=== PATIENT | female | born 1970 | race Caucasian/White ===

== ENCOUNTER 2020-12-20 19:13 | Emergency (ER) | payer OTHER, SELFPAY ==
[2020-12-20 19:25] VITALS: BP 145/78; PULSE 78; RESP 14; TEMP 36.9; O2SAT 95
--- NOTE | 2020-12-20 19:59 | ED.URI ---
HPI - URI/Sore Throat General Chief Complaint: Upper Respiratory Infection Stated Complaint: Fever, congestion, Ear pain, headache,sore throat, Time Seen by Provider: 12/20/20 19:59 Source: patient Limitations: no limitations History of Present Illness HPI Narrative: Susana Tracy is a 50 yo female with a PMH of hypertension and COPD who comes to [facility] with complaints of upper respiratory symptoms that started yesterday. States she is very fatigued for the last 3 to 4 days .she states that her 2 nieces had strep 2 weeks ago and that she has felt congested and running a fever since this afternoon. She abuses tobacco. She needed to use rescue inhaler today. No nausea vomiting or diarrhea Related Data Home Medications Medication Instructions Recorded Confirmed albuterol sulfate 12/20/20 atenolol 12/20/20 buprenorphine-naloxone film 12/20/20 buprenorphine-naloxone film 12/20/20 trazodone 12/20/20 Allergies Allergy/AdvReac Type Severity Reaction Status Date / Time diphenhydramine Allergy Unknown Hives Verified 12/20/20 19:36 prednisone Allergy Unknown Insomnia Verified 12/20/20 19:36 triprolidine Allergy Unknown Itching Verified 12/20/20 19:36 ANTIHISTAMINE Allergy Unknown Hives Uncoded 12/20/20 19:36 PSEUDOEPHEDRINE HCL Allergy Unknown Insomnia Uncoded 12/20/20 19:36 SYMPATHOMIMADR Allergy Unknown Unknown Uncoded 12/20/20 19:36 TRIPROLIDINE HCL Allergy Unknown Unknown Uncoded 12/20/20 19:36 Review of Systems Review of Systems: CONSTITUTIONAL: Has fever, chills, sweats. EYES: Denies visual changes, redness, discharge. ENT: Denies rhinorrhea, has congestion, has sore throat, otalgia. CARDIOVASCULAR: Denies chest pain, palpitations, edema. RESPIRATORY: Denies dyspnea, wheezing, cough GASTROINTESTINAL: Denies abdominal pain, nausea, vomiting, diarrhea. GENITOURINARY: Denies dysuria, hematuria, abnormal discharge SKIN: Denies rash or itching. NEUROLOGIC: Denies numbness, or focal weakness. PSYCHIATRIC: Denies anxiety or depression. [facility] Past Medical History Medical History COPD (chronic obstructive pulmonary disease) Hypertension Family History Family History Other Hypertension Social History Social History (Updated 12/20/20 @ 20:03 by Elisha Frederick CNP) Smoking packs per day: 1 Smoking cigarettes per day: 20.0 Smoking status: Current every day smoker Alcohol intake: never Exam Narrative: GENERAL: This is a well-nourished, well-developed patient, in mild distress. HEAD: normocephalic, atraumatic. EYES: . Sclera clear/white. Vision is grossly intact. EARS: External ears normal, auditory canals erythema and without drainage, TMs with fluid behind them. Hearing grossly intact. NOSE: External nose normal without nasal discharge, nares without redness, no rhinorrhea. THROAT: Mucous membranes moist, posterior pharynx erythema NECK: Neck supple, non-tender CARDIOVASCULAR: Regular rate and rhythm without murmurs, gallops, or rubs. RESPIRATORY: Clear to auscultation. Breath sounds equal bilaterally. No wheezes, rales, or rhonchi. GASTROINTESTINAL: Abdomen soft, SKIN: warm, intact with no suspicious lesions or rash, good texture and turgor. NEURO: awake, alert, and oriented to person, place and time. There were no obvious focal neurologic abnormalities. Steady gait EXTREMITIES: Normal range of motion. BACK: Nontender without deformity Course Course Emergency Course: Patient complaining of upper respiratory symptoms that started yesterday and worsened today states she started running a fever today Flu test negative, strep test negative, PCR sent for Covid Started on Zithromax and eardrops and Zyrtec, Tessalon Vital Signs Vital signs: Vital Signs Temperature 98.5 F 12/20/20 19:25 Pulse Rate 78 12/20/20 19:25 Respiratory Rate 14 12/20/20 19:25 Blood Pressure 145/78
[2020-12-22 19:29] LABS: SARS-CoV-2 RNA PCR Negative
== END 2020-12-20 20:13 | disposition home or self-care (01) ==
PROVIDERS: Emergency Provider Nurse Practitioner; PCP Family Medicine
DX: J06.9 Acute upper respiratory infection, unspecified (principal); Z20.822 Contact with and (suspected) exposure to COVID-19; F17.210 Nicotine dependence, cigarettes, uncomplicated; I10 Essential (primary) hypertension; J44.9 Chronic obstructive pulmonary disease, unspecified
CPT/HCPCS: 87081; 87804; 87880; 99213; C9803; G0463; U0003; U0005

== ENCOUNTER 2022-12-25 01:20 | Day surgery (SDC) | payer OTHER, SELFPAY ==
--- NOTE | 2022-12-19 14:59 | PM.HPGS ---
History of Present Illness History of Present Illness Consent: Risks, benefits, and alternatives have been discussed and questions answered. Patient agrees to proceed with procedure. Chief complaint: Atonic Bladder, Retention Narrative: Susana Tracy is a 52 year old female patient has a documented atonic bladder by urodynamics following a spinal surgery at [facility] August 2022. He has had trials of voiding she has failed. She is minimally ambulatory which makes voiding it difficult. Been managed with a chronic catheter and, after discussion of other options, she has elected for placement of a suprapubic catheter. He is ready risk of procedure including, but not limited to, hematuria, injury to bowel and ongoing recurrent infections. Review of Systems Review of Systems: All systems reviewed & are unremarkable except as noted in HPI and below PMFSH Past Medical History Medical History Chronic obstructive pulmonary disease Chronic pain syndrome Hypertension Obstructive sleep apnea Surgical History Surgical History History of cholecystectomy History of cornea transplant History of hysterectomy History of spinal surgery Patient reports having a total 6 spinal surgeries over the years. Family History Family History Other Hypertension Social History Social History Social History: Surrogate medical decision maker: Nabeel Tracy, spouse. Code status: Full code. Smoking packs per day: 1.5 Smoking cigarettes per day: 30.0 Years smoked: 35 Smoking pack-years: 52.50 Smoking status: Heavy tobacco smoker Tobacco type: cigarettes Second hand tobacco smoke exposure: No Smoking end date: 08/02/22 Additional smoking assessment comments: Quit in july 2022. Alcohol intake: former Substance use: never Substance use type: painkillers Lack of Transportation: No Lack of Food: Never True Current Housing: I Have Housing Concerned About Future Housing: No Difficulty Paying Gas/Electric Bills: No Difficulty Paying for Meds: No Currently Unemployed: No Education: High School Diploma/GED Difficulty w/ Childcare or Family Care: No Additional living arrangements comments: Lives with spouse in [place]. She has 3 children. Spiritual care concerns: No Meds Home Medications and Allergies Home Medications Medication Instructions Recorded Confirmed Type trazodone 150 mg tablet 150 mg PO HS 12/20/20 09/18/22 History albuterol sulfate 2.5 mg/3 mL 2.5 mg inhalation Q6H PRN Wheezing 09/16/22 09/18/22 History (0.083 %) solution for nebulization atomoxetine 40 mg capsule 25 mg PO DAILY 09/16/22 09/18/22 History buprenorphine 8 mg-naloxone 2 mg 1 film sublingual Q12H 09/16/22 09/18/22 History sublingual film diclofenac sodium 1 % topical gel 2 g topical DAILY PRN Pain 09/16/22 09/18/22 History diltiazem HCl 240 mg 240 mg PO DAILY 09/16/22 09/18/22 History capsule,extended release 24 hr, controlled esomeprazole magnesium 40 mg 40 mg PO Q12H 09/16/22 09/18/22 History capsule,delayed release multivit with minerals-iron 18 1 tablet PO DAILY 09/16/22 09/18/22 History mg-folic ac 400 mcg-vit K 25 mcg tablet (Adults Multivitamin) sertraline 100 mg tablet 100 mg PO HS 09/16/22 09/18/22 History bisacodyl 10 mg rectal suppository 10 mg RECTAL QAM PRN Constipation 09/17/22 09/18/22 Rx #12 ea docusate sodium 100 mg capsule 100 mg PO DAILY #60 caps 09/17/22 09/18/22 Rx ferrous sulfate 325 mg (65 mg 324 mg PO DAILY@0800 #30 tabs 09/17/22 09/18/22 Rx iron) tablet oxybutynin chloride 5 mg tablet 5 mg PO TID #90 tabs 09/17/22 09/18/22 Rx polyethylene glycol 3350 17 gram 17 g PO QAM #30 ea 09/17/22 09/18/22 Rx oral powder packet (Miralax)
[2022-12-22 13:06] VITALS: BMI 27.4
--- NOTE | 2022-12-22 13:18 | PC.NURSE ---
Report to the Outpatient Waiting Room, entrance under the green pavilion located off [facility], at time 11:00 on date 12/25/22. Planned Procedure Time: 1:00. Time changes happen often and if your time is changed the preop area will call you the afternoon before. - You and your visitor will be asked to self-screen and do not enter if you have any COVID symptoms. - A mask is optional within the hospital at this time. Patients may have clear liquids (water, carbonated beverages, clear teas, apple juice) until 3 hours prior to surgery with a maximum of 20 ounces. - No food from midnight until time of surgery Take the following medications with a SIP of water the morning of surgery: INHALER IF NEEDED, ATENOLOL, SUBOXONE, LYRICA DO NOT STOP ANY OF YOUR OTHER PRESCRIPTION MEDICATIONS PRIOR TO SURGERY ?EXCEPT THE FOLLOWING Medications to discontinue per physician: VITAMINS/SUPPLEMENTS Date to take last dose: NO MORE UNTIL AFTER SURGERY Please no make-up, nail mauritian, hairspray, perfume, deodorant, or body powder the day of surgery. No jewelry (including any body piercings) or valuables the day of surgery, leave them at home. Please take a shower or bath the night before, or the morning of, surgery with an antibacterial soap. Wear comfortable, loose fitting clothing. - Jewelry must be removed prior to entering the operating room. Rings and piercings that are not removed may be cut off. - The hospital will not accept responsibility for valuables. - Please leave all valuables, including medications, at home the day of surgery. If you are going home after surgery, a licensed hook up driver must drive you home. - NO public transportation without another adult if you receive anesthesia. - We recommend that an adult stay with you for 24 hours following discharge. - We also recommend that you do not drive, make important decision, drink alcoholic beverages, or take any drugs that were not prescribed by your health care provider for at least 24 hours after your discharge time. Follow any additional instructions given to you from your surgeon. If you or anyone in your household have experienced Covid symptoms in the past week, please notify your surgeon or the nurse liaison at the phone number below for possible testing. Telephone instructions given to PT - CORNELL SANDERS and asked if any additional questions and then verbalized understanding. Patient advised to call surgeon office or pre surgery nurse liaison [phone] if any additional questions.
[2022-12-25] VITALS (8 sets, daily range): BP systolic 91–123; BP diastolic 46–74; PULSE 62–78; RESP 11–18; TEMP 36.9; O2SAT 90–99; BMI 27.3
--- NOTE | 2022-12-25 06:31 | WPDHPUPDATE1 ---
History and Physical Update Update Date/Time: 12/25/22 06:31 History and Physical has been reviewed, including an updated exam of the patient. There are NO changes in the patient's condition. Risks, benefits, and alternatives have been discussed and questions answered. Patient agrees to proceed with procedure.
[2022-12-25] MEDS: LACTATED RINGERS 1,000 ML 30 ML IV CONT (11:40)
--- NOTE | 2022-12-25 11:47 | ECG_ITS ---
Measurements Intervals [place] Rate: 59 P: 70 AL: 177 QRS: 21 QRSD: 97 T: 48 QT: 427 QTc: 425 Interpretive Statements SINUS BRADYCARDIA LOW QRS VOLTAGE- DIFFUSE LEADS BASELINE ARTIFACT- V4 BORDERLINE ECG NO PREVIOUS ECG AVAILABLE FOR COMPARISON Electronically Signed On 12-25-2022 12:58:31 CDT by Ambrose Padilla D.O.
[2022-12-25 12:01] LABS: Anion Gap 4 mmol/L (8-16); Blood Urea Nitrogen 9 mg/dL (7-17); Carbon Dioxide 33 mmol/L (22-30); Chloride 103 mmol/L (98-107); Estimated CRCL calculation 108 ml/min; Estimated Glomerular Filt Rate > 60; Glucose 88 mg/dL (65-110); Potassium 4.1 mmol/L (3.4-5.0); Sodium 140 mmol/L (137-145)
--- NOTE | 2022-12-25 12:08 | WPDANESEPPF ---
Anes - Initial Pre Proc Eval Procedure: Operation Date: 12/25/22 12:30 Proposed Procedures p Cystoscopy with Insertion Suprapubic Catheter - Tru Jerez MD Date/Time: 12/25/22 12:08 Surgeon: Tru Jerez MD Pre Op Diagnosis: Atonic Bladder, Retention Patient Data Age: 52 Gender: F Height: 1.63 m Weight: 72.3 kg Last Vital Signs Temp 36.9 C 12/25/22 10:05 Pulse 72 12/25/22 10:05 Resp 18 12/25/22 10:05 BP 91/62 L 12/25/22 10:05 Pulse Ox 90 12/25/22 10:05 O2 Del Method Room Air 12/25/22 10:05 Allergies Allergy/AdvReac Type Severity Reaction Status Date / Time diphenhydramine Allergy Unknown Hives Verified 12/25/22 11:54 triprolidine Allergy Unknown Itching Verified 12/25/22 11:54 pseudoephedrine AdvReac Unknown Insomnia Verified 12/25/22 11:54 Home Medications Medication Instructions Recorded Confirmed Type trazodone 150 mg tablet 150 mg PO HS 12/20/20 12/22/22 History albuterol sulfate 2.5 mg/3 mL 2.5 mg inhalation Q6H PRN Wheezing 09/16/22 12/22/22 History (0.083 %) solution for nebulization buprenorphine 8 mg-naloxone 2 mg 1 film sublingual Q12H 09/16/22 12/22/22 History sublingual film diclofenac sodium 1 % topical gel 2 g topical DAILY PRN Pain 09/16/22 12/22/22 History diltiazem HCl 240 mg 240 mg PO HS 09/16/22 12/22/22 History capsule,extended release 24 hr, controlled esomeprazole magnesium 40 mg 40 mg PO Q12H 09/16/22 12/22/22 History capsule,delayed release bisacodyl 10 mg rectal suppository 10 mg RECTAL QAM PRN Constipation 09/17/22 12/22/22 Rx #12 ea oxybutynin chloride 5 mg tablet 5 mg PO TID #90 tabs 09/17/22 12/22/22 Rx atenolol 25 mg tablet 25 mg PO DAILY #30 tabs 09/25/22 12/22/22 Rx docusate sodium 100 mg capsule 100 mg PO Q12HR #30 caps 09/25/22 12/22/22 Rx pregabalin 75 mg capsule (Lyrica) 150 mg PO Q12HR #60 caps 09/25/22 12/22/22 Rx biotin 800 mcg tablet 800 mcg PO DAILY 12/22/22 12/22/22 History escitalopram oxalate 10 mg tablet 10 mg PO HS 12/22/22 12/22/22 History furosemide 20 mg tablet 20 mg PO BID 12/22/22 12/22/22 History ibuprofen 800 mg tablet 800 mg PO TID PRN Pain 12/22/22 12/22/22 History phenazopyridine 95 mg tablet (Azo 95 mg PO TID 12/22/22 12/22/22 History Urinary Pain Relief) potassium chloride 10 mEq 10 meq PO DAILY 12/22/22 12/22/22 History tablet,extended release Laboratory Tests 12/25/22 11:43 Sodium 140 mmol/L (137-145) Potassium 4.1 mmol/L (3.4-5.0) Chloride 103 mmol/L (98-107) Carbon Dioxide 33 H mmol/L (22-30) Anion Gap 4 L mmol/L (8-16) BUN 9 mg/dL (7-17) Creatinine 0.50 L mg/dL (0.7-1.0) Estim Creat Clear Calc 108 ml/min Estimated GFR > 60 (59 - ) Glucose 88 mg/dL (65-110) Calcium 9.0 mg/dL (8.4-10.2) Patient hx anesthesia problems: none Family hx anesthesia problems: none Results Review: All pre-operative results and documents have been reviewed as part of the pre-operative evaluation. [facility] Past Medical History Medical History Chronic obstructive pulmonary disease Chronic pain syndrome Hypertension Obstructive sleep apnea Surgical History Surgical History History of cholecystectomy History of cornea transplant History of hysterectomy History of spinal surgery Patient reports having a total 6 spinal surgeries over the years. Family History Family History Other Hypertension Social History Social History Social History: Surrogate medical decision maker: Nabeel Tracy, spouse. Code status: Full code. Smoking packs per day: 1 Smoking cigarettes per day: 20.0 Years smoked: 30 Smoking pack-years: 30.00 Smoking status: Current some day smoker Tobacco type: cigarettes Second h
[2022-12-25] MEDS: ceFAZolin 2 GM/D5W 50 ML 2 GM/50 ML BAG IVPB (13:14)
[2022-12-25] MEDS: LIDOCAINE HCL 1% LOCAL INJ 20 ML VIAL 8 ML INFILTRATE (13:53)
--- NOTE | 2022-12-25 13:55 | P.OP_ITS ---
Procedure Note - Detailed Date of Procedure 12/25/22 Pre-op Diagnosis Atonic Bladder, Urinary Retention Post-op Diagnosis Same Procedure Performed Cystoscopy, placement of a suprapubic catheter Surgeon Tru Jerez MD Anesthesia MAC Description of Procedure patient is brought the op suite where she has prepped draped in routine sterile fashion while in dorsal lithotomy position. 2% xylocaine jelly was introduced intraurethrally and systemic sedation is administered per the anesthesia department. Preoperative imaging was reviewed and patient has no apparent bowel in the pelvis anterior to the bladder. The bladder is hyper distended with saline through a 19 F rigid cystoscope. Spinal needle was placed in the dome. The suprapubic tract is dilated over a guidewire to 22 F and a 16 F [place] tip catheter is placed to straight drainage. The catheter secured with 3-0 nylon. The patient tolerated the procedure well was taken recovery room good condition. Blood loss was less than 5 cc. Packing No Pathology None sent Complications No immediate complications Condition Stable Disposition PACU
== END 2022-12-25 16:10 | disposition home or self-care (01) ==
PROVIDERS: Anesthesiology; PCP Family Medicine; Visit Provider Urology
PROC: 0T9B30Z Drainage of Bladder with Drainage Device, Percutaneous Approach (ICD-10-PCS; CPT 51102; principal; 2022-12-25 12:30)
DX: N31.2 Flaccid neuropathic bladder, not elsewhere classified (principal); R33.8 Other retention of urine; I10 Essential (primary) hypertension; J44.9 Chronic obstructive pulmonary disease, unspecified; G47.33 Obstructive sleep apnea (adult) (pediatric); G89.4 Chronic pain syndrome; Z87.891 Personal history of nicotine dependence; Z79.51 Long term (current) use of inhaled steroids; Z79.891 Long term (current) use of opiate analgesic
CPT/HCPCS: 51040; 36415; 80048; 93005; C1726; C1769; J0690; J2250; J2704; J3010; J7120

== ENCOUNTER 2023-05-31 12:56 | Outpatient (CLI) | payer OTHER, SELFPAY ==
--- NOTE | ~2023-05-31 | CT_ITS ---
EXAMINATION: CT abdomen pelvis wo con DATE: 05/31/2023 13:46 INDICATION: Flaccid, neuropathic bladder TECHNIQUE: Computed tomography (CT) of the abdomen and pelvis was performed without intravenous contr ast. The dose-length product (DLP) was 283.57 mGy-cm. Automated exposure control and iterative recons truction technique were employed. COMPARISON: 09/14/2022 FINDINGS: Minimal dependent atelectasis is present in the lung bases. The heart size is normal. Paul es of cholecystectomy are noted. The liver, spleen, pancreas, and adrenal glands are normal. The kidn eys appear unremarkable. No pathologically enlarged abdominal or pelvic lymph nodes are identified. N o free intraperitoneal gas or evidence of bowel obstruction. The bladder is decompressed by a suprapu bic catheter. A moderate volume of colonic stool is present. There are changes of anterior posterior fusion lumbar spine IMPRESSION: 1. No acute findings. Reviewed, dictated and finalized at location B. Y LEVEL RECRUITER IMPRESSION: 1. No acute findings.
== END 2023-05-31 12:57 | disposition home or self-care (01) ==
PROVIDERS: PCP Family Medicine; Visit Provider Physician Assistant
DX: N31.2 Flaccid neuropathic bladder, not elsewhere classified (principal)
CPT/HCPCS: 74176

== ENCOUNTER 2023-09-08 13:33 | Emergency (ER) | payer OTHER, SELFPAY ==
[2023-09-08 13:35] VITALS: BP 144/62; PULSE 72; RESP 20; TEMP 36.4; O2SAT 92
--- NOTE | 2023-09-08 14:24 | ED.GENADULT ---
HPI - General Adult General Chief complaint: Urogenital-Female Stated complaint: suprapubic catheter issue Time Seen by Provider: 09/08/23 13:59 History of Present Illness HPI narrative: 53-year-old female presenting emergency department for evaluation for a dislodged suprapubic Ochoa catheter. patient reports the last time her Ochoa catheter was changed she had some significant discomfort with that. Patient reports the suprapubic Ochoa came out approximately 4 hours ago. Related Data Home Medications Medication Instructions Recorded Confirmed trazodone 150 mg tablet 150 mg PO HS 12/20/20 12/22/22 albuterol sulfate 2.5 mg/3 mL 2.5 mg inhalation Q6H PRN Wheezing 09/16/22 12/22/22 (0.083 %) solution for nebulization buprenorphine 8 mg-naloxone 2 mg 1 film sublingual Q12H 09/16/22 12/25/22 sublingual film (Suboxone) diclofenac sodium 1 % topical gel 2 g topical DAILY PRN Pain 09/16/22 12/22/22 diltiazem HCl 240 mg 240 mg PO HS 09/16/22 12/22/22 capsule,extended release 24 hr, controlled esomeprazole magnesium 40 mg 40 mg PO Q12H 09/16/22 12/22/22 capsule,delayed release biotin 800 mcg tablet 800 mcg PO DAILY 12/22/22 12/25/22 escitalopram oxalate 10 mg tablet 10 mg PO HS 12/22/22 12/22/22 furosemide 20 mg tablet 20 mg PO BID 12/22/22 12/22/22 ibuprofen 800 mg tablet 800 mg PO TID PRN Pain 12/22/22 12/25/22 phenazopyridine 95 mg tablet (Azo 95 mg PO TID 12/22/22 12/22/22 Urinary Pain Relief) potassium chloride 10 mEq 10 meq PO DAILY 12/22/22 12/22/22 tablet,extended release Allergies Allergy/AdvReac Type Severity Reaction Status Date / Time diphenhydramine Allergy Unknown Hives Verified 12/25/22 11:54 triprolidine Allergy Unknown Itching Verified 12/25/22 11:54 pseudoephedrine AdvReac Unknown Insomnia Verified 12/25/22 11:54 Review of Systems Review of Systems: All systems reviewed & are unremarkable except as noted in HPI and below PMFSH Past Medical History Medical History Chronic obstructive pulmonary disease Chronic pain syndrome Hypertension Obstructive sleep apnea Surgical History Surgical History History of cholecystectomy History of cornea transplant History of hysterectomy History of spinal surgery Patient reports having a total 6 spinal surgeries over the years. Family History Family History Other Hypertension Social History Social History Social History: Surrogate medical decision maker: Nabeel Tracy, spouse. Code status: Full code. Smoking packs per day: 1 Smoking cigarettes per day: 20.0 Years smoked: 30 Smoking pack-years: 30.00 Smoking status: Current some day smoker Tobacco type: cigarettes Second hand tobacco smoke exposure: No Smoking end date: 08/02/22 Additional smoking assessment comments: Quit in july 2022. Alcohol intake: never Substance use: current Substance use type: marijuana Other substance usage details: EDIBLE NOT VERY OFTEN Lack of Transportation: No Lack of Food: Never True Current Housing: I Have Housing Concerned About Future Housing: No Difficulty Paying Gas/Electric Bills: No Difficulty Paying for Meds: No Currently Unemployed: No Education: High School Diploma/GED Difficulty w/ Childcare or Family Care: No Living arrangements: with family Additional living arrangements comments: Lives with spouse in [place]. She has 3 children. Spiritual care concerns: No Exam Narrative: APPEARANCE: Well appearing, no pain, no distress, well-nourished. HEAD: normocephalic, atraumatic. EYES: PERRLA/EOMI, conjunctivae clear. NOSE: Normal no drainage EARS:TMS clear with good light reflex. THROAT: Pharynx clear, no exudate. NECK: Supple. No adenopathy, no masses. RESPIRATORY: Airway patent,
--- NOTE | 2023-09-08 14:25 | PC.NURSE ---
Dr. Taylor attempted to insert Supra pubic cath, no urine return noted, pt c/o pain
--- NOTE | 2023-09-08 15:27 | PC.NURSE ---
Dr. Beasley at bedside, inserted supra pubic cath.Pt tolerated well
--- NOTE | 2023-09-08 15:33 | WPDURCON ---
Assessment and Plan Assessment and plan (1) Atonic bladder: Code(s): N31.2 - Flaccid neuropathic bladder, not elsewhere classified Status: Acute Assessment and Plan: Managed with SP tube. SP tube became dislodged today and had difficulty with replacement. Evaluated by Dr. Beasley and 14 [place] catheter was replaced over a wire with return of about 200 cc clear yellow urine. Currently on Levaquin which she will continue. Will keep current catheter for 3-4 weeks and then will f/u as an outpatient to attempt to upsize catheter. If unsuccessful or further SP tube issues, will schedule cystoscopy with Dr. Jerez for possible dilation of tract. Urology Consult Note HPI Date Seen: 09/08/23 Primary Care Provider: Guzman Moody, Jun. Consult Narrative Narrative: Susaan Tracy is a 53 year old female with history of atonic bladder managed with chronic SP tube. She came to the office on 09/04/23 for routine SP tube change and tolerated this well. This morning around 9 am, she states the tube simply fell out. There was no tugging or tension applied. She was instructed to promptly proceed to the ER for replacement. She presented to the ER about 4.5 hours later and staff was not able to replace SP tube due to resistance. I attempted to place a 14 Fr catheter without success. Dr. Beasley came to the bedside was able to insert a 14 Fr catheter over a wire with return of about 200 cc clear yellow urine. She will follow up in the office in 3-4 weeks for replacement and upsizing of catheter if possible. She typically uses an 18 Fr all silicone catheter due to irritation from standard catheters. She is currently taking Cipro which she started on 09/04/23 due to concerns for UTI at her outpatient appt. Her outpatient urine culture is still pending at this time. Review of Systems Review of Systems: All systems reviewed & are unremarkable except as noted in HPI and below PMFSH Past Medical History Medical History Chronic obstructive pulmonary disease Chronic pain syndrome Hypertension Obstructive sleep apnea Surgical History Surgical History History of cholecystectomy History of cornea transplant History of hysterectomy History of spinal surgery Patient reports having a total 6 spinal surgeries over the years. Family History Family History Other Hypertension Social History Social History Social History: Surrogate medical decision maker: Nabeel Tracy, spouse. Code status: Full code. Smoking packs per day: 1 Smoking cigarettes per day: 20.0 Years smoked: 30 Smoking pack-years: 30.00 Smoking status: Current some day smoker Tobacco type: cigarettes Second hand tobacco smoke exposure: No Smoking end date: 08/02/22 Additional smoking assessment comments: Quit in july 2022. Alcohol intake: never Substance use: current Substance use type: marijuana Other substance usage details: EDIBLE NOT VERY OFTEN Lack of Transportation: No Lack of Food: Never True Current Housing: I Have Housing Concerned About Future Housing: No Difficulty Paying Gas/Electric Bills: No Difficulty Paying for Meds: No Currently Unemployed: No Education: High School Diploma/GED Difficulty w/ Childcare or Family Care: No Living arrangements: with family Additional living arrangements comments: Lives with spouse in [place]. She has 3 children. Spiritual care concerns: No Meds Home Medications and Allergies Home Medications Medication Instructions Recorded Confirmed Type trazodone 150 mg tablet 150 mg PO HS 12/20/20 12/22/22 History albuterol sulfate 2.5 mg/3 mL 2.5 mg inhalation Q6H PRN Wheezing 09/16/22 12/22/22 History (0.083 %) solution for nebulization buprenorphine 8 mg
--- NOTE | 2023-09-11 08:33 | PC.NURSE ---
Late entry to amend physician orders for supra pubic catheter.
--- NOTE | 2023-11-06 10:44 | WPDURCON ---
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 Was only able to replace with 14 fr catheter. No complications Urology Consult Note HPI Date Seen: 09/08/23 Primary Care Provider: Guzman Moody, Greg Consult Narrative Reason for consult: inability to replace s/p tube Narrative: Susana Tracy is a 53 year old female with chronic s/p tube . Asked to see to replace s/p tube after multiple unsuccesful attempts Review of Systems Review of Systems: All systems reviewed & are unremarkable except as noted in HPI and below PMFSH Past Medical History Medical History Chronic obstructive pulmonary disease Chronic pain syndrome Hypertension Obstructive sleep apnea Surgical History Surgical History History of cholecystectomy History of cornea transplant History of hysterectomy History of spinal surgery Patient reports having a total 6 spinal surgeries over the years. Family History Family History Other Hypertension Social History Social History Social History: Surrogate medical decision maker: Nabeel Tracy, spouse. Code status: Full code. Smoking packs per day: 1 Smoking cigarettes per day: 20.0 Years smoked: 30 Smoking pack-years: 30.00 Smoking status: Current some day smoker Tobacco type: cigarettes Second hand tobacco smoke exposure: No Smoking end date: 08/02/22 Additional smoking assessment comments: Quit in july 2022. Alcohol intake: never Substance use: current Substance use type: marijuana Other substance usage details: EDIBLE NOT VERY OFTEN Lack of Transportation: No Lack of Food: Never True Current Housing: I Have Housing Concerned About Future Housing: No Difficulty Paying Gas/Electric Bills: No Difficulty Paying for Meds: No Currently Unemployed: No Education: High School Diploma/GED Difficulty w/ Childcare or Family Care: No Living arrangements: with family Additional living arrangements comments: Lives with spouse in [place]. She has 3 children. Spiritual care concerns: No Meds Home Medications and Allergies Home Medications Medication Instructions Recorded Confirmed Type trazodone 150 mg tablet 150 mg PO HS 12/20/20 12/22/22 History albuterol sulfate 2.5 mg/3 mL 2.5 mg inhalation Q6H PRN Wheezing 09/16/22 12/22/22 History (0.083 %) solution for nebulization buprenorphine 8 mg-naloxone 2 mg 1 film sublingual Q12H 09/16/22 12/25/22 History sublingual film (Suboxone) diclofenac sodium 1 % topical gel 2 g topical DAILY PRN Pain 09/16/22 12/22/22 History diltiazem HCl 240 mg 240 mg PO HS 09/16/22 12/22/22 History capsule,extended release 24 hr, controlled esomeprazole magnesium 40 mg 40 mg PO Q12H 09/16/22 12/22/22 History capsule,delayed release bisacodyl 10 mg rectal suppository 10 mg RECTAL QAM PRN Constipation 09/17/22 12/22/22 Rx #12 ea oxybutynin chloride 5 mg tablet 5 mg PO TID #90 tabs 09/17/22 12/22/22 Rx atenolol 25 mg tablet 25 mg PO DAILY #30 tabs 09/25/22 12/22/22 Rx docusate sodium 100 mg capsule 100 mg PO Q12HR #30 caps 09/25/22 12/22/22 Rx pregabalin 75 mg capsule (Lyrica) 150 mg PO Q12HR #60 caps 09/25/22 12/22/22 Rx biotin 800 mcg tablet 800 mcg PO DAILY 12/22/22 12/25/22 History escitalopram oxalate 10 mg tablet 10 mg PO HS 12/22/22 12/22/22 History furosemide 20 mg tablet 20 mg PO BID 12/22/22 12/22/22 History ibuprofen 800 mg tablet 800 mg PO TID PRN Pain 12/22/22 12/25/22 History phenazopyridine 95 mg tablet (Azo 95 mg PO TID 12/22/22 12/22/22 History Urinary Pain Relief) potassium ch
== END 2023-09-08 15:58 | disposition home or self-care (01) ==
PROVIDERS: Emergency Provider Emergency Medicine; PCP Family Medicine
DX: T83.020A Displacement of cystostomy catheter, initial encounter (principal); N31.2 Flaccid neuropathic bladder, not elsewhere classified; J44.9 Chronic obstructive pulmonary disease, unspecified; I10 Essential (primary) hypertension; G47.33 Obstructive sleep apnea (adult) (pediatric); G89.4 Chronic pain syndrome; Z94.7 Corneal transplant status; Z87.891 Personal history of nicotine dependence; Z90.710 Acquired absence of both cervix and uterus; Z90.49 Acquired absence of other specified parts of digestive tract; Z79.899 Other long term (current) drug therapy; Y84.6 Urinary catheterization as the cause of abnormal reaction of the patient, or of later complication, without mention of misadventure at the time of the procedure
CPT/HCPCS: 51702; 51705; 99283; J7030

== ENCOUNTER 2024-10-04 11:38 | Inpatient (IN) | payer OTHER, SELFPAY ==
[2024-10-04] VITALS (13 sets, daily range): BP systolic 142–170; BP diastolic 82–106; PULSE 95–106; RESP 14–20; TEMP 35.7–36.7; O2SAT 48–100; BMI 26.6
--- NOTE | ~2024-10-04 | US_ITS ---
US venous doppler LE RT - 10/05/2024 10:39 CDT History: 54 years old Female with right lower extremity pain and swelling. Real-time sonographic images of the right lower extremity venous system were obtained. Color Doppler sonography and spectral waveform analysis were performed. No prior studies for comparison. The right sapheno-femoral junctions are patent. The right common femoral, superficial femoral, popl iteal and posterior tibial veins are compressible and without evidence of echogenic thrombus. Impression: No evidence of deep venous thrombosis Reviewed, dictated and finalized at location A. Impression: No evidence of deep venous thrombosis
--- NOTE | ~2024-10-04 | XR_ITS ---
EXAM/PROCEDURE: XR chest 1V portable - 10/04/2024 12:20 CDT HISTORY: 54 years old Female with sob TECHNIQUE: AP view(s) of the chest. COMPARISON: None available. FINDINGS: LUNGS/ PLEURA: Mild vascular congestion, bilateral interstitial and alveolar opacities. HEART/ MEDIASTINUM: Heart appears normal in size. BONES: Degenerative changes. Partially visualized posterior spinal fusion hardware. OTHER: Visualized upper abdomen is unremarkable. IMPRESSION: Mild pulmonary edema. Reviewed, dictated and finalized at location A. IMPRESSION: Mild pulmonary edema.
--- NOTE | ~2024-10-04 | CT_ITS ---
EXAM: CTA chest PE protocol - 10/04/2024 14:10 CDT History: 54 years old Female with sob TECHNIQUE: CTA of the chest with contrast, according to pulmonary embolism protocol. Reformatted cor onal, sagittal, and 3-D MIP images were obtained. 100 cc of Optiray 350 were used for the study. Auto matic exposure control was used for this study. COMPARISON: None available. FINDINGS: EXAM QUALITY: Adequate visualization of the pulmonary arteries to the lobar level. PULMONARY ARTERIAL VASCULATURE: No evidence of pulmonary embolism in main and lobar pulmonary arterie s. Limited evaluation for segmental and peripheral pulmonary arteries due to suboptimal contrast bolu s timing. VISUALIZED LOWER NECK: Thyroid gland appears normal. No supraclavicular lymphadenopathy. AIRWAYS: Patent centrally. LUNGS and PLEURA: Scattered areas of groundglass and tree-in-bud opacities in left lung, concerning f or pneumonia. Mosaic attenuation of the lungs, likely sequela of obstructive small airway disease. MEDIASTINUM and FABIOLA: Hilar and mediastinal lymphadenopathy, likely reactive. Normal esophagus. HEART AND PERICARDIUM: Cardiac chambers are normal in size. No pericardial fluid or thickening is pre sent. VASCULATURE: Thoracic aorta and pulmonary arteries are normal in caliber. CHEST WALL: No supraclavicular or axillary lymphadenopathy. MUSCULOSKELETAL: Multilevel degenerative changes of the thoracic spine.Partially visualized spinal fu boris hardware in the lumbar spine. UPPER ABDOMEN: Unremarkable. IMPRESSION: 1. No evidence of pulmonary embolism in main and lobar pulmonary arteries. 2. Scattered areas of groundglass and tree-in-bud opacities in left lung, concerning for pneumonia. 3. Mosaic attenuation of the lungs, likely sequela of obstructive small airway disease. Reviewed, dictated and finalized at location A. IMPRESSION: 1. No evidence of pulmonary embolism in main and lobar pulmonary arteries. 2. Scattered areas of groundglass and tree-in-bud opacities in left lung, conc erning for pneumonia. 3. Mosaic attenuation of the lungs, likely sequela of obstructive small airway disease.
--- NOTE | 2024-10-04 12:22 | ECG_ITS ---
Test Date: 2024-10-04 12:25:06 Measurements Intervals [place] Rate: 96 P: 53 W[place]: 166 QRS: 36 QRSD: 99 T: 31 QT: 343 QTc: 434 Interpretive Statements SINUS RHYTHM POSSIBLE LEFT ATRIAL ENLARGEMENT PATTERN CONSISTENT WITH PULMONARY DISEASE INCOMPLETE RIGHT BUNDLE BRANCH BLOCK BASELINE ARTIFACT- I, III, AVL, V5-V6 BORDERLINE ECG No previous ECG available for comparison Electronically Signed On 10-04-2024 16:52:56 CDT by Ambrose Padilla D.O.
--- NOTE | 2024-10-04 12:30 | PC.NURSE ---
Dr. Guillory notified of pt. arrival to room 8 d/t pt. critical condition. Dr. Guillory immediately to bedside to assess pt. Pt. arrives with suprapubic in place. Pt. states that it was changed 1.[address] Guillory, ok to not change out suprapubic at this time.
[2024-10-04] MEDS: IPRATROPIUM 0.5 MG/ALBUTEROL SULFATE 2.5 MG AMPUL.NEB 3 ML INHALATION (12:38)
[2024-10-04 12:47] LABS: Basophils Absolute Auto 0.1 K/mm3 (0.0-0.1); Eosinophils Percent Auto 0.6 % (0-4.4); Hematocrit 46.2 % (37.0-47.0); Hemoglobin 12.4 g/dL (12.0-15.0); Immature Granulocyte Absolute 0.12 K/mm3 (0.00-0.031); Immature Granulocyte Percent A 1.8 % (0-0.5); Immature Platelet Fraction Pct 7.3 % (0.9-11.2); Lymphocytes Absolute Auto 0.95 K/mm3 (0.9-3.2); Lymphocytes Percent Auto 14.1 % (18.3-44.2); Mean Corpuscular HGB Conc 26.8 g/dl (32-36); Mean Corpuscular Hemoglobin 21.7 pg (26-34); Mean Corpuscular Volume 80.8 fl (80-100); Mean Platelet Volume 10.3 fl (7.4-10.4); Monocytes Absolute Auto 0.3 K/mm3 (0.1-0.6); Neutrophils Absolute Auto 5.3 K/mm3 (1.3-6.7); Neutrophils Percent Auto 78.5 % (45.5-73.1); Nucleated Red Blood Cells Perc 0.6 % (0.0-0.2); Platelet Count Result 152 k/mm3 (150-375); Red Blood Count 5.72 M/mm3 (4.2-5.4); Red Cell Distribution Width 20.3 % (11.5-14.5); White Blood Count 6.8 K/mm3 (4.5-10.0)
--- NOTE | 2024-10-04 12:51 | ED_ITS ---
HPI - SOB/Dyspnea General Chief Complaint: Shortness of Breath/Dyspnea Stated Complaint: SOB for 1 day, gave kim Time Seen by Provider: 10/04/24 12:25 History of Present Illness HPI Narrative: Pt getting progressivley more SOB over last few days. Pt denies chest pain. Pt has history of copd but not chf but has had swelling to legs for last few days and started on water pill yesterday. Pt also diagnosed with uti but has not started antibiotics yet. Pt denies fever or cough. Pt satting low but responded to nrb and now on NC at 4l and sats in mid 90's. Related Data Home Medications ?Medication ?Instructions ?Recorded ?Confirmed ?Last Taken ?Type trazodone 150 mg tablet 150 mg PO HS PRN sleep 12/20/20 10/04/24 Unknown History albuterol sulfate 2.5 mg/3 mL 2.5 mg inhalation Q6H PRN Wheezing 09/16/22 10/04/24 Unknown History (0.083 %) solution for nebulization buprenorphine 8 mg-naloxone 2 mg 1 film sublingual Q12H 09/16/22 10/04/24 12/25/22 08:00 History sublingual film (Suboxone) diclofenac sodium 1 % topical gel 2 g topical DAILY PRN Pain 09/16/22 10/04/24 Unknown History diltiazem HCl 240 mg 240 mg PO HS 09/16/22 10/04/24 Unknown History capsule,extended release 24 hr, controlled esomeprazole magnesium 40 mg 40 mg PO Q12H 09/16/22 10/04/24 Unknown History capsule,delayed release biotin 800 mcg tablet 800 mcg PO DAILY 12/22/22 10/04/24 12/22/22 History escitalopram oxalate 10 mg tablet 10 mg PO HS 12/22/22 10/04/24 Unknown History ibuprofen 800 mg tablet 800 mg PO TID PRN Pain 12/22/22 10/04/24 12/20/22 History phenazopyridine 95 mg tablet (Azo 95 mg PO TID 12/22/22 10/04/24 Unknown History Urinary Pain Relief) potassium chloride 10 mEq 10 meq PO DAILY 12/22/22 10/04/24 Unknown History tablet,extended release dextroamphetamine-amphetamine ER 20 mg PO DAILY 10/04/24 10/04/24 Unknown History 20 mg 24hr capsule,extend release furosemide 40 mg tablet 40 mg PO DAILY 10/04/24 10/04/24 Unknown History Allergies Allergy/AdvReac Type Severity Reaction Status Date / Time diphenhydramine Allergy Unknown Hives Verified 10/04/24 12:35 triprolidine Allergy Unknown Itching Verified 10/04/24 12:35 pseudoephedrine AdvReac Unknown Insomnia Verified 10/04/24 12:35 Review of Systems 2 Review of Systems: All systems reviewed & are unremarkable except as noted in HPI and below PMFSH Past Medical History Medical History Atonic bladder GERD (gastroesophageal reflux disease) Partial bowel obstruction Chronic pain syndrome Obstructive sleep apnea Chronic obstructive pulmonary disease Hypertension Surgical History Surgical History History of cholecystectomy History of hysterectomy History of spinal surgery Patient reports having a total 6 spinal surgeries over the years. History of cornea transplant Family History Family History (Updated 10/04/24 @ 20:58 by Susana Davidson RN) Father Hypertension Mother Hypertension Social History Social History Social History: Surrogate medical decision maker: Nabeel Tracy, spouse. Code status: Full code. Smoking packs per day: 1.5 Smoking cigarettes per day: 30.0 Years smoked: 30 Smoking pack-years: 45.00 Smoking status: Former smoker Tobacco type: cigarettes Second hand tobacco smoke exposure: No Smoking end date: 08/02/22 Additional smoking assessment comments: Quit in july 2022. Alcohol intake: never Substance use: former Substance use type: opiates Other substance usage details: EDIBLE NOT VERY OFTEN Do You Feel Safe in your Home?: Yes Lack of Transportation: YES Lack of Food: Never True Current Housing: I Have Housing Concerned About Future Housing: No Difficulty Paying Gas/Electric Bills: No Difficulty Paying for Meds: No Currently Unemployed: No Education: High School Diploma/GED Difficulty w/ Childcare or Family Care: No Living arrangements: with family Additional living arrangements comments: Lives with spouse in [place]. She has 3 children. Spiritual care concerns: No Exam 2 Const: General: healthy appearing Nutritional Appearance: well nourished Orientation/consciousness: patient oriented x3 Limitations: no limitations Eyes: EOM: EOMs intact bilaterally Chest: Chest palpation & inspection: normal inspection of the chest Resp: Effort & Inspection: labored and tachypneic Auscultation: diminished lung sounds Cardio: Rate: regular rate Rhythm: regular rhythm GI: GI Palp: Yes Soft to palpation and No Tenderness to palpation present (GI) Auscultation: normal bowel sounds Back/Spine/Pelvis: Back: no CVA tenderness Skin: General skin exam: normal color Rashes: no rashes Wounds: no wounds Neuro: General: patient oriented x3, moves all extremities, no meningeal signs, no focal motor deficits and CN's II-XI intact bilaterally Cranial nerves: Yes Nystagmus not present Speech: normal speech Extrem: General: normal to inspection and no clubbing, cyanosis or edema Psych: Mental Status: mental status grossly normal Affect: normal affect Attitude: cooperative Course Vital Signs Vital signs: Vital Signs Temperature 98.0 F 10/04/24 12:11 Pulse Rate 106 H 10/04/24 12:11 Respiratory Rate 20 10/04/24 12:11 Blood Pressure 142/82 H 10/04/24 12:11 Pulse Oximetry 51 L 10/04/24 12:11 Oxygen Delivery Room Air 10/04/24 12:11 Temperature 97.1 F L 10/04/24 12:24 Pulse Rate 95 10/04/24 18:40 Respiratory Rate 18 10/04/24 18:40 Blood Pressure 164/95 H 10/04/24 18:40 Pulse Oximetry 92 10/04/24 18:40 Oxygen Delivery Nasal Cannula 10/04/24 12:34 Oxygen Flow Rate 4 10/04/24 12:34 MDM - SOB/Dyspnea MDM Narrative Medical decision making narrative: Pt presents with SOB and leg swelling. need to rule out chf and pneumonia and copd exacerbation and RI. ekg andl labs and cxr ordered as well as neb. Pt comfortable now on 4L. cta chest neg for PE but some infiltrate. will start on rocephin and zithromax. discussed with Melba Lundberg and agrees to admit. Lab Data 10/04/24 12:36 10/04/24 12:36 Labs: Lab Results 10/04/24 10/04/24 10/04/24 Range/Units 12:36 12:45 12:49 WBC 6.8 (4.5-10.0) K/mm3 RBC 5.72 H (4.2-5.4) M/mm3 Hgb 12.4 (12.0-15.0) g/dL Hct 46.2 (37.0-47.0) % MCV 80.8 (80-100) fl MCH 21.7 L (26-34) pg MCHC 26.8 L (32-36) g/dl RDW 20.3 H (11.5-14.5) % Plt Count 152 (150-375) k/mm3 MPV 10.3 (7.4-10.4) fl Immature Gran % (Auto) 1.8 H (0-0.5) % Neut % (Auto) 78.5 H (45.5-73.1) % Lymph % (Auto) 14.1 L (18.3-44.2) % [place] % (Auto) 4.0 (2.6-8.5) % Eos % (Auto) 0.6 (0-4.4) % Baso % (Auto) 1.0 (0.2-1.2) % Lymph # (Auto) 0.95 (0.9-3.2) K/mm3 [place] # (Auto) 0.3 (0.1-0.6) K/mm3 Eos # (Auto) 0.0 (0-0.3) K/mm3 Baso # (Auto) 0.1 (0.0-0.1) K/mm3 Abs Immat Gran (auto) 0.12 H (0.00-0.031) K/mm3 Absolute Neuts (auto) 5.3 (1.3-6.7) K/mm3 Absolute Nucleated RBC 0.040 H (0.0-0.012) K/mm3 Band Neutrophils % Not Reportable Nucleated RBC % 0.6 H (0.0-0.2) % Platelet Estimate Adequate (Adequate) % Immature Plt Fraction 7.3 (0.9-11.2) % Hypochromasia 1+ Anisocytosis 1+ Schistocytes None seen PT 13.5 (11.1-14.7) Seconds INR 1.0 APTT 31.1 (22.3-36.8) Seconds Sodium 143 (137-145) mmol/L Potassium 4.3 (3.4-5.0) mmol/L Chloride 101 (98-107) mmol/L Carbon Dioxide 35 H (22-30) mmol/L Anion Gap 7 (4-12) mmol/L BUN 10 (7-17) mg/dL Creatinine 0.39 L (0.7-1.0) mg/dL Estim Creat Clear Calc 116 ml/min Estimated GFR > 60 (59 - ) Glucose 112 H (65-110) mg/dL Lactic Acid 0.7 (0.7-2.0) mmol/L Calcium 9.1 (8.4-10.2) mg/dL Total Bilirubin 0.6 (0.2-1.3) mg/dL AST 24 (14-36) U/L ALT 10 (6-35) U/L Alkaline Phosphatase 156 H (38-126) U/L Troponin I < 0.012 (0.000-0.034) ng/mL NT-Pro-B Natriuret Pep 3300 H (19.9-100) pg/mL Total Protein 7.8 (6.3-8.2) g/dL Albumin 3.9 (3.5-5.1) g/dL Urine Color Yellow (Yellow) Urine Appearance Cloudy H (Clear) Urine pH 7.0 (5.0-9.0) Ur Specific [place] 1.022 (1.001-1.035) Urine Protein 1+ H (Negative) mg/dL Urine Glucose (UA) Negative (Negative) mg/dL Urine Ketones 1+ H (Negative) mg/dL Ur Blood (Man) 1+ H (Negative) Urine Nitrate Positive H (Negative) Urine Bilirubin Negative (Negative) Urine Urobilinogen 2.0 H (<2.0) mg/dL Leukocyte Esterase Rfl 3+ H (Negative) [place]/UL Urine RBC 51-100 H (0-2) /hpf Urine WBC >100 H (0-3) /hpf Ur Squamous Epith Cells None seen (Few) /hpf Urine Bacteria 4+ H /hpf Urine Casts 0-2 Discharge Plan Discharge Clinical Impression: CHF (congestive heart failure) Pneumonia Qualifiers: Pneumonia type: due to unspecified organism Laterality: left Lung location: u nspecified part of lung Qualified Code(s): J18.9 - Pneumonia, unspecified organism Patient Disposition: Still a Patient Condition: Improved
[2024-10-04 12:54] LABS: Add Urine Microscopic? YES; Appearance Urine Cloudy (Clear); Bacteria Urine 4+ /hpf; Bilirubin Urine Negative (Negative); Blood Urine 1+ (Negative); Color Urine Yellow (Yellow); Glucose Urine UA Negative (Negative); Ketones Urine 1+ mg/dL (Negative); Leukocyte Esterase Ur 3+ LEU/UL (Negative); Nitrate Urine Positive (Negative); Non Pathogenic Casts 0-2; Protein Urine 1+ mg/dL (Negative); RBC Urine 51-100 /hpf (0-2); Specific Grav Ur 1.022 (1.001-1.035); Squamous Epithelial Cell Urine None Seen /hpf (Few); WBC Urine >100 /hpf (0-3)
[2024-10-04 12:57] LABS: Prothrombin Time 13.5 Seconds (11.1-14.7)
[2024-10-04 12:58] LABS: Partial Thromboplastin Time 31.1 Seconds (22.3-36.8)
[2024-10-04 13:01] LABS: Alanine Aminotransferase 10 U/L (6-35); Albumin Level 3.9 g/dL (3.5-5.1); Alkaline Phosphatase 156 U/L (38-126); Anion Gap 7 mmol/L (4-12); Aspartate Amino Transferase 24 U/L (14-36); Bilirubin,Total 0.6 mg/dL (0.2-1.3); Blood Urea Nitrogen 10 mg/dL (7-17); Calcium 9.1 mg/dL (8.4-10.2); Carbon Dioxide 35 mmol/L (22-30); Chloride 101 mmol/L (98-107); Estimated CRCL calculation 116 ml/min; Estimated Glomerular Filt Rate > 60; Glucose 112 mg/dL (65-110); Potassium 4.3 mmol/L (3.4-5.0); Sodium 143 mmol/L (137-145); Total Protein 7.8 g/dL (6.3-8.2)
[2024-10-04 13:05] LABS: Lactic Acid Reflex 0.7 mmol/L (0.7-2.0)
[2024-10-04 13:07] LABS: Anisocytosis 1+; Hypochromasia 1+; Platelet Estimate Adequate (Adequate); Schistocytes None Seen
[2024-10-04 13:12] LABS: NT Pro B Type Natriuretic Pept 3300 pg/mL (19.9-100); Troponin I < 0.012 ng/mL (0.000-0.034)
--- NOTE | 2024-10-04 13:50 | PC.NURSE ---
With pt. permission, sister updated at bedside and daughter updated over the phone by this RN. All questions answered at this time.
[2024-10-04] MEDS: FUROSEMIDE INJ 40 MG/4 ML VIAL IV PUSH (14:32)
--- NOTE | 2024-10-04 15:25 | P.HP_ITS ---
H&P: HPI History of Present Illness Date/Time: 10/04/24 15:25 Chief Complaint: BLE Swelling, Abdominal Swelling, SOB Narrative: 54 y/o F with PMH of COPD, chronic pain syndrome, atonic bladder, hypertension, and MIKE presents here with bilateral lower extremity swelling, abdominal swelling, and shortness of breath. The patient presents here from home via EMS for further evaluation of lower extremity swelling, abdominal swelling, and shortness of breath.? She reports onset approximately 24 hours ago.? She contacted her PCP with her symptoms and she was started on a diuretic yesterday - able to take one dose yesterday. She reports no change in her LE. She denies any previously known history of CHF.? Shortness of breath is accompanied by productive cough (sputum - yellow).? Denies fever, chills, body aches, nausea, vomiting, or diarrhea.? Upon arrival to the emergency department, the patient was found to be 40% on room air with a good pleth on the monitor. Breathing was labored, speaking in short sentences, and placed on a non-rebreather with improvement in her oxygen to 100%.? She has since been titrated down to 4 L nasal cannula and O2 sat on average around 95%.? Along with the shortness of breath and swelling, she reports she was recently diagnosed with the UTI and has not started her medications.? She has a chronic suprapubic catheter in place due to history of atonic bladder.? Catheter was last exchanged 1.5 weeks ago. Initial VS at presentation: ?98? F, HR 106, R 20, 142/82, and 51% on RA.? Now 95% on 4L nasal cannula. ED workup showed: ?No leukocytosis, no anemia, normal coags, creatinine 0.39 and GFR >60, glucose 112, lactic within normal limits, initial troponin negative, BNP 3300, and UA suggestive of UTI.? CXR showed mild pulmonary edema.? Chest CTA showed no evidence of PE, scattered areas of ground-glass and tree-in-bud opacities in the left lung concerning for pneumonia, was a continuation of the lungs likely sequela of obstructive small airway disease.? EKG showed sinus bradycardia, rate 59, low QRS voltage in diffuse leads. Review of Systems Review of Systems: All systems reviewed & are unremarkable except as noted in HPI and below PMFSH Past Medical History Medical History Atonic bladder GERD (gastroesophageal reflux disease) Partial bowel obstruction Chronic pain syndrome Obstructive sleep apnea Chronic obstructive pulmonary disease Hypertension Surgical History Surgical History History of cholecystectomy History of hysterectomy History of spinal surgery Patient reports having a total 6 spinal surgeries over the years. History of cornea transplant Family History Family History Father Hypertension Mother Hypertension Social History Social History Social History: Surrogate medical decision maker: Nabeel Tracy, spouse. Code status: Full code. Smoking packs per day: 1.5 Smoking cigarettes per day: 30.0 Years smoked: 30 Smoking pack-years: 45.00 Smoking status: Former smoker Tobacco type: cigarettes Second hand tobacco smoke exposure: No Smoking end date: 08/02/22 Additional smoking assessment comments: Quit in july 2022. Alcohol intake: never Substance use: former Substance use type: opiates Other substance usage details: EDIBLE NOT VERY OFTEN Do You Feel Safe in your Home?: Yes Lack of Transportation: YES Lack of Food: Never True Current Housing: I Have Housing Concerned About Future Housing: No Difficulty Paying Gas/Electric Bills: No Difficulty Paying for Meds: No Currently Unemployed: No Education: High School Diploma/GED Difficulty w/ Childcare or Family Care: No Living arrangements: with family Additional living arrangements comments: Lives with spouse in [place]. She has 3 children. Spiritual care concerns: No Meds Home Medications and Allergies Home Medications ?Medication ?Instructions ?Recorded ?Confirmed ?Type trazodone 150 mg tablet 150 mg PO HS PRN sleep 12/20/20 10/04/24 History albuterol sulfate 2.5 mg/3 mL 2.5 mg inhalation Q6H PRN Wheezing 09/16/22 10/04/24 History (0.083 %) solution for nebulization buprenorphine 8 mg-naloxone 2 mg 1 film sublingual Q12H 09/16/22 10/04/24 History sublingual film (Suboxone) diclofenac sodium 1 % topical gel 2 g topical DAILY PRN Pain 09/16/22 10/04/24 History diltiazem HCl 240 mg 240 mg PO HS 09/16/22 10/04/24 History capsule,extended release 24 hr, controlled esomeprazole magnesium 40 mg 40 mg PO Q12H 09/16/22 10/04/24 History capsule,delayed release oxybutynin chloride 5 mg tablet 5 mg PO TID #90 tabs 09/17/22 10/04/24 Rx atenolol 25 mg tablet 25 mg PO DAILY #30 tabs 09/25/22 10/04/24 Rx pregabalin 75 mg capsule (Lyrica) 150 mg (2 x 75 mg) PO Q12HR #60 09/25/22 10/04/24 Rx caps biotin 800 mcg tablet 800 mcg PO DAILY 12/22/22 10/04/24 History escitalopram oxalate 10 mg tablet 10 mg PO HS 12/22/22 10/04/24 History ibuprofen 800 mg tablet 800 mg PO TID PRN Pain 12/22/22 10/04/24 History phenazopyridine 95 mg tablet (Azo 95 mg PO TID 12/22/22 10/04/24 History Urinary Pain Relief) potassium chloride 10 mEq 10 meq PO DAILY 12/22/22 10/04/24 History tablet,extended release albuterol sulfate 90 mcg/actuation 2 puff inhalation Q6H PRN 10/04/24 10/04/24 History aerosol inhaler shortness of breath or wheezing dextroamphetamine-amphetamine ER 20 mg PO DAILY 10/04/24 10/04/24 History 20 mg 24hr capsule,extend release furosemide 40 mg tablet 40 mg PO DAILY 10/04/24 10/04/24 History Allergies Allergy/AdvReac Type Severity Reaction Status Date / Time diphenhydramine Allergy Unknown Hives Verified 10/04/24 12:35 triprolidine Allergy Unknown Itching Verified 10/04/24 12:35 pseudoephedrine AdvReac Unknown Insomnia Verified 10/04/24 12:35 Vital Signs Vital Signs - 24 hr 10/04/24 12:11 10/04/24 12:18 10/04/24 12:20 Temperature 98.0 F Pulse Rate 106 H Respiratory Rate 20 Blood Pressure 142/82 H Pulse Oximetry 51 L 48 L 100 Oxygen Delivery Room Air Room Air Non-Rebreather Mask Oxygen Flow Rate 10 10/04/24 12:24 10/04/24 12:24 10/04/24 12:34 Temperature 97.1 F L Pulse Rate 99 Respiratory Rate 15 Blood Pressure 170/106 H Pulse Oximetry 100 93 93 Oxygen Delivery Nasal Cannula Nasal Cannula Nasal Cannula Oxygen Flow Rate 6 4 4 10/04/24 12:41 10/04/24 13:43 Temperature Pulse Rate 100 100 Respiratory Rate 18 17 Blood Pressure 163/95 H Pulse Oximetry 89 L Oxygen Delivery Oxygen Flow Rate Exam Const: General: comfortable and no acute distress Other: , female, chronically ill-appearing. Fatigued HENMT: Face/Nose/Sinus: Normal nares present Mouth: Yes moist mucous membranes Eyes: General: appearance normal, both eyes and all related structures Sclera: sclerae normal Pupils: Equal, round and reactive pupils present EOM: EOMs intact bilaterally Resp: Effort & Inspection: normal respiratory effort Other: Wheezing bilaterally, more prominent on the left. Bibasilar crackles. Cardio: Rate: regular rate Rhythm: regular rhythm Other: S1-S2 present without murmur, rub, ectopy GI: Other: Abdomen soft, nontender, nondistended. Suprapubic catheter in place. Normoactive bowel sounds in all quadrants. Skin: Other: Mild erythema and warmth to the right lower extremity, no open wounds. Neuro: Speech: normal speech Motor exam (neuro): 5/5 motor strength present throughout Sensory Exam: normal sensation Other: A&O x4 Extrem: Other: RLE swelling 1-2+ and pitting with mild erythema and warmth, LLE 1+, trace pitting. Psych: Mental Status: mental status grossly normal Affect: normal affect Other: Good insight judgment, pleasant H&P: Results Labs Labs: Short CBC 10/04/24 Range/Units 12:36 WBC 6.8 (4.5-10.0) K/mm3 Hgb 12.4 (12.0-15.0) g/dL Hct 46.2 (37.0-47.0) % Plt Count 152 (150-375) k/mm3 BMP 10/04/24 12:36 Sodium 143 Potassium 4.3 Chloride 101 Carbon Dioxide 35 H BUN 10 Creatinine 0.39 L Glucose 112 H Calcium 9.1 Cardiac Enzymes 10/04/24 Range/Units 12:36 Troponin I < 0.012 (0.000-0.034) ng/mL Liver Function 10/04/24 Range/Units 12:36 Total Bilirubin 0.6 (0.2-1.3) mg/dL AST 24 (14-36) U/L ALT 10 (6-35) U/L Alkaline Phosphatase 156 H (38-126) U/L Albumin 3.9 (3.5-5.1) g/dL Urine 10/04/24 Range/Units 12:45 Urine Color Yellow (Yellow) Urine Appearance Cloudy H (Clear) Urine pH 7.0 (5.0-9.0) Ur Specific [place] 1.022 (1.001-1.035) Urine Protein 1+ H (Negative) mg/dL Urine Glucose (UA) Negative (Negative) mg/dL Assessment and Plan Assessment and plan (1) Acute hypoxic respiratory failure: Code(s): J96.01 - Acute respiratory failure with hypoxia Status: Acute Assessment and Plan: Suspected to be multifactorial including possible CHF exacerbation, pneumonia, COPD component.? CTA showed no PE, concerning for pneumonia of the left lung.? Started on ceftriaxone and azithromycin.? Did not meet SIRS criteria, HR only.? However significantly hypoxic - 51% on room air upon arrival.? Lactic 0.7. Blood cultures obtained in the ED on 10/04, follow. (2) Pneumonia: Qualifiers: Laterality: left Lung location: unspecified part of lung Pneumonia type: due to unspecified organism Qualified Code(s): J18.9 - Pneumonia, unspecified organism Code(s): J18.9 - Pneumonia, unspecified organism Status: Acute Assessment and Plan: - CXR:? Mild pulmonary edema - chest CTA: 1. No evidence of pulmonary embolism in main and lobar pulmonary arteries. 2. Scattered areas of groundglass and tree-in-bud opacities in left lung, concerning for pneumonia. 3. Mosaic attenuation of the lungs, likely sequela of obstructive small airway disease. - started on ceftriaxone and azithromycin on 10/04 - check MRSA PCR and sputum culture - supportive care:? Tylenol p.r.n., Mucinex scheduled, Tessalon Perles p.r.n. - contain supplemental O2 to maintain O2 saturation greater than 92%, currently requiring 4L nasal cannula (3) CHF (congestive heart failure): Qualifiers: Heart failure chronicity: acute Heart failure type: unspecified Qualified Code(s): I50.9 - Heart failure, unspecified Code(s): I50.9 - Heart failure, unspecified Status: Suspected Assessment and Plan: - BNP 3300 - CXR showed mild pulmonary edema, however not noted on CTA.? Patient reporting bilateral lower extremity swelling and abdominal swelling concerning for CHF exacerbation. - no echo on file, ordered - started on Lasix 40 mg IV daily - monitor I&Os and daily weights - trend renal function (4) Chronic obstructive pulmonary disease: Qualifiers: COPD type: COPD with acute exacerbation Qualified Code(s): J44.1 - Chronic obstructive pulmonary disease with (acute) exacerbation Code(s): J44.9 - Chronic obstructive pulmonary disease, unspecified Status: Chronic Assessment and Plan: - acute exacerbation - DuoNebs p.r.n. - prednisone 40 mg x 5 days (5) Urinary tract infection: Qualifiers: Encounter type: initial encounter Indwelling urinary catheter type: indwelling urethral catheter Urinary tract infection type: catheter-associated UTI Qualified Code(s): T83.511A - Infection and inflammatory reaction due to indwelling urethral catheter, initial encounter; N39.0 - Urinary tract in fection, site not specified Code(s): N39.0 - Urinary tract infection, site not specified Status: Acute Assessment and Plan: - UA:? Cloudy, 1+ protein, 1+ ketones, 1+ blood, positive nitrates, 2.0 urobilinogen, 3+ leuks, 51-100 RBC, greater than 100 WBC, 4+ bacteria with no epithelial cells. - UC pending - previous micro reviewed, pansensitive Enterococcus in 2022. - started on Ceftriaxone on 10/04 (6) Atonic bladder: Code(s): N31.2 - Flaccid neuropathic bladder, not elsewhere classified Status: Acute Assessment and Plan: - suprapubic catheter in place, last exchange 1.5 weeks ago (7) Hypertension: Qualifiers: Hypertension type: primary hypertension Qualified Code(s): I10 - Essential (primary) hypertension Code(s): I10 - Essential (primary) hypertension Status: Chronic Assessment and Plan: - chronic, currently 163/93 - continue home medications: Atenolol - monitor Plan Asymmetric swelling to the right lower extremity, check ultrasound. Diet: Heart healthy GI Prophylaxis: Not currently indicated DVT Prophylaxis: Lovenox SQ IV fluids: None, concern for CHF Lines/Tubes: Peripheral IV, suprapubic catheter Code Status: Full code Quality VTE Prophylaxis VTE prophylaxis: pharmacologic ordered Hospitalist MIPS Advance Care Plan I have confirmed that the patient's Advanced Care Plan is present, code status is documented, or surrogate decision maker is listed in patient medical record.: Yes Medication Reconciliation I have utilized all available resources to obtain, update and review the patients current medications (includes all prescriptions, OTC, herbals, cannabis, and nutritional supplements).: Yes
--- NOTE | 2024-10-04 16:04 | PC.NURSE ---
Pt. states I know this sounds weird but I pee from down there as well. Pure wick placed. No output in suction canister at this time.
[2024-10-04] MEDS: cefTRIAXone 2 GM/NS 100 ML 2 GM/100 ML BAG IVPB (16:06)
--- NOTE | 2024-10-04 16:43 | PC.NURSE ---
This RN walked into pt. room. Pt. c/o extreme pain in her legs. States she takes lyrica 150mg twice a day but I haven't had it since yesterday. Medication in home med list. Dr. bennett notified and order placed.
[2024-10-04] MEDS: AZITHROMYCIN 500 MG/NS 250 ML 500 MG/250 ML BAG 250 MG IVPB (16:45)
[2024-10-04] MEDS: PREGABALIN (*CRX) 75 MG CAPSULE 150 MG PO ×2 (16:48→21:30)
[2024-10-04 17:00] LABS: MRSA (PCR). DETECTED (NOT DETECTE)
--- NOTE | 2024-10-04 17:32 | PC.NURSE ---
Pt. daughter Lexie updated over the phone. All questions answered by this RN.
--- NOTE | 2024-10-04 18:38 | PC.NURSE ---
Meal tray delivered to pt. bedside. Pt. is drowsy but alert to verbal. Pt. reports she is not hungry.
[2024-10-04] MEDS: VANCOMYCIN 1,750 MG/NS 500 ML 1,750 MG/500 ML BAG 250 MG IVPB (18:39)
[2024-10-04 20:31] LABS: Glucose Point of Care 109 mg/dl (65-105)
--- NOTE | 2024-10-04 21:14 | ADMGEN ---
This patient, Susana Tracy, was admitted to [facility] Surg Room 321-02. Patient/family oriented to hospital policies and general routines including ID bracelet, bed and alarms, visiting hours, pain management, procedures, bathroom and other care routines, personal items, smoking policy, room service/diet, and visiting hours. Information on how to activate the Rapid Response Team has been discussed. Patient/Family are encouraged to report perceived risks to care and to ask questions if they do not understand what they are told or what they should do.
[2024-10-04] MEDS: MUPIROCIN 2% OINT 22 GM TUBE 1 APPLIC EACH NARE (21:30)
[2024-10-04] MEDS: guaiFENesin 12 HR 600 MG TABCR PO (21:30)
[2024-10-05] VITALS (19 sets, daily range): BP systolic 143–146; BP diastolic 81–83; PULSE 70–98; RESP 12–20; TEMP 36.5–37.1; O2SAT 92–96
--- NOTE | 2024-10-05 | ECHO_ITS ---
Patient Info Name: Susana Tracy Age: 54 years : 1970 Gender: Female Ht: 64 in Wt: 155 lbs BSA: 1.80 m2 HR: 87 bpm BP: 167 / 93 mmHg Technical Quality: Good Exam Date: 10/05/2024 8:28 AM Patient Status: I Admit Date: 10/04/2024 Exam Type: CA echo doppler color flow Complete two-dimensional, color flow and Doppler transthoracic echocardiogram is performed. Staff Referring Physician: Melba Mackey Forklift Supervisor: Lashae Diaz Attending Provider: Herb Strong Summary 1. Complete two-dimensional, color flow and Doppler transthoracic echocardiogram is performed. 2. Left ventricular chamber dimension is normal. 3. Left ventricular systolic function is normal, estimated at 65-70. 4. The left ventricular diastolic function is grade I diastolic dysfunction. 5. E/e' 10 is mildly elevated. 6. Left atrial chamber dimension is moderately enlarged. 7. Right atrial chamber dimension is severely enlarged. 8. There is mild aortic valve sclerosis. 9. There is trace mitral valve regurgitation. 10. There is mild tricuspid valve regurgitation. 11. Severe pulmonary hypertension, estimated pulmonary arterial systolic pressure is 67 mmHg. 12. There is trace pulmonic regurgitation. 13. Dilated inferior vena cava with >50% collapse upon inspiration consistent with elevated right atrial pressure, 10 mmHg. Left Ventricle E/e' 10 is mildly elevated. Left ventricular chamber dimension is normal. Left ventricular systolic function is normal, estimated at 65-70. The left ventricular diastolic function is grade I diastolic dysfunction. Right Ventricle Right ventricular chamber dimension is normal. Right ventricular systolic function is normal and with normal TAPSE 3.6 cm. Left Atria Left atrial chamber dimension is moderately enlarged. Right Atria Right atrial chamber dimension is severely enlarged. Aortic Valve The aortic valve is trileaflet. There is mild aortic valve sclerosis. There is no aortic valve stenosis. There is no aortic valve regurgitation. Pulmonic Valve There is trace pulmonic regurgitation. Mitral Valve There is no mitral valve stenosis. There is trace mitral valve regurgitation. Tricuspid Valve There is mild tricuspid valve regurgitation. Severe pulmonary hypertension, estimated pulmonary arterial systolic pressure is 67 mmHg. Pericardium/Pleural There is no pericardial effusion. Inferior Vena Cava Dilated inferior vena cava with >50% collapse upon inspiration consistent with elevated right atrial pressure, 10 mmHg. Aorta The aortic root size at the sinus of Valsalva is normal. Left Ventricular Outflow Tract Name Value Normal LVOT 2D LVOT Diameter 1.9 cm LVOT Doppler LVOT Peak Velocity 174 cm/s LVOT Peak Gradient 12 mmHg LVOT Mean Gradient 6 mmHg LVOT VTI 34 cm LVOT VTI/AV VTI Ratio 0.9 LVOT Stroke Volume 99 ml LVOT CO 8.5 l/min LVOT CI 4.7 l/min/m2 Pulmonic Valve Name Value Normal PV Doppler PV Peak Velocity 114 cm/s PV Peak Gradient 5 mmHg Mitral Valve Name Value Normal MV Diastolic Function MV E Peak Velocity 98 cm/s MV A Peak Velocity 120 cm/s MV E/A 0.8 MV Decel Time (PW) 228 ms MV Annular TDI MV E/e' (Septal) 11.6 MV E/e' (Lateral) 9.4 MV E/e' (Average) 10.5 Tricuspid Valve Name Value Normal TV Regurgitation Doppler TR Peak Velocity 377 cm/s TR Peak Gradient 57 mmHg Estimated PAP/RSVP RA Pressure 10 mmHg <=5 PA Systolic Pressure 67 mmHg <36 RV Systolic Pressure 67 mmHg <36 TV Annular TDI TV Lateral Kalpana s' Velocity 20.3 cm/s >=9.5 Aortic Valve Name Value Normal AV Doppler AV Peak Velocity 197 cm/s AV Peak Gradient 16 mmHg AV Mean Gradient 8 mmHg AV VTI 38 cm AV Area (Cont Eq VTI) 2.6 cm2 >=3.0 AV Area (Cont Eq Les) 2.6 cm2 AV DI (Les) 0.88 AV Regurgitation 2D LVOT Area 2.9 cm2 Ventricles Name Value Normal LV Dimensions 2D/MM IVS Diastolic Thickness (2D) 0.9 cm 0.6-1.0 LVID Diastole (2D) 4.9 cm 3.8-5.2 LVIW Diastolic Thickness (2D) 1.0 cm 0.6-0.9 LVID Systole (2D) 3.1 cm 2.2-3.5 LVOT Diameter 1.9 cm LV Mass (2D Cubed) 170.56 g 67.00-162.00 LV Mass Index (2D Cubed) 95 g/m2 43-95 Relative Wall Thickness (2D) 0.42 <=0.42 LV Fractional Shortening/Ejection Fraction 2D/MM LV Fractional Shortening (2D) 37 % 27-45 LV EF (2D Teichholz) 67 % LV Diastolic Volume (4C MOD) 89 ml LV EF (4C MOD) 77 % LV Diastolic Volume (2C MOD) 105 ml LV EF (2C MOD) 71 % LV Diastolic Volume (BP MOD) 99 ml 46-106 LV Diastolic Volume Index (BP MOD) 55 ml/m2 29-61 LV Systolic Volume (BP MOD) 26 ml 14-42 LV Systolic Volume Index (BP MOD) 14 ml/m2 8-24 LV EF (BP MOD) 74 % 54-74 LV Diastolic Length (4C) 8.2 cm LV Systolic Length (4C) 6.1 cm LV Stroke Volume (4C MOD) 69 ml Atria Name Value Normal LA Dimensions LA Volume (4C A-L) 65 ml LA Volume (BP A-L) 70 ml RA Dimensions RA Systolic Major [place] Length (4C) 6.3 cm 2.2-2.8 RA Area (4C) 30.6 cm2 <=18.0 Report Signatures
[2024-10-05] MEDS: ESCITALOPRAM OXALATE 10 MG TABLET PO ×2 (00:30→21:24)
[2024-10-05] MEDS: PANTOPRAZOLE 40 MG TABLET PO ×3 (00:30→21:24)
[2024-10-05] MEDS: dilTIAZem HCL CD 240 MG CAP.24HR PO ×2 (00:30→21:23)
[2024-10-05] MEDS: oxyBUTYnin CHLORIDE 5 MG TABLET PO ×4 (00:30→16:24)
[2024-10-05] MEDS: IPRATROPIUM 0.5 MG/ALBUTEROL SULFATE 2.5 MG AMPUL.NEB 3 ML INHALATION ×4 (02:22→20:36)
[2024-10-05] MEDS: VANCOMYCIN 1,250 MG/NS 250 ML 1,250 MG/250 ML BAG 166.67 MG IVPB (05:45)
--- NOTE | 2024-10-05 06:15 | PCRCNOTE ---
Pt. stated that she doesn't need a CPAP.
[2024-10-05 06:43] LABS: Basophils Absolute Auto 0.1 K/mm3 (0.0-0.1); Basophils Percent Auto 1.2 % (0.2-1.2); Eosinophils Percent Auto 0.3 % (0-4.4); Hematocrit 43.1 % (37.0-47.0); Hemoglobin 11.2 g/dL (12.0-15.0); Immature Granulocyte Absolute 0.09 K/mm3 (0.00-0.031); Immature Granulocyte Percent A 1.5 % (0-0.5); Immature Platelet Fraction Pct 8.5 % (0.9-11.2); Lymphocytes Absolute Auto 0.94 K/mm3 (0.9-3.2); Lymphocytes Percent Auto 15.9 % (18.3-44.2); Mean Corpuscular Hemoglobin 21.9 pg (26-34); Mean Corpuscular Volume 84.2 fl (80-100); Monocytes Absolute Auto 0.4 K/mm3 (0.1-0.6); Monocytes Percent Auto 6.4 % (2.6-8.5); Neutrophils Absolute Auto 4.4 K/mm3 (1.3-6.7); Neutrophils Percent Auto 74.7 % (45.5-73.1); Nucleated Red Blood Cells Perc 0.7 % (0.0-0.2); Platelet Count Result 102 k/mm3 (150-375); Red Blood Count 5.12 M/mm3 (4.2-5.4); Red Cell Distribution Width 19.9 % (11.5-14.5); White Blood Count 5.9 K/mm3 (4.5-10.0)
[2024-10-05 07:01] LABS: Alanine Aminotransferase 8 U/L (6-35); Albumin Level 3.3 g/dL (3.5-5.1); Alkaline Phosphatase 124 U/L (38-126); Anion Gap 7 mmol/L (4-12); Aspartate Amino Transferase 29 U/L (14-36); Bilirubin,Total 0.6 mg/dL (0.2-1.3); Blood Urea Nitrogen 7 mg/dL (7-17); Calcium 8.8 mg/dL (8.4-10.2); Carbon Dioxide 30 mmol/L (22-30); Chloride 102 mmol/L (98-107); Estimated CRCL calculation 138 ml/min; Estimated Glomerular Filt Rate > 60; Glucose 100 mg/dL (65-110); Potassium 4.4 mmol/L (3.4-5.0); Sodium 139 mmol/L (137-145); Total Protein 6.5 g/dL (6.3-8.2)
[2024-10-05 07:27] LABS: Platelet Estimate Decreased (Adequate)
[2024-10-05 07:28] LABS: Anisocytosis 1+; Hypochromasia 1+; Polychromasia 1+; Schistocytes None Seen; Target Cells 1+
[2024-10-05] MEDS: guaiFENesin 12 HR 600 MG TABCR PO ×2 (09:31→21:24)
[2024-10-05] MEDS: FUROSEMIDE INJ 40 MG/4 ML VIAL IV PUSH ×2 (09:31→16:23)
[2024-10-05] MEDS: POTASSIUM CHLORIDE 10 MEQ ER TABLET PO (09:35)
[2024-10-05] MEDS: ACETAMINOPHEN 325 MG TABLET 650 MG PO (09:35)
[2024-10-05] MEDS: predniSONE 20 MG TABLET 40 MG PO (09:36)
[2024-10-05] MEDS: PREGABALIN (*CRX) 75 MG CAPSULE 150 MG PO ×2 (09:37→21:24)
--- NOTE | 2024-10-05 13:20 | PM.IMPN ---
Progress Note: A&P Assessment and Plan (1) Acute hypoxic respiratory failure: Code(s): J96.01 - Acute respiratory failure with hypoxia Status: Acute Assessment and Plan: Suspected to be multifactorial diastolic CHF exacerbation, pneumonia, COPD component.? CTA showed no PE, concerning for pneumonia of the left lung.? Echo G1d will switch ABx to augmentin will increase lasix to BID Blood cultures obtained in the ED on 10/04, follow. (2) Pneumonia: Qualifiers: Laterality: left Lung location: unspecified part of lung Pneumonia type: due to unspecified organism Qualified Code(s): J18.9 - Pneumonia, unspecified organism Code(s): J18.9 - Pneumonia, unspecified organism Status: Acute Assessment and Plan: - CXR:? Mild pulmonary edema - chest CTA: 1. No evidence of pulmonary embolism in main and lobar pulmonary arteries. 2. Scattered areas of groundglass and tree-in-bud opacities in left lung, concerning for pneumonia. 3. Mosaic attenuation of the lungs, likely sequela of obstructive small airway disease. - started on ceftriaxone and azithromycin on 10/04 will switch to Augmentin - supportive care:? Tylenol p.r.n., Mucinex scheduled, Tessalon Perles p.r.n. - contain supplemental O2 to maintain O2 saturation greater than 92%, currently requiring 4L nasal cannula (3) CHF (congestive heart failure): Qualifiers: Heart failure chronicity: acute Heart failure type: unspecified Qualified Code(s): I50.9 - Heart failure, unspecified Code(s): I50.9 - Heart failure, unspecified Status: Suspected Assessment and Plan: - BNP 3300 - CXR showed mild pulmonary edema, .? Patient reporting bilateral lower extremity swelling and abdominal swelling concerning for CHF exacerbation. - Echo G1D, severe Pulm HTN - started on Lasix 40 mg IV BID - monitor I&Os and daily weights - trend renal function (4) Chronic obstructive pulmonary disease: Qualifiers: COPD type: COPD with acute exacerbation Qualified Code(s): J44.1 - Chronic obstructive pulmonary disease with (acute) exacerbation Code(s): J44.9 - Chronic obstructive pulmonary disease, unspecified Status: Chronic Assessment and Plan: - acute exacerbation - DuoNebs p.r.n. - prednisone 40 mg x 5 days (5) Urinary tract infection: Qualifiers: Urinary tract infection type: catheter-associated UTI Indwelling urinary catheter type: indwelling urethral catheter Encounter type: initial encounter Qualified Code(s): T83.511A - Infection and inflammatory reaction due to indwelling urethral catheter, initial encounter; N39.0 - Urinary tract infection, site not specified Code(s): N39.0 - Urinary tract infection, site not specified Status: Acute Assessment and Plan: - UA:? Cloudy, 1+ protein, 1+ ketones, 1+ blood, positive nitrates, 2.0 urobilinogen, 3+ leuks, 51-100 RBC, greater than 100 WBC, 4+ bacteria with no epithelial cells. - UC pending - previous micro reviewed, pansensitive Enterococcus in 2022. 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 Diet: Heart healthy GI Prophylaxis: Not currently indicated DVT Prophylaxis: Lovenox SQ IV fluids: None, concern for CHF Lines/Tubes: Peripheral IV, suprapubic catheter Code Status: Full code Subjective Date/time seen: 10/05/24 13:20 Interval history: per hPI: 54 y/o F with PMH of COPD, chronic pain syndrome, atonic bladder, hypertension, and MIKE presents here with bilateral lower extremity swelling, abdominal swelling, and shortness of breath. The patient presents here from home via EMS for further evaluation of lower extremity swelling, abdominal swelling, and shortness of breath.? She reports onset approximately 24 hours ago.? She contacted her PCP with her symptoms and she was started on a diuretic yesterday - able to take one dose yesterday. She reports no change in her LE. She denies any previously known history of CHF.? Shortness of breath is accompanied by productive cough (sputum - yellow).? Denies fever, chills, body aches, nausea, vomiting, or diarrhea.? Upon arrival to the emergency department, the patient was found to be 40% on room air with a good pleth on the monitor. Breathing was labored, speaking in short sentences, and placed on a non-rebreather with improvement in her oxygen to 100%.? She has since been titrated down to 4 L nasal cannula and O2 sat on average around 95%.? Along with the shortness of breath and swelling, she reports she was recently diagnosed with the UTI and has not started her medications.? She has a chronic suprapubic catheter in place due to history of atonic bladder.? Catheter was last exchanged 1.5 weeks ago. Initial VS at presentation: ?98? F, HR 106, R 20, 142/82, and 51% on RA.? Now 95% on 4L nasal cannula. ED workup showed: ?No leukocytosis, no anemia, normal coags, creatinine 0.39 and GFR >60, glucose 112, lactic within normal limits, initial troponin negative, BNP 3300, and UA suggestive of UTI.? CXR showed mild pulmonary edema.? Chest CTA showed no evidence of PE, scattered areas of ground-glass and tree-in-bud opacities in the left lung concerning for pneumonia, was a continuation of the lungs likely sequela of obstructive small airway disease.? EKG showed sinus bradycardia, rate 59, low QRS voltage in diffuse leads. 10/05/24 Patient was seen and examined at bedside. she is feeling better. still has bilateral lower ext swelling. breathing is better. denies any chest pain, abd pain, N/V Echo G1D with severe pulm HTN Lower ext neg for DVT Review of Systems Review of Systems: All systems reviewed & are unremarkable except as noted in HPI and below Exam Narrative: RLE swelling 1-2+ and pitting with mild erythema and warmth, LLE 1+, trace pitting. Wheezing, more prominent on the left. +fatigued. Const: General: comfortable and no acute distress Other: , female, chronically ill-appearing. Fatigued HENMT: Face/Nose/Sinus: Normal nares present Mouth: Yes moist mucous membranes Eyes: General: appearance normal, both eyes and all related structures Sclera: sclerae normal Pupils: Equal, round and reactive pupils present EOM: EOMs intact bilaterally Resp: Effort & Inspection: normal respiratory effort Other: Wheezing bilaterally, more prominent on the left. Bibasilar crackles. Cardio: Rate: regular rate Rhythm: regular rhythm Other: S1-S2 present without murmur, rub, ectopy GI: Other: Abdomen soft, nontender, nondistended. Suprapubic catheter in place. Normoactive bowel sounds in all quadrants. Skin: Other: Mild erythema and warmth to the right lower extremity, no open wounds. Neuro: Cranial nerves: Yes Equal, round and reactive pupils present Speech: normal speech Motor exam (neuro): 5/5 motor strength present throughout Sensory Exam: normal sensation Other: A&O x4 Extrem: Other: RLE swelling 1-2+ and pitting with mild erythema and warmth, LLE 1+, trace pitting. Psych: Mental Status: mental status grossly normal Affect: normal affect Other: Good insight judgment, pleasant Objective Data Vital Signs Vital Signs: Vital Signs - 24 hr 10/04/24 13:43 10/04/24 16:03 10/04/24 16:44 Temperature Pulse Rate 100 101 H Respiratory Rate 17 17 14 Blood Pressure 163/95 H 157/104 H 166/100 H Pulse Oximetry 89 L 94 89 L Oxygen Delivery Oxygen Flow Rate 10/04/24 18:40 10/04/24 20:00 10/04/24 20:09 Temperature Pulse Rate 95 96 Respiratory Rate 18 Blood Pressure 164/95 H Pulse Oximetry 92 95 Oxygen Delivery Nasal Cannula Oxygen Flow Rate 4 10/04/24 22:00 10/05/24 00:05 10/05/24 02:23 Temperature 96.2 F L Pulse Rate 95 92 90 Respiratory Rate 14 16 Blood Pressure 167/92 H Pulse Oximetry 95 Oxygen Delivery Oxygen Flow Rate 10/05/24 02:30 10/05/24 04:00 10/05/24 06:00 Temperature 97.7 F Pulse Rate 98 87 82 Respiratory Rate 16 12 Blood Pressure 146/81 H Pulse Oximetry 95 Oxygen Delivery Oxygen Flow Rate 10/05/24 06:10 10/05/24 09:36 10/05/24 09:36 Temperature Pulse Rate 78 78 Respiratory Rate 20 20 Blood Pressure Pulse Oximetry 96 92 Oxygen Delivery Nasal Cannula Nasal Cannula Oxygen Flow Rate 4 3 10/05/24 09:46 Temperature Pulse Rate 88 Respiratory Rate 20 Blood Pressure Pulse Oximetry Oxygen Delivery Oxygen Flow Rate Intake/Output Intake/Output: Intake & Output 10/02/24 10/03/24 10/04/24 10/05/24 23:59 23:59 23:59 23:59 Intake Total 350 580 Output Total 3400 525 Balance -3050 55 Meds/Results Medications: Active Medications Generic Name Dose Route Start Last Admin Trade Name Freq PRN Reason Stop Dose Admin Acetaminophen 650 mg 10/04/24 15:42 10/05/24 09:35 Acetaminophen 325 Mg Tablet PO 650 mg Q6H PRN Administration Mild Pain (1-3) or Fever Albuterol 2 puff 10/05/24 11:54 Albuterol Sulfate (*Sp) Aerosol 1 Puff INHALATION Q6H PRN shortness of breath or wheezing Albuterol/Ipratropium 3 ml 10/05/24 02:00 10/05/24 09:36 Ipratropium 0.5 Mg/Albuterol Sulfate 2.5 Mg Ampul.Neb 3 Ml INHALATION 3 ml Q6HRT TONY Administration Atenolol 25 mg 10/05/24 09:00 Atenolol 25 Mg Tablet PO DAILY [facility] Benzonatate 100 mg 10/04/24 15:42 Benzonatate 100 Mg Capsule PO TID PRN Cough Buprenorphine/Naloxone 2 each 10/05/24 13:05 Buprenorphine/Naloxone (*Crx) 4 Mg/1 Mg Sl Film SUBLINGUAL Q12HR [facility] Diclofenac Sodium 0 applic 10/04/24 23:12 Diclofenac Sodium 1% 100 Gm Gel (*Bkc) TOPICAL DAILY PRN BACK PAIN Diltiazem HCl 240 mg 10/04/24 23:20 10/05/24 00:30 Diltiazem Hcl Cd 240 Mg Cap.24hr PO 240 mg HS [facility] Administration Enoxaparin Sodium 40 mg 10/05/24 09:00 10/05/24 09:38 Enoxaparin 40 Mg/0.4 Ml Syringe SUB-Q Not Given DAILY [facility] Escitalopram Oxalate 10 mg 10/04/24 23:20 10/05/24 00:30 Escitalopram Oxalate 10 Mg Tablet PO 10 mg HS [facility] Administration Furosemide 40 mg 10/05/24 09:00 10/05/24 09:31 Furosemide Inj 40 Mg/4 Ml Vial IV PUSH 40 mg DAILY TONY Administration Guaifenesin 600 mg 10/04/24 21:00 10/05/24 09:31 Guaifenesin 12 Hr 600 Mg Tabcr PO 600 mg Q12HR TONY Administration Ceftriaxone Sodium 1 gm in 50 mls @ 100 mls/hr 10/05/24 16:00 Rocephin 1 Gm/Ns 50 Ml IVPB Q24H TONY Azithromycin 500 mg in 250 mls @ 250 mls/hr 10/05/24 17:00 Zithromax IVPB Q24H TONY Vancomycin HCl 1,250 mg in 250 mls @ 166.667 mls/hr 10/05/24 06:00 10/05/24 05:45 Vancomycin 1,250 Mg/Ns 250 Ml IVPB 166.67 mls/hr Q12H TONY Administration Mupirocin 1 applic 10/04/24 21:00 10/04/24 21:30 Mupirocin 2% Oint 22 Gm Tube EACH NARE 10/09/24 09:01 1 applic Q12HR TONY Administration Non-Formulary Medication 1 each 10/04/24 23:20 Nonformulary Nutritional Supplement XX 10/05/24 23:19 PRN PRN PROTOCOL Oxybutynin Chloride 5 mg 10/04/24 23:20 10/05/24 09:31 Oxybutynin Chloride 5 Mg Tablet PO 5 mg TID TONY Administration Pantoprazole Sodium 40 mg 10/04/24 23:20 10/05/24 09:31 Pantoprazole 40 Mg Tablet PO 40 mg Q12HR TONY Administration Perflutren Lipid Microsphere 0 ml 10/04/24 15:43 Perflutren Lipid Microspheres 1.5 Ml Vial Diluted To 10 Ml Total Volume IV PUSH 10/07/24 15:43 ONCE PRN adequate visualization Protocol Phenazopyridine HCl 100 mg 10/05/24 09:00 Phenazopyridine Hcl 100 Mg Tablet PO 11/04/24 08:59 TID TONY Potassium Chloride 10 meq 10/05/24 09:00 10/05/24 09:35 Potassium Chloride 10 Meq Er Tablet PO 10 meq DAILY TONY Administration Prednisone 40 mg 10/05/24 08:00 10/05/24 09:36 Prednisone 20 Mg Tablet PO 10/10/24 07:59 40 mg DAILY@0800 TONY Administration Pregabalin 150 mg 10/04/24 21:20 10/05/24 09:37 Pregabalin (*Crx) 75 Mg Capsule PO 150 mg Q12HR TONY Administration Trazodone HCl 150 mg 10/04/24 23:12 Trazodone Hcl 50 Mg Tablet PO HS PRN sleep Radiology Results: ITS Impressions Chest X-Ray 10/04/24 12:49 IMPRESSION: Mild pulmonary edema. Chest CTA 10/04/24 14:42 IMPRESSION: 1. No evidence of pulmonary embolism in main and lobar pulmonary arteries. 2. Scattered areas of groundglass and tree-in-bud opacities in left lung, concerning for pneumonia. 3. Mosaic attenuation of the lungs, likely sequela of obstructive small airway disease. Venous Doppler Study 10/05/24 10:39 Impression: No evidence of deep venous thrombosis Labs Labs: Laboratory Results - last 24 hr 10/04/24 10/04/24 10/05/24 15:55 20:28 06:25 WBC 5.9 RBC 5.12 Hgb 11.2 L Hct 43.1 MCV 84.2 MCH 21.9 L MCHC 26.0 L RDW 19.9 H Plt Count 102 L MPV TNP Immature Gran % (Auto) 1.5 H Neut % (Auto) 74.7 H Lymph % (Auto) 15.9 L Bremer % (Auto) 6.4 Eos % (Auto) 0.3 Baso % (Auto) 1.2 Lymph # (Auto) 0.94 Bremer # (Auto) 0.4 Eos # (Auto) 0.0 Baso # (Auto) 0.1 Abs Immat Gran (auto) 0.09 H Absolute Neuts (auto) 4.4 Absolute Nucleated RBC 0.040 H Band Neutrophils % Not Reportable Nucleated RBC % 0.7 H Platelet Estimate Decreased % Immature Plt Fraction 8.5 Polychromasia 1+ Hypochromasia 1+ Anisocytosis 1+ Target Cells 1+ Schistocytes None seen Sodium 139 Potassium 4.4 Chloride 102 Carbon Dioxide 30 Anion Gap 7 BUN 7 Creatinine 0.32 L Estim Creat Clear Calc 138 Estimated GFR > 60 Glucose 100 POC Capillary Glucose 109 H Calcium 8.8 Total Bilirubin 0.6 AST 29 ALT 8 Alkaline Phosphatase 124 Total Protein 6.5 Albumin 3.3 L Nasal MRSA (PCR) Detected A* Quality VTE Prophylaxis VTE prophylaxis: pharmacologic ordered
[2024-10-05] MEDS: BUPRENORPHINE/NALOXONE (*CRX) 4 MG/1 MG SL FILM 2 EACH SUBLINGUAL ×2 (13:27→21:25)
[2024-10-05] MEDS: atenoloL 25 MG TABLET PO (13:27)
[2024-10-05] MEDS: MUPIROCIN 2% OINT 22 GM TUBE 1 APPLIC EACH NARE ×2 (13:41→21:31)
[2024-10-05] MEDS: PHENAZOPYRIDINE HCL 100 MG TABLET PO ×2 (13:49→16:24)
[2024-10-05] MEDS: AZITHROMYCIN 500 MG/NS 250 ML 500 MG/250 ML BAG 250 MG IVPB (16:24)
[2024-10-05] MEDS: traZODone HCL 50 MG TABLET 150 MG PO (21:23)
[2024-10-05] MEDS: BENZONATATE 100 MG CAPSULE PO (21:24)
[2024-10-05] MEDS: cefTRIAXone 2 GM/NS 100 ML 2 GM/100 ML BAG IVPB (22:41)
[2024-10-06] VITALS (20 sets, daily range): BP systolic 108–141; BP diastolic 51–74; PULSE 59–84; RESP 16–20; TEMP 36.6–37.1; O2SAT 90–96
[2024-10-06] MEDS: IPRATROPIUM 0.5 MG/ALBUTEROL SULFATE 2.5 MG AMPUL.NEB 3 ML INHALATION ×4 (01:51→21:21)
[2024-10-06 05:30] LABS: Basophils Percent Auto 0.8 % (0.2-1.2); Eosinophils Percent Auto 0.3 % (0-4.4); Hematocrit 36.7 % (37.0-47.0); Hemoglobin 9.8 g/dL (12.0-15.0); Immature Granulocyte Absolute 0.03 K/mm3 (0.00-0.031); Immature Granulocyte Percent A 0.8 % (0-0.5); Immature Platelet Fraction Pct 6.5 % (0.9-11.2); Lymphocytes Percent Auto 28.6 % (18.3-44.2); Mean Corpuscular HGB Conc 26.7 g/dl (32-36); Mean Corpuscular Hemoglobin 21.7 pg (26-34); Mean Corpuscular Volume 81.4 fl (80-100); Mean Platelet Volume 11.4 fl (7.4-10.4); Monocytes Absolute Auto 0.4 K/mm3 (0.1-0.6); Monocytes Percent Auto 10.4 % (2.6-8.5); Neutrophils Absolute Auto 2.3 K/mm3 (1.3-6.7); Neutrophils Percent Auto 59.1 % (45.5-73.1); Platelet Count Result 117 k/mm3 (150-375); Red Blood Count 4.51 M/mm3 (4.2-5.4); Red Cell Distribution Width 19.2 % (11.5-14.5); White Blood Count 3.9 K/mm3 (4.5-10.0)
[2024-10-06 05:45] LABS: Blood Urea Nitrogen 12 mg/dL (7-17); Calcium 8.4 mg/dL (8.4-10.2); Carbon Dioxide > 40 mmol/L (22-30); Chloride 98 mmol/L (98-107); Estimated CRCL calculation 109 ml/min; Estimated Glomerular Filt Rate > 60; Glucose 132 mg/dL (65-110); Potassium 3.9 mmol/L (3.4-5.0); Sodium 140 mmol/L (137-145)
[2024-10-06 06:18] LABS: Vancomycin Trough < 5.0 ug/mL (10.0-20.0)
[2024-10-06 06:23] LABS: Anisocytosis 1+; Platelet Estimate Slightly Decreased (Adequate)
[2024-10-06 06:24] LABS: Hypochromasia 2+; Schistocytes None Seen
[2024-10-06] MEDS: guaiFENesin 12 HR 600 MG TABCR PO ×2 (09:17→20:46)
[2024-10-06] MEDS: atenoloL 25 MG TABLET PO (09:17)
[2024-10-06] MEDS: PANTOPRAZOLE 40 MG TABLET PO ×2 (09:17→20:46)
[2024-10-06] MEDS: FUROSEMIDE INJ 40 MG/4 ML VIAL IV PUSH ×2 (09:17→17:16)
[2024-10-06] MEDS: POTASSIUM CHLORIDE 10 MEQ ER TABLET PO (09:20)
[2024-10-06] MEDS: PHENAZOPYRIDINE HCL 100 MG TABLET PO ×3 (09:20→17:16)
[2024-10-06] MEDS: oxyBUTYnin CHLORIDE 5 MG TABLET PO ×3 (09:20→17:16)
[2024-10-06] MEDS: PREGABALIN (*CRX) 75 MG CAPSULE 150 MG PO ×2 (09:20→20:46)
[2024-10-06] MEDS: predniSONE 20 MG TABLET 40 MG PO (09:20)
[2024-10-06] MEDS: BUPRENORPHINE/NALOXONE (*CRX) 4 MG/1 MG SL FILM 2 EACH SUBLINGUAL ×2 (09:21→20:47)
[2024-10-06] MEDS: MUPIROCIN 2% OINT 22 GM TUBE 1 APPLIC EACH NARE ×2 (09:22→20:49)
[2024-10-06] MEDS: ENOXAPARIN 40 MG/0.4 ML SYRINGE SUB-Q (09:22)
[2024-10-06] MEDS: DOXYCYCLINE HYCLATE 100 MG TABLET PO ×2 (12:20→20:46)
[2024-10-06] MEDS: ACETAMINOPHEN/ASPIRIN/CAFFEINE 250-250-65 MG TABLET 1 TABLET PO ×2 (13:42→20:57)
--- NOTE | 2024-10-06 14:51 | PM.IMPN ---
Progress Note: A&P Assessment and Plan (1) Acute hypoxic respiratory failure: Code(s): J96.01 - Acute respiratory failure with hypoxia Status: Acute Assessment and Plan: Suspected to be multifactorial diastolic CHF exacerbation, pneumonia, COPD component.? CTA showed no PE, concerning for pneumonia of the left lung.? Echo G1d Continue with IV Rocephin .will add Doxycycline will follow culture result continue lasix to BID Blood cultures obtained in the ED on 10/04, follow. (2) Pneumonia: Qualifiers: Laterality: left Lung location: unspecified part of lung Pneumonia type: due to unspecified organism Qualified Code(s): J18.9 - Pneumonia, unspecified organism Code(s): J18.9 - Pneumonia, unspecified organism Status: Acute Assessment and Plan: - CXR:? Mild pulmonary edema - chest CTA: 1. No evidence of pulmonary embolism in main and lobar pulmonary arteries. 2. Scattered areas of groundglass and tree-in-bud opacities in left lung, concerning for pneumonia. 3. Mosaic attenuation of the lungs, likely sequela of obstructive small airway disease. - started on ceftriaxone and azithromycin on 10/04 Continue with IV Rocephin .will add Doxycycline will follow culture result - supportive care:? Tylenol p.r.n., Mucinex scheduled, Tessalon Perles p.r.n. - contain supplemental O2 to maintain O2 saturation greater than 92%, currently requiring 4L nasal cannula (3) CHF (congestive heart failure): Qualifiers: Heart failure chronicity: acute Heart failure type: unspecified Qualified Code(s): I50.9 - Heart failure, unspecified Code(s): I50.9 - Heart failure, unspecified Status: Suspected Assessment and Plan: - BNP 3300 - CXR showed mild pulmonary edema, .? Patient reporting bilateral lower extremity swelling and abdominal swelling concerning for CHF exacerbation. - Echo G1D, severe Pulm HTN - started on Lasix 40 mg IV BID - monitor I&Os and daily weights - trend renal function (4) Chronic obstructive pulmonary disease: Qualifiers: COPD type: COPD with acute exacerbation Qualified Code(s): J44.1 - Chronic obstructive pulmonary disease with (acute) exacerbation Code(s): J44.9 - Chronic obstructive pulmonary disease, unspecified Status: Chronic Assessment and Plan: - acute exacerbation - DuoNebs p.r.n. - prednisone 40 mg x 5 days (5) Urinary tract infection: Qualifiers: Urinary tract infection type: catheter-associated UTI Indwelling urinary catheter type: indwelling urethral catheter Encounter type: initial encounter Qualified Code(s): T83.511A - Infection and inflammatory reaction due to indwelling urethral catheter, initial encounter; N39.0 - Urinary tract infection, site not specified Code(s): N39.0 - Urinary tract infection, site not specified Status: Acute Assessment and Plan: - UA:? Cloudy, 1+ protein, 1+ ketones, 1+ blood, positive nitrates, 2.0 urobilinogen, 3+ leuks, 51-100 RBC, greater than 100 WBC, 4+ bacteria with no epithelial cells. - UC pending - previous micro reviewed, pansensitive Enterococcus in 2022. 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 Diet: Heart healthy GI Prophylaxis: Not currently indicated DVT Prophylaxis: Lovenox SQ IV fluids: None, concern for CHF Lines/Tubes: Peripheral IV, suprapubic catheter Code Status: Full code Subjective Date/time seen: 10/06/24 14:51 Interval history: per hPI: 54 y/o F with PMH of COPD, chronic pain syndrome, atonic bladder, hypertension, and MIKE presents here with bilateral lower extremity swelling, abdominal swelling, and shortness of breath. The patient presents here from home via EMS for further evaluation of lower extremity swelling, abdominal swelling, and shortness of breath.? She reports onset approximately 24 hours ago.? She contacted her PCP with her symptoms and she was started on a diuretic yesterday - able to take one dose yesterday. She reports no change in her LE. She denies any previously known history of CHF.? Shortness of breath is accompanied by productive cough (sputum - yellow).? Denies fever, chills, body aches, nausea, vomiting, or diarrhea.? Upon arrival to the emergency department, the patient was found to be 40% on room air with a good pleth on the monitor. Breathing was labored, speaking in short sentences, and placed on a non-rebreather with improvement in her oxygen to 100%.? She has since been titrated down to 4 L nasal cannula and O2 sat on average around 95%.? Along with the shortness of breath and swelling, she reports she was recently diagnosed with the UTI and has not started her medications.? She has a chronic suprapubic catheter in place due to history of atonic bladder.? Catheter was last exchanged 1.5 weeks ago. Initial VS at presentation: ?98? F, HR 106, R 20, 142/82, and 51% on RA.? Now 95% on 4L nasal cannula. ED workup showed: ?No leukocytosis, no anemia, normal coags, creatinine 0.39 and GFR >60, glucose 112, lactic within normal limits, initial troponin negative, BNP 3300, and UA suggestive of UTI.? CXR showed mild pulmonary edema.? Chest CTA showed no evidence of PE, scattered areas of ground-glass and tree-in-bud opacities in the left lung concerning for pneumonia, was a continuation of the lungs likely sequela of obstructive small airway disease.? EKG showed sinus bradycardia, rate 59, low QRS voltage in diffuse leads. 10/05/24 Patient was seen and examined at bedside. she is feeling better. still has bilateral lower ext swelling. breathing is better. denies any chest pain, abd pain, N/V Echo G1D with severe pulm HTN Lower ext neg for DVT 10/06/24 Patient was seen and examined at bedside. she is feeling better. her breathing and leg swelling better. deneis chest pain, abd pain, N/V Augmentin was stopped as patient is allergic to penicillin. started on Rocephin Continue with IV Rocephin .will add Doxycycline will follow culture result Review of Systems Review of Systems: All systems reviewed & are unremarkable except as noted in HPI and below Exam Narrative: RLE swelling 1-2+ and pitting with mild erythema and warmth, LLE 1+, trace pitting. Wheezing, more prominent on the left. +fatigued. Const: General: comfortable and no acute distress Other: , female, chronically ill-appearing. Fatigued HENMT: Face/Nose/Sinus: Normal nares present Mouth: Yes moist mucous membranes Eyes: General: appearance normal, both eyes and all related structures Sclera: sclerae normal Pupils: Equal, round and reactive pupils present EOM: EOMs intact bilaterally Resp: Effort & Inspection: normal respiratory effort Other: Wheezing bilaterally, more prominent on the left. Bibasilar crackles. Cardio: Rate: regular rate Rhythm: regular rhythm Other: S1-S2 present without murmur, rub, ectopy GI: Other: Abdomen soft, nontender, nondistended. Suprapubic catheter in place. Normoactive bowel sounds in all quadrants. Skin: Other: Mild erythema and warmth to the right lower extremity, no open wounds. Neuro: Cranial nerves: Yes Equal, round and reactive pupils present Speech: normal speech Motor exam (neuro): 5/5 motor strength present throughout Sensory Exam: normal sensation Other: A&O x4 Extrem: Other: RLE swelling 1-2+ and pitting with mild erythema and warmth, LLE 1+, trace pitting. Psych: Mental Status: mental status grossly normal Affect: normal affect Other: Good insight judgment, pleasant Objective Data Vital Signs Vital Signs: Vital Signs - 24 hr 10/05/24 16:00 10/05/24 20:00 10/05/24 20:05 Temperature Pulse Rate 87 71 Respiratory Rate Blood Pressure Pulse Oximetry 93 Oxygen Delivery Nasal Cannula Oxygen Flow Rate 3 10/05/24 20:36 10/05/24 20:36 10/05/24 20:46 Temperature Pulse Rate 88 85 Respiratory Rate 20 20 Blood Pressure Pulse Oximetry 94 Oxygen Delivery Nasal Cannula Oxygen Flow Rate 3 10/05/24 21:25 10/06/24 00:05 10/06/24 01:52 Temperature 98.7 F Pulse Rate 70 68 84 Respiratory Rate 16 20 Blood Pressure 145/83 H Pulse Oximetry 93 Oxygen Delivery Oxygen Flow Rate 10/06/24 02:00 10/06/24 04:00 10/06/24 06:00 Temperature 98.7 F Pulse Rate 80 80 60 Respiratory Rate 20 16 Blood Pressure 108/51 L Pulse Oximetry 93 Oxygen Delivery Oxygen Flow Rate 10/06/24 07:48 10/06/24 07:48 10/06/24 08:00 Temperature Pulse Rate 64 60 Respiratory Rate 20 Blood Pressure Pulse Oximetry 91 Oxygen Delivery Nasal Cannula Oxygen Flow Rate 4 10/06/24 08:04 10/06/24 09:17 10/06/24 09:20 Temperature Pulse Rate 61 68 Respiratory Rate 20 Blood Pressure Pulse Oximetry 90 Oxygen Delivery Nasal Cannula Oxygen Flow Rate 4 10/06/24 12:00 10/06/24 13:36 10/06/24 13:47 Temperature Pulse Rate 69 68 68 Respiratory Rate 18 18 Blood Pressure Pulse Oximetry Oxygen Delivery Oxygen Flow Rate Intake/Output Intake/Output: Intake & Output 10/03/24 10/04/24 10/05/24 10/06/24 23:59 23:59 23:59 23:59 Intake Total 350 3510 60 Output Total 3400 2325 Balance -3050 1185 60 Meds/Results Medications: Active Medications Generic Name Dose Route Start Last Admin Trade Name Freq PRN Reason Stop Dose Admin Acetaminophen 650 mg 10/04/24 15:42 10/05/24 09:35 Acetaminophen 325 Mg Tablet PO 650 mg Q6H PRN Administration Mild Pain (1-3) or Fever Acetaminophen/Aspirin/Caffeine 1 tablet 10/06/24 13:32 10/06/24 13:42 Acetaminophen/Aspirin/Caffeine 250-250-65 Mg Tablet PO 1 tablet Q6H PRN Administration Headache Albuterol 2 puff 10/05/24 11:54 Albuterol Sulfate (*Sp) Aerosol 1 Puff INHALATION Q6H PRN shortness of breath or wheezing Albuterol/Ipratropium 3 ml 10/05/24 02:00 10/06/24 13:36 Ipratropium 0.5 Mg/Albuterol Sulfate 2.5 Mg Ampul.Neb 3 Ml INHALATION 3 ml Q6HRT TONY Administration Atenolol 25 mg 10/05/24 09:00 10/06/24 09:17 Atenolol 25 Mg Tablet PO 25 mg DAILY TONY Administration Benzonatate 100 mg 10/04/24 15:42 10/05/24 21:24 Benzonatate 100 Mg Capsule PO 100 mg TID PRN Administration Cough Buprenorphine/Naloxone 2 each 10/05/24 13:05 10/06/24 09:21 Buprenorphine/Naloxone (*Crx) 4 Mg/1 Mg Sl Film SUBLINGUAL 2 each Q12HR TONY Administration Diclofenac Sodium 0 applic 10/04/24 23:12 Diclofenac Sodium 1% 100 Gm Gel (*Bkc) TOPICAL DAILY PRN BACK PAIN Diltiazem HCl 240 mg 10/04/24 23:20 10/05/24 21:23 Diltiazem Hcl Cd 240 Mg Cap.24hr PO 240 mg HS TONY Administration Doxycycline Hyclate 100 mg 10/06/24 12:00 10/06/24 12:20 Doxycycline Hyclate 100 Mg Tablet PO 10/12/24 21:01 100 mg Q12HR TONY Administration Enoxaparin Sodium 40 mg 10/05/24 09:00 10/06/24 09:22 Enoxaparin 40 Mg/0.4 Ml Syringe SUB-Q 40 mg DAILY TONY Administration Escitalopram Oxalate 10 mg 10/04/24 23:20 10/05/24 21:24 Escitalopram Oxalate 10 Mg Tablet PO 10 mg HS TONY Administration Furosemide 40 mg 10/05/24 17:00 10/06/24 09:17 Furosemide Inj 40 Mg/4 Ml Vial IV PUSH 40 mg BID TONY Administration Guaifenesin 600 mg 10/04/24 21:00 10/06/24 09:17 Guaifenesin 12 Hr 600 Mg Tabcr PO 600 mg Q12HR TONY Administration Ceftriaxone Sodium 2 gm in 100 mls @ 200 mls/hr 10/05/24 22:00 10/05/24 22:41 Rocephin 2 Gm/Ns 100 Ml IVPB 200 mls/hr Q24H TONY Administration Mupirocin 1 applic 10/04/24 21:00 10/06/24 09:22 Mupirocin 2% Oint 22 Gm Tube EACH NARE 10/09/24 09:01 1 applic Q12HR TONY Administration Oxybutynin Chloride 5 mg 10/04/24 23:20 10/06/24 12:20 Oxybutynin Chloride 5 Mg Tablet PO 5 mg TID TONY Administration Pantoprazole Sodium 40 mg 10/04/24 23:20 10/06/24 09:17 Pantoprazole 40 Mg Tablet PO 40 mg Q12HR TONY Administration Perflutren Lipid Microsphere 0 ml 10/04/24 15:43 Perflutren Lipid Microspheres 1.5 Ml Vial Diluted To 10 Ml Total Volume IV PUSH 10/07/24 15:43 ONCE PRN adequate visualization Protocol Phenazopyridine HCl 100 mg 10/05/24 09:00 10/06/24 12:20 Phenazopyridine Hcl 100 Mg Tablet PO 11/04/24 08:59 100 mg TID TONY Administration Potassium Chloride 10 meq 10/05/24 09:00 10/06/24 09:20 Potassium Chloride 10 Meq Er Tablet PO 10 meq DAILY TONY Administration Prednisone 40 mg 10/05/24 08:00 10/06/24 09:20 Prednisone 20 Mg Tablet PO 10/10/24 07:59 40 mg DAILY@0800 TONY Administration Pregabalin 150 mg 10/04/24 21:20 10/06/24 09:20 Pregabalin (*Crx) 75 Mg Capsule PO 150 mg Q12HR TONY Administration Trazodone HCl 150 mg 10/04/24 23:12 10/05/24 21:23 Trazodone Hcl 50 Mg Tablet PO 150 mg HS PRN Administration sleep Radiology Results: ITS Impressions Chest X-Ray 10/04/24 12:49 IMPRESSION: Mild pulmonary edema. Chest CTA 10/04/24 14:42 IMPRESSION: 1. No evidence of pulmonary embolism in main and lobar pulmonary arteries. 2. Scattered areas of groundglass and tree-in-bud opacities in left lung, concerning for pneumonia. 3. Mosaic attenuation of the lungs, likely sequela of obstructive small airway disease. Venous Doppler Study 10/05/24 10:39 Impression: No evidence of deep venous thrombosis Labs Labs: Laboratory Results - last 24 hr 10/06/24 05:20 WBC 3.9 L RBC 4.51 Hgb 9.8 L Hct 36.7 L MCV 81.4 MCH 21.7 L MCHC 26.7 L RDW 19.2 H Plt Count 117 L MPV 11.4 H Immature Gran % (Auto) 0.8 H Neut % (Auto) 59.1 Lymph % (Auto) 28.6 [place] % (Auto) 10.4 H Eos % (Auto) 0.3 Baso % (Auto) 0.8 Lymph # (Auto) 1.10 [place] # (Auto) 0.4 Eos # (Auto) 0.0 Baso # (Auto) 0.0 Abs Immat Gran (auto) 0.03 Absolute Neuts (auto) 2.3 Absolute Nucleated RBC 0.000 Band Neutrophils % Not Reportable Nucleated RBC % 0.0 Platelet Estimate Slightly decreased % Immature Plt Fraction 6.5 Hypochromasia 2+ Anisocytosis 1+ Schistocytes None seen Sodium 140 Potassium 3.9 Chloride 98 Carbon Dioxide > 40 H Anion Gap BUN 12 D Creatinine 0.42 L Estim Creat Clear Calc 109 Estimated GFR > 60 Glucose 132 H Calcium 8.4 Vancomycin Trough < 5.0 L Quality VTE Prophylaxis VTE prophylaxis: pharmacologic ordered
[2024-10-06] MEDS: ESCITALOPRAM OXALATE 10 MG TABLET PO (20:46)
[2024-10-06] MEDS: dilTIAZem HCL CD 240 MG CAP.24HR PO (20:46)
[2024-10-06] MEDS: cefTRIAXone 2 GM/NS 100 ML 2 GM/100 ML BAG IVPB (22:31)
[2024-10-06] MEDS: ACETAMINOPHEN 325 MG TABLET 650 MG PO (23:01)
[2024-10-07] VITALS (22 sets, daily range): BP systolic 137–143; BP diastolic 65–78; PULSE 64–97; RESP 16–20; TEMP 36.4–36.7; O2SAT 79–98
--- NOTE | 2024-10-07 01:37 | PC.NURSE ---
On 10/07/24, the Graduate Nurse, Rosmery, provided care and completed [employer] documentation on this patient with this nurse at her side, available for questions/assistance. I have reviewed the Rosmery's documentation and agree with the findings.
[2024-10-07] MEDS: IPRATROPIUM 0.5 MG/ALBUTEROL SULFATE 2.5 MG AMPUL.NEB 3 ML INHALATION ×4 (02:01→21:49)
[2024-10-07 07:33] LABS: Basophils Percent Auto 0.5 % (0.2-1.2); Hematocrit 35.9 % (37.0-47.0); Hemoglobin 9.5 g/dL (12.0-15.0); Immature Granulocyte Absolute 0.02 K/mm3 (0.00-0.031); Immature Granulocyte Percent A 0.5 % (0-0.5); Immature Platelet Fraction Pct 6.3 % (0.9-11.2); Lymphocytes Absolute Auto 1.28 K/mm3 (0.9-3.2); Lymphocytes Percent Auto 29.6 % (18.3-44.2); Mean Corpuscular HGB Conc 26.5 g/dl (32-36); Mean Corpuscular Hemoglobin 21.6 pg (26-34); Mean Corpuscular Volume 81.8 fl (80-100); Mean Platelet Volume 11.1 fl (7.4-10.4); Monocytes Absolute Auto 0.4 K/mm3 (0.1-0.6); Monocytes Percent Auto 10.2 % (2.6-8.5); Neutrophils Absolute Auto 2.6 K/mm3 (1.3-6.7); Neutrophils Percent Auto 59.2 % (45.5-73.1); Platelet Count Result 115 k/mm3 (150-375); Red Blood Count 4.39 M/mm3 (4.2-5.4); Red Cell Distribution Width 18.7 % (11.5-14.5); White Blood Count 4.3 K/mm3 (4.5-10.0)
[2024-10-07 08:01] LABS: Blood Urea Nitrogen 18 mg/dL (7-17); Calcium 8.5 mg/dL (8.4-10.2); Carbon Dioxide > 40 mmol/L (22-30); Chloride 96 mmol/L (98-107); Estimated CRCL calculation 94 ml/min; Estimated Glomerular Filt Rate > 60; Glucose 181 mg/dL (65-110); Potassium 3.8 mmol/L (3.4-5.0); Sodium 140 mmol/L (137-145)
[2024-10-07 08:15] LABS: Anisocytosis 1+; Hypochromasia 1+; Platelet Estimate Decreased (Adequate); Schistocytes None Seen
[2024-10-07] MEDS: BUPRENORPHINE/NALOXONE (*CRX) 4 MG/1 MG SL FILM 2 EACH SUBLINGUAL ×2 (09:34→22:48)
[2024-10-07] MEDS: PREGABALIN (*CRX) 75 MG CAPSULE 150 MG PO ×2 (09:34→22:50)
[2024-10-07] MEDS: guaiFENesin 12 HR 600 MG TABCR PO ×2 (09:35→22:50)
[2024-10-07] MEDS: PHENAZOPYRIDINE HCL 100 MG TABLET PO ×3 (09:35→18:50)
[2024-10-07] MEDS: predniSONE 20 MG TABLET 40 MG PO (09:35)
[2024-10-07] MEDS: PANTOPRAZOLE 40 MG TABLET PO ×2 (09:35→22:49)
[2024-10-07] MEDS: POTASSIUM CHLORIDE 10 MEQ ER TABLET PO (09:35)
[2024-10-07] MEDS: DOXYCYCLINE HYCLATE 100 MG TABLET PO ×2 (09:35→22:50)
[2024-10-07] MEDS: atenoloL 25 MG TABLET PO (09:35)
[2024-10-07] MEDS: oxyBUTYnin CHLORIDE 5 MG TABLET PO ×3 (09:35→18:49)
[2024-10-07] MEDS: FUROSEMIDE INJ 40 MG/4 ML VIAL IV PUSH ×2 (09:36→18:50)
[2024-10-07] MEDS: ENOXAPARIN 40 MG/0.4 ML SYRINGE SUB-Q (09:36)
[2024-10-07] MEDS: MUPIROCIN 2% OINT 22 GM TUBE 1 APPLIC EACH NARE ×2 (09:36→22:52)
--- NOTE | 2024-10-07 11:59 | HOMEO2EVAL ---
Evaluation was performed at [facility] Home Oxygen Evaluation RC: Home Oxygen (O2) Evaluation Start: 10/07/24 10:33 Freq: ONCE Status: Active Protocol: RPE Activity Type Activity Date Activity User E-sign Co-sign Detail Recorded Client Recorded Date Recorded By Document 10/07/24 11:05 [email or web address] [email or web address] 10/07/24 11:59 DJO Document 10/07/24 11:10 [email or web address] [email or web address] 10/07/24 11:59 DJO Document 10/07/24 11:15 [email or web address] [email or web address] 10/07/24 11:59 DJO Document 10/07/24 11:20 [email or web address] [email or web address] 10/07/24 11:59 DJO Document 10/07/24 11:25 [email or web address] [email or web address] 10/07/24 11:59 DJO Document 10/07/24 11:40 [email or web address] [email or web address] 10/07/24 11:59 DJO 10/07/24 10/07/24 10/07/24 11:05 11:10 11:15 Home O2 Evaluation [Oxygen] -Test Phase Resting Resting Resting -Oxygen Delivery Room Air Nasal Cannula Nasal Cannula -Oxygen Flow Rate (L/min) 1 2 [Pulse Oximetry] -Pulse Oximetry (90-100 %) 79 L 83 L 86 L [Pulse Rate] -Pulse Rate (60-100 beats/min) 85 80 78 [Evaluation] -Activity Tolerance [Charges] -Evaluation Charges O2 Evaluation by Pulmonary 10/07/24 10/07/24 10/07/24 11:20 11:25 11:40 Home O2 Evaluation [Oxygen] -Test Phase Resting Exercise Resting -Oxygen Delivery Nasal Cannula Nasal Cannula Nasal Cannula -Oxygen Flow Rate (L/min) 3 3 3 [Pulse Oximetry] -Pulse Oximetry (90-100 %) 91 90 91 [Pulse Rate] -Pulse Rate (60-100 beats/min) 78 97 80 [Evaluation] -Activity Tolerance Poor [Charges] -Evaluation Charges
--- NOTE | 2024-10-07 14:32 | P.PNIM_ITS ---
Progress Note: A&P Assessment and Plan (1) Acute hypoxic respiratory failure: Code(s): J96.01 - Acute respiratory failure with hypoxia Status: Acute Assessment and Plan: Suspected to be multifactorial diastolic CHF exacerbation, pneumonia, COPD component.? CTA showed no PE, concerning for pneumonia of the left lung.? Echo G1d. Nasal MRSA positive Continue with IV Rocephin . Added Doxycycline continue lasix to BID Blood cultures obtained in the ED on 10/04, follow. (2) Pneumonia: Qualifiers: Laterality: left Lung location: unspecified part of lung Pneumonia type: due to unspecified organism Qualified Code(s): J18.9 - Pneumonia, unspecified organism Code(s): J18.9 - Pneumonia, unspecified organism Status: Acute Assessment and Plan: - CXR:? Mild pulmonary edema - chest CTA: 1. No evidence of pulmonary embolism in main and lobar pulmonary arteries. 2. Scattered areas of groundglass and tree-in-bud opacities in left lung, concerning for pneumonia. 3. Mosaic attenuation of the lungs, likely sequela of obstructive small airway disease. - started on ceftriaxone and azithromycin on 10/04 Continue with IV Rocephin .will add Doxycycline will follow culture result - supportive care:? Tylenol p.r.n., Mucinex scheduled, Tessalon Perles p.r.n. - contain supplemental O2 to maintain O2 saturation greater than 92%, currently requiring 4L nasal cannula Home oxygen evaluation 3 L at rest and activity (3) CHF (congestive heart failure): Qualifiers: Heart failure chronicity: acute Heart failure type: unspecified Qu alified Code(s): I50.9 - Heart failure, unspecified Code(s): I50.9 - Heart failure, unspecified Status: Suspected Assessment and Plan: - BNP 3300 - CXR showed mild pulmonary edema, .? Patient reporting bilateral lower extremity swelling and abdominal swelling concerning for CHF exacerbation. - Echo G1D, severe Pulm HTN - started on Lasix 40 mg IV BID - monitor I&Os and daily weights - trend renal function (4) Chronic obstructive pulmonary disease: Qualifiers: COPD type: COPD with acute exacerbation Qualified Code(s): J44.1 - Chronic obstructive pulmonary disease with (acute) exacerbation Code(s): J44.9 - Chronic obstructive pulmonary disease, unspecified Status: Chronic Assessment and Plan: - acute exacerbation - DuoNebs p.r.n. - prednisone 40 mg x 5 days (5) Urinary tract infection: Qualifiers: Urinary tract infection type: catheter-associated UTI Indwelling urinary catheter type: indwelling urethral catheter Encounter type: initial encounter Qualified Code(s): T83.511A - Infection and inflammatory reaction due to indwelling urethral catheter, initial encounter; N39.0 - Urinary tract infection, site not specified Code(s): N39.0 - Urinary tract infection, site not specified Status: Acute Assessment and Plan: - UA:? Cloudy, 1+ protein, 1+ ketones, 1+ blood, positive nitrates, 2.0 urobilinogen, 3+ leuks, 51-100 RBC, greater than 100 WBC, 4+ bacteria with no epithelial cells. - UC Pseudomonas aeruginosa resistant to fluoroquinolones - previous micro reviewed, pansensitive Enterococcus in 2022. - Augmentin Will switch to cefepime (6) Atonic bladder: Code(s): N31.2 - Flaccid neuropathic bladder, not elsewhere classified Status: Acute Assessment and Plan: - suprapubic catheter in place, last exchange 1.5 weeks ago (7) Hypertension: Qualifiers: Hypertension type: primary hypertension Qualified Code(s): I10 - Essential (primary) hypertension Code(s): I10 - Essential (primary) hypertension Status: Chronic Assessment and Plan: - chronic, currently 163/93 - continue home medications: Atenolol - monitor Plan Asymmetric swelling to the right lower extremity, venous duplex was negative Diet: Heart healthy GI Prophylaxis: Not currently indicated DVT Prophylaxis: Lovenox SQ IV fluids: None, concern for CHF Lines/Tubes: Peripheral IV, suprapubic catheter Code Status: Full code Subjective Date/time seen: 10/07/24 14:32 Interval history: per hPI: 54 y/o F with PMH of COPD, chronic pain syndrome, atonic bladder, hypertension, and MIKE presents here with bilateral lower extremity swelling, abdominal swelling, and shortness of breath. The patient presents here from home via EMS for further evaluation of lower extremity swelling, abdominal swelling, and shortness of breath.? She reports onset approximately 24 hours ago.? She contacted her PCP with her symptoms and she was started on a diuretic yesterday - able to take one dose yesterday. She reports no change in her LE. She denies any previously known history of CHF.? Shortness of breath is accompanied by productive cough (sputum - yellow).? Denies fever, chills, body aches, nausea, vomiting, or diarrhea.? Upon arrival to the emergency department, the patient was found to be 40% on room air with a good pleth on the monitor. Breathing was labored, speaking in short sentences, and placed on a non-rebreather with improvement in her oxygen to 100%.? She has since been titrated down to 4 L nasal cannula and O2 sat on average around 95%.? Along with the shortness of breath and swelling, she reports she was recently diagnosed with the UTI and has not started her medications.? She has a chronic suprapubic catheter in place due to history of atonic bladder.? Catheter was last exchanged 1.5 weeks ago. Initial VS at presentation: ?98? F, HR 106, R 20, 142/82, and 51% on RA.? Now 95% on 4L nasal cannula. ED workup showed: ?No leukocytosis, no anemia, normal coags, creatinine 0.39 and GFR >60, glucose 112, lactic within normal limits, initial troponin negative, BNP 3300, and UA suggestive of UTI.? CXR showed mild pulmonary edema.? Chest CTA showed no evidence of PE, scattered areas of ground-glass and tree-in-bud opacities in the left lung concerning for pneumonia, was a continuation of the lungs likely sequela of obstructive small airway disease.? EKG showed sinus bradycardia, rate 59, low QRS voltage in diffuse leads. 10/05/24 Patient was seen and examined at bedside. she is feeling better. still has bilateral lower ext swelling. breathing is better. denies any chest pain, abd pain, N/V Echo G1D with severe pulm HTN Lower ext neg for DVT 10/06/24 Patient was seen and examined at bedside. she is feeling better. her breathing and leg swelling better. deneis chest pain, abd pain, N/V Augmentin was stopped as patient is allergic to penicillin. started on Rocephin Continue with IV Rocephin .will add Doxycycline will follow culture result 10/07/2024: Feeling better. Leg swelling has improved. Right leg is the only leg that is swollen. Denies any pain. Shortness of breath has improved. Still on oxygen. Does not use oxygen at home. Review of Systems Review of Systems: All systems reviewed & are unremarkable except as noted in HPI and below Exam Narrative: GENERAL: The patient is well developed, not in acute distress HEENT: Nonicteric sclerae, PERRLA, EOMI. Oropharynx clear. Moist mucous membranes. Conjunctivae appear well perfused. CHEST: Chest wall is nontender. HEART: Regular rate and rhythm without murmur, rubs, or gallops LUNGS: Coarse breath sounds bilaterally,. no respiratory distress ABDOMEN: Soft, positive bowel sounds, non-tender, no organomegaly. Suprapubic catheter in-situ connected to a bag SKIN: No rash, no excessive bruising, petechiae, or purpura. NEUROLOGIC: Cranial nerves II-XII intact, alert and oriented x 3, no gross motor deficits EXTREMITIES: Right leg edematous pitting with erythema, no cyanosis or clubbing Objective Data Vital Signs Vital Signs: Vital Signs - 24 hr 10/06/24 16:00 10/06/24 20:00 10/06/24 20:00 Temperature Pulse Rate 68 61 Respiratory Rate Blood Pressure Pulse Oximetry 96 Oxygen Delivery Nasal Cannula Oxygen Flow Rate 4 10/06/24 20:01 10/06/24 21:22 10/06/24 21:23 Temperature 97.9 F Pulse Rate 59 L 64 Respiratory Rate 18 18 Blood Pressure 111/72 Pulse Oximetry 96 96 Oxygen Delivery Nasal Cannula Oxygen Flow Rate 4 10/06/24 21:33 10/07/24 00:00 10/07/24 02:03 Temperature Pulse Rate 71 77 70 Respiratory Rate 18 18 Blood Pressure Pulse Oximetry Oxygen Delivery Oxygen Flow Rate 10/07/24 02:14 10/07/24 04:00 10/07/24 05:15 Temperature 98.1 F Pulse Rate 72 68 73 Respiratory Rate 18 16 Blood Pressure 143/73 H Pulse Oximetry 93 Oxygen Delivery Oxygen Flow Rate 10/07/24 07:51 10/07/24 07:51 10/07/24 08:01 Temperature Pulse Rate 66 67 Respiratory Rate 20 20 Blood Pressure Pulse Oximetry 96 Oxygen Delivery Nasal Cannula Oxygen Flow Rate 4 10/07/24 09:35 10/07/24 11:05 10/07/24 11:10 Temperature Pulse Rate 67 85 80 Respiratory Rate Blood Pressure Pulse Oximetry 79 L 83 L Oxygen Delivery Room Air Nasal Cannula Oxygen Flow Rate 1 10/07/24 11:15 10/07/24 11:20 10/07/24 11:25 Temperature Pulse Rate 78 78 97 Respiratory Rate Blood Pressure Pulse Oximetry 86 L 91 90 Oxygen Delivery Nasal Cannula Nasal Cannula Nasal Cannula Oxygen Flow Rate 2 3 3 10/07/24 11:40 Temperature Pulse Rate 80 Respiratory Rate Blood Pressure Pulse Oximetry 91 Oxygen Delivery Nasal Cannula Oxygen Flow Rate 3 Intake/Output Intake/Output: Intake & Output 10/04/24 10/05/24 10/06/24 10/07/24 23:59 23:59 23:59 23:59 Intake Total 350 3610 2360 790 Output Total 3400 2325 2600 2240 Balance -3050 4659 -994 -6557 Meds/Results Medications: Active Medications Generic Name Dose Route Start Last Admin Trade Name Freq PRN Reason Stop Dose Admin Acetaminophen 650 mg 10/04/24 15:42 10/06/24 23:01 Acetaminophen 325 Mg Tablet PO 650 mg Q6H PRN Administration Mild Pain (1-3) or Fever Acetaminophen/Aspirin/Caffeine 1 tablet 10/06/24 13:32 10/06/24 20:57 Acetaminophen/Aspirin/Caffeine 250-250-65 Mg Tablet PO 1 tablet Q6H PRN Administration Headache Albuterol 2 puff 10/05/24 11:54 Albuterol Sulfate (*Sp) Aerosol 1 Puff INHALATION Q6H PRN shortness of breath or wheezing Albuterol/Ipratropium 3 ml 10/05/24 02:00 10/07/24 07:51 Ipratropium 0.5 Mg/Albuterol Sulfate 2.5 Mg Ampul.Neb 3 Ml INHALATION 3 ml Q6HRT TONY Administration Atenolol 25 mg 10/05/24 09:00 10/07/24 09:35 Atenolol 25 Mg Tablet PO 25 mg DAILY TONY Administration Benzonatate 100 mg 10/04/24 15:42 10/05/24 21:24 Benzonatate 100 Mg Capsule PO 100 mg TID PRN Administration Cough Buprenorphine/Naloxone 2 each 10/05/24 13:05 10/07/24 09:34 Buprenorphine/Naloxone (*Crx) 4 Mg/1 Mg Sl Film SUBLINGUAL 2 each Q12HR TONY Administration Diclofenac Sodium 0 applic 10/04/24 23:12 Diclofenac Sodium 1% 100 Gm Gel (*Bkc) TOPICAL DAILY PRN BACK PAIN Diltiazem HCl 240 mg 10/04/24 23:20 10/06/24 20:46 Diltiazem Hcl Cd 240 Mg Cap.24hr PO 240 mg HS TONY Administration Doxycycline Hyclate 100 mg 10/06/24 12:00 10/07/24 09:35 Doxycycline Hyclate 100 Mg Tablet PO 10/12/24 21:01 100 mg Q12HR TONY Administration Enoxaparin Sodium 40 mg 10/05/24 09:00 10/07/24 09:36 Enoxaparin 40 Mg/0.4 Ml Syringe SUB-Q 40 mg DAILY TONY Administration Escitalopram Oxalate 10 mg 10/04/24 23:20 10/06/24 20:46 Escitalopram Oxalate 10 Mg Tablet PO 10 mg HS TONY Administration Furosemide 40 mg 10/05/24 17:00 10/07/24 09:36 Furosemide Inj 40 Mg/4 Ml Vial IV PUSH 40 mg BID TONY Administration Guaifenesin 600 mg 10/04/24 21:00 10/07/24 09:35 Guaifenesin 12 Hr 600 Mg Tabcr PO 600 mg Q12HR TONY Administration Ceftriaxone Sodium 2 gm in 100 mls @ 200 mls/hr 10/05/24 22:00 10/06/24 23:06 Rocephin 2 Gm/Ns 100 Ml IVPB Infused Q24H TONY Infusion Mupirocin 1 applic 10/04/24 21:00 10/07/24 09:36 Mupirocin 2% Oint 22 Gm Tube EACH NARE 10/09/24 09:01 1 applic Q12HR TONY Administration Oxybutynin Chloride 5 mg 10/04/24 23:20 10/07/24 09:35 Oxybutynin Chloride 5 Mg Tablet PO 5 mg TID TONY Administration Pantoprazole Sodium 40 mg 10/04/24 23:20 10/07/24 09:35 Pantoprazole 40 Mg Tablet PO 40 mg Q12HR TONY Administration Perflutren Lipid Microsphere 0 ml 10/04/24 15:43 Perflutren Lipid Microspheres 1.5 Ml Vial Diluted To 10 Ml Total Volume IV PUSH 10/07/24 15:43 ONCE PRN adequate visualization Protocol Phenazopyridine HCl 100 mg 10/05/24 09:00 10/07/24 09:35 Phenazopyridine Hcl 100 Mg Tablet PO 07/25/25 08:59 100 mg TID TONY Administration Potassium Chloride 10 meq 10/05/24 09:00 10/07/24 09:35 Potassium Chloride 10 Meq Er Tablet PO 10 meq DAILY TONY Administration Prednisone 40 mg 10/05/24 08:00 10/07/24 09:35 Prednisone 20 Mg Tablet PO 10/10/24 07:59 40 mg DAILY@0800 TONY Administration Pregabalin 150 mg 10/04/24 21:20 10/07/24 09:34 Pregabalin (*Crx) 75 Mg Capsule PO 150 mg Q12HR TONY Administration Trazodone HCl 150 mg 10/04/24 23:12 10/05/24 21:23 Trazodone Hcl 50 Mg Tablet PO 150 mg HS PRN Administration sleep Radiology Results: ITS Impressions Chest X-Ray 10/04/24 12:49 IMPRESSION: Mild pulmonary edema. Chest CTA 10/04/24 14:42 IMPRESSION: 1. No evidence of pulmonary embolism in main and lobar pulmonary arteries. 2. Scattered areas of groundglass and tree-in-bud opacities in left lung, concerning for pneumonia. 3. Mosaic attenuation of the lungs, likely sequela of obstructive small airway disease. Venous Doppler Study 10/05/24 10:39 Impression: No evidence of deep venous thrombosis Labs Labs: Laboratory Results - last 24 hr 10/07/24 06:39 WBC 4.3 L RBC 4.39 Hgb 9.5 L Hct 35.9 L MCV 81.8 MCH 21.6 L MCHC 26.5 L RDW 18.7 H Plt Count 115 L MPV 11.1 H Immature Gran % (Auto) 0.5 Neut % (Auto) 59.2 Lymph % (Auto) 29.6 [place] % (Auto) 10.2 H Eos % (Auto) 0.0 Baso % (Auto) 0.5 Lymph # (Auto) 1.28 [place] # (Auto) 0.4 Eos # (Auto) 0.0 Baso # (Auto) 0.0 Abs Immat Gran (auto) 0.02 Absolute Neuts (auto) 2.6 Absolute Nucleated RBC 0.000 Band Neutrophils % Not Reportable Nucleated RBC % 0.0 Platelet Estimate Decreased % Immature Plt Fraction 6.3 Hypochromasia 1+ Anisocytosis 1+ Schistocytes None seen Sodium 140 Potassium 3.8 Chloride 96 L Carbon Dioxide > 40 H Anion Gap BUN 18 H Creatinine 0.50 L Estim Creat Clear Calc 94 Estimated GFR > 60 Glucose 181 H Calcium 8.5
[2024-10-07] MEDS: CEFEPIME 2 GM/NS 50 ML 2 GM/50 ML BAG IVPB ×2 (14:45→22:55)
[2024-10-07] MEDS: ESCITALOPRAM OXALATE 10 MG TABLET PO (22:50)
[2024-10-07] MEDS: dilTIAZem HCL CD 240 MG CAP.24HR PO (22:51)
[2024-10-07] MEDS: traZODone HCL 50 MG TABLET 150 MG PO (23:04)
[2024-10-08] VITALS (14 sets, daily range): BP systolic 123–149; BP diastolic 69–85; PULSE 57–74; RESP 18–22; TEMP 35.9–36.4; O2SAT 78–96
[2024-10-08] MEDS: IPRATROPIUM 0.5 MG/ALBUTEROL SULFATE 2.5 MG AMPUL.NEB 3 ML INHALATION ×2 (02:03→07:36)
[2024-10-08 06:34] LABS: Basophils Percent Auto 0.7 % (0.2-1.2); Hematocrit 37.8 % (37.0-47.0); Hemoglobin 10.3 g/dL (12.0-15.0); Immature Granulocyte Absolute 0.01 K/mm3 (0.00-0.031); Immature Granulocyte Percent A 0.2 % (0-0.5); Lymphocytes Absolute Auto 1.38 K/mm3 (0.9-3.2); Lymphocytes Percent Auto 33.8 % (18.3-44.2); Mean Corpuscular HGB Conc 27.2 g/dl (32-36); Mean Corpuscular Hemoglobin 21.8 pg (26-34); Mean Corpuscular Volume 79.9 fl (80-100); Mean Platelet Volume 10.4 fl (7.4-10.4); Monocytes Absolute Auto 0.4 K/mm3 (0.1-0.6); Monocytes Percent Auto 8.8 % (2.6-8.5); Neutrophils Absolute Auto 2.3 K/mm3 (1.3-6.7); Neutrophils Percent Auto 56.5 % (45.5-73.1); Platelet Count Result 108 k/mm3 (150-375); Red Blood Count 4.73 M/mm3 (4.2-5.4); Red Cell Distribution Width 18.1 % (11.5-14.5); White Blood Count 4.1 K/mm3 (4.5-10.0)
[2024-10-08 07:03] LABS: Blood Urea Nitrogen 13 mg/dL (7-17); Calcium 8.9 mg/dL (8.4-10.2); Carbon Dioxide > 40 mmol/L (22-30); Chloride 96 mmol/L (98-107); Estimated CRCL calculation 101 ml/min; Estimated Glomerular Filt Rate > 60; Glucose 145 mg/dL (65-110); Potassium 3.7 mmol/L (3.4-5.0); Sodium 141 mmol/L (137-145)
[2024-10-08 07:21] LABS: Anisocytosis 1+; Hypochromasia 1+; Platelet Estimate Decreased (Adequate)
[2024-10-08 07:22] LABS: Schistocytes None Seen
[2024-10-08] MEDS: DOXYCYCLINE HYCLATE 100 MG TABLET PO ×2 (08:33→20:53)
[2024-10-08] MEDS: PHENAZOPYRIDINE HCL 100 MG TABLET PO ×2 (08:33→12:24)
[2024-10-08] MEDS: predniSONE 20 MG TABLET 40 MG PO (08:34)
[2024-10-08] MEDS: POTASSIUM CHLORIDE 10 MEQ ER TABLET PO (08:34)
[2024-10-08] MEDS: guaiFENesin 12 HR 600 MG TABCR PO ×2 (08:34→20:54)
[2024-10-08] MEDS: oxyBUTYnin CHLORIDE 5 MG TABLET PO ×3 (08:35→17:27)
[2024-10-08] MEDS: BUPRENORPHINE/NALOXONE (*CRX) 4 MG/1 MG SL FILM 2 EACH SUBLINGUAL ×2 (08:35→20:56)
[2024-10-08] MEDS: ENOXAPARIN 40 MG/0.4 ML SYRINGE SUB-Q (08:35)
[2024-10-08] MEDS: PANTOPRAZOLE 40 MG TABLET PO ×2 (08:35→20:54)
[2024-10-08] MEDS: atenoloL 25 MG TABLET PO (08:37)
[2024-10-08] MEDS: MUPIROCIN 2% OINT 22 GM TUBE 1 APPLIC EACH NARE ×2 (08:38→20:58)
[2024-10-08] MEDS: FUROSEMIDE INJ 40 MG/4 ML VIAL IV PUSH (09:43)
[2024-10-08] MEDS: PREGABALIN (*CRX) 75 MG CAPSULE 150 MG PO ×2 (09:44→20:54)
[2024-10-08] MEDS: CEFEPIME 2 GM/NS 50 ML 2 GM/50 ML BAG IVPB ×2 (09:44→20:46)
--- NOTE | 2024-10-08 14:38 | P.PNIM_ITS ---
Progress Note: A&P Assessment and Plan (1) Acute hypoxic respiratory failure: Code(s): J96.01 - Acute respiratory failure with hypoxia Status: Acute Assessment and Plan: Suspected to be multifactorial diastolic CHF exacerbation, pneumonia, COPD component.? CTA showed no PE, concerning for pneumonia of the left lung.? Echo G1d. Nasal MRSA positive Continue with IV Rocephin . Added Doxycycline continue lasix to BID Blood cultures obtained in the ED on 10/04, no growth to date (2) Pneumonia: Qualifiers: Laterality: left Lung location: unspecified part of lung Pneumonia type: due to unspecified organism Qualified Code(s): J18.9 - Pneumonia, unspecified organism Code(s): J18.9 - Pneumonia, unspecified organism Status: Acute Assessment and Plan: - CXR:? Mild pulmonary edema - chest CTA: 1. No evidence of pulmonary embolism in main and lobar pulmonary arteries. 2. Scattered areas of groundglass and tree-in-bud opacities in left lung, concerning for pneumonia. 3. Mosaic attenuation of the lungs, likely sequela of obstructive small airway disease. - started on ceftriaxone and azithromycin on 10/04 Continue with IV Rocephin .will add Doxycycline will follow culture result - supportive care:? Tylenol p.r.n., Mucinex scheduled, Tessalon Perles p.r.n. - contain supplemental O2 to maintain O2 saturation greater than 92%, currently requiring 4L nasal cannula Home oxygen evaluation 3 L at rest and activity (3) CHF (congestive heart failure): Qualifiers: Heart failure chronicity: acute Heart failure type: unspecified Qualified Code(s): I50.9 - Heart failure, unspecified Code(s): I50.9 - Heart failure, unspecified Status: Suspected Assessment and Plan: - BNP 3300 - CXR showed mild pulmonary edema, .? Patient reporting bilateral lower extremity swelling and abdominal swelling concerning for CHF exacerbation. - Echo G1D, severe Pulm HTN - started on Lasix 40 mg IV BID - monitor I&Os and daily weights - trend renal function (4) Chronic obstructive pulmonary disease: Qualifiers: COPD type: COPD with acute exacerbation Qualified Code(s): J44.1 - Chronic obstructive pulmonary disease with (acute) exacerbation Code(s): J44.9 - Chronic obstructive pulmonary disease, unspecified Status: Chronic Assessment and Plan: - acute exacerbation - DuoNebs p.r.n. - prednisone 40 mg x 5 days (5) Urinary tract infection: Qualifiers: Urinary tract infection type: catheter-associated UTI Indwelling urinary catheter type: indwelling urethral catheter Encounter type: initial encounter Qualified Code(s): T83.511A - Infection and inflammatory reaction due to indwelling urethral catheter, initial encounter; N39.0 - Urinary tract infection, site not specified Code(s): N39.0 - Urinary tract infection, site not specified Status: Acute Assessment and Plan: - UA:? Cloudy, 1+ protein, 1+ ketones, 1+ blood, positive nitrates, 2.0 urobilinogen, 3+ leuks, 51-100 RBC, greater than 100 WBC, 4+ bacteria with no epithelial cells. - UC Pseudomonas aeruginosa resistant to fluoroquinolones - previous micro reviewed, pansensitive Enterococcus in 2022. - Augmentin Will switch to cefepime Need IV cefepime for 7 total days. Day 04/19 Midline/PICC line when IV antibiotics are arranged (6) Atonic bladder: Code(s): N31.2 - Flaccid neuropathic bladder, not elsewhere classified Status: Acute Assessment and Plan: - suprapubic catheter in place, last exchange 1.5 weeks ago (7) Hypertension: Qualifiers: Hypertension type: primary hypertension Qualified Code(s): I10 - Esse ntial (primary) hypertension Code(s): I10 - Essential (primary) hypertension Status: Chronic Assessment and Plan: - chronic, - continue home medications: Atenolol - monitor Plan Asymmetric swelling to the right lower extremity, venous duplex was negative improving Diet: Heart healthy GI Prophylaxis: Not currently indicated DVT Prophylaxis: Lovenox SQ IV fluids: None, concern for CHF Lines/Tubes: Peripheral IV, suprapubic catheter Code Status: Full code Subjective Date/time seen: 10/08/24 14:38 Interval history: per hPI: 54 y/o F with PMH of COPD, chronic pain syndrome, atonic bladder, hypertension, and MIKE presents here with bilateral lower extremity swelling, abdominal swelling, and shortness of breath. The patient presents here from home via EMS for further evaluation of lower extremity swelling, abdominal swelling, and shortness of breath.? She reports onset approximately 24 hours ago.? She contacted her PCP with her symptoms and she was started on a diuretic yesterday - able to take one dose yesterday. She reports no change in her LE. She denies any previously known history of CHF.? Shortness of breath is accompanied by productive cough (sputum - yellow).? Denies fever, chills, body aches, nausea, vomiting, or diarrhea.? Upon arrival to the emergency department, the patient was found to be 40% on room air with a good pleth on the monitor. Breathing was labored, speaking in short sentences, and placed on a non-rebreather with improvement in her oxygen to 100%.? She has since been titrated down to 4 L nasal cannula and O2 sat on average around 95%.? Along with the shortness of breath and swelling, she reports she was recently di agnosed with the UTI and has not started her medications.? She has a chronic suprapubic catheter in place due to history of atonic bladder.? Catheter was last exchanged 1.5 weeks ago. Initial VS at presentation: ?98? F, HR 106, R 20, 142/82, and 51% on RA.? Now 95% on 4L nasal cannula. ED workup showed: ?No leukocytosis, no anemia, normal coags, creatinine 0.39 and GFR >60, glucose 112, lactic within normal limits, initial troponin negative, BNP 3300, and UA suggestive of UTI.? CXR showed mild pulmonary edema.? Chest CTA showed no evidence of PE, scattered areas of ground-glass and tree-in-bud opacities in the left lung concerning for pneumonia, was a continuation of the lungs likely sequela of obstructive small airway disease.? EKG showed sinus bradycardia, rate 59, low QRS voltage in diffuse leads. 10/05/24 Patient was seen and examined at bedside. she is feeling better. still has bilateral lower ext swelling. breathing is better. denies any chest pain, abd pain, N/V Echo G1D with severe pulm HTN Lower ext neg for DVT 10/06/24 Patient was seen and examined at bedside. she is feeling better. her breathing and leg swelling better. deneis chest pain, abd pain, N/V Augmentin was stopped as patient is allergic to penicillin. started on Rocephin Continue with IV Rocephin .will add Doxycycline will follow culture result 10/07/2024: Feeling better. Leg swelling has improved. Right leg is the only leg that is swollen. Denies any pain. Shortness of breath has improved. Still on oxygen. Does not use oxygen at home. 10/08/2024: Feeling better. Leg swelling has improved. Denies any pain. On oxygen 4 L. Home oxygen evaluation reviewed. Needs IV antibiotics. Review of Systems Review of Systems: All systems reviewed & are unremarkable except as noted in HPI and below Exam Narrative: GENERAL: The patient is well developed, not in acute distress HEENT: Nonicteric sclerae, PERRLA, EOMI. Oropharynx clear. Moist mucous membranes. Conjunctivae appear well perfused. CHEST: Chest wall is nontender. HEART: Regular rate and rhythm without murmur, rubs, or gallops LUNGS: Coarse breath sounds bilaterally,. no respiratory distress ABDOMEN: Soft, positive bowel sounds, non-tender, no organomegaly. Suprapubic catheter in-situ connected to a bag SKIN: No rash, no excessive bruising, petechiae, or purpura. NEUROLOGIC: Cranial nerves II-XII intact, alert and oriented x 3, no gross motor deficits EXTREMITIES: Right leg edematous pitting improved with erythema, no cyanosis or clubbing Objective Data Vital Signs Vital Signs: Vital Signs - 24 hr 10/07/24 15:00 10/07/24 16:03 10/07/24 20:00 Temperature Pulse Rate 68 64 Respiratory Rate 20 Blood Pressure Pulse Oximetry 96 Oxygen Delivery Nasal Cannula Oxygen Flow Rate 3 10/07/24 20:00 10/07/24 20:10 10/07/24 21:50 Temperature 97.6 F Pulse Rate 64 65 72 Respiratory Rate 20 20 Blood Pressure 137/65 Pulse Oximetry 93 Oxygen Delivery Oxygen Flow Rate 10/08/24 02:03 10/08/24 02:07 10/08/24 02:10 Temperature Pulse Rate 72 70 Respiratory Rate 18 20 Blood Pressure Pulse Oximetry 92 Oxygen Delivery Nasal Cannula Oxygen Flow Rate 3 10/08/24 04:35 10/08/24 07:36 10/08/24 07:36 Temperature 97.2 F L Pulse Rate 72 74 Respiratory Rate 20 20 Blood Pressure 149/77 H Pulse Oximetry 78 L 93 Oxygen Delivery Nasal Cannula Oxygen Flow Rate 4 10/08/24 07:45 10/08/24 08:00 10/08/24 08:37 Temperature Pulse Rate 64 64 Respiratory Rate 20 Blood Pressure Pulse Oximetry 96 Oxygen Delivery Nasal Cannula Oxygen Flow Rate 3 Intake/Output Intake/Output: Intake & Output 10/05/24 10/06/24 10/07/24 10/08/24 23:59 23:59 23:59 23:59 Intake Total 3610 2360 3170 926 Output Total 2325 2600 6040 1000 Balance 1285 -240 -2870 -74 Meds/Results Medications: Active Medications Generic Name Dose Route Start Last Admin Trade Name Freq PRN Reason Stop Dose Admin Acetaminophen 650 mg 10/04/24 15:42 10/06/24 23:01 Acetaminophen 325 Mg Tablet PO 650 mg Q6H PRN Administration Mild Pain (1-3) or Fever Acetaminophen/Aspirin/Caffeine 1 tablet 10/06/24 13:32 10/06/24 20:57 Acetaminophen/Aspirin/Caffeine 250-250-65 Mg Tablet PO 1 tablet Q6H PRN Administration Headache Albuterol 2 puff 10/05/24 11:54 Albuterol Sulfate (*Sp) Aerosol 1 Puff INHALATION Q6H PRN shortness of breath or wheezing Albuterol/Ipratropium 3 ml 10/08/24 12:09 Ipratropium 0.5 Mg/Albuterol Sulfate 2.5 Mg Ampul.Neb 3 Ml INHALATION Q6HRT PRN Shortness Of Breath Or Wheezing Atenolol 25 mg 10/05/24 09:00 10/08/24 08:37 Atenolol 25 Mg Tablet PO 25 mg DAILY TONY Administration Benzonatate 100 mg 10/04/24 15:42 10/05/24 21:24 Benzonatate 100 Mg Capsule PO 100 mg TID PRN Administration Cough Buprenorphine/Naloxone 2 each 10/05/24 13:05 10/08/24 08:35 Buprenorphine/Naloxone (*Crx) 4 Mg/1 Mg Sl Film SUBLINGUAL 2 each Q12HR TONY Administration Diclofenac Sodium 0 applic 10/04/24 23:12 Diclofenac Sodium 1% 100 Gm Gel (*Bkc) TOPICAL DAILY PRN BACK PAIN Diltiazem HCl 240 mg 10/04/24 23:20 10/07/24 22:51 Diltiazem Hcl Cd 240 Mg Cap.24hr PO 240 mg HS TONY Administration Doxycycline Hyclate 100 mg 10/06/24 12:00 10/08/24 08:33 Doxycycline Hyclate 100 Mg Tablet PO 10/12/24 21:01 100 mg Q12HR TONY Administration Enoxaparin Sodium 40 mg 10/05/24 09:00 10/08/24 08:35 Enoxaparin 40 Mg/0.4 Ml Syringe SUB-Q 40 mg DAILY TONY Administration Escitalopram Oxalate 10 mg 10/04/24 23:20 10/07/24 22:50 Escitalopram Oxalate 10 Mg Tablet PO 10 mg HS TONY Administration Furosemide 40 mg 10/05/24 17:00 10/08/24 09:43 Furosemide Inj 40 Mg/4 Ml Vial IV PUSH 40 mg BID TONY Administration Guaifenesin 600 mg 10/04/24 21:00 10/08/24 08:34 Guaifenesin 12 Hr 600 Mg Tabcr PO 600 mg Q12HR TONY Administration Cefepime HCl 2 gm in 50 mls @ 100 mls/hr 10/07/24 14:40 10/08/24 09:44 Maxipime 2 Gm/Ns 50 Ml IVPB 100 mls/hr Q12HR TONY Administration Miscellaneous Information 1 each 10/08/24 00:01 Duonebs And Albuterol Inhaler_ Have Duplicate Prn Indication XX 11/07/24 00:00 CLARIFY TONY Mupirocin 1 applic 10/04/24 21:00 10/08/24 08:38 Mupirocin 2% Oint 22 Gm Tube EACH NARE 10/09/24 09:01 1 applic Q12HR TONY Administration Oxybutynin Chloride 5 mg 10/04/24 23:20 10/08/24 12:24 Oxybutynin Chloride 5 Mg Tablet PO 5 mg TID TONY Administration Pantoprazole Sodium 40 mg 10/04/24 23:20 10/08/24 08:35 Pantoprazole 40 Mg Tablet PO 40 mg Q12HR TONY Administration Phenazopyridine HCl 100 mg 10/05/24 09:00 10/08/24 12:24 Phenazopyridine Hcl 100 Mg Tablet PO 11/04/24 08:59 100 mg TID TONY Administration Potassium Chloride 10 meq 10/05/24 09:00 10/08/24 08:34 Potassium Chloride 10 Meq Er Tablet PO 10 meq DAILY TONY Administration Prednisone 40 mg 10/05/24 08:00 10/08/24 08:34 Prednisone 20 Mg Tablet PO 10/10/24 07:59 40 mg DAILY@0800 TONY Administration Pregabalin 150 mg 10/04/24 21:20 10/08/24 09:44 Pregabalin (*Crx) 75 Mg Capsule PO 150 mg Q12HR TONY Administration Trazodone HCl 150 mg 10/04/24 23:12 10/07/24 23:04 Trazodone Hcl 50 Mg Tablet PO 150 mg HS PRN Administration sleep Radiology Results: ITS Impressions Chest X-Ray 10/04/24 12:49 IMPRESSION: Mild pulmonary edema. Chest CTA 10/04/24 14:42 IMPRESSION: 1. No evidence of pulmonary embolism in main and lobar pulmonary arteries. 2. Scattered areas of groundglass and tree-in-bud opacities in left lung, concerning for pneumonia. 3. Mosaic attenuation of the lungs, likely sequela of obstructive small airway disease. Venous Doppler Study 10/05/24 10:39 Impression: No evidence of deep venous thrombosis Labs Labs: Laboratory Results - last 24 hr 10/08/24 06:15 WBC 4.1 L RBC 4.73 Hgb 10.3 L Hct 37.8 MCV 79.9 L MCH 21.8 L MCHC 27.2 L RDW 18.1 H Plt Count 108 L MPV 10.4 Immature Gran % (Auto) 0.2 Neut % (Auto) 56.5 Lymph % (Auto) 33.8 [place] % (Auto) 8.8 H Eos % (Auto) 0.0 Baso % (Auto) 0.7 Lymph # (Auto) 1.38 [place] # (Auto) 0.4 Eos # (Auto) 0.0 Baso # (Auto) 0.0 Abs Immat Gran (auto) 0.01 Absolute Neuts (auto) 2.3 Absolute Nucleated RBC 0.000 Band Neutrophils % Not Reportable Nucleated RBC % 0.0 Platelet Estimate Decreased Hypochromasia 1+ Anisocytosis 1+ Schistocytes None seen Sodium 141 Potassium 3.7 Chloride 96 L Carbon Dioxide > 40 H Anion Gap BUN 13 D Creatinine 0.46 L Estim Creat Clear Calc 101 Estimated GFR > 60 Glucose 145 H Calcium 8.9
[2024-10-08] MEDS: dilTIAZem HCL CD 240 MG CAP.24HR PO (20:52)
[2024-10-08] MEDS: traZODone HCL 50 MG TABLET 150 MG PO (20:53)
[2024-10-08] MEDS: ESCITALOPRAM OXALATE 10 MG TABLET PO (20:54)
[2024-10-09] VITALS (10 sets, daily range): BP systolic 134–142; BP diastolic 65–88; PULSE 52–109; RESP 16–18; TEMP 36.3–36.8; O2SAT 91–95
[2024-10-09 06:59] LABS: Basophils Percent Auto 0.8 % (0.2-1.2); Eosinophils Percent Auto 0.3 % (0-4.4); Hematocrit 37.7 % (37.0-47.0); Immature Granulocyte Absolute 0.02 K/mm3 (0.00-0.031); Immature Granulocyte Percent A 0.5 % (0-0.5); Immature Platelet Fraction Pct 5.6 % (0.9-11.2); Lymphocytes Absolute Auto 1.39 K/mm3 (0.9-3.2); Lymphocytes Percent Auto 36.4 % (18.3-44.2); Mean Corpuscular HGB Conc 26.5 g/dl (32-36); Mean Corpuscular Hemoglobin 21.6 pg (26-34); Mean Corpuscular Volume 81.3 fl (80-100); Mean Platelet Volume 10.7 fl (7.4-10.4); Monocytes Absolute Auto 0.4 K/mm3 (0.1-0.6); Monocytes Percent Auto 9.9 % (2.6-8.5); Neutrophils Percent Auto 52.1 % (45.5-73.1); Platelet Count Result 114 k/mm3 (150-375); Red Blood Count 4.64 M/mm3 (4.2-5.4); Red Cell Distribution Width 18.2 % (11.5-14.5); White Blood Count 3.8 K/mm3 (4.5-10.0)
[2024-10-09 07:22] LABS: Alanine Aminotransferase 7 U/L (6-35); Albumin Level 3.3 g/dL (3.5-5.1); Alkaline Phosphatase 73 U/L (38-126); Aspartate Amino Transferase 16 U/L (14-36); Bilirubin,Total 0.2 mg/dL (0.2-1.3); Blood Urea Nitrogen 19 mg/dL (7-17); Calcium 8.9 mg/dL (8.4-10.2); Carbon Dioxide > 40 mmol/L (22-30); Chloride 93 mmol/L (98-107); Estimated CRCL calculation 94 ml/min; Estimated Glomerular Filt Rate > 60; Glucose 155 mg/dL (65-110); Magnesium 1.9 mg/dL (1.6-2.3); Potassium 3.5 mmol/L (3.4-5.0); Sodium 141 mmol/L (137-145); Total Protein 6.2 g/dL (6.3-8.2)
[2024-10-09 07:40] LABS: Anisocytosis 1+; Hypochromasia 1+; Platelet Estimate Slightly Decreased (Adequate)
[2024-10-09 07:42] LABS: Schistocytes None Seen
[2024-10-09] MEDS: DOXYCYCLINE HYCLATE 100 MG TABLET PO ×2 (08:18→21:40)
[2024-10-09] MEDS: ENOXAPARIN 40 MG/0.4 ML SYRINGE SUB-Q (08:18)
[2024-10-09] MEDS: guaiFENesin 12 HR 600 MG TABCR PO ×2 (08:18→21:41)
[2024-10-09] MEDS: CEFEPIME 2 GM/NS 50 ML 2 GM/50 ML BAG IVPB ×2 (08:18→21:30)
[2024-10-09] MEDS: PREGABALIN (*CRX) 75 MG CAPSULE 150 MG PO ×2 (08:19→21:40)
[2024-10-09] MEDS: predniSONE 20 MG TABLET 40 MG PO (08:19)
[2024-10-09] MEDS: BUPRENORPHINE/NALOXONE (*CRX) 4 MG/1 MG SL FILM 2 EACH SUBLINGUAL ×2 (08:19→21:41)
[2024-10-09] MEDS: POTASSIUM CHLORIDE 10 MEQ ER TABLET PO (08:19)
[2024-10-09] MEDS: oxyBUTYnin CHLORIDE 5 MG TABLET PO ×3 (08:19→17:14)
[2024-10-09] MEDS: PANTOPRAZOLE 40 MG TABLET PO ×2 (08:19→21:41)
[2024-10-09] MEDS: FUROSEMIDE 40 MG TABLET PO (08:20)
[2024-10-09] MEDS: MUPIROCIN 2% OINT 22 GM TUBE 1 APPLIC EACH NARE (08:23)
[2024-10-09] MEDS: atenoloL 25 MG TABLET PO (12:40)
--- NOTE | 2024-10-09 13:32 | PM.IMPN ---
Progress Note: A&P Assessment and Plan (1) Acute hypoxic respiratory failure: Code(s): J96.01 - Acute respiratory failure with hypoxia Status: Acute Assessment and Plan: Suspected to be multifactorial diastolic CHF exacerbation, pneumonia, COPD component.? CTA showed no PE, concerning for pneumonia of the left lung.? Echo G1d. Nasal MRSA positive Continue with IV Rocephin . Added Doxycycline continue lasix to BID Blood cultures obtained in the ED on 10/04, no growth to date (2) Pneumonia: Qualifiers: Laterality: left Lung location: unspecified part of lung Pneumonia type: due to unspecified organism Qualified Code(s): J18.9 - Pneumonia, unspecified organism Code(s): J18.9 - Pneumonia, unspecified organism Status: Acute Assessment and Plan: - CXR:? Mild pulmonary edema - chest CTA: 1. No evidence of pulmonary embolism in main and lobar pulmonary arteries. 2. Scattered areas of groundglass and tree-in-bud opacities in left lung, concerning for pneumonia. 3. Mosaic attenuation of the lungs, likely sequela of obstructive small airway disease. - started on ceftriaxone and azithromycin on 10/04 Continue with IV Rocephin .will add Doxycycline will follow culture result - supportive care:? Tylenol p.r.n., Mucinex scheduled, Tessalon Perles p.r.n. - contain supplemental O2 to maintain O2 saturation greater than 92%, currently requiring 4L nasal cannula Home oxygen evaluation 3 L at rest and activity (3) CHF (congestive heart failure): Qualifiers: Heart failure chronicity: acute Heart failure type: unspecified Qualified Code(s): I50.9 - Heart failure, unspecified Code(s): I50.9 - Heart failure, unspecified Status: Suspected Assessment and Plan: - BNP 3300 - CXR showed mild pulmonary edema. Patient reporting bilateral lower extremity swelling and abdominal swelling concerning for CHF exacerbation. - Echo G1D, severe Pulm HTN - started on Lasix 40 mg IV BID - monitor I&Os and daily weights - trend renal function Switch Lasix to oral (4) Chronic obstructive pulmonary disease: Qualifiers: COPD type: COPD with acute exacerbation Qualified Code(s): J44.1 - Chronic obstructive pulmonary disease with (acute) exacerbation Code(s): J44.9 - Chronic obstructive pulmonary disease, unspecified Status: Chronic Assessment and Plan: - acute exacerbation - DuoNebs p.r.n. - prednisone 40 mg x 5 days will complete course today (5) Urinary tract infection: Qualifiers: Urinary tract infection type: catheter-associated UTI Indwelling urinary catheter type: indwelling urethral catheter Encounter type: initial encounter Qualified Code(s): T83.511A - Infection and inflammatory reaction due to indwelling urethral catheter, initial encounter; N39.0 - Urinary tract infection, site not specified Code(s): N39.0 - Urinary tract infection, site not specified Status: Acute Assessment and Plan: - UA:? Cloudy, 1+ protein, 1+ ketones, 1+ blood, positive nitrates, 2.0 urobilinogen, 3+ leuks, 51-100 RBC, greater than 100 WBC, 4+ bacteria with no epithelial cells. - UC Pseudomonas aeruginosa resistant to fluoroquinolones - previous micro reviewed, pansensitive Enterococcus in 2022. - Augmentin Will switch to cefepime Need IV cefepime for 7 total days. Day 2/ Midline/PICC line when IV antibiotics are arranged (6) Atonic bladder: Code(s): N31.2 - Flaccid neuropathic bladder, not elsewhere classified Status: Acute Assessment and Plan: - suprapubic catheter in place, last exchange 1.5 weeks ago (7) Hypertension: Qualifiers: Hypertension type: primary hypertension Qualified Code(s): I10 - Essential (primary) hypertension Code(s): I10 - Essential (primary) hypertension Status: Chronic Assessment and Plan: - chronic, - continue home medications: Atenolol - monitor Plan Asymmetric swelling to the right lower extremity, venous duplex was negative improving Diet: Heart healthy GI Prophylaxis: Not currently indicated DVT Prophylaxis: Lovenox SQ IV fluids: None, concern for CHF Lines/Tubes: Peripheral IV, suprapubic catheter Code Status: Full code Subjective Date/time seen: 10/09/24 13:32 Interval history: per hPI: 54 y/o F with PMH of COPD, chronic pain syndrome, atonic bladder, hypertension, and MIKE presents here with bilateral lower extremity swelling, abdominal swelling, and shortness of breath. The patient presents here from home via EMS for further evaluation of lower extremity swelling, abdominal swelling, and shortness of breath.? She reports onset approximately 24 hours ago.? She contacted her PCP with her symptoms and she was started on a diuretic yesterday - able to take one dose yesterday. She reports no change in her LE. She denies any previously known history of CHF.? Shortness of breath is accompanied by productive cough (sputum - yellow).? Denies fever, chills, body aches, nausea, vomiting, or diarrhea.? Upon arrival to the emergency department, the patient was found to be 40% on room air with a good pleth on the monitor. Breathing was labored, speaking in short sentences, and placed on a non-rebreather with improvement in her oxygen to 100%.? She has since been titrated down to 4 L nasal cannula and O2 sat on average around 95%.? Along with the shortness of breath and swelling, she reports she was recently diagnosed with the UTI and has not started her medications.? She has a chronic suprapubic catheter in place due to history of atonic bladder.? Catheter was last exchanged 1.5 weeks ago. Initial VS at presentation: ?98? F, HR 106, R 20, 142/82, and 51% on RA.? Now 95% on 4L nasal cannula. ED workup showed: ?No leukocytosis, no anemia, normal coags, creatinine 0.39 and GFR >60, glucose 112, lactic within normal limits, initial troponin negative, BNP 3300, and UA suggestive of UTI.? CXR showed mild pulmonary edema.? Chest CTA showed no evidence of PE, scattered areas of ground-glass and tree-in-bud opacities in the left lung concerning for pneumonia, was a continuation of the lungs likely sequela of obstructive small airway disease.? EKG showed sinus bradycardia, rate 59, low QRS voltage in diffuse leads. 10/05/24 Patient was seen and examined at bedside. she is feeling better. still has bilateral lower ext swelling. breathing is better. denies any chest pain, abd pain, N/V Echo G1D with severe pulm HTN Lower ext neg for DVT 10/06/24 Patient was seen and examined at bedside. she is feeling better. her breathing and leg swelling better. deneis chest pain, abd pain, N/V Augmentin was stopped as patient is allergic to penicillin. started on Rocephin Continue with IV Rocephin .will add Doxycycline will follow culture result 10/07/2024: Feeling better. Leg swelling has improved. Right leg is the only leg that is swollen. Denies any pain. Shortness of breath has improved. Still on oxygen. Does not use oxygen at home. 10/08/2024: Feeling better. Leg swelling has improved. Denies any pain. On oxygen 4 L. Home oxygen evaluation reviewed. Needs IV antibiotics. 10/09/2024: No new complaints. Breathing better. IV antibiotics has not been arranged yet for discharge. Review of Systems Review of Systems: All systems reviewed & are unremarkable except as noted in HPI and below Exam Narrative: GENERAL: The patient is well developed, not in acute distress HEENT: Nonicteric sclerae, PERRLA, EOMI. Oropharynx clear. Moist mucous membranes. Conjunctivae appear well perfused. CHEST: Chest wall is nontender. HEART: Regular rate and rhythm without murmur, rubs, or gallops LUNGS: Coarse breath sounds bilaterally,. no respiratory distress ABDOMEN: Soft, positive bowel sounds, non-tender, no organomegaly. Suprapubic catheter in-situ connected to a bag SKIN: No rash, no excessive bruising, petechiae, or purpura. NEUROLOGIC: Cranial nerves II-XII intact, alert and oriented x 3, no gross motor deficits EXTREMITIES: Right leg edematous pitting improved with erythema, no cyanosis or clubbing Objective Data Vital Signs Vital Signs: Vital Signs - 24 hr 10/08/24 14:00 10/08/24 16:00 10/08/24 20:00 Temperature 97.6 F Pulse Rate 60 68 58 L Respiratory Rate 22 H Blood Pressure 132/85 Pulse Oximetry 94 Oxygen Delivery Oxygen Flow Rate 10/08/24 20:20 10/08/24 21:06 10/09/24 00:00 Temperature 96.6 F L Pulse Rate 57 L 63 Respiratory Rate 18 Blood Pressure 123/69 Pulse Oximetry 96 94 Oxygen Delivery Nasal Cannula Oxygen Flow Rate 3 10/09/24 04:00 10/09/24 05:00 10/09/24 08:00 Temperature 97.3 F L Pulse Rate 52 L 59 L Respiratory Rate 18 Blood Pressure 134/65 Pulse Oximetry 93 93 Oxygen Delivery Nasal Cannula Oxygen Flow Rate 3 10/09/24 12:40 Temperature Pulse Rate 65 Respiratory Rate Blood Pressure Pulse Oximetry Oxygen Delivery Oxygen Flow Rate Intake/Output Intake/Output: Intake & Output 10/06/24 10/07/24 10/08/24 10/09/24 23:59 23:59 23:59 23:59 Intake Total 2360 5450 1936 360 Output Total 3802 4590 1197 600 Balance -240 -2870 -3364 -240 Meds/Results Medications: Active Medications Generic Name Dose Route Start Last Admin Trade Name Freq PRN Reason Stop Dose Admin Acetaminophen 650 mg 10/04/24 15:42 10/06/24 23:01 Acetaminophen 325 Mg Tablet PO 650 mg Q6H PRN Administration Mild Pain (1-3) or Fever Acetaminophen/Aspirin/Caffeine 1 tablet 10/06/24 13:32 10/06/24 20:57 Acetaminophen/Aspirin/Caffeine 250-250-65 Mg Tablet PO 1 tablet Q6H PRN Administration Headache Albuterol 2 puff 10/05/24 11:54 Albuterol Sulfate (*Sp) Aerosol 1 Puff INHALATION Q6H PRN shortness of breath or wheezing Albuterol/Ipratropium 3 ml 10/08/24 12:09 Ipratropium 0.5 Mg/Albuterol Sulfate 2.5 Mg Ampul.Neb 3 Ml INHALATION Q6HRT PRN Shortness Of Breath Or Wheezing Atenolol 25 mg 10/05/24 09:00 10/09/24 12:40 Atenolol 25 Mg Tablet PO 25 mg DAILY TONY Administration Benzonatate 100 mg 10/04/24 15:42 10/05/24 21:24 Benzonatate 100 Mg Capsule PO 100 mg TID PRN Administration Cough Buprenorphine/Naloxone 2 each 10/05/24 13:05 10/09/24 08:19 Buprenorphine/Naloxone (*Crx) 4 Mg/1 Mg Sl Film SUBLINGUAL 2 each Q12HR TONY Administration Diclofenac Sodium 0 applic 10/04/24 23:12 Diclofenac Sodium 1% 100 Gm Gel (*Bkc) TOPICAL DAILY PRN BACK PAIN Diltiazem HCl 240 mg 10/04/24 23:20 10/08/24 20:52 Diltiazem Hcl Cd 240 Mg Cap.24hr PO 240 mg HS TONY Administration Doxycycline Hyclate 100 mg 10/06/24 12:00 10/09/24 08:18 Doxycycline Hyclate 100 Mg Tablet PO 10/12/24 21:01 100 mg Q12HR TONY Administration Enoxaparin Sodium 40 mg 10/05/24 09:00 10/09/24 08:18 Enoxaparin 40 Mg/0.4 Ml Syringe SUB-Q 40 mg DAILY TONY Administration Escitalopram Oxalate 10 mg 10/04/24 23:20 10/08/24 20:54 Escitalopram Oxalate 10 Mg Tablet PO 10 mg HS TONY Administration Furosemide 40 mg 10/09/24 09:00 10/09/24 08:20 Furosemide 40 Mg Tablet PO 40 mg DAILY TONY Administration Guaifenesin 600 mg 10/04/24 21:00 10/09/24 08:18 Guaifenesin 12 Hr 600 Mg Tabcr PO 600 mg Q12HR TONY Administration Cefepime HCl 2 gm in 50 mls @ 100 mls/hr 10/07/24 14:40 10/09/24 08:18 Maxipime 2 Gm/Ns 50 Ml IVPB 100 mls/hr Q12HR TONY Administration Miscellaneous Information 1 each 10/08/24 00:01 Duonebs And Albuterol Inhaler_ Have Duplicate Prn Indication XX 11/07/24 00:00 CLARIFY TONY Oxybutynin Chloride 5 mg 10/04/24 23:20 10/09/24 12:39 Oxybutynin Chloride 5 Mg Tablet PO 5 mg TID TONY Administration Pantoprazole Sodium 40 mg 10/04/24 23:20 10/09/24 08:19 Pantoprazole 40 Mg Tablet PO 40 mg Q12HR TONY Administration Potassium Chloride 10 meq 10/05/24 09:00 10/09/24 08:19 Potassium Chloride 10 Meq Er Tablet PO 10 meq DAILY TONY Administration Prednisone 40 mg 10/05/24 08:00 10/09/24 08:19 Prednisone 20 Mg Tablet PO 10/10/24 07:59 40 mg DAILY@0800 TONY Administration Pregabalin 150 mg 10/04/24 21:20 10/09/24 08:19 Pregabalin (*Crx) 75 Mg Capsule PO 150 mg Q12HR TONY Administration Trazodone HCl 150 mg 10/04/24 23:12 10/08/24 20:53 Trazodone Hcl 50 Mg Tablet PO 150 mg HS PRN Administration sleep Radiology Results: ITS Impressions Chest X-Ray 10/04/24 12:49 IMPRESSION: Mild pulmonary edema. Chest CTA 10/04/24 14:42 IMPRESSION: 1. No evidence of pulmonary embolism in main and lobar pulmonary arteries. 2. Scattered areas of groundglass and tree-in-bud opacities in left lung, concerning for pneumonia. 3. Mosaic attenuation of the lungs, likely sequela of obstructive small airway disease. Venous Doppler Study 10/05/24 10:39 Impression: No evidence of deep venous thrombosis Labs Labs: Laboratory Results - last 24 hr 10/09/24 06:11 WBC 3.8 L RBC 4.64 Hgb 10.0 L Hct 37.7 MCV 81.3 MCH 21.6 L MCHC 26.5 L RDW 18.2 H Plt Count 114 L MPV 10.7 H Immature Gran % (Auto) 0.5 Neut % (Auto) 52.1 Lymph % (Auto) 36.4 [place] % (Auto) 9.9 H Eos % (Auto) 0.3 Baso % (Auto) 0.8 Lymph # (Auto) 1.39 [place] # (Auto) 0.4 Eos # (Auto) 0.0 Baso # (Auto) 0.0 Abs Immat Gran (auto) 0.02 Absolute Neuts (auto) 2.0 Absolute Nucleated RBC 0.000 Band Neutrophils % Not Reportable Nucleated RBC % 0.0 Platelet Estimate Slightly decreased % Immature Plt Fraction 5.6 Hypochromasia 1+ Anisocytosis 1+ Schistocytes None seen Sodium 141 Potassium 3.5 Chloride 93 L Carbon Dioxide > 40 H Anion Gap BUN 19 H Creatinine 0.50 L Estim Creat Clear Calc 94 Estimated GFR > 60 Glucose 155 H Calcium 8.9 Magnesium 1.9 Total Bilirubin 0.2 AST 16 ALT 7 Alkaline Phosphatase 73 Total Protein 6.2 L Albumin 3.3 L
[2024-10-09] MEDS: dilTIAZem HCL CD 240 MG CAP.24HR PO (21:40)
[2024-10-09] MEDS: traZODone HCL 50 MG TABLET 150 MG PO (21:41)
[2024-10-09] MEDS: ESCITALOPRAM OXALATE 10 MG TABLET PO (21:41)
[2024-10-10] VITALS (8 sets, daily range): BP systolic 121–141; BP diastolic 64–73; PULSE 57–99; RESP 18–20; TEMP 36.6–37; O2SAT 84–94
[2024-10-10 06:00] LABS: Basophils Percent Auto 0.8 % (0.2-1.2); Eosinophils Percent Auto 0.6 % (0-4.4); Hematocrit 38.6 % (37.0-47.0); Hemoglobin 10.4 g/dL (12.0-15.0); Immature Granulocyte Absolute 0.02 K/mm3 (0.00-0.031); Immature Granulocyte Percent A 0.4 % (0-0.5); Lymphocytes Absolute Auto 1.85 K/mm3 (0.9-3.2); Lymphocytes Percent Auto 35.1 % (18.3-44.2); Mean Corpuscular HGB Conc 26.9 g/dl (32-36); Mean Corpuscular Hemoglobin 21.8 pg (26-34); Mean Corpuscular Volume 80.8 fl (80-100); Monocytes Absolute Auto 0.5 K/mm3 (0.1-0.6); Monocytes Percent Auto 9.9 % (2.6-8.5); Neutrophils Absolute Auto 2.8 K/mm3 (1.3-6.7); Neutrophils Percent Auto 53.2 % (45.5-73.1); Platelet Count Result 118 k/mm3 (150-375); Red Blood Count 4.78 M/mm3 (4.2-5.4); Red Cell Distribution Width 17.9 % (11.5-14.5); White Blood Count 5.3 K/mm3 (4.5-10.0)
[2024-10-10 06:47] LABS: Alanine Aminotransferase 8 U/L (6-35); Albumin Level 3.3 g/dL (3.5-5.1); Alkaline Phosphatase 75 U/L (38-126); Aspartate Amino Transferase 15 U/L (14-36); Bilirubin,Total 0.2 mg/dL (0.2-1.3); Blood Urea Nitrogen 22 mg/dL (7-17); Carbon Dioxide > 40 mmol/L (22-30); Chloride 96 mmol/L (98-107); Estimated CRCL calculation 91 ml/min; Estimated Glomerular Filt Rate > 60; Glucose 126 mg/dL (65-110); Magnesium 1.9 mg/dL (1.6-2.3); Potassium 3.3 mmol/L (3.4-5.0); Sodium 142 mmol/L (137-145); Total Protein 6.1 g/dL (6.3-8.2)
[2024-10-10 06:58] LABS: Anisocytosis 1+; Platelet Estimate Slightly Decreased (Adequate); Schistocytes None Seen
[2024-10-10] MEDS: atenoloL 25 MG TABLET PO (09:19)
[2024-10-10] MEDS: POTASSIUM CHLORIDE 20 MEQ ER TABLET 40 MEQ PO (09:19)
[2024-10-10] MEDS: oxyBUTYnin CHLORIDE 5 MG TABLET PO ×2 (09:19→14:27)
[2024-10-10] MEDS: FUROSEMIDE 40 MG TABLET PO (09:20)
[2024-10-10] MEDS: DOXYCYCLINE HYCLATE 100 MG TABLET PO (09:20)
[2024-10-10] MEDS: POTASSIUM CHLORIDE 10 MEQ ER TABLET PO (09:20)
[2024-10-10] MEDS: PANTOPRAZOLE 40 MG TABLET PO (09:20)
[2024-10-10] MEDS: guaiFENesin 12 HR 600 MG TABCR PO (09:20)
[2024-10-10] MEDS: PREGABALIN (*CRX) 75 MG CAPSULE 150 MG PO (09:20)
[2024-10-10] MEDS: ENOXAPARIN 40 MG/0.4 ML SYRINGE SUB-Q (09:21)
[2024-10-10] MEDS: BUPRENORPHINE/NALOXONE (*CRX) 4 MG/1 MG SL FILM 2 EACH SUBLINGUAL (09:21)
[2024-10-10] MEDS: CEFEPIME 2 GM/NS 50 ML 2 GM/50 ML BAG IVPB (09:21)
--- NOTE | 2024-10-10 09:29 | P.DS_ITS ---
DS: Admitting Diagnosis Discharge Date 10/10/2024 Admitting Diagnosis Shortness of breath DS: Discharge Diagnosis Discharge Diagnosis (1) Acute hypoxic respiratory failure: Code(s): J96.01 - Acute respiratory failure with hypoxia Status: Acute (2) Pneumonia: Qualifiers: Laterality: left Lung location: unspecified part of lung Pneumonia type: due to unspecified organism Qualified Code(s): J18.9 - Pneumonia, unspecified organism Code(s): J18.9 - Pneumonia, unspecified organism Status: Acute (3) CHF (congestive heart failure): Qualifiers: Heart failure chronicity: acute Heart failure type: unspecified Qualified Code(s): I50.9 - Heart failure, unspecified Code(s): I50.9 - Heart failure, unspecified Status: Suspected (4) Chronic obstructive pulmonary disease: Qualifiers: COPD type: COPD with acute exacerbation Qualified Code(s): J44.1 - Chronic obstructive pulmonary disease with (acute) exacerbation Code(s): J44.9 - Chronic obstructive pulmonary disease, unspecified Status: Chronic (5) Urinary tract infection: Qualifiers: Encounter type: initial encounter Indwelling urinary catheter type: indwelling urethral catheter Urinary tract infection type: catheter-associated UTI Qualified Code(s): T83.511A - Infection and inflammatory reaction due to indwelling urethral catheter, initial encounter; N39.0 - Urinary tract infection, site not specified Code(s): N39.0 - Urinary tract infection, site not specified Status: Acute (6) Atonic bladder: Code(s): N31.2 - Flaccid neuropathic bladder, not elsewhere classified Status: Acute (7) Hypertension: Qualifiers: Hypertension type: primary hypertension Qualified Code(s): I10 - Essential (primary) hypertension Code(s): I10 - Essential (primary) hypertension Status: Chronic DS: Summary Hospital Course Hospital Course: # Acute hypoxic respiratory failure: Suspected to be multifactorial diastolic CHF exacerbation, pneumonia, COPD component.? CTA showed no PE, concerning for pneumonia of the left lung.? Echo G1d. Nasal MRSA positive Continue with IV Rocephin . Added Doxycycline. Complete 7 days course continue lasix to BID Blood cultures obtained in the ED on 10/04, no growth to date # Pneumonia: - CXR:? Mild pulmonary edema - chest CTA: 1. No evidence of pulmonary embolism in main and lobar pulmonary arteries. 2. Scattered areas of groundglass and tree-in-bud opacities in left lung, concerning for pneumonia. 3. Mosaic attenuation of the lungs, likely sequela of obstructive small airway disease. - started on ceftriaxone and azithromycin on 10/04 Continue with IV Rocephin .will add Doxycycline will follow culture result - supportive care:? Tylenol p.r.n., Mucinex scheduled, Tessalon Perles p.r.n. - contain supplemental O2 to maintain O2 saturation greater than 92%, currently requiring 4L nasal cannula Home oxygen evaluation 3 L at rest and activity # CHF (congestive heart failure): - BNP 3300 - CXR showed mild pulmonary edema. Patient reporting bilateral lower extremity swelling and abdominal swelling concerning for CHF exacerbation. - Echo G1D, severe Pulm HTN - started on Lasix 40 mg IV BID - monitor I&Os and daily weights - trend renal function Switch Lasix to oral and discharged with K supplement # Chronic obstructive pulmonary disease: - acute exacerbation - DuoNebs p.r.n. - prednisone 40 mg x 5 days completed the course during the hospital stay # Urinary tract infection: - UA:? Cloudy, 1+ protein, 1+ ketones, 1+ blood, positive nitrates, 2.0 urob ilinogen, 3+ leuks, 51-100 RBC, greater than 100 WBC, 4+ bacteria with no epithelial cells. - UC Pseudomonas aeruginosa resistant to fluoroquinolones - previous micro reviewed, pansensitive Enterococcus in 2022. - Augmentin Will switch to cefepime Need IV cefepime for 7 total days. Midline/PICC line when IV antibiotics are arranged Remove PICC line/midline when antibiotics are complete # Atonic bladder: - suprapubic catheter in place, last exchange 1.5 weeks ago # Hypertension: - chronic, - continue home medications: Atenolol - monitor # Asymmetric swelling to the right lower extremity, venous duplex was negative improving # Diet: Heart healthy # GI Prophylaxis: Not currently indicated # DVT Prophylaxis: Lovenox SQ # IV fluids: None, concern for CHF # Lines/Tubes: Peripheral IV, midline, suprapubic catheter # Code Status: Full code Time Spent with Patient Time attestation: Total time spent providing and/or coordinating discharge services: 45 minutes Exam Narrative: GENERAL: The patient is well developed, not in acute distress HEENT: Nonicteric sclerae, PERRLA, EOMI. Oropharynx clear. Moist mucous membranes. Conjunctivae appear well perfused. CHEST: Chest wall is nontender. HEART: Regular rate and rhythm without murmur, rubs, or gallops LUNGS: Coarse breath sounds bilaterally,. no respiratory distress ABDOMEN: Soft, positive bowel sounds, non-tender, no organomegaly. Suprapubic catheter in-situ connected to a bag SKIN: No rash, no excessive bruising, petechiae, or purpura. NEUROLOGIC: Cranial nerves II-XII intact, alert and oriented x 3, no gross motor deficits EXTREMITIES: Right leg edematous pitting improved with erythema, no cyanosis or clubbing DS: Data Data Completed and Pending Completed studies during hospitalization: Exam Type: CA echo doppler color flow Complete two-dimensional, color flow and Doppler transthoracic echocardiogram is performed. Staff Referring Physician: Melba Mackey Therapeutic Radiologist: Lashae Diaz Attending Provider: Herb Strong Summary 1. Complete two-dimensional, color flow and Doppler transthoracic echocardiogram is performed. 2. Left ventricular chamber dimension is normal. 3. Left ventricular systolic function is normal, estimated at 65-70. 4. The left ventricular diastolic function is grade I diastolic dysfunction. 5. E/e' 10 is mildly elevated. 6. Left atrial chamber dimension is moderately enlarged. 7. Right atrial chamber dimension is severely enlarged. 8. There is mild aortic valve sclerosis. 9. There is trace mitral valve regurgitation. 10. There is mild tricuspid valve regurgitation. 11. Severe pulmonary hypertension, estimated pulmonary arterial systolic pressure is 67 mmHg. 12. There is trace pulmonic regurgitation. 13. Dilated inferior vena cava with >50% collapse upon inspiration consistent with elevated right atrial pressure, 10 mmHg. Left Ventricle E/e' 10 is mildly elevated. Left ventricular chamber dimension is normal. Left ventricular systolic function is normal, estimated at 65-70. The left ventricular diastolic function is grade I diastolic dysfunction. Right Ventricle Right ventricular chamber dimension is normal. Right ventricular systolic function is normal and with normal TAPSE 3.6 cm. Left Atria Left atrial chamber dimension is moderately enlarged. Right Atria Right atrial chamber dimension is severely enlarged. Aortic Valve The aortic valve is trileaflet. There is mild aortic valve sclerosis. There is no aortic valve stenosis. There is no aortic valve regurgitation. Pulmonic Valve There is trace pulmonic regurgitation. Mitral Valve There is no mitral valve stenosis. There is trace mitral valve regurgitation. Tricuspid Valve There is mild tricuspid valve regurgitation. Severe pulmonary hypertension, estimated pulmonary arterial systolic pressure is 67 mmHg. Pericardium/Pleural There is no pericardial effusion. Inferior Vena Cava Dilated inferior vena cava with >50% collapse upon inspiration consistent with elevated right atrial pressure, 10 mmHg. Aorta The aortic root size at the sinus of Valsalva is normal. Labs on day of discharge: Labs from last 24 hours 10/10/24 05:15 WBC 5.3 RBC 4.78 Hgb 10.4 L Hct 38.6 MCV 80.8 MCH 21.8 L MCHC 26.9 L RDW 17.9 H Plt Count 118 L MPV 11.0 H Immature Gran % (Auto) 0.4 Neut % (Auto) 53.2 Lymph % (Auto) 35.1 [place] % (Auto) 9.9 H Eos % (Auto) 0.6 Baso % (Auto) 0.8 Lymph # (Auto) 1.85 [place] # (Auto) 0.5 Eos # (Auto) 0.0 Baso # (Auto) 0.0 Abs Immat Gran (auto) 0.02 Absolute Neuts (auto) 2.8 Absolute Nucleated RBC 0.000 Band Neutrophils % Not Reportable Nucleated RBC % 0.0 Platelet Estimate Slightly decreased % Immature Plt Fraction 6.0 Anisocytosis 1+ Schistocytes None seen Sodium 142 Potassium 3.3 L Chloride 96 L Carbon Dioxide > 40 H Anion Gap BUN 22 H Creatinine 0.52 L Estim Creat Clear Calc 91 Estimated GFR > 60 Glucose 126 H Calcium 9.0 Magnesium 1.9 Total Bilirubin 0.2 AST 15 ALT 8 Alkaline Phosphatase 75 Total Protein 6.1 L Albumin 3.3 L Imaging Radiologist's impression: ITS Impressions Chest X-Ray 10/04/24 12:49 IMPRESSION: Mild pulmonary edema. Chest CTA 10/04/24 14:42 IMPRESSION: 1. No evidence of pulmonary embolism in main and lobar pulmonary arteries. 2. Scattered areas of groundglass and tree-in-bud opacities in left lung, concerning for pneumonia. 3. Mosaic attenuation of the lungs, likely sequela of obstructive small airway disease. Venous Doppler Study 10/05/24 10:39 Impression: No evidence of deep venous thrombosis Discharge Plan Discharge Attending physician on discharge: Chilo Payton Discharging Clinician: Chilo Payton Anticipated Discharge Date/Time: 10/10/24 09:31 Patient Disposition: Home with Home Health Service Activity: as tolerated Diet: heart healthy Discharge Instructions: Oxygen 3 L at rest and activity Suprapubic catheter as previously ordered with continued care Patient Instructions: Antibiotic Form, Heart Failure (GEN) Patient Language: German Stand Alone Forms: General Discharge Information Follow-up/Referrals: Aspen,MD Preet [Primary Care Provider] - 1 Week Discharge Medications: New cefepime 2 gram Recon Soln 2 g IV Q12HR Qty: 7 0RF guaifenesin [Mucus Relief ER] 600 mg Tablet Extended Release 12hr 600 mg PO Q12HR Qty: 30 0RF doxycycline hyclate 100 mg Tablet 100 mg PO Q12HR Qty: 5 0RF potassium chloride [Klor-Con 10] 10 mEq tablet extended release 10 meq PO DAILY Qty: 30 0RF Continued trazodone 150 mg tablet 150 mg PO HS PRN (Reason: sleep) albuterol sulfate 2.5 mg /3 mL (0.083 %) solution for nebulization 2.5 mg inhalation Q6H PRN (Reason: Wheezing) diltiazem HCl 240 mg capsule,ext.rel 24h degradable 240 mg PO HS esomeprazole magnesium 40 mg capsule,delayed release(DR/EC) 40 mg PO Q12H diclofenac sodium 1 % Gel 2 g TOPICAL DAILY PRN (Reason: Pain) Rx Instructions: apply to back buprenorphine-naloxone [Suboxone] 8-2 mg film 1 film sublingual Q12H oxybutynin chloride 5 mg Tablet 5 mg PO TID Qty: 90 0RF escitalopram oxalate 10 mg Tablet 10 mg PO HS biotin 800 mcg Tablet 800 mcg PO DAILY ibuprofen 800 mg Tablet 800 mg PO TID PRN (Reason: Pain) potassium chloride 10 mEq tablet extended release 10 meq PO DAILY phenazopyridine [Azo Urinary Pain Relief] 95 mg Tablet 95 mg PO TID dextroamphetamine-amphetamine 20 mg capsule,extended release 24hr 20 mg PO DAILY albuterol sulfate 90 mcg/actuation HFA aerosol inhaler 2 puff INHALATION Q6H PRN (Reason: shortness of breath or wheezing) furosemide 40 mg tablet 40 mg PO DAILY Qty: 30 0RF atenolol 25 mg Tablet 25 mg PO DAILY Qty: 30 0RF pregabalin [Lyrica] 75 mg Capsule 150 mg PO Q12HR Qty: 60 0RF Date of admission: 10/04/24 15:05 Primary Care Provider: AspenPreet Admitting Provider: Herb Strong Attending physician on admission: Herb Strong Condition: Improved Hospitalist MIPS Heart Failure (Exclusion) Patient has history of Heart Transplant or Left Ventricular Assistive Device?: No IF YES, STOP HERE Heart Failure (Qualifier) Patient has current or prior documentation of LVEF less than or equal to 40%, or mod/servere depressed LVSF?: No IF NO, STOP HERE
--- NOTE | 2024-10-10 10:41 | HOMEO2EVAL ---
Evaluation was performed at [facility] Home Oxygen Evaluation RC: Home Oxygen (O2) Evaluation Start: 10/10/24 07:36 Freq: ONCE Status: Active Protocol: RPE Activity Type Activity Date Activity User E-sign Co-sign Detail Recorded Client Recorded Date Recorded By Document 10/10/24 10:00 KRM [email or web address] 10/10/24 10:41 KRM Document 10/10/24 10:02 [email or web address] [email or web address] 10/10/24 10:41 KRM Document 10/10/24 10:04 [email or web address] [email or web address] 10/10/24 10:41 KRM Document 10/10/24 10:06 [email or web address] [email or web address] 10/10/24 10:41 KRM Document 10/10/24 10:08 [email or web address] [email or web address] 10/10/24 10:41 KRM 10/10/24 10/10/24 10/10/24 10:00 10:02 10:04 Home O2 Evaluation [Oxygen] -Test Phase Resting Resting Resting -Oxygen Delivery Room Air Nasal Cannula Nasal Cannula -Oxygen Flow Rate (L/min) 2 3 [Pulse Oximetry] -Pulse Oximetry (90-100 %) 84 L 86 L 89 L [Pulse Rate] -Pulse Rate (60-100 beats/min) 97 97 97 [Evaluation] -Activity Tolerance [Exercise] -Ambulation Distance (feet) -Ambulation Distance (meters) [Comments] -Home Oxygen Evaluation Comments [Charges] -Evaluation Charges 10/10/24 10/10/24 10:06 10:08 Home O2 Evaluation [Oxygen] -Test Phase Exercise Exercise -Oxygen Delivery Nasal Cannula Nasal Cannula -Oxygen Flow Rate (L/min) 3 4 [Pulse Oximetry] -Pulse Oximetry (90-100 %) 86 L 89 L [Pulse Rate] -Pulse Rate (60-100 beats/min) 99 99 [Evaluation] -Activity Tolerance Fair Fair [Exercise] -Ambulation Distance (feet) 10 -Ambulation Distance (meters) 3.04 [Comments] -Home Oxygen Evaluation Comments 3LPM AT REST, 4LPM WITH ACTIVITY [Charges] -Evaluation Charges O2 Evaluation by Pulmonary
[2024-10-10] MEDS: LIDOCAINE 1% LOCAL INJ 2 ML AMPUL 5 ML INFILTRATE (12:00)
[2024-10-10] MEDS: SALINE LOCK FLUSH 10 ML IV PUSH (14:28)
== END 2024-10-10 18:05 | disposition home health service (06) | DRG 193 ==
LOC: ANHED 15:04 → ANH3MEDSUR 16:45
PROVIDERS: Student in an Organized Health Care Education/Training Program; Admitting Provider Internal Medicine; Emergency Provider Emergency Medicine; PCP Hospitalist; Visit Provider Internal Medicine
DX: J18.9 Pneumonia, unspecified organism (principal); I50.31 Acute diastolic (congestive) heart failure; J96.01 Acute respiratory failure with hypoxia; T83.510A Infection and inflammatory reaction due to cystostomy catheter, initial encounter; J44.0 Chronic obstructive pulmonary disease with (acute) lower respiratory infection; J44.1 Chronic obstructive pulmonary disease with (acute) exacerbation; I11.0 Hypertensive heart disease with heart failure; I27.20 Pulmonary hypertension, unspecified; K21.9 Gastro-esophageal reflux disease without esophagitis; N31.2 Flaccid neuropathic bladder, not elsewhere classified; B96.5 Pseudomonas (aeruginosa) (mallei) (pseudomallei) as the cause of diseases classified elsewhere; G89.4 Chronic pain syndrome; G47.33 Obstructive sleep apnea (adult) (pediatric); Z94.7 Corneal transplant status; Z87.891 Personal history of nicotine dependence; Z93.50 Unspecified cystostomy status
CPT/HCPCS: 36415; 36569; 71045; 71275; 80048; 80053; 80202; 81001; 82948; 83605; 83735; 83880; 84484; 85025; 85055; 85610; 85730; 87040; 87086; 87186; 87641; 93005; 93306; 93971; 94618; 94640; 96374; 99285; A9270; C1751; J0456; J0692; J0696; J1650; J1938; J2003; J3370; J7512; Q9967

== ENCOUNTER 2024-10-15 12:06 | Outpatient (CLI) | payer OTHER, SELFPAY ==
--- OUTSIDE RECORDS SUMMARY | 2024-10-15 12:08 | XMS_ITS | Clinical Summary ---
Author Organization [facility] Address [address] [place] [id number] Care Team Providers Care Project Archivist Name Role Phone Unavailable Primary Care Provider Unavailabl e Social History Tobacco Use Types Packs/Day Years Used Date Smoking Tobacco: Never Assessed Comments Unknown Sex and Gender Information Value Date Recorded Sex Assigned at Not on file Legal Sex Female 1:00 PM CDT Gender Identity Not on file Sexual Orientation Not on file Last Filed Vital Signs Vital Sign Reading Time Taken Comments Blood Pressure 142/81 01/20/2018 4:09 PM CDT Pulse 72 01/20/2018 4:09 PM CDT Temperature - - Respiratory Rate - - Oxygen Saturation - - Inhaled Oxygen Concentration - - Weight 66.7 kg (147 lb) 01/20/2018 4:09 PM CDT Height 162.6 cm (5' 4) 01/20/2018 4:09 PM CDT Body Mass Index 25.23 01/20/2018 4:09 PM CDT Plan of Treatment Health Maintenance Due Date Last Done Comments Cervical Cancer Screening Pa p Smear (Age 30 to 64) Every 3 Years 1971 Colorectal Cancer Screening Colonoscopy (10 Years) 1971 Annual Physical 1974 Hepatitis C 1989 DTaP, Tdap and Td Vaccines ( 1 - Tdap) 1990 Hepatitis B Vaccines (1 of 3 - 19+ 3-dose series) 1990 Cervical Cancer Screening Pa p with HPV Testing (Age 30 to 64) Every 5 Years 2001 Cervical Cancer Screening with HPV 2001 Mammogram Screening 2011 Pneumococcal Vaccine: 50+ Ye ars (1 of 1 - PCV) 2021 Zoster Vaccines (1 of 2) 2021 COVID-19 Vaccine (2023-2 5 season) 2023 Meningococcal B Vaccine Aged Out No l onger eligible based on patient's age to complete this topic Meningococcal Vaccine Aged Out No parker lily eligible based on patient's age to complete this topic RSV Immunizations Under 20 Months Aged Out No longer eligible based on patient's age to complete this topic Advance Directives Documents on File Type Date Recorded Patient Plating Operator Expl anation Advance Directives and Living Will 01/28/2018 12:00 AM ADVANCED DIRECTIVES
--- OUTSIDE RECORDS SUMMARY | 2024-10-15 12:08 | XMS_ITS | Encounter Summary ---
Author Organization [facility] Address [facility] [place] [address] Care Team Providers Care Outcome Analyst Name Role Phone Rakan Rojas Primary Care Provider Unava ilable Rakan Rojas MD Primary Care Provider [phone] Guzman Moody MD Primary Care Provider [phone] Rakan Rojas MD Primary Care Provider [phone] Guzman Moody MD Primary Care Provider [phone] Encounter Details Date Type Department Care Team (Late st Contact Info) Description 12/20/2018 Ophth Exam [facility] [address] [place] [address] Serafin Andrade MD [address] [place] [id number] Social History Tobacco Use Types Packs/Day Years Used Date Smoking Tobacco: Every Day Cigarettes Smokeless Tobacco: Never Alcohol Use Standard Drinks/Week Comments No 0 (1 standard drink = 0.6 oz pur e alcohol) Comments No Sex and Gender Information Value Date Recorded Sex Assigned at Not on file Legal Sex Female 12:10 PM CDT Gender Identity Not on file Sexual Orientation Not on file documented as of this encounter Functional Status * Is person deaf or have serious hearing difficulty? Answer Date of Assessment Author No 05/22/2017 3:22 PM Adan Urias RN * Is person blind or have serious difficulty seeing? Answer Date of Assessment Author No 05/22/2017 3:22 PM Adan Urias RN * Does person have serious difficulty walking/climbing stairs? Answer Date of Assessment Author No 05/22/2017 3:22 PM Adan Urias RN * Does person have difficulty dressing/bathing? Answer Date of Assessment Author No 05/22/2017 3:22 PM Adan Urias RN * Does person have difficulty doing errands alone? Answer Date of Assessment Author No 05/22/2017 3:22 PM Adan Urias RN documented as of this encounter Mental Status * Does person have difficulty concentrating/remembering/making decisions? Answer Entry Date Author No 05/22/2017 3:22 PM Adan Urias RN documented in this encounter Plan of Treatment Not on file documented as of this encounter Visit Diagnoses Not on filedocumented in this encounter Care Teams Outcome Analyst Relationship Specialty Start Date End Date Rakan Rojas Update Information PCP - General 12/20/18 12/23/18 Rakan Rojas MD Update Information PCP - General 12/24/18 06/24/21 Guzman Moody MD [address] [place] [address] PCP - General Internal Medicine 06/25/21 09/24/21 Rakan Rojas MD [address] [place] [address] PCP - General 09/25/21 11/10/21 Guzman Moody MD [address] [place] [place] [address] PCP - General 11/11/21 documented as of this encounter
--- OUTSIDE RECORDS SUMMARY | 2024-10-15 12:08 | XMS_ITS | Clinical Summary ---
Author Organization [facility] Address [address] [place] [address] Care Team Providers Care Shift Superintendent Name Role Phone Guzman Moody MD Primary Care Provider [phone] Source Comments [facility],non-owned Affiliates and Associated Physician Practices is amultiple site organization consisting of ambulatory clinics and hospital sitesin [place], [place], [place] and [place]. This disclosure is being madepursuant to the Care Everywhere program and may not contain all information available regarding this patient. Last updated 18.[facility] Allergies Active Allergy Reactions Criticality Noted Date Comments Diphenhydramine Urticaria Medium Other reaction(s): Hives Tobramycin Sulfate (Ophth) Rash Medium 3 Triprolidine-Pse Urticaria Medium Actifed Medications * Be aware that medications may not be up to date on this document. Alwaysverify current medications with the patient. dilTIAZem ER 24hr (TIAZAC) 240 MG capsule Take 1 (one) capsule by mouth once daily 01/01/20 21 Active sertraline (ZOLOFT) 100 MG tablet Take 1 (one) tablet by mouth at bedtime 11/09/19 21 Active traZODone (DESYREL) 150 MG tablet Take 1 (one) tablet by mouth at bedtime 11/09/19 21 Active atenolol (TENORMIN) 50 MG tablet Take 1 (one) tablet by mouth once daily Active albuterol (PROVENTIL;KEI DELMY) (2.5 MG/3ML) 0.083% nebulizer solution 02/15/20 21 Active multivitamin daily tabletIndication s:Lumbar stenosis with neurogenic claudication Take 1 (one) tablet by mouth once daily 04/30/19 22 Active esomeprazole (NexIUM) 40 MG capsule TAKE 1 CAPSULE BY MOUTH TWICE A DAY 10/02/19 22 Active albuterol HFA (Proventil; Ventolin; Proair) 108 (90 Base) MCG/ACT inhaler Inhale 2 (two) puffs by mouth every 6 hours as needed Active montelukast (Singulair) 10 MG tablet 08/19/19 23 Active ondansetron (Zofran) 4 MG tablet Take 1 (one) tablet by mouth every 8 hours as needed for nausea and vomiting. 06/13/19 23 Active budesonide-formo terol (Symbicort) 160-4.5 MCG/ACT inhaler Inhale 2 (two) puffs by mouth 2 times daily 09/11/19 23 Active heparin 5000 UNIT/ML injection Inject 1 mL subcutaneously every 8 hours 09/11/19 23 Active pregabalin (Lyrica) 150 MG capsule Take 1 (one) capsule by mouth 3 times daily 09/11/19 23 Active lidocaine (Lidoderm) 5 % patch Apply 1 (one) patch to skin every 24 hours Apply patch to most painful area and remove after 12 hours. May reapply a new patch 12 hours later. 09/11/19 23 Active docusate sodium (Colace) 100 MG capsule Take 1 (one) capsule by mouth 2 times daily 09/11/19 23 Active senna (Senokot Extra Strength) 17.2 MG Take 17.2 mg by mouth 2 times daily 09/11/19 23 Active nicotine (Nicoderm CQ) 14 MG/24HR patchIndications :Lumbar stenosis with neurogenic claudication Apply 1 (one) patch to skin once daily 09/12/19 23 Active baclofen (Lioresal) 5 MG TABS Take 1 (one) tablet by mouth 3 times daily 09/11/19 23 Active tiZANidine (Zanaflex) 2 MG tablet Take 1 (one) tablet by mouth every 8 hours as needed for Muscle Spasms 05/31/20 23 Active tiZANidine (Zanaflex) 2 MG tablet Take 1 (one) tablet by mouth at bedtime 09/11/19 Active oxyBUTYnin (Ditropan) 5 MG tablet Take 1 (one) tablet by mouth 3 times daily as needed (for abdominal bladder spasm pain) 09/11/19 Active oxyCODONE, immediate release, (Roxicodone) 5 MG tabletIndication s:Lumbar stenosis with neurogenic claudication Take 1 (one) tablet to 2 (two) tablets by mouth every 6 hours as needed 70 tablet 09/11/19 Active Active Problems Problem Noted Date Diagnosed Date Vision loss of right eye 08/28/2022 ADHD (attention deficit hyperactivity disorder) 08/28/2022 Radiculopathy, lumbosacral region 07/03/2021 Lumbosacral spondylosis without myelopathy 07/03 Overview (07/22/2022): Last Assessment & Plan: Stable, well controlled; follows with back surgery, waiting for clearance and insurance approval of spinal surgery Currently engage with physical therapy; can not currently stand for extended durations Continue Excedrin ibuprofen for pain relief Lumbar stenosis with neurogenic claudication Gastroesophageal reflux disease 11/25/2019 Overview (07/22/2022): Last Assessment & Plan: Stable, well controlled; patient reports making dietary changes to help manage symptoms, decreasing portion sizes Continue Nexium 40 mg b.i.d. Vitreous prolapse of right eye 03/08/2019 Wound dehiscence 03/08/2019 History of corneal transplant 03/08/2019 Aphakia, right 03/08/2019 Acute bronchitis 03/07/2019 Asthma 03/07/2019 Diabetic neuropathy 03/07/2019 Obstructive sleep apnea 03/07/2019 Overweight (BMI 25.0-29.9) 03/07/2019 Tobacco dependence syndrome 03/07/2019 Essential hypertension 03/07/2019 Secondary glaucoma of right eye, indeterminate s tage 03/07/2019 Overview (03/07/2019): Patient with history of recent corneal ulcer requiring corneal transplant. 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 Glaucoma could be from several mechanisms including angle closure, steroid induced and inflammatory damage to outflow. We are planning Ahmed implant for initial treatment as well as anterior vitrectomy and removal of superior iris and capsule to create one compartment eye to hopefully prevent internal occlusion of the tube Ham Tenorio MD 03/07/2019 9:53 AM Corneal ulcer, right 03/07/2019 Overview (03/07/2019): By history, patient apparently had abrasion of the right cornea while mushroom hunting in Aug, 2018 that eventually evolved into severe corneal ulcer and possible fungal component requiring corneal transplant. The patient is now developed glaucoma as described elsewhere in the problem list. 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 (AF LURIA, FLUZONE TRIVALENT; 6MO+) (IIV3) 02/19/2015 INFLUENZA VACCINE 11/11/2018 INFLUENZA VACCINE, QUADR. (F LUZONE; FLULAVAL; FLUARIX; AFLURIA QUADRIVALENT; 6MO+), 0.5 ML (IIV4) 02/07/2022,05/29/2021,12/08/2019,2017 Pneumococcal Pcv13 Conj 06/28/2021 Family History Medical History Relation Name Comments Anxiety Disorder Mother Hypertension Mother Relation Name Status Comments Mother Alive Social History Tobacco Use Types Packs/Day Years Used Date Smoking Tobacco: Former Cigarettes 1 30 1 - 01/11/2022 Smokeless Tobacco: Never Tobacco Cessation:Counseling Given: Not Answered Alcohol Use Standard Drinks/Week Comments Not Currently 0 (1 standard drink = 0.6 oz pur e alcohol) social AUDIT-C Answer Date Recorded Q1: How often do you have a drink containing alc ohol? Never 08/28/2022 Q2: How many drinks containi ng alcohol do you have on a typical day when you are drinking? 1 or 2 08/28/2022 Q3: How often do you have six or more drinks on one occasion? Never 08/28/2022 Overall Financial Resource Strain (CARDIA) Answe r Date Recorded How hard is it for you to pa y for the very basics like food, housing, medical care, and heating? Not hard at all 08/28/2022 [facility] Occupat ional [facility] - Occupational Stress Questionnaire Answer Date Recorded Do you feel stress - tense, restless, nervous, or anxious, or unable to sleep at night because your mind is troubled all the time - these days? Not at all 08/28/2022 Hunger Vital Sign Answer Date Recorded Within the past 12 months, y ou worried that your food would run out before you got the money to buy more. Never true 08/29/19 Within the past 12 months, t he food you bought just didn't last and you didn't have money to get more. Never true 08/28/2022 PRAPARE - Transportation Answer Date Re corded In the past 12 months, has l ack of transportation kept you from medical appointments or from getting medications? No 08/11 In the past 12 months, has l ack of transportation kept you from meetings, work, or from getting things needed for daily living? No 08/28/2022 Housing Stability Vital Sign Answer Kevin e Recorded In the last 12 months, was t here a time when you were not able to pay the mortgage or rent on time? No 08/28/2022 In the last 12 months, how many places have you lived? 1 08/28/2022 In the last 12 months, was t here a time when you did not have a steady place to sleep or slept in a usp (including now)? No 08/28/2022 Comments No Sex and Gender Information Value Date Recorded Sex Assigned at Not on file Legal Sex Female 12:10 PM CDT Gender Identity Not on file Sexual Orientation Not on file Last Filed Vital Signs Vital Sign Reading Time Taken Comments Blood Pressure 136/79 10/21/2022 10:46 AM CDT Pulse 64 10/21/2022 10:46 AM CDT Temperature 37.3 C (99.1 F) 10/21/2022 10:46 AM CDT Respiratory Rate 18 10/21/2022 10:46 AM CDT Oxygen Saturation 98% 09/10/2022 12:01 PM CDT Inhaled Oxygen Concentration 21% 09/07/2022 8 :20 PM CDT Weight 70.3 kg (155 lb) 10/21/2022 10:46 AM CDT Height 162.6 cm (5' 4) 10/21/2022 10:46 AM CDT Body Mass Index 26.61 10/21/2022 10:46 AM CDT Plan of Treatment Health Maintenance Due Date Last Done Comments COLOGUARD (AGES 45-75) - COLON CA SCREENING [address] COLONOGRAPHY - COLON CA SCREENING 1971 FIT - COLON CA SCREENING 1971 FLEX SIG - COLON CA SCREENING 1971 MEDICARE AWV 12 MONTHS 1971 Opioid Medication Agreement - Annual 1971 HIV SCREENING 1986 HEPATITIS C SCREENING 01/26/1989 DTAP/TDAP/TD VACCINES (1 - Tdap) 1990 HEPATITIS B VACCINE (1 of 3 - 19+ 3-dose series) 1990 PAP SMEAR 02/01/1992 DIABETES-STATIN 2011 DIABETES-FOOT EXAM WITH MONOFILAMENT 03/07/2019 ZOSTER VACCINE (1 of 2) 2021 PNEUMOCOCCAL VACCINE 50+ (2 of 2 - PPSV23, PCV20, or PCV21) 08/23/2021 06/28/2021 DIABETES-SERUM CREATININE 09/10/20232022, 09/08/2022, 09/07/2022, Additional history exists DIABETES RETINOPATHY SCREENING 10/23/2023 10/22/2021, 10/07/2021, 09/24/2021, Additional history exists MAMMOGRAM 11/05/2023 11/04/2021, 10/12, 10/24/2019 COVID-19 VACCINE ( season) 2023 03/23/2021, 06/28/2020, 06/05/2020 DEPRESSION SCREENING 04/13/2024 DIABETES - URINE PROTEIN SCREENING 04/13/2024 01/20/2022 DIABETES-HGB A1C 07/13/2024 01/13/2024, , 05/28/2021 COLON MONITORING 09/16/2032 09/16/2022 COLONOSCOPY - COLON CA SCREENING 09/16/2032 09/16/2022 Colorectal Cancer Screening 09/16/2032 INFLUENZA VACCINE Completed 01/13/2024, , 05/29/2021, Additional history exists HIB VACCINE Aged Out No longer eligi ble based on patient's age to complete this topic HPV VACCINE Aged Out No longer eligi ble based on patient's age to complete this topic MENINGOCOCCAL (Group B) VACCINE SHARED DECISION-MAKING Aged Out No longer eligible based on patient's age to complete this topic MENINGOCOCCAL GROUPS A/C/Y/W VACCINE Aged Out No longer eligible based on patient's age to complete this topic Medical Devices Implanted Type Area Chainstitch Zipper Setter Device Identifier Shelf Expiration Date Model / Serial / Lot Drain Glcm Thk.9mm Blnt Tpr [facility] Flxb - [id number] Implanted:Qty: 1 on 03/07/2019 by Ham Tenorio MD at [facility] Right: Eye [employer] 10/09/2020 FP7 / [id number] / [id number] Graft Tissue Ttpl Ioptch Sclr .8x.5cm - [id number] Implanted:Qty: 1 on 03/07/2019 by Ham Tenorio MD at [facility] Right: Eye [employer] 09/11/2023 [id number] / [id number] / [id number] Parker Cornea - [id number] Implanted:Qty: 1 on 03/17/2019 by Celestine Purvis MD at [facility] Right: Eye Mid [employer] 03/29/2019 BILL ONLY CORNEA / [id number] / [id number] Graft Tissue Amniograft Amnio Membr 1.5 - [id number] Implanted:Qty: 1 on 03/17/2019 by Celestine Purvis MD at [facility] Right: Eye Bio Tissue Inc 08/03/2020 [id number] / [id number] / Jer Spnl 80mm 5.5mm Cd Hzn Crv Cocrmo Implanted:Qty: 2 on 04/25/2021 by Bennie Avila MD at [facility] N/A: Spine Lumbar Medtronic Inc [id number] / / Addison Dbf Inject Implanted:Qty: 1 on 04/25/2021 by Bennie Avila MD at [facility] N/A: Spine Lumbar Medtronic Inc 03/21/2023 [id number] / / [id number] Screw Set Ti Spnl Brk Off Cd Hzn Nonster Implanted:Qty: 6 on 04/25/2021 by Bennie Avila MD at [facility] N/A: Spine Lumbar Medtronic Sofamor Danek Inc [id number] / / Screw 9.5mm 50mm Ma Spne Cocr 5.5mm Jer Implanted:Qty: 2 on 04/25/2021 by Bennie Avila MD at [facility] N/A: Spine Lumbar Medtronic Sofamor Danek Inc [id number] / / Interbody Cage, Pl, Short 7mm X 22.5mm Implanted:Qty: 2 on 04/25/2021 by Bennie Avila MD at [facility] N/A: Spine Lumbar Medtronic Inc 10/25/2028 [id number] / / [id number] Medtronic Addison Dbf Inject Implanted:Qty: 1 on 08/27/2022 by Bennie Avila MD at [facility] N/A: Spine Lumbar Medtronic Inc 08/05/2024 [id number] / [id number] / N/A Spcr Spnl 7mm [facility] [facility] - Sn/A Implanted:Qty: 1 on 08/27/2022 by Bennie Avila MD at [facility] N/A: Spine Lumbar Medtronic Sofamor Danek Spine 07/30/2030 [id number] / N/A / [id number] Spcr Spnl 7mm [address] [facility] - Sn/A Implanted:Qty: 1 on 08/27/2022 by Bennie Avila MD at [facility] N/A: Spine Lumbar Medtronic Sofamor Danek Spine 07/30/2030 [id number] / N/A / [id number] Graft Bone Grftn Dbm Plif 10x2.5cm - [id number] Implanted:Qty: 1 on 08/27/2022 by Bennie Avila MD at [facility] N/A: Spine Lumbar [employer]otech Inc 07/11/2025 [id number] / [id number] / N/A Screw Set Ti Spnl Brk Off Cd Hzn Nonster - Sn/A Implanted:Qty: 6 on 08/27/2022 by Bennie Avila MD at [facility] N/A: Spine Lumbar Medtronic Inc [id number] / N/A / N/A Screw 6.5mm 50mm Ma Spne Solera Cd Hzn - Sn/A Implanted:Qty: 2 on 08/27/2022 by Bennie Avila MD at [facility] N/A: Spine Lumbar Medtronic Inc [id number] / N/A / N/A Jer Spnl 120mm 5.5mm Cd Hzn Crv Ti Cp4 - Sn/A Implanted:Qty: 2 on 08/27/2022 by Bennie Avila MD at [facility] N/A: Spine Lumbar Medtronic Inc [id number] / N/A / N/A Screw 6.5mm 50mm Ma Spne Solera Cd Hzn Implanted:Qty: 4 on 04/25/2021 by Bennie Avila MD at [facility] Explanted:Qty: 2 on 08/27/2022 at [facility] N/A: Spine Lumbar Medtronic Sofamor Danek Inc [id number] / / Procedures Procedure Name Priority Date/Time Associated Diagnosis Comments BASIC METABOLIC PANEL (CALCIUM TOTAL) Routine 09/09/2022 5:32 AM CDT from Last 3 Months or Most Recently Relevant to Health Maintenance Results * (ABNORMAL) BASIC METABOLIC PANEL (CALCIUM TOTAL) (09/09/2022 5:32 AM CDT) [facility] BUN 13 7 - 26 mg/dL 09/09/2022 7:39 AM CDT [facility] Creatinine 0.40(L) 0.56 - 0.96 mg/dL 09/09/2022 7:39 AM [facility] Sodium 141 136 - 145 mmol/L 09/09/2022 7:39 AM [facility] Potassium 3.8 3.5 - 4.5 mmol/L 09/09/2022 7:39 AM [facility] Chloride 104 98 - 107 mmol/L 09/09/2022 7:39 AM [facility] CO2 26 22 - 29 mmol/L 09/09/2022 7:39 AM [facility] Glucose 138(H) 70 - 115 mg/dL 09/09/2022 7:39 AM [facility] Calcium 8.9 8.4 - 10.2 mg/dL 09/09/2022 7:39 AM [facility] Anion Gap 15 8 - 18 09/09/2022 7:39 AM [facility] BUN/Creatinine Ratio 33(H) 7 - 23 09/09/2022 7:39 AM [facility] Osmolality Calculated 294 270 - 300 mOsm/kg 09/09/2022 7:39 AM [facility] eGFR by CKD-EPI >90 >=90 mL/min/1.7 3 m2 09/09/2022 7:39 AM [facility] Blood BLOOD SPECIMEN / Unknown Lab Venipuncture / Unknown 09/09/2022 5:32 AM CDT 09/09/2022 7:07 AM T Bennie Avila MD LAB - CHEMISTRY ORDERABLES F inal Result Performing Organization Address [facility]/State/ZIP Co de Phone Number [facility] [address] [place] [address], [facility] [phone] from Last 3 Months or Most Recently Relevant to Health Maintenance Insurance [facility] MEDICARE T T Advance Directives * Full Code (Latest Code Status on File) Date Activated Date Inactivated Comments 08/27/2022 6:24 PM 09/10/2022 4:12 PM * Full Code Date Activated Date Inactivated Comments 04/25/2021 2:36 PM 04/30/2021 2:15 PM Care Teams Shift Superintendent Relationship Specialty Start Date End Date Guzman Moody MD [address] [place] [id number] [facility] - General 11/11/21
--- OUTSIDE RECORDS SUMMARY | 2024-10-15 12:08 | XMS_ITS | Referral Summary ---
Author Organization [facility] Address [address] [place] [address] Care Team Providers Care Journalism Internship Name Role Phone Preet Hawkins MD Primary Care Provider [phone] Encounters Date Type Department Care Team Description 10/08/2024 Telephone [facility] [address] [place] [address] Preet Hawkins MD After Hours; Medical Question/Miscellaneou s 10/04/2024 Orders Only [facility] [address] [place] [address] Scanning, Provider 10/03/2024 Telephone [facility] [address] [place] [address] Preet Hawkins MD Symptom Based Call from Last 3 Months Allergies Active Allergy Reactions Criticality Noted Date Comments Adhesive Unknown 10/12/2024 Amoxicillin-Pot Clavulanate Urticaria Medium 06/16/2019 Antihistamine-1 Hives Medium 12/20/2020 Diphenhydramine Hives Medium Other reaction(s): Hives Latex Rash,Swelling Medium 10/12/2024 Mold Shortness of breath High 10/12/2024 Penicillins Unknown 10/12/2024 Pseudoephedrine Hcl Other (See comments) Low 12/20/2020 Sulfa (Sulfonamide Antibiotics) Unknown 12/20/2020 Tobramycin Rash High 01/28/2019 Severe swelling, pain, redness Triprolidine Itching,Unknown Low 12/20/2020 Triprolidine-Pseudoephedr ine Hives,Urticaria Medium 07/12/2017 Actifed Benadryl Vit E-Nonoxynol 9-Aloe Vera Rash,Swelling Medium 10/12/2024 Medications diclofenac sodium (VOLTAREN) 1 % gelIndications:O steoarthritis Using on back 020 Active naloxone (NARCAN) 4 mg/actuation spray,non-aeroso l Administer 1 spray into affected nostril(s) as needed for opioid reversal or respiratory depression Call 911. Administer a single spray in one nostril. Repeat every 3 minutes as needed if no or minimal response. 2 each 022 Active compress.stockin g,knee,reg,med misc 20 - 30 mmHg; Use on Right Leg during day to help with edema associated with neuro-deficit 2 each 1 023 Active lidocaine (LMX) 4 % cream Apply topically as needed for pain 30 g 3 024 Active miscellaneous medical supply [facility] [place] [employer] Arm Crutches 1 each 024 Active traZODone (DESYREL) 150 mg tablet TAKE 1 TABLET BY MOUTH AT BEDTIME NEEDED FOR SLEEP 100 tablet [address] (NexIUM) 40 mg capsule TAKE 1 CAPSULE BY MOUTH TWICE A DAY 180 capsule 4 024 Active oxyBUTYnin XL (DITROPAN-XL) 5 mg 24 hr tabletIndication s:Neurogenic Bladder Take 1 tablet (5 mg total) by mouth daily 90 tablet 1 025 2024 Active dilTIAZem XR 240 mg 24 hr capsuleIndicatio ns:Essential hypertension TAKE 1 CAPSULE BY MOUTH EVERY DAY 100 capsule 1 025 Active atenoloL (TENORMIN) 25 mg tabletIndication s:Essential hypertension Take 1 tablet (25 mg total) by mouth daily 30 tablet 11 025 2025 Active benzonatate (TESSALON) 200 mg capsule Take 1 capsule (200 mg total) by mouth 3 (three) times a day as needed for cough 20 capsule 025 Active montelukast (SINGULAIR) 10 mg tabletIndication s:Seasonal allergic rhinitis, unspecified trigger TAKE 1 TABLET BY MOUTH EVERY DAY AT NIGHT 90 tablet 2 Active escitalopram (LEXAPRO) 10 mg tabletIndication s:Mood disorder TAKE 1 TABLET BY MOUTH EVERY DAY 90 tablet 1 025 Active albuterol 2.5 mg /3 mL (0.083 %) nebulizer solutionIndicati ons:COPD with acute exacerbation (HCC) Take 3 mL (2.5 mg total) by nebulization every 6 (six) hours as needed for wheezing 150 mL 3 025 Active ibuprofen (ADVIL,MOTRIN) 800 mg tabletIndication s:Opioid dependence, in remission (HCC) TAKE 1 TABLET BY MOUTH 3 TIMES DAILY 300 tablet 2 Active buprenorphine-na loxone (SUBOXONE) 8-2 mg per filmIndications: Moderate opioid use disorder (HCC) DISSOLVE 1 FILM UNDER TONGUE TWO TIMES A DAY 60 Film 2 Active pregabalin (LYRICA) 150 mg capsule Take 1 capsule (150 mg total) by mouth nightly 60 capsule 025 2024 Active pregabalin (LYRICA) 75 mg capsule Take 1 capsule (75 mg total) by mouth 2 (two) times a day 120 capsule 025 2024 Active albuterol HFA (PROVENTIL HFA,VENTOLIN HFA,PROAIR HFA) 90 mcg/actuation inhalerIndicatio ns:COPD with acute exacerbation (HCC) TAKE 2 PUFFS BY MOUTH EVERY 6 HOURS NEEDED FOR WHEEZE OR FOR SHORTNESS OF BREATH 25.5 each 1 Active ondansetron (ZOFRAN) 4 mg tabletIndication s:Nausea TAKE 1 TABLET BY MOUTH EVERY 8 HOURS NEEDED FOR NAUSEA AND VOMITING 20 tablet 1 Active dextroamphetamin e-amphetamine XR (ADDERALL XR) 20 mg 24 hr capsuleIndicatio ns:Attention deficit hyperactivity disorder (ADHD), predominantly inattentive type Take 1 capsule (20 mg total) by mouth every morning 30 capsule 025 2024 Active furosemide (LASIX) 40 mg tabletIndication s:Edema of both legs Take 1 tablet (40 mg total) by mouth daily 7 tablet 06/23/2 025 Active potassium chloride ER (KLOR-CON) 10 mEq CR tabletIndication s:Edema of both legs Take 1 tablet/capsule (10 mEq total) by mouth daily 7 tablet 025 Active ondansetron (ZOFRAN) 4 mg tabletIndication s:Nausea TAKE 1 TABLET BY MOUTH EVERY 8 HOURS NEEDED FOR NAUSEA AND VOMITING 20 tablet 1 025 2024 Discontinued albuterol HFA (PROVENTIL HFA,VENTOLIN HFA,PROAIR HFA) 90 mcg/actuation inhalerIndicatio ns:COPD with acute exacerbation (HCC) TAKE 2 PUFFS BY MOUTH EVERY 6 HOURS NEEDED FOR WHEEZE OR FOR SHORTNESS OF BREATH 20.1 each 1 025 2024 Discontinued dextroamphetamin e-amphetamine XR (ADDERALL XR) 20 mg 24 hr capsuleIndicatio ns:Attention deficit hyperactivity disorder (ADHD), predominantly inattentive type Take 1 capsule (20 mg total) by mouth every morning 30 capsule 025 2024 Discontinued(R eorder) Active Problems Problem Noted Date Diagnosed Date Abnormal urinalysis 10/12/2024 Cloudy urine 10/12/2024 Bladder spasms 10/12/2024 Ariane cystitis 10/12/2024 Enterococcus UTI 10/12/2024 Gross hematuria 10/12/2024 UTI (urinary tract infection) 10/12/2024 Acute retention of urine 10/12/2024 Asthma 10/12/2024 Overview (10/12/2024): Phreesia 10/10/2022 Atonic bladder 10/12/2024 Overview (10/12/2024): SP tube placement 12/19/2022 due to atonic bladder (sx onset following back surgery) Dysuria 10/12/2024 Hypertension 10/12/2024 Overview (10/12/2024): [employer]reesia 10/10/2022 Mass on back 04/19/2024 Vision loss, right eye 09/30/2023 Atonic bladder 09/30/2023 Attention deficit hyperactiv ity disorder (ADHD), predominantly inattentive type 07/23/2023 Assessment & Plan (10/13/2023 1:23 PM CDT): Patient did not report significant improvement with Adderall; able to concentrate on completing task No loss of appetite no insomnia Continue Adderall 15 mg daily Assessment & Plan (07/23/2023 2:22 PM CDT): Not well controlled; patient had no relief with Strattera; no current medications Patient reports she is distracted easily; especially with task that require significant mental focus and concentration Will start Adderall XR 10 mg daily Acute incomplete paraplegia 11/04/2022 Assessment & Plan (03/28/2024 4:38 PM LIFE SKILLS INSTRUCTOR): Not well controlled; continues to have weakness, follows up with physical therapy; drop foot and right, requires assist devices to stabilize Assessment & Plan (01/13/2024 4:06 PM CDT): Chronic Continues to need assistance with ambulation; would benefit from arm crutches Continue to engage in PT 3 x/week Assessment & Plan (10/13/2023 1:22 PM CDT): Stable, improving; secondary to lumbar surgery Using walker occasionally, right leg is currently impacted Suprapubic catheter in place Patient is engage with physical therapy, decreased sensation left leg, including electric shocks In right leg can not move foot Continue ibuprofen 800 mg t.i.d., pregabalin 75 mg daily 150 mg nightly Assessment & Plan (08/31/2023 4:47 PM CDT): Stable, improving; continues to have pain in both legs and down low back Pain comes and goes; engages with physical therapy 3 times per week Now up to using walker and splint; continues to progress with strength Continue ibuprofen 800 mg, Tylenol, Lyrica 75 mg daily in 150 mg nightly Assessment & Plan (07/23/2023 2:21 PM CDT): Stable, improving; patient continues to work closely physical therapy; using brace on right leg to help with assistance with walking; now up and using walker; if physical therapy beginning to walk independently Continue to engage with physical therapy to improve functional status Assessment & Plan (04/15/2023 10:13 AM LIFE SKILLS INSTRUCTOR): Stable, improving; has improved strength and function of bilateral lower extremities, though continues to have paralysis of right lower leg, including inability to move toes or foot Has some sensory changes in left lower extremity Has advanced from wheelchair to using walker for short distances; continues to work with physical therapy, to graduate to cane Will need right KFO in order to stabilize right knee to allow for walking Continue to monitor; Tylenol and ibuprofen for pain Assessment & Plan (01/29/2023 4:18 PM CDT): Not well controlled; patient has continued paralysis in right lower extremity; continue with physical therapy Assessment & Plan (11/20/2022 2:04 PM CDT): Continues to have weakness in bilateral lower extremities; improving with left leg, right leg still remains significantly weak Can use walker, but still require supportive another Continues to work on improving movement Assessment & Plan (11/06/2022 3:32 PM CDT): Continues [facility], able to use walker with assist. Assessment & Plan (11/04/2022 2:25 PM CDT): Patient has post surgical complications; loss of use of legs, loss of urinary and fecal incontinence Previously was in subacute rehab; now home for 4 weeks; follows with physical therapy Patient has begun to improve strength, now using walker Continues to have some pain, mostly related to soreness surgical site Continue Lyrica 150 mg at night, p.r.n. 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 No pulmonary embolism. 2. Multifocal groundglass opacities in the lungs are most consistent with COVID 19 pneumonia. 3. Numerous enlarged mediastinal hilar lymph nodes are likely reactive. Attention on follow-up CT is recommended following the resolution of acute symptoms. 4. Moderate coronary artery calcific atherosclerosis, advanced for the patient's age and gender. 5. Dilated main pulmonary artery which can be seen with pulmonary hypertension. Repeat chest CT ordered at last OV. Moderate opioid use disorder, in sustained remis boris 01/01/2022 Assessment & Plan (10/13/2023 1:23 PM CDT): Stable, well controlled; no issues, no major side effects from medication Continue Suboxone 8 mg t.i.d. Assessment & Plan (08/31/2023 4:46 PM CDT): Stable, well controlled; no use of any substances Continue Suboxone 8 mg t.i.d. Assessment & Plan (11/20/2022 2:06 PM CDT): Stable, well controlled; no desire to use any opioids or other substances Continue Suboxone 8 mg b.i.d. Assessment & Plan (11/04/2022 2:23 PM CDT): Continues to have neck pain; patient has discontinued oxycodone, transition back to Suboxone Continue Suboxone 8 mg b.i.d. Assessment & Plan (07/18/2022 10:21 AM CDT): Stable, well controlled; no desire to use any substances at this time; continue Suboxone 8 mg b.i.d. Assessment & Plan (05/16/2022 2:59 PM LIFE SKILLS INSTRUCTOR): Stable, well controlled; no use of non-prescribed substances since last visit; patient is scheduled for lumbar surgery; patient has been tapering from buprenorphine, almost completed taper; ready to transition to oxycodone for maintenance until surgery Start oxycodone 20 mg t.i.d. for 7 days; will follow-up post surgery for acute pain management before transition back to buprenorphine Assessment & Plan (03/17/2022 4:58 PM LIFE SKILLS INSTRUCTOR): Stable, well controlled; no use of any substances Continue Suboxone 8 mg b.i.d. Assessment & Plan (2022 10:12 AM CDT): Stable, well controlled; no set difficult side effects from medication, no cravings or withdrawals Continue Suboxone 8 mg b.i.d. Assessment & Plan (01/01/2022 1:54 PM CDT): Patient has history of chronic pain; associated with back pain, with multiple surgeries Most recent surgery was in April 2021 Patient been prescribed opioid pain management at that time, had increasing use of pain medications, to the point of buying off the street at 1 point Patient currently on Suboxone for management of opioid use disorder and chronic pain Previously has had pain medicine postsurgical At this time continue buprenorphine 8 mg b.i.d. Postlaminectomy syndrome, lumbar 07/03/2021 Assessment & Plan (03/28/2024 4:37 PM LIFE SKILLS INSTRUCTOR): Not well controlled, continues to have significant low back pain; patient reports symptoms are always often for patient No relief with current treatments; using topical treatments, scheduled ibuprofen and Tylenol; patient reports that pain has been worsening, even simple movements cause limitation Continue ibuprofen and Tylenol; Suboxone 8 mg t.i.d. Assessment & Plan (05/20/2023 2:26 PM LIFE SKILLS INSTRUCTOR): Continues recovering from recent surgery. Keep up the good work! Assessment & Plan (05/16/2022 2:58 PM LIFE SKILLS INSTRUCTOR): Not well controlled, has extensive pain; wakes patient at night Patient reports failed fusion; scheduled on 05/22/2022 for repeat procedure, with extension of fusion from L2-L3 to L1 See plan below for management of opioid use disorder Radiculopathy, lumbosacral region 07/03/2021 Assessment & Plan (03/28/2024 4:37 PM LIFE SKILLS INSTRUCTOR): Not well controlled, continues to have significant pain, drop foot and right foot, pins and needles secondary to nerve injury Some relief with current medications Continue Lyrica 75 mg b.i.d. Assessment & Plan (2022 10:12 AM CDT): Continues to struggle with back pain, follows with spinal surgery Has history of failed fusion Continue ibuprofen p.r.n. for back pain Lumbosacral spondylosis without myelopathy 07/03 Assessment & Plan (03/28/2024 4:38 PM LIFE SKILLS INSTRUCTOR): Continues to have significant pain and discomfort Will adjust medication to Lyrica 75 mg b.i.d., 150 mg nightly; will evaluate for benefit of back recent 10s unit to help with pain relief Assessment & Plan (01/29/2023 4:18 PM CDT): Not well controlled; status post surgery; now with paralysis of right lower extremity; has some strength in left leg, can ambulate short distances with walker, otherwise needs wheelchair Continue to engage with physical therapy to help improve mobility and function Pain is worse than prior to surgery Continue buprenorphine 8 mg t.i.d., ibuprofen 800 mg, Tylenol 1000 mg t.i.d., increase Lyrica to 75 mg b.i.d., 150 mg nightly Assessment & Plan (07/18/2022 10:21 AM CDT): Stable, well controlled; follows with back surgery, waiting for clearance and insurance approval of spinal surgery Currently engage with physical therapy; can not currently stand for extended durations Continue Excedrin ibuprofen for pain relief Seasonal allergic rhinitis 06/28/2021 Assessment & Plan (2022 10:10 AM CDT): Not well controlled; has been worsening the past week due to harvesting; continue Flonase and Claritin Will start levofloxacin for possible pneumonia Assessment & Plan (06/28/2021 5:41 PM CDT): Recommended nasal irrigation using distilled water only in addition to nasal steroid. Will trial Singulair, and monitor response. Lumbar stenosis with neurogenic claudication Gastroesophageal reflux disease 11/25/2019 Overview (10/12/2024): [employer]reesia 10/10/2022 Assessment & Plan (07/18/2022 10:20 AM CDT): Stable, well controlled; patient reports making dietary changes to help manage symptoms, decreasing portion sizes Continue Nexium 40 mg b.i.d. Assessment & Plan (03/17/2022 4:57 PM LIFE SKILLS INSTRUCTOR): Stable, generally well controlled; but continues to need to take p.r.n. medications Continue Nexium 40 mg b.i.d., Prevacid p.r.n. for acute worsening Assessment & Plan (2022 10:11 AM CDT): Stable, generally well controlled; continue Nexium 40 mg b.i.d. Assessment & Plan (05/01/2020 2:14 PM LIFE SKILLS INSTRUCTOR): Despite protonix heartburn has recurred as well as nocturnal reflux. Discussed acid suppression but that reflux may be helped by elevating hob, npo 3 hours prior to reclining and weight loss but surgery may be required. Also has ibs sx which may have gotten her the laparoscopy in September. Will egd to assess Assessment & Plan (11/25/2019 10:35 AM CDT): Many yrs of GERD and prior EGD by Dr Hernandes at [place]--told everything was OK this many yrs ago. Recently more sx and omeprazol changed to pantaprozol with cessation of sx. Discussed Arnold's and risk of CA and offered EGD. Since her sx are now controlled on present regimen she declines EGD. Return prn. Encounter for monitoring Suboxone maintenance amrita rick 10/07/2019 Assessment & Plan (10/11/2019 1:47 PM CDT): - Patient's abdominal pain confounded by chronic suboxone therapy for chronic back pain - Patient has been followed by the pain service here with recommendations to increase her Suboxone to 8 mg 3 times daily and her gabapentin to 600 mg 3 times daily. Uptitrate suboxone to TID and monitor as needed. - Appreciate their recommendations Assessment & Plan (10/09/2019 4:49 PM CDT): Patient's abdominal pain confounded by chronic Suboxone therapy for chronic back pain - patient has been followed by the pain service here with recommendations to increase her Suboxone to 8 mg 3 times daily and her gabapentin to 600 mg 3 times daily. It appears that patient's Suboxone is continued at twice daily which is her home dose and her pain is reasonably controlled. Will continue this dosing for now and increase it to 3 times daily if needed - will appreciate their recommendations Assessment & Plan (10/08/2019 4:39 PM CDT): History of multiple back surgeries and chronic pain Patient on Suboxone therapy at home - Pain team consulted due to post op pain and suboxone therapy Per Pain: - Restarted home Suboxone dose at 8 mg b.i.d.. - Started scheduled Tylenol 1 g Q 6 hours and gabapentin 300 mg t.i.d. - If the patient's pain continues to be a controlled, consider increasing her Suboxone dose/changing her dose to TID 10/07 increased Suboxone to 8mg TID and Gabapentin 600mg PO TID Essential hypertension 08/17/2019 Assessment & Plan (04/19/2024 6:36 PM LIFE SKILLS INSTRUCTOR): BP stable at 140/80, given her anxiety level. Continue atenolol 25 mg daily and diltiazem XR 240 mg daily. Patient states that at home her blood pressure runs around 130/70. Assessment & Plan (01/13/2024 4:04 PM CDT): Chronic, stable BP at goal at visit; 114/76 Continue Atenolol 25 mg daily and Diltiazem 240 mg daily Assessment & Plan (08/31/2023 4:46 PM CDT): Stable, well controlled, blood pressure at goal Continue atenolol 25 mg daily, diltiazem 240 mg daily Assessment & Plan (07/23/2023 2:21 PM CDT): Stable, well controlled; blood pressure at goal Continue atenolol 25 mg daily, diltiazem 240 mg daily, Assessment & Plan (05/20/2023 2:26 PM LIFE SKILLS INSTRUCTOR): Normotensive. No changes. Will continue to monitor. Assessment & Plan (01/29/2023 4:16 PM CDT): Well controlled; blood pressure today at low end normal; patient reports no orthostatics Continue atenolol 25 mg daily, Assessment & Plan (07/18/2022 10:19 AM CDT): Blood pressure mildly elevated today; patient reports smoking stressors including changing prior and stress can maintain scheduled appointment Continue atenolol 50 mg daily, diltiazem 240 mg daily Assessment & Plan (03/17/2022 4:55 PM LIFE SKILLS INSTRUCTOR): Blood pressure mildly elevated today, no chest pains or headaches Continue atenolol 50 mg daily, diltiazem 240 mg daily, Assessment & Plan (02/20/2022 3:11 PM LIFE SKILLS INSTRUCTOR): Did not take BP medications today. Continues prednisone, will completed tomorrow. Aware to take medications daily as prescribed, no medication changes made today. Reviewed s/s warranting immediate evaluation and health consequences of untreated high blood pressure. Assessment & Plan (2022 10:11 AM CDT): Stable, not well controlled, blood pressure mildly elevated Continue atenolol 50 mg daily, diltiazem 240 mg daily, Assessment & Plan (10/10/2019 11:33 AM CDT): - Patient with known hypertension on nebivololc and diltiazem at home. - Blood pressure currently well controlled - continue home meds Assessment & Plan (10/09/2019 4:53 PM CDT): Patient with known hypertension on Bystolic and diltiazem at home. - blood pressure currently well controlled - will continue Bystolic 10 mg daily and diltiazem 180mg daily Mood disorder (CMS/HCC) 07/19/2019 Assessment & Plan (10/13/2023 1:22 PM CDT): Has stressors related to daughter and struggles Continues to have ups and Downs Continue Lexapro 10 mg daily Assessment & Plan (08/31/2023 4:46 PM CDT): Stable, generally well controlled, has some levels of anxiety Continue Lexapro 10 mg daily Assessment & Plan (07/23/2023 2:22 PM CDT): Stable, generally well controlled, symptoms to come and go; patient reports currently has multiple stressors around her family; especially daughter who is trying to get and has had difficulty with IVF Will continue Lexapro 10 mg daily; recommend individual counseling if needed Assessment & Plan (04/15/2023 10:13 AM LIFE SKILLS INSTRUCTOR): Stable, well controlled; engages with therapist over phone every few months to help maintain mood Continue Lexapro 10 mg daily Assessment & Plan (11/04/2022 2:26 PM CDT): Not well controlled, worsened due to challenges, especially associated with surgical complications, inability to drive and continued urinary and fecal incontinence Continue Lexapro 10 mg daily Trazodone 50 mg at night Would recommend individual counseling as needed Assessment & Plan (07/18/2022 10:20 AM CDT): Stable, generally well controlled, the patient reports baseline dysphoria; decreased interested in leaving house High levels of anxiety without medication Continue Lexapro 10 mg daily, trazodone 150 mg daily Assessment & Plan (03/17/2022 4:59 PM LIFE SKILLS INSTRUCTOR): Not well controlled, patient reports she continues to have low energy, decreased interest in doing things, such as decorating the for the holidays Patient reports symptoms have been present for the past several months, and on and off for the past several years Patient reports that in general she does not like to take the house for the holidays Reports several years ago that she had difficulty with finances, and since then has not had as much interest, children have also moved out, the patient does spend significant time with grandchildren Continue sertraline 100 mg daily, encouraged patient to engage with counselor Assessment & Plan (10/10/2019 11:35 AM CDT): - Patient was previously taking Zoloft and duloxetine at home. She is supposed to follow-up with outpatient psychiatry and they have been weaning her off of her duloxetine. - Continue Zoloft 100 mg daily Assessment & Plan (10/09/2019 4:54 PM CDT): Patient was previously taking Zoloft and duloxetine at home. She is supposed to follow-up with outpatient psychiatry and they have been weaning her off of her duloxetine. - continue Zoloft 100 mg daily Assessment & Plan (07/19/2019 12:21 PM CDT): Controlled on current medication. Stable today. Diabetic neuropathy 03/07/2019 Assessment & Plan (10/13/2023 1:21 PM CDT): Needs neurologist for further evaluation ; continue pregabalin 75 mg daily and 150 mg nightly Obstructive sleep apnea 03/07/2019 Secondary glaucoma of right eye, indeterminate s tage 03/07/2019 Overview (06/06/2022): Patient with history of recent corneal ulcer [...] hopefully prevent internal occlusion of the tube aHm Tenorio MD 03/07/2019 9:53 AM Chronic obstructive pulmonary disease 05/16/2018 Overview (10/12/2024): [employer] 10/10/2022 Assessment & Plan (01/13/2024 3:56 PM CDT): Chronic, stable Continue albuterol as needed Assessment & Plan (10/13/2023 1:22 PM CDT): Doing well with breathing; occasional coughing; generally tobacco free though recently started smoking again due to stressors Continue albuterol p.r.n. Assessment & Plan (08/31/2023 4:46 PM CDT): Stable, has been well controlled; smokes at times but less consistently Continues to have some chronic congestion Continue albuterol p.r.n., Singulair Assessment & Plan (08/31/2023 4:45 PM CDT): >>ASSESSMENT AND PLAN FOR CHRONIC OBSTRUCTIVE PULMONARY DISEASE WITH ACUTE EXACERBATION (HCC) WRITTEN ON 05/20/2023 2:27 PM BY FELECIA RAO NP See plan as above. Highly encouraged smoking cessation. She does plan to quit when her daughter becomes . Assessment & Plan (04/15/2023 10:12 AM LIFE SKILLS INSTRUCTOR): Not well controlled, recent exacerbation; has been on antibiotics and steroids recently; reports continued congestion, coughing with production Physical exam noted for few wheezes in right lower lobe; also congestion in multiple lobes Will start prednisone and doxycycline times 10 days to help reduce risk Assessment & Plan (06/28/2021 5:44 PM CDT): No increased work of breathing on exam, patient with Ongoing chest congestion and productive cough. SpO2 91%. Will Check chest x-ray. His used Trelegy Ellipta in the past, but discontinued shortly after starting the medication. Will restart Trelegy, reviewed inhaler use with patient. Recommended further evaluation with pulmonology, referral placed. Assessment & Plan (10/11/2019 1:43 PM CDT): - Patient with history of chronic COPD well controlled on albuterol as needed only - Patient currently with clear lungs, normal oxygen saturations and no evidence of wheezing on exam - Albuterol PRN and incruse Assessment & Plan (10/09/2019 4:56 PM CDT): Patient with history of chronic COPD well controlled on albuterol as needed only - patient currently with clear lungs, normal oxygen saturations and no evidence of wheezing on exam - p.r.n. albuterol and incruse Assessment & Plan (05/16/2018 4:00 PM LIFE SKILLS INSTRUCTOR): May have underlying pneumonia. See above Steroids, nebs. Pt plans on quitting smoking and encouraged to do that Tobacco use disorder, moderate, in sustained rem ission 07/13/2017 Assessment & Plan (01/13/2024 1:12 PM CDT): >>ASSESSMENT AND PLAN FOR SMOKER WRITTEN ON 07/13/2017 2:03 PM BY ALMAZ CLINE NP Counseled on cessation. Assessment & Plan (01/13/2024 1:12 PM CDT): >>ASSESSMENT AND PLAN FOR SMOKER WRITTEN ON 05/16/2018 4:01 PM BY GUS BARRAZA MD Nicotine patch as needed. Assessment & Plan (01/13/2024 1:12 PM CDT): >>ASSESSMENT AND PLAN FOR SMOKER WRITTEN ON 07/19/2019 12:20 PM BY LYNSEY STALLINGS NP She does not wish to stop this time. Assessment & Plan (01/13/2024 1:12 PM CDT): >>ASSESSMENT AND PLAN FOR SMOKER WRITTEN ON 06/28/2021 5:40 PM BY ROSIBEL COLORADO NP Recommended an NRT products to patient. Assessment & Plan (01/13/2024 1:12 PM CDT): >>ASSESSMENT AND PLAN FOR SMOKER WRITTEN ON 2022 10:13 AM BY PREET HAWKINS MD Improving, quit smoking about 1 month ago; encouraged continued cessation Assessment & Plan (01/13/2024 1:12 PM CDT): >>ASSESSMENT AND PLAN FOR SMOKER WRITTEN ON 02/20/2022 3:12 PM BY ROSIBEL COLORADO NP Patient reports quitting 1 month ago. Congratulated on efforts. Assessment & Plan (01/13/2024 1:12 PM CDT): >>ASSESSMENT AND PLAN FOR SMOKER WRITTEN ON 05/16/2022 3:01 PM BY PREET HAWKINS MD Well controlled, improving; patient completely quit smoking several months ago and notes improved respiratory symptoms; continues nicotine gum p.r.n. for cravings Assessment & Plan (07/23/2023 2:21 PM CDT): Stable, no longer smoking tobacco products, using vape pen; patient would like to continue to decrease nicotine use; with cessation as long-term goal given patient too soon have grandchild Assessment & Plan (07/18/2022 10:22 AM CDT): Well controlled, patient has quit smoking; continue to encourage complete cessation Anxiety 04/18/2016 Resolved Problems Problem Noted Date Diagnosed Date Resolved Date Complication of Ochoa catheter 09/30/2023 10/10/2024 COVID-19 05/20/2023 01/13/2024 Assessment & Plan (05/20/2023 2:30 PM LIFE SKILLS INSTRUCTOR): Lungs diminished throughout right greater than left. Will obtain chest x-ray. Reviewed home care measures. Out of window for Paxlovid. Will initiate prednisone taper. Will send in azithromycin per her request although not sure how helpful it will be for COVID virus. Liberalize albuterol use. Reviewed isolation recommendations. Red flags reviewed as well. At risk for UTI related to i ndwelling catheter 11/06/2022 01/13/2024 Assessment & Plan (11/20/2022 2:05 PM CDT): Patient continues to have suprapubic pain; unclear if related to chronic bladder collapse verses recurrent UTI Will get urine sample today and check for risk of repeat infection Patient recently completed course of Levaquin for UTI Assessment & Plan (11/06/2022 2:13 PM CDT): Plan to check urinalysis and culture however patient did not leave a sufficient urine sample to test. Will notify patient and have her resubmit a urine sample. Instructed follow-up with urologist, she is scheduled for follow-up with Urology in 2 weeks. Lower extremity edema 11/06/20222023 Assessment & Plan (01/29/2023 4:19 PM CDT): Stable, generally well controlled, though continues to have swelling in right lower extremity; patient reports nausea associated with furosemide and potassium supplements Discontinue furosemide; start compression stockings Assessment & Plan (11/20/2022 2:05 PM CDT): Not well controlled, continues to have significant swelling and edema; right worse than left; likely due to continued weakness in the right leg Patient reports sleeping with both legs elevated, but remains edematous Patient reports no significant urine increase with furosemide 20 mg; will increase furosemide to 40 mg daily Assessment & Plan (11/06/2022 3:34 PM CDT): Mild swelling today. Notes improvement with use of furosemide 20 mg daily. Recommended limiting excess dietary sodium and use of compression stockings. Elevate extremities as able. No sob. Can take additional 20 mg furosemide on days with increased swelling. Will continue to monitor. Viral gastroenteritis 06/12/20222023 Assessment & Plan (06/12/2022 2:05 PM LIFE SKILLS INSTRUCTOR): Discussed symptomatic treatment with rest, bland diet and pushing fluids. Reviewed signs and symptoms of worsening illness warranting further or immediate evaluation. Prescribed ondansetron as needed for nausea/vomiting. Will continue to monitor. 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 Follow up as sched with intraocular pressure (IOP), order OCT ONH today Assessment & Plan (06/06/2022 10:20 AM LIFE SKILLS INSTRUCTOR): Close observation. Follow up as sched with intraocular pressure (IOP), OCT ONH Assessment & Plan (10/22/2021 1:54 PM CDT): Close observation. See 4 mos: intraocular pressure (IOP), OCT ONH, and 24-2 Harris visual field (HVF). Subconjunctival hemorrhage of right eye 10/22/2021 01/13/2024 Assessment & Plan (10/22/2021 1:58 PM CDT): Add pres-free systane prn. No drops within 5 min of any other. Monitor. BMI 27.0-27.9,adult 06/28/2021 01/13/20 Assessment & Plan (02/20/2022 3:13 PM LIFE SKILLS INSTRUCTOR): Stable, some increase with smoking cessation. Discussed healthy diet and importance of regular physical activity. Assessment & Plan (06/28/2021 5:41 PM CDT): Discussed healthy diet and importance of regular physical activity. Dysuria 06/28/2021 01/13/2024 Acute cystitis with hematuria 06/28/2021 01/13/2024 Assessment & Plan (06/12/2022 2:06 PM LIFE SKILLS INSTRUCTOR): Prescribed cipro for acute cystitis. Urine sent for culture. Patient to push fluids, follow up if no improvement in the next 2-3 days. Assessment & Plan (06/28/2021 5:40 PM CDT): Results for orders placed or performed in visit on 06/28/21 POCT urinalysis dipstick Result Value Ref Range Color, Urine, POC Light Yellow Clarity, ur, POC Cloudy (A) Clear Glucose, ur, POC Negative Negative mg/dL Bilirubin, ur, POC Negative Negative, Small, Moderate, Large Ketones, ur, POC Negative Negative Specific Teachey, POC 1.030 1.005 - 1.030 Blood, ur, POC Trace (A) Negative pH, ur, POC 6.0 5.0 - 8.0 Protein, ur, POC Negative Negative Urobilinogen, urine, POC 0.2 0.2 - 1.0 mg/dL Nitrite, ur, POC Positive (A) Negative Leukocytes, ur, POC 3+ (A) Negative Lot Number [id number] Macrobid sent to pharmacy. Urine sent for culture. Continue to push fluids. Thrombocytopenia, unspecified 06/06/2021 08/31/2023 Assessment & Plan (07/18/2022 10:19 AM CDT): No evidence of thrombocytopenia most recent CBC; likely transient in nature Hypokalemia 10/11/2019 01/13/2024 Assessment & Plan (10/14/2019 10:46 AM CDT): - In setting of ongoing diarrhea - Replete as needed - Send home with 40 mEq potassium daily Controlled type 2 diabetes angie [place]la with diabetic polyneuropathy, without long-term current use of insulin 10/09/2019 01/20/2022 Assessment & Plan (10/14/2019 10:45 AM CDT): - Patient has diet-controlled diabetes; most recent A1c of 6% - BG levels well-controlled here, will change her point of care glucose testing to 4 times daily from q4 hours - Regular Adult Diet Assessment & Plan (10/09/2019 4:59 PM CDT): Patient has diet-controlled diabetes - most recent A1c of 6 - sugars have been well controlled here, will change her point of care glucose testing to 4 times daily from q.4 hours now that she has a clear liquid diet Diarrhea 10/07/2019 03/17/2022 Assessment & Plan (10/11/2019 1:43 PM CDT): - Patient initially fell ill approximately 12hours after eating Taiwanese food (she thinks may be the culprit) - CT with enterocolitis however laparoscopic surgery without perforation or evidence of ischemia - Stool negative for shiga toxin, giardia, cryptosporidium - Patient initially with profound hypokalemia likely secondary to diarrhea requiring continued, daily repletion Assessment & Plan (10/09/2019 4:44 PM CDT): - patient got sick approximately 12 hours after eating [place]ese food which she thinks may be the culprit - CT with enterocolitis however laparoscopic surgery did not perforation and no evidence of ischemia - Stool negative for shiga toxin, giardia, cryptosporidium - patient initially with profound hypokalemia likely secondary to diarrhea now status post repletion Assessment & Plan (10/07/2019 3:44 PM CDT): Thin green diarrhea, cdiff pending Stool culture, parasite, ova pending Salmonella septicemia ([facility]) 10/07/2019 03/17/2022 Assessment & Plan (10/14/2019 11:41 AM CDT): - Patient with persistent Salmonella bacteremia secondary to severe enterocolitis - presented with N/V, Diarrhea - Patient currently hemodynamically stable, afebrile, and normal white blood cell count. - Stool negative for shiga toxin, giardia, cryptosporidium - Placed on IV ertapenem given penicillin allergy, Cipro added 10/08 - Blood cultures negative x 48 hours (last positive on 10/08) - plan for 2wk antibiotic course from 1st negative culture (10/09) (ciprofloxacin 750mg PO q12 hr for 2 weeks of antibiotic therapy) - Repeat CT 10/09 without abdominal abscess - though with findings of possible organizing PNA (patiet without symptoms). ID recommended Lumbar MRI, which was negative for source. ZI pending at this time. - Finished Ertapenem (10/14/2019 in AM) - Planned d/c today (10/14/2019) in PM Assessment & Plan (10/09/2019 4:43 PM CDT): Patient with persistent salmon Latricia bacteremia secondary to severe enterocolitis. Patient continues to have multiple episodes of diarrhea but overall thinks her abdominal pain and nausea vomiting have improved. - patient is being followed by infectious disease and will appreciate their recommendations - currently on IV ertapenem given penicillin allergy - blood cultures daily until negative times 48 hours (last positive culture was on 10/06 with repeat cultures today pending) - likely 2 week antibiotic course from 1st negative culture which is yet to occur - Stool negative for shiga toxin, giardia, cryptosporidium - patient currently hemodynamically stable, afebrile, and normal white blood cell count. Assessment & Plan (10/08/2019 9:15 PM CDT): This is a 49 year old woman with history of COPD (on home O2 intermittently), HTN, T2DM presenting with abdominal pain, N/V/D. She was found to be septic at admission. Work up found salmonella bacteremia. CT-abdomenshowed multifocal small bowel dilation with intervening segments of collapse, with wall thickening and pneumotosis. Due to concern for mesenteric ischemia, taken to the operating room 10/04 for diagnostic laparoscopy without evidence of perforation. Blood culture 10/04 and 10/06 (am): salmonella Blood culture 10/06 pm: pending Stool culture 10/06 pending. Stool negative for shiga toxin, giardia, cryptosporidium - Continue ertapenem at current dose - Daily blood culture until negative > 48 h - ID will continue to follow Assessment & Plan (10/08/2019 4:39 PM CDT): 10/04 Blood cultures + 10/06 Blood cultures remain positive for Salmonella species - Daily blood cultures - ID consulted - Continue ertapenem Enterocolitis 10/05/2019 03/17/2022 Overview (10/06/2019): Added automatically from request for surgery [id number] Assessment & Plan (10/10/2019 11:33 AM CDT): - See treatment above Assessment & Plan (10/09/2019 4:46 PM CDT): Secondary to salmonella infection - see treatment above Assessment & Plan (10/09/2019 5:05 PM CDT): Arthritis, Asthma, COPD, GERD, and Hypertension, presents c/o abdominal pain, associated with nausea, vomiting and diarrhea. CT scan shows wall thickening of some of the dilated loops with pneumatosis, celiac trunk, SMA and JAMIN patent. - 10/05 OR: negative diagnostic lap: post op follow up can be a virtual visit and scheduled at [phone] ext 2 prior to discharge, no heavy lifting greater than 10-15 for 6 weeks, let dermabond flake off on its own-no picking or pulling off, no soaking in bath/pool/tub until cleared by surgery, call number above or present to ER with any signs and symptoms of infection such as redness, drainage or any other abnormal findings - Post op diet was advanced to [facility]D, but patient not taking much PO due to nausea and not feeling well - Possible medicine consult-no surgical issues. - Ruth ordered 10/08 [facility] Acute Care Surgery Discharge Instructions Care After Refer to this sheet in the next few weeks. These instructions provide you with information on caring for yourself after your procedure. Your caregiver may also give you more specific instructions. Your treatment has been planned according to current medical practices, but problems sometimes occur. HOME CARE INSTRUCTIONS You can shower in 24 hours. Keep the wound dry and clean. The wound may be washed gently with soap and water. Gently blot or dab the area dry. Let skin glue flake off on its own. Please do not peel off the skin glue. Do not take baths or use swimming pools or hot tubs until instructed by your caregiver. Do not use petroleum products on your incisions (Neosporin or Vaseline) Only take gkoe-qde-cehseog or prescription medicines for pain, discomfort, or fever as directed by your caregiver. Continue your normal diet as directed by your caregiver. Do not lift anything heavier than 10 pounds for 6 weeks. [address] not play contact sports for [address] for 1 week and off pain medications for 2 days. SEEK MEDICAL CARE IF: There is redness, swelling, or increasing pain in the wound. You notice yellowish-white fluid (pus) coming from the wound. There is drainage from the wound that lasts longer than 1 day. There is a bad smell coming from the wound or dressing. The surgical cut (incision) breaks open. SEEK IMMEDIATE MEDICAL CARE IF: You develop a rash. You have difficulty breathing. You develop chest pain. Rapid heartbeat great than 120 beats per minute. Extreme leg pain or significant leg swelling. You develop any reaction or side effects to medicines given. You have a fever greater than 101.5o Fahrenheit You have increasing pain in the shoulders (shoulder strap areas). You have dizzy episodes or faint while standing. You develop severe abdominal pain. You feel sick to your stomach (nauseous) or throw up (vomit) and this lasts for more than 1 day. You develop diarrhea lasting 24 hours or longer MAKE SURE YOU: Understand these instructions. Will watch your condition. Will get help right away if you are not doing well or get worse. Murmur, heart 08/17/2019 01/13/2024 Abnormal glucose 08/17/2019 01/13/2024 Assessment & Plan (05/16/2022 3:00 PM LIFE SKILLS INSTRUCTOR): Stable, well controlled; A1c is remain within the pre diabetes range; patient has history of type 2 diabetes, but work on weight loss and dietary changes to maintain blood sugars Continue with regular A1c checks, no medications required at this time Pulmonary emphysema ([facility]) 07/19/2019 08/31/2023 Assessment & Plan (07/18/2022 10:21 AM CDT): Stable, well controlled; no recent dyspnea or exacerbations Continue albuterol p.r.n. for dyspnea Assessment & Plan (05/16/2022 3:00 PM LIFE SKILLS INSTRUCTOR): Stable, well controlled; patient using Weck-Mirta in hub; patient reports recent exacerbation, now improving; continue Wixela, albuterol p.r.n. for dyspnea Assessment & Plan (03/17/2022 5:00 PM LIFE SKILLS INSTRUCTOR): Stable, well controlled; patient reports no significant dyspnea, no longer needs oxygen Assessment & Plan (02/25/2022 1:24 PM LIFE SKILLS INSTRUCTOR): Acute exacerbation secondary to COVID-19 infection; hospitalized for approximately 5 days Head weakness and difficulty walking, which is improving Currently feels difficulty with thought processes, continues to have some loss of hair Continue with albuterol p.r.n.; Advair Diskus The if continues to have symptoms, will continue to monitor Assessment & Plan (07/19/2019 12:20 PM CDT): Stable today. Encounter for screening mamm ogram for malignant neoplasm of breast 07/19/2019 01/13/2024 Bone mass 07/19/2019 01/13/2024 Assessment & Plan (07/19/2019 12:21 PM CDT): Will await imaging for further evaluation. 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 Tapia for evaluation / management WRT enucleation OD Assessment & Plan (06/20/2022 1:14 PM LIFE SKILLS INSTRUCTOR): Has appt Dr Kumar this summer Assessment & Plan (06/06/2022 10:18 AM LIFE SKILLS INSTRUCTOR): Has appt Dr Kumar this summer Assessment & Plan (10/22/2021 1:51 PM CDT): Blind, painful right eye (OD). maybe less pain than last visit Ct Rocklatan daily right eye (OD) (sample) and Lotemax or pred forte qid right eye (OD). Just had glaucoma consult. 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 Ct Rocklatan daily right eye (OD) (sample) and Lotemax or pred forte qid right eye (OD). 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 Start Rocklatan daily right eye (OD) (sample) and Lotemax qid right eye (OD). Re-ck 1 wk. Assessment & Plan (11/01/2019 12:27 PM CDT): Today graft edematous, no epi defect Path positive for epi and fibrous ingrowth, previously discussed with patient poor visual prognosis, no plan to repeat keratoplasty Plan: Erythromycin ointment Qid OD alternating Lotemax ointment Qid OD Decrease PF QID OD RTC 4-08/31, sooner with any new symptoms Assessment & Plan (08/02/2019 11:59 AM CDT): Today graft edematous, no epi defect Path positive for epi ingrowth, previously discussed with patient poor visual prognosis, no plan to repeat keratoplasty Plan: Erythromycin ointment Qid OD alternating Lotemax ointment Qid OD Decrease PF QID OD RTC 2-3 months, sooner with any new symptoms Assessment & Plan (07/07/2019 10:58 AM CDT): Resolved allergic conjunctivitis off of PHU Surgical path positive for both fibrous ingrowth / epithelial downgrowth Discussed at length the natural history of epithelial down growth and its treatment (1/20 chance of eradicating epithelium) as well as poor visual potential given multiple transplants and vascularized bed. At this point patient prefers to wait given decreased pain and not wanting enucleation Assessment & Plan (07/05/2019 11:02 AM CDT): -Chemosis without AC reaction -Probable allergic conjunctivitis secondary to moxifloxacin or PHU in prednisolone acetate drops Discontinue moxi/PF Start erythromycin ointment OS q.i.d. alternating with Lotemax ointment OS q.i.d. -RTC Thurs am Assessment & Plan (06/30/2019 10:56 AM CDT): Today graft clear, no loose or broken sutures History multiple PKP rejections/dehiscence No epi defect Plan: CCM Prednisolone 6x/day OD Moxi QID OD Lotemax desiree QHS OD RTC es Assessment & Plan (06/28/2019 12:12 PM CDT): Wound dehiscence-recurring superiorly Repair wound dehiscence and Gustabo flap OD under general anesthesia Risks, benefits, and alternatives of surgery discussed in detail with patient including but not limited to infection, bleeding, persistent inflammation, pain, diplopia, ptosis, need for further visits and surgeries, need for spectacle or contact lens correction after surgery, possible loss of vision, possible loss of the eye, and risks of anesthesia. The patient understands these risks and wishes to proceed. Otherwise [facility] Assessment & Plan (06/24/2019 10:09 AM CDT): Doing well One loose Vicryl removed [facility] RTC 10:30 am Assessment & Plan (06/21/2019 3:24 PM CDT): POD1 Doing well Vision likely limited by dense pupillary membrane, may need future surgery Patient denies history of cataract surgery, but we will contact Dr. Purvis in the future to confirm this Plan: Prednisolone 7x/day OD Moxi QID OD Lotemax desiree QHS OD Graft rejection 06/16/2019 01/13/2024 Assessment & Plan (06/16/2019 5:32 PM LIFE SKILLS INSTRUCTOR): History of trauma OD Multiple graft rejection./ PKP / wound dehiscences(Yaniv) No sign of any active infection No view of posterior pole, but will hold on ultrasound given tenuous attachment of current graft Will need repeat tectonicPKP OD under general anesthesia Discussed guarded visual prognosis given history Discussed use of both 10 0 nylon with addition of 9 0 Vicryl to promote healing/scarring of graft host interface for tectonic purposes Risks, benefits, and alternatives of surgery discussed in detail with patient including but not limited to infection, bleeding, persistent inflammation, pain, diplopia, ptosis, need for further visits and surgeries, need for spectacle or contact lens correction after surgery, possible loss of vision, possible loss of the eye, and risks of anesthesia. The patient understands these risks and wishes to proceed. Wound dehiscence 03/08/2019 01/13/2024 Overview (06/06/2022): Added automatically from request for surgery [id number] Aphakia, right 03/08/2019 01/13/2024 Asthma 03/07/2019 01/13/2024 Acute bronchitis 03/07/2019 01/13/2024 Acute respiratory failure with hypoxia 05/16/2018 10/20/2019 Assessment & Plan (05/17/2018 5:21 PM LIFE SKILLS INSTRUCTOR): Pt presented to the ER with dyspnea and wheezing. Initial o2 sat on RA was 88% c/w with hypoxic resp failure due to COPD exacerabation/Pneumonia Chronic low back pain 05/16/20182023 Assessment & Plan (07/19/2019 12:21 PM CDT): Continue follow-up with pain management. Assessment & Plan (05/16/2018 4:02 PM LIFE SKILLS INSTRUCTOR): Cont home meds. Aggressive IS given amount of usual narcotics HTN (hypertension), benign 05/16/2018 0 08/17/2019 Assessment & Plan (07/19/2019 12:21 PM CDT): Will await cardiology evaluation. Medications reordered. Assessment & Plan (05/16/2018 4:03 PM [employer] INSTRUCTOR): Cont Atenolol, monitor. Acute LUQ pain 07/13/2017 01/13/2024 Assessment & Plan (07/13/2017 1:59 PM CDT): CT as noted above. General surgery has evaluated the patient who feels this to be related to constipation. Magnesium citrate, Metamucil and Miralax. Encourage dietary changes and use of narcotics. Will repeat abdominal xray in morning. Monitor for relief in bowels. 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 Already been on Zithromax, will cont Rocephin. Assessment & Plan (07/13/2017 2:01 PM CDT): Xray as noted above. IV Levaquin continued. Oxygen with goal to wean off. Hyponatremia 07/13/2017 01/13/2024 Assessment & Plan (07/13/2017 2:02 PM CDT): Likely related to nausea and poor appetite. IVF. Monitor bmp. Carpal tunnel syndrome 04/18/201601/12 Cough 02/20/2022 Immunizations Immunization Administration Dates Next Due COVID-19 mRNA (TerraPass) 0.3 m L (30 mcg) vaccine (12 years and up) 06/02/2024 Influenza, Quadrivalent, Spl it, Preservative Free, Intramuscular 02/07/2022,05/29/2021,12/08/2019,12/17 Influenza, Trivalent, IM (MDV) 02/19/2015 Influenza, Trivalent, Preser vative Free, Intramuscular 01/13/2024 Influenza, Unspecified 04/19/2024(Deferr ed: Patient Refused),07/23/2023(Deferred: Patient Refused),05/20/2023(Deferred: Patient ill today),01/19/2023(Deferred: Patient Refused),01/07/2023(Deferred: Patient Refused),12/12/2022(Deferred: Patient Refused),04/02/2021(Deferred: Patient Refused),07/19/2019(Deferred: Patient Refused),11/11/2018,04/13/2018(Deferre d: Patient Refused) [employer] SARS-CoV-2 Monovalent Vaccination (12+ Yrs) PURPLE 03/23/2021,06/28/2020,06/05/2020 Pneumococcal Conjugate PCV 13 06/28/2021 Pneumococcal Conjugate Pcv20 06/02/2024 Tdap 01/13/2024 Social History Tobacco Use Types Packs/Day Years Used Date Smoking Tobacco: Former Cigarettes 1.5 15 Q uit: 01/20/2022 Smokeless Tobacco: Former Tobacco Cessation:Counseling Given: Not Answered Comments:1 PPD Alcohol Use Standard Drinks/Week Comments Not Currently 0 (1 standard drink = 0.6 oz pur e alcohol) Humiliation, Afraid, Rape, and Kick questionnair e Answer Date Recorded Within the last year, have y ou been afraid of your partner or ex-partner? No 01/08/2023 Within the last year, have y ou been humiliated or emotionally abused in other ways by your partner or ex-partner? No Within the last year, have y ou been kicked, hit, slapped, or otherwise physically hurt by your partner or ex-partner? No 01/08/2023 Within the last year, have y ou been raped or forced to have any kind of sexual activity by your partner or ex-partner? No 01/08/2023 Social Connection and Isolat ion Panel [NHANES] Answer Date Recorded In a typical week, how many times do you talk on the phone with family, friends, or neighbors? More than three times a week 01/08/2023 How often do you get togethe r with friends or relatives? More than three times a week 01/08/2023 How often do you attend chur or caodaism services? Never 01/08/2023 Do you belong to any clubs o r organizations such as adventism groups, unions, fraternal or athletic groups, or school groups? No 01/08/2023 How often do you attend meet ings of the clubs or organizations you belong to? Never 01/08/2023 Are you , , di vorced, , never , or living with a partner? 01/08/2023 AUDIT-C Answer Date Recorded Q1: How often do you have a drink containing alcohol? Never 05/20/2023 Q2: How many drinks containi ng alcohol do you have on a typical day when you are drinking? Patient does not drink Q3: How often do you have si x or more drinks on one occasion? Never 05/20/2023 Overall Financial Resource Strain (CARDIA) Answe r Date Recorded How hard is it for you to pa y for the very basics like food, housing, medical care, and heating? Not hard at all 01/08/2023 PHQ-2 Answer Date Recorded PHQ-2 Total Score (If total score is 3 or more points, staff should administer the PHQ-9) 2 01/13/2024 [facility] - Occupational Stress Questionnaire Answer Date Recorded Do you feel stress - tense, restless, nervous, or anxious, or unable to sleep at night because your mind is troubled all the time - these days? Rather much 01/08/2023 Exercise Vital Sign Answer Date Recorde d On average, how many days pe r week do you engage in moderate to strenuous exercise (like a brisk walk)? 0 days 01/08/2023 On average, how many minutes do you engage in exercise at this level? 0 min 01/08/2023 Hunger Vital Sign Answer Date Recorded Within the past 12 months, y ou worried that your food would run out before you got the money to buy more. Never true 01/09/20 23 Within the past 12 months, t he food you bought just didn't last and you didn't have money to get more. Never true 01/08/2023 PRAPARE - Transportation Answer Date Re corded In the past 12 months, has l ack of transportation kept you from medical appointments or from getting medications? Yes 12/13 In the past 12 months, has l ack of transportation kept you from meetings, work, or from getting things needed for daily living? Yes 01/08/2023 Housing Stability Vital Sign Answer Kevin e Recorded In the last 12 months, was t here a time when you were not able to pay the mortgage or rent on time? No 01/08/2023 In the last 12 months, how many places have you lived? 1 01/08/2023 In the last 12 months, was t here a time when you did not have a steady place to sleep or slept in a care home (including now)? No 01/08/2023 Comments No Sex and Gender Information Value Date Recorded Sex Assigned at Not on file Legal Sex Female 1:47 AM [employer] SK[employer]S IN[employer] Gender Identity Female 10/06/2024 7:17 PM CDT Sexual Orientation Straight 10/06/2024 7: 17 PM CDT Last Filed Vital Signs Vital Sign Reading Time Taken Comments Blood Pressure 140/92 07/03/2024 6:26 PM CDT Pulse 100 07/03/2024 6:26 PM CDT Temperature 36.9 C (98.5 F) 07/03/2024 6:26 PM CDT Respiratory Rate 20 07/03/2024 6:26 PM CDT Oxygen Saturation 93% 07/03/2024 6:26 PM CDT Inhaled Oxygen Concentration - - Weight 64 kg (141 lb) 07/03/2024 6:26 PM CDT Height 162.6 cm (5' 4) 07/03/2024 6:26 PM CDT Body Mass Index 24.2 07/03/2024 6:26 PM CDT Plan of Treatment Not on file Medical Devices Implanted Type Area Console Attendant Device Identifier Shelf Expiration Date Model / Serial / Lot [employer] Transplant Srvcs V0003 Implant Cornea Pkp Right Hypothermic - [id number] - [id number] Implanted:Qty: 1 on 06/20/2019 by Jono Burris MD at [facility] Other - see comments Right: Eye [employer] Srvcs 06/30/2019 V0003 / [id number] Description:cornea [employer] Srvcs V0003 Implant Cornea Pkp Right Hypothermic - [id number] - [id number] Implanted:Qty: 1 on 06/29/2019 by Jono Burris MD at [facility] Other - see comments Right: Eye [employer] Srvcs 07/09/2019 V0003 / [id number] Procedures Procedure Name Priority Date/Time Associated Diagnosis Comments SCAN - LABS 10/04/2024 HEPATITIS C ANTIBODY Routine 09/28/2023 3:03 PM CDT Encounter for hepatitis C screening test for low risk patient COLONOSCOPY Routine 09/16/2022 CT CHEST WO CONTRAST F/U LUNG SCREEN PROTOCOL Schedule Routine, Read Routine (OP Routine) 08/18/2022 4:25 PM CDT Pulmonary nodule SCREENING MAMMOGRAM BILATERAL W MANDY Schedule Routine, Read Routine (OP Routine) 11/04/2021 12:30 PM CDT Encounter for screening mammogram for malignant neoplasm of breast from Last 3 Months or Most Recently Relevant to Health Maintenance Results * SCAN - LABS (10/04/2024) Provider Scanning Edited Result - Final * Hepatitis C antibody Blood (09/28/2023 3:03 PM CDT) Hep C Ab Nonreactive Nonreactive Comment: Interpretive Data Nonreactive: Antibodies to HCV not detected. Does NOT exclude the possibility of recent exposure to HCV. Equivocal: Equivocal for HCV antibodies. Supplemental molecular testing will be automatically performed to determine infection status in accordance with current CDC screening recommendations. Reactive: Positive for HCV antibodies. This may represent current or past HCV infection. Supplemental molecular testing will be automatically performed to determine current infection status in accordance with current CDC screening recommendations. Interpretive data was last revised on 2019. Blood 09/28/2023 3:03 PM CDT 09/28/2023 8:55 PM CDT Preet Hawkins MD LAB MICROBIOLOGY - GENERA L ORDERABLES Edited [place] [id number] [facility] Department of Laboratories [place], [place] [id number] * Colonoscopy (09/16/2022) Anatomical Region Laterality Modality Other Historical Provider ENDOSCOPY PROCEDURES Sol l Result * CT Chest WO Contrast F/U Lung Screen Protocol (08/18/2022 4:25 PM CDT) Anatomical Region Laterality Modality Chest N/A Computed Tomogra phy 08/19/2022 8:04 AM CDT Impressions 08/19/2022 8:26 AM CDT 1. New mild multifocal patchy nodular ground-glass opacities with motion artifact. This likely represents an atypical infectious process. 2. New 4 mm solid right lower lobe pulmonary nodule. Lung-RADS v1.1 category 0: Obscured by acute abnormality. Recommend low dose CT of chest in 3 months. THIS IS AN ELECTRONICALLY VERIFIED FINAL REPORT 08/19/2022 8:26 AM - Electronically signed by Jerad Islas M.D. AG: SOFIA Report ID: [id number] Reading Location: [id number] [facility] 08/19/2022 8:26 AM CDT EXAM DESCRIPTION: CT CHEST WO CONTRAST F/U LUNG SCREEN PROTOCOL REASON FOR STUDY: Screening CT of the chest in a current smoker with a 30 pack year smoking history. Additional history: Category 3 examination on 11/04/2021 TECHNIQUE: Low dose CT scan of the chest was performed without intravenous contrast using helical scanning technique. The exam extends from the lung apices through the lung bases. Automatic exposure control was used as a dose optimization technique. NOTE: This study was performed for the specific purposes of lung cancer screening and is not an alternative to diagnostic chest CT. RADIATION DOSE: CT dose index volume (CTDIvol) = 1.56 mGy COMPARISON: 11/04/2021 FINDINGS: SMOKING RELATED LUNG DISEASE: Mild emphysema. Mild mosaic attenuation is unchanged likely representing smoking related interstitial lung disease. LUNG NODULES: Grossly stable 3 mm anterior right upper lobe nodule. Grossly stable 3 mm central right apical nodule (33). Grossly stable 3 mm right apical nodule (29). New small cluster of sub 4 mm nodularity within posterior right upper lobe, likely infectious (68). New 4 mm solid posterior right lower lobe nodule (202). New nodular ground-glass opacity within the right lower lobe abutting the fissure measuring 1.6 cm (173) New mild patchy ground-glass opacities are noted elsewhere within the medial right middle lobe, left lower lobes and anterior left upper lobe with obscuring motion artifact. OTHER: Thin linear consolidations within the upper lobes as evidence for atelectasis. No pleural effusion or pneumothorax. Prominent mediastinal lymph nodes are unchanged likely reactive. No hilar lymphadenopathy. The heart is in size mild coronary calcification. The aorta is caliber. Mild enlargement the main pulmonary artery. This may reflect pulmonary hypertension. No axillary lymphadenopathy or chest wall mass. Images of the upper abdomen demonstrate no gross abnormality. Bone windows demonstrate no suspicious lytic or sclerotic lesion. No acute fracture seen. Bao Moody MD IMG CT PROCEDURES Final R esult * SCREENING MAMMOGRAM BILATERAL W MANDY (11/04/2021 12:30 PM CDT) Anatomical Region Laterality Modality Breast Bilateral Mammography 11/04/2021 5:47 PM CDT Impressions 11/04/2021 5:47 PM CDT There is no mammographic evidence of malignancy. A 1 year screening mammogram is recommended. BI-RADS: 1 - Negative. The patient has been or will be contacted. The patient will be entered into a reminder system with a target due date of 1 year for her next mammogram. Electronically signed by: Tanvir Nieves M.D. Narrative 11/04/2021 5:47 PM CDT EXAMINATION: SCREENING MAMMOGRAM BILATERAL W MANDY ORDERING HEALTHCARE PROVIDER: BAO MOODY HISTORY: Routine screening mammography. COMPARISON: 10/24/2019, 03/17/2016 TECHNIQUE: CC and MLO views of the bilateral breasts were obtained with digital technique using breast tomosynthesis with C view. Computer aided detection was utilized. FINDINGS: DENSITY: There are scattered fibroglandular elements in the bilateral breasts. BREASTS: There are no suspicious masses, suspicious calcifications, or other suspicious findings in either breast. There has been no suspicious interval change. Bao Moody MD IMG MAMMO PROCEDURES Sol l Result from Last 3 Months or Most Recently Relevant to Health Maintenance Insurance [facility] Member Subscriber Plan / Payer (Ef fective 2018-Present) Name:Susana Tracy Relation to Subscriber:Self Name:Susana Tracy Payer ID:[id number] (NAIC) Type:MEDICARE RISK OTHER Address: [address] [address] [facility] MEDICARE ADVANTAGE [facility] MEDICARE ADVANTAGE Advance Directives For more information, please contact: [phone] * Full Code (Latest Code Status on File) Date Activated Date Inactivated Comments 05/31/2020 7:40 AM 05/31/2020 1:13 PM * Full Code Date Activated Date Inactivated Comments 05/31/2020 7:39 AM 05/31/2020 7:39 AM * Full Code Date Activated Date Inactivated Comments 10/06/2019 9:56 AM 10/14/2019 6:47 PM * Full Code Date Activated Date Inactivated Comments 05/16/2018 3:36 PM 05/18/2018 7:17 PM * Full Code Date Activated Date Inactivated Comments 07/13/2017 9:07 AM 07/14/2017 7:01 PM Care Teams Journalism Internship Relationship Specialty Start Date End Date Preet Hawkins MD [address] [place] [address] PCP - General Family Medicine 09/30/23
--- OUTSIDE RECORDS SUMMARY | 2024-10-15 12:08 | XMS_ITS | Clinical Summary ---
Author Organization [facility] Address [address] [place] [address] Care Team Providers Care Curatorial Assistant Name Role Phone Preet Hawkins MD Primary Care Provider [phone] Allergies Active Allergy Reactions Criticality Noted Date [...] if no or minimal response. 2 each 12/20/2 022 Active compress.stockin g,knee,reg,med misc 20 - 30 mmHg; Use on Right Leg during day to help with edema associated with neuro-deficit 2 each 1 023 Active lidocaine (LMX) 4 % cream Apply topically as needed for pain 30 g 3 024 Active miscellaneous medical supply [facility] [employer] Arm Crutches 1 each 024 [...] EVERY DAY AT NIGHT 90 tablet 2 025 Active escitalopram (LEXAPRO) 10 mg tabletIndication s:Mood [...] mg total) by mouth daily 7 tablet 025 Active potassium chloride ER (KLOR-CON) 10 [...] 11/04/2022 Assessment & Plan (03/28/2024 4:38 PM MECHANICAL EQUIPMENT SALES ENGINEER): Not well controlled; continues to have weakness, [...] status Assessment & Plan (04/15/2023 10:13 AM MECHANICAL EQUIPMENT SALES ENGINEER): Stable, improving; has improved strength and function [...] & Plan (11/06/2022 3:32 PM CDT): Continues [facility], able to use walker with assist. Assessment [...] 02/20/2022 Assessment & Plan (05/16/2022 3:01 PM MECHANICAL EQUIPMENT SALES ENGINEER): Stable, patient scheduled for follow-up CT; CT has been ordered, patient to schedule after completion of back surgery Assessment & Plan (02/25/2022 1:24 PM MECHANICAL EQUIPMENT SALES ENGINEER): Ground-glass opacities noted on CT imaging; will repeat imaging in approximately 3 months Assessment & Plan (02/20/2022 3:17 PM MECHANICAL EQUIPMENT SALES ENGINEER): CT lung cancer screening completed 09/2021.(see hpi) [...] b.i.d. Assessment & Plan (05/16/2022 2:59 PM MECHANICAL EQUIPMENT SALES ENGINEER): Stable, well controlled; no use of non-prescribed substances since last visit; patient is scheduled for lumbar surgery; patient has been tapering from buprenorphine, almost completed taper; ready to transition to oxycodone for maintenance until surgery Start oxycodone 20 mg t.i.d. for 7 days; will follow-up post surgery for acute pain management before transition back to buprenorphine Assessment & Plan (03/17/2022 4:58 PM MECHANICAL EQUIPMENT SALES ENGINEER): Stable, well controlled; no use of any [...] 07/03/2021 Assessment & Plan (03/28/2024 4:37 PM MECHANICAL EQUIPMENT SALES ENGINEER): Not well controlled, continues to have significant low back pain; patient reports symptoms are always often for patient No relief with current treatments; using topical treatments, scheduled ibuprofen and Tylenol; patient reports that pain has been worsening, even simple movements cause limitation Continue ibuprofen and Tylenol; Suboxone 8 mg t.i.d. Assessment & Plan (05/20/2023 2:26 PM MECHANICAL EQUIPMENT SALES ENGINEER): Continues recovering from recent surgery. Keep up the good work! Assessment & Plan (05/16/2022 2:58 PM MECHANICAL EQUIPMENT SALES ENGINEER): Not well controlled, has extensive pain; wakes patient at night Patient reports failed fusion; scheduled on 05/22/2022 for repeat procedure, with extension of fusion from L2-L3 to L1 See plan below for management of opioid use disorder Radiculopathy, lumbosacral region 07/03/2021 Assessment & Plan (03/28/2024 4:37 PM MECHANICAL EQUIPMENT SALES ENGINEER): Not well controlled, continues to have significant [...] 07/03 Assessment & Plan (03/28/2024 4:38 PM MECHANICAL EQUIPMENT SALES ENGINEER): Continues to have significant pain and discomfort [...] b.i.d. Assessment & Plan (03/17/2022 4:57 PM MECHANICAL EQUIPMENT SALES ENGINEER): Stable, generally well controlled; but continues to need to take p.r.n. medications Continue Nexium 40 mg b.i.d., Prevacid p.r.n. for acute worsening Assessment & Plan (2022 10:11 AM CDT): Stable, generally well controlled; continue Nexium 40 mg b.i.d. Assessment & Plan (05/01/2020 2:14 PM MECHANICAL EQUIPMENT SALES ENGINEER): Despite protonix heartburn has recurred as well [...] and prior EGD by Dr Hernandes at [place]--told everything was OK this many yrs ago. Recently more sx and omeprazol changed to pantaprozol with cessation of sx. Discussed Arnold's and risk of CA and offered EGD. Since her sx are now controlled on present regimen she declines EGD. Return prn. Encounter for monitoring Suboxone maintenance th merline 10/07/2019 Assessment & Plan (10/11/2019 1:47 PM [...] 08/17/2019 Assessment & Plan (04/19/2024 6:36 PM MECHANICAL EQUIPMENT SALES ENGINEER): BP stable at 140/80, given her anxiety [...] daily, Assessment & Plan (05/20/2023 2:26 PM MECHANICAL EQUIPMENT SALES ENGINEER): Normotensive. No changes. Will continue to monitor. [...] daily Assessment & Plan (03/17/2022 4:55 PM MECHANICAL EQUIPMENT SALES ENGINEER): Blood pressure mildly elevated today, no chest pains or headaches Continue atenolol 50 mg daily, diltiazem 240 mg daily, Assessment & Plan (02/20/2022 3:11 PM MECHANICAL EQUIPMENT SALES ENGINEER): Did not take BP medications today. Continues [...] needed Assessment & Plan (04/15/2023 10:13 AM MECHANICAL EQUIPMENT SALES ENGINEER): Stable, well controlled; engages with therapist over [...] daily Assessment & Plan (03/17/2022 4:59 PM MECHANICAL EQUIPMENT SALES ENGINEER): Not well controlled, patient reports she continues [...] tube Ham Tenorio MD 03/07/2019 9:53 AM Chronic obstructive [...] . Assessment & Plan (04/15/2023 10:12 AM MECHANICAL EQUIPMENT SALES ENGINEER): Not well controlled, recent exacerbation; has been [...] incruse Assessment & Plan (05/16/2018 4:00 PM MECHANICAL EQUIPMENT SALES ENGINEER): May have underlying pneumonia. See above Steroids, [...] Date Diagnosed Date Resolved Date Complication of [place] catheter 09/30/2023 10/10/2024 COVID-19 05/20/2023 01/13/2024 Assessment & Plan (05/20/2023 2:30 PM MECHANICAL EQUIPMENT SALES ENGINEER): Lungs diminished throughout right greater than left. [...] 06/12/20222023 Assessment & Plan (06/12/2022 2:05 PM MECHANICAL EQUIPMENT SALES ENGINEER): Discussed symptomatic treatment with rest, bland diet and pushing fluids. Reviewed signs and symptoms of worsening illness warranting further or immediate evaluation. Prescribed ondansetron as needed for nausea/vomiting. Will continue to monitor. 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 Follow up as sched with intraocular pressure (IOP), order OCT ONH today Assessment & Plan (06/06/2022 10:20 AM MECHANICAL EQUIPMENT SALES ENGINEER): Close observation. Follow up as sched with [...] any other. Monitor. BMI 27.0-27.9,adult 06/28/2021 01/13/20 24 Assessment & Plan (02/20/2022 3:13 PM MECHANICAL EQUIPMENT SALES ENGINEER): Stable, some increase with smoking cessation. Discussed healthy diet and importance of regular physical activity. Assessment & Plan (06/28/2021 5:41 PM CDT): Discussed healthy diet and importance of regular physical activity. Dysuria 06/28/2021 01/13/2024 Acute cystitis with hematuria 06/28/2021 01/13/2024 Assessment & Plan (06/12/2022 2:06 PM MECHANICAL EQUIPMENT SALES ENGINEER): Prescribed cipro for acute cystitis. Urine sent [...] Large Ketones, ur, POC Negative Negative Specific Mineral, POC 1.030 1.005 - 1.030 Blood, ur, [...] initially fell ill approximately 12hours after eating Maori food (she thinks may be the culprit) - CT with enterocolitis however laparoscopic surgery without perforation or evidence of ischemia - Stool negative for shiga toxin, giardia, cryptosporidium - Patient initially with profound hypokalemia likely secondary to diarrhea requiring continued, daily repletion Assessment & Plan (10/09/2019 4:44 PM CDT): - patient got sick approximately 12 hours after eating Maori food which she thinks may be the [...] Stool culture, parasite, ova pending Salmonella septicemia ([facility]) 10/07/2019 03/17/2022 Assessment & Plan (10/14/2019 11:41 [...] (10/06/2019): Added automatically from request for surgery [id number] Assessment & Plan (10/10/2019 11:33 AM CDT): [...] be a virtual visit and scheduled at [phone] ext 2 prior to discharge, no heavy [...] - Possible medicine consult-no surgical issues. - Gatorade ordered 10/08 [facility] Acute Care Surgery Discharge Instructions Care After [...] your incisions (Neosporin or Vaseline) Only take [id number] or prescription medicines for pain, discomfort, or [...] 01/13/2024 Assessment & Plan (05/16/2022 3:00 PM MECHANICAL EQUIPMENT SALES ENGINEER): Stable, well controlled; A1c is remain within the pre diabetes range; patient has history of type 2 diabetes, but work on weight loss and dietary changes to maintain blood sugars Continue with regular A1c checks, no medications required at this time Pulmonary emphysema ([facility]) 07/19/2019 08/31/2023 Assessment & Plan (07/18/2022 10:21 AM CDT): Stable, well controlled; no recent dyspnea or exacerbations Continue albuterol p.r.n. for dyspnea Assessment & Plan (05/16/2022 3:00 PM MECHANICAL EQUIPMENT SALES ENGINEER): Stable, well controlled; patient using Weck-Mirta in hub; patient reports recent exacerbation, now improving; continue Wixela, albuterol p.r.n. for dyspnea Assessment & Plan (03/17/2022 5:00 PM MECHANICAL EQUIPMENT SALES ENGINEER): Stable, well controlled; patient reports no significant dyspnea, no longer needs oxygen Assessment & Plan (02/25/2022 1:24 PM MECHANICAL EQUIPMENT SALES ENGINEER): Acute exacerbation secondary to COVID-19 infection; hospitalized [...] (06/17/2019): Added automatically from request for surgery [id number] Assessment & Plan (10/16/2022 10:01 AM CDT): NLP (by my check w/ an indirect ophthalmoscope) REC: Dr. Tapia for evaluation / management WRT enucleation OD Assessment & Plan (06/20/2022 1:14 PM MECHANICAL EQUIPMENT SALES ENGINEER): Has appt Dr Kumar this summer Assessment & Plan (06/06/2022 10:18 AM MECHANICAL EQUIPMENT SALES ENGINEER): Has appt Dr Kumar this summer Assessment [...] Qid OD Decrease PF QID OD RTC -08/31, sooner with any new symptoms Assessment & [...] QID OD Lotemax desiree QHS OD RTC Tues Assessment & Plan (06/28/2019 12:12 PM CDT): [...] these risks and wishes to proceed. Otherwise CPM Assessment & Plan (06/24/2019 10:09 AM CDT): Doing well One loose Vicryl removed CPM RTC 10:30 am Assessment & Plan (06/21/2019 3:24 PM CDT): POD1 Doing well Vision likely limited by dense pupillary membrane, may need future surgery Patient denies history of cataract surgery, but we will contact Dr. 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 Initial o2 sat on RA was 88% c/w with hypoxic resp failure due to COPD exacerabation/Pneumonia Chronic low back pain 05/16/20182023 Assessment & Plan (07/19/2019 12:21 PM CDT): Continue follow-up with pain management. Assessment & Plan (05/16/2018 4:02 PM MECHANICAL EQUIPMENT SALES ENGINEER): Cont home meds. Aggressive IS given amount of usual narcotics HTN (hypertension), benign 05/16/2018 0 08/17/2019 Assessment & Plan (07/19/2019 12:21 PM CDT): Will await cardiology evaluation. Medications reordered. Assessment & Plan (05/16/2018 4:03 PM MECHANICAL EQUIPMENT SALES ENGINEER): Cont Atenolol, monitor. Acute LUQ pain 07/13/2017 [...] 07/13/20172023 Assessment & Plan (05/16/2018 3:59 PM MECHANICAL EQUIPMENT SALES ENGINEER): Vs Atelectasis. Already been on Zithromax, will cont Rocephin. Assessment & Plan (07/13/2017 2:01 PM CDT): Xray as noted above. IV Levaquin continued. Oxygen with goal to wean off. Hyponatremia 07/13/2017 01/13/2024 Assessment & Plan (07/13/2017 2:02 PM CDT): Likely related to nausea and poor appetite. IVF. Monitor bmp. Carpal tunnel syndrome 04/18/201601/12 Cough 02/20/2022 Encounters Date Type Department Care Team Description 10/08/2024 Telephone [facility] [address] [place] [address] Preet Hawkins MD After Hours; Medical Question/Miscellaneou s 10/04/2024 Orders Only [facility] Health Information Management [address] [place] [id number] Scanning, Provider 10/03/2024 [facility]phone [facility] [address] [place] [address] Preet Hawkins MD Symptom Based Call from Last 3 Months Immunizations Immunization Administration Dates Next Due COVID-19 mRNA ([employer]) 0.3 m L (30 mcg) vaccine (12 years and up) 06/02/2024 Influenza, Quadrivalent, Spl it, Preservative Free, Intramuscular 02/07/2022,05/29/2021,12/08/2019,12/17 Influenza, Trivalent, IM (MDV) 02/19/2015 Influenza, Trivalent, Preser vative Free, Intramuscular 01/13/2024 Influenza, Unspecified 04/19/2024(Deferr ed: Patient Refused),07/23/2023(Deferred: Patient Refused),05/20/2023(Deferred: Patient ill today),01/19/2023(Deferred: Patient Refused),01/07/2023(Deferred: Patient Refused),12/12/2022(Deferred: Patient Refused),04/02/2021(Deferred: Patient Refused),07/19/2019(Deferred: Patient Refused),11/11/2018,04/13/2018(Deferre d: Patient Refused) Pfizer SARS-CoV-2 Monovalent Vaccination (12+ Yrs) PURPLE 03/23/2021,06/28/2020,06/05/2020 Pneumococcal Conjugate PCV 13 06/28/2021 Pneumococcal Conjugate Pcv20 06/02/2024 Tdap 01/13/2024 Surgical History Surgery Date Site/Laterality Comments BACK SURGERY 08/11/2022 - 09/10/2022 CHOLECYSTECTOMY CARPAL TUNNEL RELEASE HYSTERECTOMY age 26 EYE SURGERY EXPLORATORY LAPAROTOMY 09/12/2019 - 10/11/2019 Medical History Medical History Date Comments Hypertension COPD (chronic obstructive pu lmonary disease) ([facility]) Arthritis Asthma GERD (gastroesophageal reflu x disease) Sleep apnea not using Salmonella septicemia ([facility]) 10/07/2019 Diarrhea 10/07/2019 Enterocolitis 10/05/2019 Added automatica lly from request for surgery [id number] Wound dehiscence 03/08/2019 Added automatic ally from request for surgery [id number] Pulmonary infiltrates 07/13/2017 Chronic low back pain 05/16/2018 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, 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/2019 Added automatically from req uest for surgery [id number] Bone mass 07/19/2019 Murmur, heart 08/17/2019 Abnormal glucose 08/17/2019 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 Never 01/08/2023 Do you belong to any clubs o r organizations such as bahai groups, unions, fraternal or athletic groups, or [...] staff should administer the PHQ-9) 2 01/13/2024 [facility] - Occupational Stress Questionnaire Answer Date [...] money to buy more. Never true 01/09/20 Within the past 12 months, t he [...] place to sleep or slept in a fpc (including now)? No 01/08/2023 Comments No Sex and Gender Information Value Date Recorded Sex Assigned at Not on file Legal Sex Female 1:47 AM MECHANICAL EQUIPMENT SALES ENGINEER Gender Identity Female 10/06/2024 7:17 PM CDT Sexual Orientation Straight 10/06/2024 7: 17 PM CDT Obstetrics History Para Term AB IAB SAB Ectopic Multiple Livin g Live Births 3 3 3 Date Outcome GA Total Labor Labor/2nd/3rd Weight Sex Type Anes PTL Cami A1 A5 Name Clin Term Term Term Last Filed Vital Signs Vital Sign Reading [...] 07/03/2024 6:26 PM CDT Plan of Treatment Health Maintenance Due Date Last Done Comments Breast Cancer Screening-Mammogram 11/04/2022 11/04/2021, 10/24/2019 Lung Cancer Screening 11/16/2022 08/18/2022, 022 Covid-19 Vaccine (5 - Pfizer risk season) 2024 06/02/2024, 03/23/2021, 06/28/2020, Additional history exists Influenza Vaccine (#1) 2024 , 02/07/2022, 05/29/2021, Additional history exists Depression Screening 01/12/2025 01/13/2024, 09/30/2023, 08/20/2023, Additional history exists Regular Well Visit/Exam 18-01/12/2025 01/13/2024, 01/07/2023, 01/07/2023, Additional history exists Zoster Vaccine (1 of 2) 04/19/2025 Post poned from 1990 (Patient declined, but will receive in the future) Colon Cancer Screening-Colonoscopy 09/16/2032 09/16/2022, 01/28/2018 DTaP/Tdap/Td Vaccine (2 - Td or Tdap) 01/12/2034 01/13/2024 Hepatitis B Screening Completed 09/28/2023 Hepatitis C Screening Completed 09/28/2023 Pneumococcal vaccine <65 Completed 06/02/2024, 06/11 Medical Devices Implanted Type Area Comb Machine Operator Device Identifier Shelf Expiration Date Model / Serial / Lot Mid Felicity Transplant Srvcs V0003 Implant Cornea Pkp Right Hypothermic - [id number] - [id number] Implanted:Qty: 1 on 06/20/2019 by Jono Burris MD at [facility] Other - see comments Right: Eye Mid Felicity Transplant Srvcs 06/30/2019 V0003 / [id number] Description:cornea Mid Felicity Transplant Srvcs V0003 Implant Cornea Pkp Right Hypothermic - [id number] V0003 - [id number] Implanted:Qty: 1 on 06/29/2019 by Jono Burris MD at [facility] Other - see comments Right: Eye Mid Felicity Transplant Srvcs 07/09/2019 V0003 / [id number] Procedures Procedure Name Priority Date/Time Associated Diagnosis [...] Maintenance Results * SCAN - LABS (10/04/2024) us Provider Scanning Edited Result - Final * [...] 3:03 PM CDT 09/28/2023 8:55 PM CDT us Preet Hawkins MD LAB MICROBIOLOGY - GENERA L ORDERABLES Edited Result - Final TRINH [id number] [address] [place] [employer] [place] [address] * Colonoscopy (09/16/2022) Anatomical Region Laterality Modality Other us Historical Provider ENDOSCOPY PROCEDURES Sol l Result [...] Jerad Islas M.D. AG: SOFIA Report ID: [id number] Reading Location: [id number] [facility] 08/19/2022 8:26 AM CDT EXAM DESCRIPTION: CT [...] No acute fracture seen. Bao Moody MD [facility] CT PROCEDURES Final R esult * SCREENING [...] no suspicious interval change. Bao Moody MD [facility] MAMMO PROCEDURES Sol l Result from Last 3 Months or Most Recently Relevant to Health Maintenance Insurance [facility] [place] [address] [place] [address] [facility] UHC MEDICARE ADVANTAGE [facility] UHC MEDICARE ADVANTAGE Advance Directives For more information, please contact: [phone] * Full Code (Latest Code Status on [...] 9:07 AM 07/14/2017 7:01 PM Care Teams Curatorial Assistant Relationship Specialty Start Date [place] [address] PCP - General Family Medicine 09/30/23
[2024-10-15 12:39] LABS: Hematocrit 38.4 % (37.0-47.0); Hemoglobin 10.6 g/dL (12.0-15.0); Immature Platelet Fraction Pct 5.9 % (0.9-11.2); Mean Corpuscular HGB Conc 27.6 g/dl (32-36); Mean Corpuscular Hemoglobin 21.5 pg (26-34); Mean Corpuscular Volume 77.7 fl (80-100); Platelet Count Result 114 k/mm3 (150-375); Red Blood Count 4.94 M/mm3 (4.2-5.4); White Blood Count 6.0 K/mm3 (4.5-10.0)
[2024-10-15 12:44] LABS: Alanine Aminotransferase 12 U/L (6-35); Albumin Level 4.0 g/dL (3.5-5.1); Alkaline Phosphatase 91 U/L (38-126); Anion Gap 8 mmol/L (4-12); Aspartate Amino Transferase 23 U/L (14-36); Bilirubin,Total 0.4 mg/dL (0.2-1.3); Blood Urea Nitrogen 17 mg/dL (7-17); Calcium 9.3 mg/dL (8.4-10.2); Carbon Dioxide 33 mmol/L (22-30); Chloride 97 mmol/L (98-107); Estimated Glomerular Filt Rate > 60; Glucose 110 mg/dL (65-110); Potassium 4.2 mmol/L (3.4-5.0); Sodium 138 mmol/L (137-145); Total Protein 7.1 g/dL (6.3-8.2)
== END 2024-10-15 12:07 | disposition home or self-care (01) ==
LOC: ANHOUTPT 12:07
PROVIDERS: PCP Hospitalist; Visit Provider Internal Medicine
DX: Z45.2 Encounter for adjustment and management of vascular access device (principal); N39.0 Urinary tract infection, site not specified
CPT/HCPCS: 36415; 36591; 80053; 85027; 85055; 99212; G0463

== ENCOUNTER 2024-12-16 10:50 | Inpatient (IN) | payer OTHER, MEDICARE, SELFPAY ==
--- NOTE | ~2024-12-16 | CT_ITS ---
EXAMINATION: CTA chest PE protocol DATE: 12/18/2024 12:28 INDICATION: Chest pain, hypoxia and elevated d-dimer TECHNIQUE: Computed tomography (CT) pulmonary angiogram of the chest was performed with 100 mL Omnipaque-350 intravenous contrast. Additional 3D reconstructions utilizing coronal maximum intensity projection (MIP) were performed. Automated exposure control and iterative reconstruction technique were employed. The dose-length product was 203.52 mGy-cm. COMPARISON: 10/04/2024 and 05/31/2023 FINDINGS: No pulmonary embolism. Small bilateral pleural effusions with dependent consolidation the bilateral lower lobes the Cobra for atelectasis versus pneumonia. There is mosaic attenuation throughout the lungs with patchy regions of groundglass opacity which could represent pulmonary edema or pneumonia. In both lungs there are scattered regions of tree-in-bud opacity consistent with bronchiolitis and more dense patchy regions of consolidation more suspicious for pneumonia. There are also some scattered linear bands of discoid atelectasis. Mild cardiomegaly. Small amount of atherosclerotic coronary artery calcific location. No pericardial effusion. Enlargement of the central pulmonary arteries consistent with pulmonary arterial hypertension. Thoracic aorta is normal in caliber with no dissection. Mild bilateral hilar and mediastinal lymphadenopathy. Visualized upper abdomen is unremarkable. Severe thoracic spondylosis with chronic mild anterior wedging of a couple mid thoracic vertebral bodies. Partially visualized lumbar posterior spinal fusion with bilateral vertical douglas and pedicle screw fixation at L1 with unchanged prominent lucency surrounding the left-sided pedicle screw consistent with loosening. Stable appearance of additional lucent tracks from since removed bilateral pedicle screws at L2. IMPRESSION: 1. No pulmonary embolism. 2. Interval increase in scattered opacities throughout both lungs which appear to represent a combination of worsening pneumonia and atelectasis potentially with additional mild pulmonary edema. 3. Small bilateral pleural effusions. 4. Mild cardiomegaly with enlargement of the central pulmonary arteries consistent with pulmonary arterial hypertension. 5. Unchanged mediastinal and bilateral hilar lymphadenopathy which is most likely reactive. 6. Incompletely visualized instrumented lumbar posterior spinal fusion with chronic loosening of the left L1 pedicle screw. Reviewed, dictated and finalized at location A. IMPRESSION: 1. No pulmonary embolism. 2. Interval increase in scattered opacities throughout both lungs which appear to represent a combination of worsening pneumonia and atelectasis potentially w ith additional mild pulmonary edema. 3. Small bilateral pleural effusions. 4. Mild cardiomegaly with enlargement of the central pulmonary arteries consist ent with pulmonary arterial hypertension. 5. Unchanged mediastinal and bilateral hilar lymphadenopathy which is most like ly reactive. 6. Incompletely visualized instrumented lumbar posterior spinal fusion with chr onic loosening of the left L1 pedicle screw.
--- NOTE | ~2024-12-16 | XR_ITS ---
EXAMINATION: XR chest 1V portable DATE: 12/18/2024 09:24 INDICATION: Congestive heart failure TECHNIQUE: frontal view of the chest was obtained. COMPARISON: Chest radiograph dated 12/16/2024 FINDINGS: Increasing interstitial pattern throughout both lungs consistent with worsening mild pulmonary edema. Persistent patchy, linear and bandlike opacities in the bilateral mid and lower lungs which could represent atelectasis or pneumonia. No pleural effusion or pneumothorax. Heart size is normal. Partially visualized bilateral vertical douglas and pedicle screw fixation for posterior spinal fusion beginning at L1 and extending to at least L3 and beyond the caudal margin of imaging. There is marked lucency surrounding the left-sided L1 pedicle screw consistent with loosening. IMPRESSION: 1. Worsening pulmonary edema throughout both lungs superimposed over persistent airspace opacities which could represent atelectasis, pneumonia or combination thereof. 2. Incompletely visualized instrumented lumbar posterior spinal fusion with likely loosening of left L1 pedicle screw. Reviewed, dictated and finalized at location A. IMPRESSION: 1. Worsening pulmonary edema throughout both lungs superimposed over persistent airspace opacities which could represent atelectasis, pneumonia or combination thereof. 2. Incompletely visualized instrumented lumbar posterior spinal fusion with lik gricelda loosening of left L1 pedicle screw.
--- NOTE | ~2024-12-16 | XR_ITS ---
EXAMINATION: XR chest 1V portable DATE: 12/20/2024 06:20 INDICATION: Congestive heart failure versus pneumonia. TECHNIQUE: frontal view of the chest was obtained. COMPARISON: Chest radiograph dated 12/18/2024 FINDINGS: Persistent increased interstitial pattern and scattered linear discoid atelectasis/scarring in the bilateral mid and lower lungs. Superimposed more patchy airspace opacities in the bilateral mid and lower lungs have decreased. No pleural effusion or pneumothorax. Mild cardiomegaly. Partially visualized instrumented posterior lumbar spinal fusion. IMPRESSION: 1. Interval decrease in patchy airspace opacities in the bilateral mid to lower lungs consistent with likely improving pneumonia with persistent mild increased initial pattern more suggestive of mild pulmonary edema and discoid atelectasis/scarring. 2. Cardiomegaly. Reviewed, dictated and finalized at location A. IMPRESSION: 1. Interval decrease in patchy airspace opacities in the bilateral mid to lower lungs consistent with likely improving pneumonia with persistent mild increase d initial pattern more suggestive of mild pulmonary edema and discoid atelectas is/scarring. 2. Cardiomegaly.
--- NOTE | ~2024-12-16 | XR_ITS ---
EXAM/PROCEDURE: XR chest 1V portable - 12/16/2024 12:35 CDT HISTORY: 54 years old Female with shortness of breath TECHNIQUE: Two view(s) of the chest. COMPARISON: 10/04/2024 FINDINGS: LUNGS/ PLEURA: Mild vascular congestion, bilateral interstitial and alveolar opacities. Bibasilar opacities may represent atelectasis, scarring versus pneumonia in appropriate clinical settings. HEART/ MEDIASTINUM: Cardiomediastinal silhouette is unchanged. BONES: Degenerative changes. OTHER: Visualized upper abdomen is unremarkable. IMPRESSION: Mild CHF. Superimposed infection cannot be excluded. Findings can represent pneumonia in appropriate clinical settings. Clinical correlation is recommended. Short-term follow-up chest radiograph is recommended after appropriate clinical therapy to document stability and/or resolution. Reviewed, dictated and finalized at location N. IMPRESSION: Mild CHF. Superimposed infection cannot be excluded. Findings can represent pne umonia in appropriate clinical settings. Clinical correlation is recommended. S hort-term follow-up chest radiograph is recommended after appropriate clinical therapy to document stability and/or resolution.
[2024-12-16 11:18] VITALS: BP 157/85; PULSE 91; RESP 18; TEMP 36.8; O2SAT 83
--- OUTSIDE RECORDS SUMMARY | 2024-12-16 11:19 | XMS_ITS | Encounter Summary ---
Author Organization [facility] Address [facility] [facility] [place] [address] Care Team Providers Care Test Designer Name Role Phone Rakan Rojas Primary Care Provider Unava ilable Rakan Rojas MD Primary Care Provider [phone] Guzman Moody MD Primary Care Provider [phone] Rakan Rojas MD Primary Care Provider [phone] Guzman Moody MD Primary Care Provider [phone] Encounter Details Date Type Department Care Team (Late st Contact Info) Description 12/20/2018 Ophth Exam [facility] [address] [place] [address] Serafin Andrade MD [address] [place] [id number] Social History Tobacco Use Types Packs/Day Years [...] on filedocumented in this encounter Care Teams Test Designer Relationship Specialty Start Date End Date Rakan Rojas Update Information PCP - General 12/20/18 12/23/18 Rakan Rojas MD Update Information PCP - General 12/24/18 06/24/21 Guzman Moody MD [address] [place] [address] PCP - General Internal Medicine 06/25/21 09/24/21 Rakan Rojas MD [address] [facility] [place] [address] PCP - General 09/25/21 11/10/21 Guzman Moody MD [address] [place] [address] PCP - General 11/11/21 documented as of this encounter
--- OUTSIDE RECORDS SUMMARY | 2024-12-16 11:19 | XMS_ITS | Encounter Summary ---
Author Organization [facility] Address [address] [place] [address] Care Team Providers Care Director Of Dietary Name Role Phone Preet Louise MD Primary Care Provider [phone] Encounter Details Date Type Department Care Team (Late st Contact Info) Description 10/25/2024 Results Follow-Up [facility] Primary Care at [address] [place] [address] Jolene Raya MA Urine culture Urine, clean voided Social History Tobacco Use Types Packs/Day Years Used Date Smoking Tobacco: Former Cigarettes 1 38.7 S tarted: 1986 Smokeless Tobacco: Former Comments:1 PPD Alcohol Use Standard Drinks/Week Comments [...] or ex-partner? No 01/08/2023 Social Connection and Isolation Panel Answer Date Recorded In a typical week, how many times do you talk on the phone with family, friends, or neighbors? More than three times a week 01/08/2023 How often do you get togethe r with friends or relatives? More than three times a week 01/08/2023 How often do you attend chur ch or christian services? Never 01/08/2023 Do you belong to any clubs o r organizations such as confucianism groups, unions, fraternal or athletic groups, or [...] staff should administer the PHQ-9) 2 01/13/2024 [facility] - Occupational Stress Questionnaire Answer Date [...] place to sleep or slept in a fci (including now)? No 01/08/2023 Comments No Sex and Gender Information Value Date Recorded Sex Assigned at Not on file Legal Sex Female 1:47 AM BUSINESS MANAGEMENT PROFESSOR Gender Identity Female 10/06/2024 7:17 PM CDT Sexual Orientation Straight 10/06/2024 7: 17 PM CDT documented as of this encounter Plan of Treatment Not on file documented as of this encounter Visit Diagnoses Not on filedocumented in this encounter Care Teams Director Of Dietary Relationship Specialty Start Date End Date Preet [place] [address] PCP - General Family Medicine 09/30/23 documented as of this encounter
--- OUTSIDE RECORDS SUMMARY | 2024-12-16 11:19 | XMS_ITS | Clinical Summary ---
Author Organization [facility] Address [address] [place] [address] Care Team Providers Care Cycle Touring Guide Name Role Phone Preet Hawkins MD Primary Care Provider [phone] Allergies Active Allergy Reactions Criticality Noted Date [...] E-Nonoxynol 9-Aloe Vera Rash,Swelling Medium 10/12/2024 Medications naloxone (NARCAN) 4 mg/actuation spray,non-aeroso l Administer [...] g 3 [address] [facility] Loft Brand Arm Crutches 1 each 024 Active atenoloL (TENORMIN) 25 mg tabletIndication s:Essential [...] for wheezing 150 mL 3 025 Active buprenorphine-na loxone (SUBOXONE) 8-2 mg per filmIndications: Moderate opioid use disorder (HCC) DISSOLVE 1 FILM UNDER TONGUE TWO TIMES A DAY 60 Film 2 025 Active ondansetron (ZOFRAN) 4 mg tabletIndication s:Nausea TAKE 1 TABLET BY MOUTH EVERY 8 HOURS NEEDED FOR NAUSEA AND VOMITING 20 tablet 1 025 Active furosemide (LASIX) 40 mg tabletIndication s:Edema of both legs Take 1 tablet (40 mg total) by mouth daily 90 tablet 1 025 Active traZODone (DESYREL) 150 mg tablet Take 1 tablet (150 mg total) by mouth nightly for sleep 90 tablet 3 025 Active pregabalin (LYRICA) 150 mg capsule Take 1 capsule (150 mg total) by mouth 2 (two) times a day 60 capsule 2 025 Active oxyBUTYnin (DITROPAN) 5 mg tablet Take 1 tablet (5 mg total) by mouth 3 (three) times a day 270 tablet 3 Active ibuprofen (ADVIL,MOTRIN) 800 mg tabletIndication s:Opioid dependence, in remission Take 1 tablet (800 mg total) by mouth 3 (three) times a day as needed for pain Active potassium chloride ER (KLOR-CON) 10 mEq CR tabletIndication s:Edema of both legs Take 1 tablet/capsule (10 mEq total) by mouth daily 90 tablet/caps ule 1 Active dilTIAZem XR 240 mg 24 hr capsuleIndicatio ns:Essential hypertension Take 1 capsule (240 mg total) by mouth daily 100 capsule [address] (NexIUM) 40 mg capsule Take 1 capsule (40 mg total) by mouth daily before breakfast 90 capsule 3 025 2025 Active famotidine (PEPCID) 40 mg tablet Take 1 tablet (40 mg total) by mouth daily 30 tablet 11 025 2025 Active dextroamphetamin e-amphetamine XR (ADDERALL XR) 20 mg 24 hr capsuleIndicatio ns:Attention deficit hyperactivity disorder (ADHD), predominantly inattentive type Take 1 capsule (20 mg total) by mouth every morning 30 capsule 025 2024 Active albuterol HFA (PROVENTIL HFA,VENTOLIN HFA,PROAIR HFA) 90 mcg/actuation inhalerIndicatio ns:COPD with acute exacerbation (HCC) TAKE 2 PUFFS BY MOUTH EVERY 6 HOURS NEEDED FOR WHEEZE OR FOR SHORTNESS OF BREATH 20.1 each 025 Active albuterol HFA (PROVENTIL HFA,VENTOLIN HFA,PROAIR HFA) 90 mcg/actuation inhalerIndicatio ns:COPD with acute exacerbation (HCC) TAKE 2 PUFFS BY MOUTH EVERY 6 HOURS NEEDED FOR WHEEZE OR FOR SHORTNESS OF BREATH 25.5 each 025 2024 Discontinued dextroamphetamin e-amphetamine XR (ADDERALL XR) 20 mg 24 hr capsuleIndicatio ns:Attention deficit hyperactivity disorder (ADHD), predominantly inattentive type Take 1 capsule (20 mg total) by mouth every morning 30 capsule 025 2024 Discontinued(R eorder) Active Problems Problem Noted Date Diagnosed Date Partial bowel obstruction 12/09/2024 Suprapubic catheter 10/25/2024 Pneumonia involving left lung 10/25/2024 Acute diastolic heart failure 10/18/2024 Abnormal urinalysis 10/12/2024 Cloudy urine 10/12/2024 Bladder [...] 11/04/2022 Assessment & Plan (03/28/2024 4:38 PM VENEER CLIPPER HELPER): Not well controlled; continues to have weakness, [...] status Assessment & Plan (04/15/2023 10:13 AM VENEER CLIPPER HELPER): Stable, improving; has improved strength and function [...] & Plan (11/06/2022 3:32 PM CDT): Continues [facility] day institute, able to use walker with [...] 02/20/2022 Assessment & Plan (05/16/2022 3:01 PM VENEER CLIPPER HELPER): Stable, patient scheduled for follow-up CT; CT has been ordered, patient to schedule after completion of back surgery Assessment & Plan (02/25/2022 1:24 PM VENEER CLIPPER HELPER): Ground-glass opacities noted on CT imaging; will repeat imaging in approximately 3 months Assessment & Plan (02/20/2022 3:17 PM VENEER CLIPPER HELPER): CT lung cancer screening completed 09/2021.(see hpi) [...] b.i.d. Assessment & Plan (05/16/2022 2:59 PM VENEER CLIPPER HELPER): Stable, well controlled; no use of non-prescribed substances since last visit; patient is scheduled for lumbar surgery; patient has been tapering from buprenorphine, almost completed taper; ready to transition to oxycodone for maintenance until surgery Start oxycodone 20 mg t.i.d. for 7 days; will follow-up post surgery for acute pain management before transition back to buprenorphine Assessment & Plan (03/17/2022 4:58 PM VENEER CLIPPER HELPER): Stable, well controlled; no use of any [...] 07/03/2021 Assessment & Plan (03/28/2024 4:37 PM VENEER CLIPPER HELPER): Not well controlled, continues to have significant low back pain; patient reports symptoms are always often for patient No relief with current treatments; using topical treatments, scheduled ibuprofen and Tylenol; patient reports that pain has been worsening, even simple movements cause limitation Continue ibuprofen and Tylenol; Suboxone 8 mg t.i.d. Assessment & Plan (05/20/2023 2:26 PM VENEER CLIPPER HELPER): Continues recovering from recent surgery. Keep up the good work! Assessment & Plan (05/16/2022 2:58 PM VENEER CLIPPER HELPER): Not well controlled, has extensive pain; wakes patient at night Patient reports failed fusion; scheduled on 05/22/2022 for repeat procedure, with extension of fusion from L2-L3 to L1 See plan below for management of opioid use disorder Radiculopathy, lumbosacral region 07/03/2021 Assessment & Plan (03/28/2024 4:37 PM VENEER CLIPPER HELPER): Not well controlled, continues to have significant [...] 07/03 Assessment & Plan (03/28/2024 4:38 PM VENEER CLIPPER HELPER): Continues to have significant pain and discomfort [...] b.i.d. Assessment & Plan (03/17/2022 4:57 PM VENEER CLIPPER HELPER): Stable, generally well controlled; but continues to need to take p.r.n. medications Continue Nexium 40 mg b.i.d., Prevacid p.r.n. for acute worsening Assessment & Plan (2022 10:11 AM CDT): Stable, generally well controlled; continue Nexium 40 mg b.i.d. Assessment & Plan (05/01/2020 2:14 PM VENEER CLIPPER HELPER): Despite protonix heartburn has recurred as well [...] and prior EGD by Dr Hernandes at [facility]--told everything was OK this many yrs ago. [...] 08/17/2019 Assessment & Plan (04/19/2024 6:36 PM VENEER CLIPPER HELPER): BP stable at 140/80, given her anxiety [...] daily, Assessment & Plan (05/20/2023 2:26 PM VENEER CLIPPER HELPER): Normotensive. No changes. Will continue to monitor. [...] daily Assessment & Plan (03/17/2022 4:55 PM VENEER CLIPPER HELPER): Blood pressure mildly elevated today, no chest pains or headaches Continue atenolol 50 mg daily, diltiazem 240 mg daily, Assessment & Plan (02/20/2022 3:11 PM VENEER CLIPPER HELPER): Did not take BP medications today. Continues [...] needed Assessment & Plan (04/15/2023 10:13 AM VENEER CLIPPER HELPER): Stable, well controlled; engages with therapist over [...] daily Assessment & Plan (03/17/2022 4:59 PM VENEER CLIPPER HELPER): Not well controlled, patient reports she continues [...] CDT): Controlled on current medication. Stable today. Obstructive sleep apnea 03/07/2019 Secondary glaucoma of [...] . Assessment & Plan (04/15/2023 10:12 AM VENEER CLIPPER HELPER): Not well controlled, recent exacerbation; has been [...] incruse Assessment & Plan (05/16/2018 4:00 PM VENEER CLIPPER HELPER): May have underlying pneumonia. See above Steroids, [...] 01/13/2024 Assessment & Plan (05/20/2023 2:30 PM VENEER CLIPPER HELPER): Lungs diminished throughout right greater than left. [...] 06/12/20222023 Assessment & Plan (06/12/2022 2:05 PM VENEER CLIPPER HELPER): Discussed symptomatic treatment with rest, bland diet and pushing fluids. Reviewed signs and symptoms of worsening illness warranting further or immediate evaluation. Prescribed ondansetron as needed for nausea/vomiting. Will continue to monitor. 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 Follow up as sched with intraocular pressure (IOP), order OCT ONH today Assessment & Plan (06/06/2022 10:20 AM VENEER CLIPPER HELPER): Close observation. Follow up as sched with [...] 01/13/20 Assessment & Plan (02/20/2022 3:13 PM VENEER CLIPPER HELPER): Stable, some increase with smoking cessation. Discussed healthy diet and importance of regular physical activity. Assessment & Plan (06/28/2021 5:41 PM CDT): Discussed healthy diet and importance of regular physical activity. Dysuria 06/28/2021 01/13/2024 Acute cystitis with hematuria 06/28/2021 01/13/2024 Assessment & Plan (06/12/2022 2:06 PM VENEER CLIPPER HELPER): Prescribed cipro for acute cystitis. Urine sent [...] Large Ketones, ur, POC Negative Negative Specific [place], POC 1.030 1.005 - 1.030 Blood, ur, [...] initially fell ill approximately 12hours after eating Yakut food (she thinks may be the culprit) - CT with enterocolitis however laparoscopic surgery without perforation or evidence of ischemia - Stool negative for shiga toxin, giardia, cryptosporidium - Patient initially with profound hypokalemia likely secondary to diarrhea requiring continued, daily repletion Assessment & Plan (10/09/2019 4:44 PM CDT): - patient got sick approximately 12 hours after eating Yakut food which she thinks may be the [...] Stool culture, parasite, ova pending Salmonella septicemia ([facility]) 10/07/2019 03/17/2022 Assessment & Plan (10/14/2019 [...] (10/06/2019): Added automatically from request for surgery [id number] Assessment & Plan (10/10/2019 11:33 AM CDT): [...] be a virtual visit and scheduled at [phone] ext 2 prior to discharge, no heavy [...] consult-no surgical issues. - Gatorade ordered 10/08 [facility] Acute Care Surgery Discharge Instructions Care [...] your incisions (Neosporin or Vaseline) Only take [id number] or prescription medicines for pain, discomfort, or [...] 01/13/2024 Assessment & Plan (05/16/2022 3:00 PM VENEER CLIPPER HELPER): Stable, well controlled; A1c is remain within the pre diabetes range; patient has history of type 2 diabetes, but work on weight loss and dietary changes to maintain blood sugars Continue with regular A1c checks, no medications required at this time Pulmonary emphysema ([facility]) 07/19/2019 08/31/2023 Assessment & Plan (07/18/2022 10:21 AM CDT): Stable, well controlled; no recent dyspnea or exacerbations Continue albuterol p.r.n. for dyspnea Assessment & Plan (05/16/2022 3:00 PM VENEER CLIPPER HELPER): Stable, well controlled; patient using Weck-Mirta in hub; patient reports recent exacerbation, now improving; continue Wixela, albuterol p.r.n. for dyspnea Assessment & Plan (03/17/2022 5:00 PM VENEER CLIPPER HELPER): Stable, well controlled; patient reports no significant dyspnea, no longer needs oxygen Assessment & Plan (02/25/2022 1:24 PM VENEER CLIPPER HELPER): Acute exacerbation secondary to COVID-19 infection; hospitalized for approximately 5 days Head weakness and difficulty walking, which is improving Currently feels difficulty with thought processes, continues to have some loss of hair Continue with albuterol p.r.n.; Pedro Luis Whatleyus The if continues to have symptoms, will [...] (06/17/2019): Added automatically from request for surgery [id number] Assessment & Plan (10/16/2022 10:01 AM CDT): NLP (by my check w/ an indirect ophthalmoscope) REC: Dr. Tapia for evaluation / management WRT enucleation OD Assessment & Plan (06/20/2022 1:14 PM VENEER CLIPPER HELPER): Has appt Dr Kumar this summer Assessment & Plan (06/06/2022 10:18 AM VENEER CLIPPER HELPER): Has appt Dr Kumar this summer Assessment [...] alternating with Lotemax ointment OS q.i.d. -RTC urs am Assessment & Plan (06/30/2019 10:56 AM [...] 01/13/2024 Assessment & Plan (06/16/2019 5:32 PM VENEER CLIPPER HELPER): History of trauma OD Multiple graft rejection./ [...] (06/06/2022): Added automatically from request for surgery [id number] Aphakia, right 03/08/2019 01/13/2024 Asthma 03/07/2019 01/13/2024 Acute bronchitis 03/07/2019 01/13/2024 Acute respiratory failure with hypoxia 05/16/2018 10/20/2019 Assessment & Plan (05/17/2018 5:21 PM VENEER CLIPPER HELPER): Pt presented to the ER with dyspnea and wheezing. Initial o2 sat on RA was 88% c/w with hypoxic resp failure due to COPD exacerabation/Pneumonia Chronic low back pain 05/16/20182023 Assessment & Plan (07/19/2019 12:21 PM CDT): Continue follow-up with pain management. Assessment & Plan (05/16/2018 4:02 PM VENEER CLIPPER HELPER): Cont home meds. Aggressive IS given amount of usual narcotics HTN (hypertension), benign 05/16/2018 0 08/17/2019 Assessment & Plan (07/19/2019 12:21 PM CDT): Will await cardiology evaluation. Medications reordered. Assessment & Plan (05/16/2018 4:03 PM VENEER CLIPPER HELPER): Cont Atenolol, monitor. Acute LUQ pain 07/13/2017 [...] 07/13/20172023 Assessment & Plan (05/16/2018 3:59 PM VENEER CLIPPER HELPER): Vs Atelectasis. Already been on Zithromax, will cont Rocephin. Assessment & Plan (07/13/2017 2:01 PM CDT): Xray as noted above. IV Levaquin continued. Oxygen with goal to wean off. Hyponatremia 07/13/2017 01/13/2024 Assessment & Plan (07/13/2017 2:02 PM CDT): Likely related to nausea and poor appetite. IVF. Monitor bmp. Carpal tunnel syndrome 04/18/201601/12 Cough 02/20/2022 Encounters Date Type Department Care Team Description 11/28/2024 Results Follow-Up [facility] at [address] [place] [id number] Melissa Lemos MA NM MPI SPECT (Rest and/or Stress) Multiple Studies 11/24/2024 9:21 AM CDT - 11/24/2024 11:59 PM CDT Hospital Encounter [address] [address] Discharge Disposition: Discharge to home or self care 11/24/2024 9:20 AM CDT - 11/24/2024 11:59 PM CDT Hospital Encounter [facility] [address] [place] [address] Acute diastolic heart failure (HCC) Discharge Disposition: Discharge to home or self care 11/24/2024 9:20 AM CDT - 11/24/2024 11:59 PM CDT Hospital Encounter [address] [address] Discharge Disposition: Discharge to home or self care 11/24/2024 9:15 AM CDT - 11/24/2024 11:59 PM CDT Hospital Encounter [address] [address] Acute diastolic heart failure (HCC) Discharge Disposition: Discharge to home or self care 10/26/2024 1:15 PM CDT Office Visit [facility] at [address] [place] [address] Ibrahima Munoz MD Essential hypertension (Primary Dx); Acute diastolic heart failure (HCC); Chronic obstructive pulmonary disease with acute exacerbation (HCC) 10/25/2024 Telephone [facility] [address] [address] Preet Hawkins MD Prior Auth (Esomeprazole - DENIED) 10/25/2024 Results Follow-Up [facility] at [address] [place] [address] Jolene Raya MA Urine culture Urine, clean voided 10/18/2024 1:44 PM CDT - 10/18/2024 11:59 PM CDT Hospital Encounter [address] [address] Urinary tract infection without hematuria, site unspecified Discharge Disposition: Discharge to home or self care 10/18/2024 1:00 PM CDT Office Visit [facility] at [address] [place] [phone] Jennifer Mccoy NP Acute diastolic heart failure (HCC) (Primary Dx); Edema of both legs; Chronic obstructive pulmonary disease, unspecified COPD type (HCC); Urinary tract infection without hematuria, site unspecified; Opioid dependence, in remission (HCC); Encounter for screening mammogram for malignant neoplasm of breast; Suprapubic catheter (HCC); Pneumonia of left lung due to infectious organism, unspecified part of lung 10/08/2024 Telephone [facility] [address] [phone] Preet Hawkins MD After Hours; Medical Question/Miscellaneo us 10/04/2024 Orders Only [facility] Health Information Management [address] [place] [address] Scanning, Provider 10/03/2024 [facility]phone [facility] [address] [address] Preet Hawkins MD Symptom Based Call from Last 3 Months Immunizations Immunization Administration Dates Next Due COVID-19 mRNA (BoxTone) 0.3 m L (30 mcg) vaccine (12 [...] - 09/10/2022 CHOLECYSTECTOMY CARPAL TUNNEL RELEASE HYSTERECTOMY July 12 age 26 EYE SURGERY EXPLORATORY LAPAROTOMY 09/12/2019 - 10/11/2019 Medical History Medical History Date Comments Hypertension COPD (chronic obstructive pu lmonary disease) Arthritis Asthma 02/1982 GERD (gastroesophageal reflu x disease) 08/2016 Sleep apnea not using Salmonella septicemia (HCC) 10/07/2019 Diarrhea 10/07/2019 Enterocolitis 10/05/2019 Added automatica lly from request for surgery [id number] Wound dehiscence 03/08/2019 Added automatic ally from request for surgery [id number] Pulmonary infiltrates 07/13/2017 Chronic low back pain 05/16/2018 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, 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/2019 Added automatically from req uest for surgery [id number] Bone mass 07/19/2019 Murmur, heart 08/17/2019 Abnormal glucose 08/17/2019 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 10/22/2021 Failed corneal transplant 06/06/2022 Peripheral anterior synechia e of iris, right 06/06/2022 At risk for UTI related to i ndwelling catheter 11/06/2022 Depression Chronic bronchitis (HCC) Anxiety Family History Medical History Relation Name Comments Diabetes Father Tk Natarajan Heart disease Father Tk Natarajan Arthritis Mother Dorina Wu COPD Mother Dorina Wu Hypertension Mother Dorina Wu Relation Name Status Comments Father Tk Natarajan Alive Mother Dorina Wu Alive Social History Tobacco Use Types Packs/Day Years Used Date Smoking Tobacco: Former Cigarettes 1 38.7 S tarted: 1986 Smokeless Tobacco: Former Tobacco Cessation:Counseling Given: Not [...] often do you attend chur ch or jew services? Never 01/08/2023 Do you belong to any clubs o r organizations such as congregation groups, unions, fraternal or athletic groups, or [...] staff should administer the PHQ-9) 2 01/13/2024 [facility] [place] [facility] Occup[facility] ional [facility] - Occupational Stress [...] place to sleep or slept in a correction (including now)? No 01/08/2023 Comments No Sex and Gender Information Value Date Recorded Sex Assigned at Not on file Legal Sex Female 1:47 AM VENEER CLIPPER HELPER Gender Identity Female 10/06/2024 7:17 PM CDT Sexual Orientation Straight 10/06/2024 7: 17 PM CDT Obstetrics History Para Term AB IAB SAB Ectopic Multiple Livin g Live Births 3 3 3 Date Outcome GA Total Labor Labor/2nd/3rd Weight Sex Type Anes PTL Cami A1 A5 Name Clin Term Term Term Last Filed Vital Signs Vital Sign Reading Time Taken Comments Blood Pressure 145/75 10/26/2024 1:22 PM CDT Pulse 79 10/26/2024 1:22 PM CDT Temperature 37 C (98.6 F) 10/18/2024 1:28 PM CDT Respiratory Rate 18 10/18/2024 1:28 PM CDT Oxygen Saturation 92% 10/18/2024 1:31 PM CDT Recheck Inhaled Oxygen Concentration - - Weight 63.5 kg (140 lb) 10/26/2024 1:22 PM CDT Height 162.6 cm (5' 4) 10/26/2024 1:22 PM CDT Body Mass Index 24.03 10/26/2024 1:22 PM CDT Plan of Treatment Health Maintenance Due Date Last Done Comments Breast Cancer Screening-Mammogram 11/04/2022 11/04/2021, 10/24/2019 Lung Cancer Screening 11/16/2022 08/18/2022, 022 Covid-19 Vaccine (5 - Pfizer risk season) 2024 06/02/2024, 03/23/2021, 06/28/2020, Additional history exists Influenza Vaccine (#1) 2024 , 02/07/2022, 05/29/2021, Additional history exists Depression Screening 01/12/2025 01/13/2024, 09/30/2023, 08/20/2023, Additional history exists Regular Well Visit/Exam 18-64 01/12/2025 01/13/2024, 01/07/2023, 01/07/2023, Additional history exists Zoster Vaccine (1 of 2) 04/19/2025 Post poned from 1990 (Patient declined, but will receive in the future) Colon Cancer Screening-Colonoscopy 09/16/2032 09/16/2022, 01/28/2018 DTaP/Tdap/Td Vaccine (2 - Td or Tdap) 01/12/2034 01/13/2024 Hepatitis B Screening Completed 09/28/2023 Hepatitis C Screening Completed 09/28/2023 Pneumococcal vaccine <65 Completed 06/02/2024, 06/11 Medical Devices Implanted Type Area Block Splitter Operator Device Identifier Shelf Expiration Date Model / Serial / Lot Mid Felicity Transplant Srvcs V0003 Implant Cornea Pkp Right Hypothermic - [id number] - [id number] Implanted:Qty: 1 on 06/20/2019 by Jono Burris MD at [facility] Other - see comments Right: Eye [employer] Felicity Transplant Srvcs 06/30/2019 V0003 / [id number] Description:cornea [employer] Transplant Srvcs V0003 Implant Cornea Pkp Right Hypothermic - [id number] V0003 - [id number] Implanted:Qty: 1 on 06/29/2019 by Jono Burris MD at [facility] Other - see comments Right: Eye [employer] Transplant Srvcs 07/09/2019 V0003 / [id number] Procedures Procedure Name Priority Date/Time Associated Diagnosis Comments STRESS TEST FOR DUAL READ Schedule Routine, Read Routine (OP Routine) 11/24/2024 10:54 AM CDT Acute diastolic heart failure (HCC) NM MPI SPECT (REST AND/OR STRESS) MULTIPLE STUDIES Schedule Routine, Read Routine (OP Routine) 11/24/2024 10:54 AM CDT Acute diastolic heart failure (HCC) URINE CULTURE Routine 10/18/2024 1:44 PM CDT Urinary tract infection without hematuria, site unspecified POCT URINALYSIS DIPSTICK Routine 10/18/2024 1:42 PM CDT Urinary tract infection without hematuria, site unspecified SCAN - LABS 10/04/2024 HEPATITIS C ANTIBODY [...] Recently Relevant to Health Maintenance Results * NM MPI SPECT (Rest and/or Stress) Multiple Studies (11/24/2024 10:54 AM CDT) Anatomical Region Laterality Modality Body N/A Nuclear Medicine 11/24/2024 9:43 AM CDT Narrative 11/25/2024 2:30 PM CDT [address] [address] [employer] Report Patient Name: SUSANA TRACY N : 1970 Study Date: 11/24/2024 9:43:41 AM Gender: F Tech: Ref Provider: IBRAHIMA MUNOZ Height(Cm): BSA: Weight(Kg): Order Provider: IBRAHIMA MUNOZ PROCEDURES: Pharmacologic SPECT Report.: Myocardial perfusion imaging with Sestamibi SPECT at rest and post regadenoson (Lexiscan) infusion. INDICATIONS: I50.31 Acute diastolic (congestive) heart failure. FINDINGS: Procedure Data: Sestamibi injected at rest was 9.7 millicuries Sestamibi injected at peak exercise was 32.2 millicuries Predicted Maximal HR 167 bpm Perfusion: Normal perfusion imaging. LV Function: Left ventricular ejection fraction is 71 %. CONCLUSIONS: 1. Myocardial Perfusion: Normal rest and stress images. 2. Inferior wall diaphragmatic attenuation artifact. No ischemia noted. 3. Left ventricle: Normal size and systolic function (visually confirmed EF >50%). Electronically Signed By: Ibrahima Munoz MD 11/25/2024 1:36:11 PM CDT Procedure Note Ibrahima Munoz MD - 11/25/[address] [place] [address] Lexiscan Report Patient Name: SUSANA TRACY N : 1970 Study Date: 11/24/2024 9:43:41 AM Gender: F Tech: Ref Provider: IBRAHIMA MUNOZ Height(Cm): BSA: Weight(Kg): Order Provider: IBRAHIMA MUNOZ PROCEDURES: Pharmacologic SPECT Report.: Myocardial perfusion imaging with Sestamibi SPECT at rest and postregadenoson (Lexiscan) infusion. INDICATIONS: I50.31 Acute diastolic (congestive) heart failure. FINDINGS: Procedure Data: Sestamibi injected at rest was 9.7 millicuries Sestamibi injected at peak exercise was 32.2 millicuries Predicted Maximal HR 167 bpm Perfusion: Normal perfusion imaging. LV Function: Left ventricular ejection fraction is 71 %. CONCLUSIONS: 1. Myocardial Perfusion: Normal rest and stress images. 2. Inferior wall diaphragmatic attenuation artifact. No ischemia noted. 3. Left ventricle: Normal size and systolic function (visually confirmedEF >50%). Electronically Signed By: Ibrahima Munoz MD 11/25/2024 1:36:11 PM CDT us Ibrahima Munoz MD [facility] PROCEDURES Final Re sult * Stress Test for Myocardial Perfusion (11/24/2024 10:54 AM CDT) Anatomical Region Laterality Modality Nuclear Medicine 11/24/2024 9:15 AM CDT Narrative 11/24/2024 11:41 AM CDT [address] [place] [address] Lexiscan Report Patient Name: SUSANA TRACY N : 1970 Study Date: 11/24/2024 9:15:00 AM Gender: F Tech: sandeep fontaine Ref Provider: IBRAHIMA MUNOZ Height(Cm): 163 BSA: 2.51 Weight(Kg): 140 Heart Rate: 142 Order Provider: IBRAHIMA MUNOZ PROCEDURES: Pharmacologic SPECT Report.: Myocardial perfusion imaging with Sestamibi SPECT at rest and post regadenoson (Lexiscan) infusion. INDICATIONS: I50.31 Acute diastolic (congestive) heart failure. FINDINGS: Procedure Data: Resting HR 74 bpm Peak HR: 74 bpm Predicted Maximal HR 167 bpm Target HR: 142 bpm Percent Max Predicted HR Achieved: 44.31 % Baseline BP: 115/55 mmHg Peak BP: 127/67 mmHg Exercise Time: 00:09 Medications: Free Text. Performed By: Supervising Physician: The Supervising Physician is luisito vega. Reason for Termination: Lexiscan protocol complete. Resting ECG: Normal sinus rhythm at 62 beats per minute, normal axis. Post Pharm ECG: No diagnostic ST changes. Arrhythmia: Rare PVCs. Cardiac Symptoms With Stress: Symptoms with stress were None. Exam Interpreted: Read by . CONCLUSIONS: 1. Negative Lexiscan pharmacologic stress test for chest pain or EKG changes. 2. Nuclear images are pending and they will be reported separately. Electronically Signed By: Dr Luisito Vega 11/24/2024 11:21:04 AM CDT Procedure Note Luisito Vega MD - 11/24/[address] [place] [address] Lexiscan Report Patient Name: SUSANA TRACY N : 1970 Study Date: 11/24/2024 9:15:00 AM Gender: F Tech: sandeep fontaine Ref Provider: IBRAHIMA MUNOZ Height(Cm): 163 BSA: 2.51 Weight(Kg): 140 Heart Rate: 142 Order Provider: IBRAHIMA MUNOZ PROCEDURES: Pharmacologic SPECT Report.: Myocardial perfusion imaging with Sestamibi SPECT at rest and postregadenoson (Lexiscan) infusion. INDICATIONS: I50.31 Acute diastolic (congestive) heart failure. FINDINGS: Procedure Data: Resting HR 74 bpm Peak HR: 74 bpm Predicted Maximal HR 167 bpm Target HR: 142 bpm Percent Max Predicted HR Achieved: 44.31 % Baseline BP: 115/55 mmHg Peak BP: 127/67 mmHg Exercise Time: 00:09 Medications: Free Text. Performed By: Supervising Physician: The Supervising Physician is luisito vega. Reason for Termination: Lexiscan protocol complete. Resting ECG: Normal sinus rhythm at 62 beats per minute, normal axis. Post Pharm ECG: No diagnostic ST changes. Arrhythmia: Rare PVCs. Cardiac Symptoms With Stress: Symptoms with stress were None. Exam Interpreted: Read by . CONCLUSIONS: 1. Negative Lexiscan pharmacologic stress test for chest pain or EKGchanges. 2. Nuclear images are pending and they will be reported separately. Electronically Signed By: Dr Luisito Vega 11/24/2024 11:21:04 AM CDT Ibrahima Munoz MD CV STRESS PROCEDURES Final Result * Urine culture Urine, clean voided (10/18/2024 1:44 PM CDT) Report Final Report: Less than 100,000 colonies/mL (clinically insignificant growth based on current clinical standards) Comment:Testing performed by : [facility], [address] [place]., [address] Organism (CLINICALLY INSIGNIFICANT GROWTH [facility] Urine, clean voided 10/18/2024 1:44 PM CDT 10/19/2024 12:01 AM CDT Narrative [facility] - 10/20/2024 7:54 AM CDT Testing performed by [facility] ([phone]) Jennifer Mccoy NP LAB MICROBIOLOGY - GENE RAL ORDERABLES Final Result [facility] [address] Department [place] [address] * (ABNORMAL) POCT urinalysis dipstick (10/18/2024 1:42 PM CDT) Color, Urine, POC Yellow Clarity, ur, POC Clear Clear Glucose, ur, POC Negative Negative Bilirubin, ur, POC Negative Negative Ketones, ur, POC Negative Negative Specific [place], POC 1.015 1.003 - 1.030 Blood, ur, POC Trace(A) Negative pH, ur, POC 8.0 5.0 - 8.0 Protein, ur, POC Negative Negative Urobilinogen, urine, POC 0.2 0.2 - 1.0 mg/dL Nitrite, ur, POC Negative Negative Leukocytes, ur, POC Trace(A) Negative Lot Number [id number] Comment:02-10-2025 Urine 10/18/2024 1:42 PM CDT Jennifer Mccoy NP POINT OF CARE TEST ORDE RABLES Final Result * SCAN - LABS (10/04/2024) Provider Scanning [...] L ORDERABLES Edited Result - Final [facility] [address] Department [place] [address] * Colonoscopy (09/16/2022) Anatomical Region Laterality Modality [...] Jerad Islas M.D. AG: SOFIA Report ID: [id number] Reading Location: [id number] Narrative 08/19/2022 8:26 AM CDT EXAM DESCRIPTION: CT [...] or sclerotic lesion. No acute fracture seen. us Bao Moody MD IMG CT PROCEDURES Final [...] There has been no suspicious interval change. us Bao Moody MD IMG MAMMO PROCEDURES Sol l Result from Last 3 Months or Most Recently Relevant to Health Maintenance Insurance [facility] Member Subscriber Plan / Payer (Ef fective 2018-Present) Name:Susana Tracy Relation to Subscriber:Self Name:Susana Tracy Payer ID:[id number] (NAIC) Type:MEDICARE RISK OTHER Address: [address] [facility] UHC MEDICARE ADVANTAGE [facility] MEDICARE ADVANTAGE Advance Directives For more information, please contact: [phone] * Full Code (Latest Code Status on [...] 9:07 AM 07/14/2017 7:01 PM Care Teams Cycle Touring Guide Relationship Specialty Start Date End Date [place]reet [place] [address] PCP - General Family Medicine 09/30/23
--- OUTSIDE RECORDS SUMMARY | 2024-12-16 11:19 | XMS_ITS | Encounter Summary ---
Author Organization [facility] Healthcare Address [facility] [place] [address] Care Team Providers Care Rn Ent Name Role Phone Preet Louise MD Primary Care Provider [phone] Encounter Details Date Type Department Care Team (Latest Contact Info) Description 11/28/2024 Results Follow-Up [place] Telephone Repairer at [address] [place] [address] Melissa Lemos MA [place] MPI SPECT (Rest and/or Stress) Multiple Studies Social History Tobacco Use Types Packs/Day Years [...] often do you attend chur ch or buddhism services? Never 01/08/2023 Do you belong to any clubs o r organizations such as samaritan groups, unions, fraternal or athletic groups, or [...] staff should administer the PHQ-9) 2 01/13/2024 [facility] - Occupational Stress Questionnaire Answer Date [...] place to sleep or slept in a mcfp (including now)? No 01/08/2023 Comments No Sex and Gender Information Value Date Recorded Sex Assigned at Not on file Legal Sex Female 1:47 AM NPS Gender Identity Female 10/06/2024 7:17 PM CDT Sexual Orientation Straight 10/06/2024 7: 17 PM CDT documented as of this encounter Plan of Treatment Not on file documented as of this encounter Visit Diagnoses Not on filedocumented in this encounter Care Teams Rn Ent Relationship Specialty Start Date [place] [address] PCP - General Family Medicine 09/30/23 documented as of this encounter
--- OUTSIDE RECORDS SUMMARY | 2024-12-16 11:19 | XMS_ITS | Clinical Summary ---
Author Organization [facility] Address [address] [place] [address] Care Team Providers Care Intake Clinician Name Role Phone Guzman Moody MD Primary Care Provider [phone] Source Comments [facility],non-owned Affiliates and Associated Physician Practices is amultiple site organization consisting of ambulatory clinics and hospital sitesin [place], [place], [place] and [place]. This disclosure is being madepursuant to the Care Everywhere program and may not contain all information available regarding this patient. Last updated 18.[facility] Allergies Active Allergy Reactions Criticality Noted [...] and heating? Not hard at all 08/28/2022 [facility] [place] [facility] Occupat ional Health - Occupational Stress [...] place to sleep or slept in a retirement (including now)? No 08/28/2022 Comments No Sex [...] of 3 - 19+ 3-dose series) 1990 DIABETES-STATIN 2011 DIABETES-FOOT EXAM WITH MONOFILAMENT 03/07/2019 ZOSTER VACCINE (1 of 2) 2021 PNEUMOCOCCAL VACCINE 50+ (2 of 2 - PPSV23, PCV20, or PCV21) 08/23/2021 06/28/2021 DIABETES-SERUM CREATININE 09/10/20232022, 09/08/2022, 09/07/2022, Additional history exists MAMMOGRAM 11/05/2023 11/04/2021, 10/12, 10/24/2019 DEPRESSION SCREENING 04/13/2024 DIABETES - URINE PROTEIN SCREENING 04/13/2024 01/20/2022 DIABETES RETINOPATHY SCREENING 06/20/2024 06/20/2022, 10/22/2021, 10/07/2021, Additional history exists DIABETES-HGB A1C 07/13/2024 01/13/2024, , 05/28/2021 COVID-19 VACCINE ( - 2024- season) 2024 03/23/2021, 06/28/2020, 06/05/2020 INFLUENZA VACCINE (#1) 2024 , 02/07/2022, 05/29/2021, Additional history exists COLON MONITORING 09/16/2032 09/16/2022 COLONOSCOPY - COLON CA SCREENING 09/16/2032 09/16/2022 Colorectal Cancer Screening 09/16/2032 HIB VACCINE Aged Out No longer eligi [...] this topic Medical Devices Implanted Type Area Reverberatory Furnace Operator Device Identifier Shelf Expiration Date Model / Serial / Lot Drain Glcm Thk.9mm Blnt Tpr [facility] Flxb - [id number] Implanted:Qty: 1 on 03/07/2019 by Ham Tenorio MD at [facility] Right: Eye [employer] 10/09/2020 FP7 / [id number] / [id number] Graft Tissue Ttpl Ioptch Sclr .8x.5cm - [id number] Implanted:Qty: 1 on 03/07/2019 by Ham Tenorio MD at [facility] Right: Eye [employer] Inc 09/11/2023 [id number] / [id number] / [id number] Parker Cornea - [id number] Implanted:Qty: 1 on 03/17/2019 by Celestine Purvis MD at [facility] Right: Eye Mid [employer] 03/29/2019 BILL ONLY CORNEA / [id number] / [id number] Graft Tissue Amniograft Amnio Membr 1.5 - [id number] Implanted:Qty: 1 on 03/17/2019 by Celestine Purvis MD at [facility] Right: Eye Bio Tissue Inc 08/03/2020 [id number] / [id number] / Jer Spnl 80mm 5.5mm Cd Hzn Crv Cocrmo Implanted:Qty: 2 on 04/25/2021 by Bennie Avila MD at [facility] N/A: Spine Lumbar Medtronic Inc [id number] / / [place] Dbf Inject Implanted:Qty: 1 on 04/25/2021 by Bennie Avila MD at [facility] N/A: Spine Lumbar Medtronic Inc 03/21/2023 [id number] / / [id number] Screw Set Ti Spnl Brk Off Cd Hzn Nonster Implanted:Qty: 6 on 04/25/2021 by Bennie Avila MD at [facility] N/A: Spine Lumbar Medtronic Sofamor Danek Inc [id number] / / Screw 9.5mm 50mm Ma Spne Cocr 5.5mm Jer Implanted:Qty: 2 on 04/25/2021 by Bennie Avila MD at [facility] N/A: Spine Lumbar Medtronic Sofamor Danek Inc [id number] / / Interbody Cage, Pl, Short 7mm X 22.5mm Implanted:Qty: 2 on 04/25/2021 by Bennie Avila MD at [facility] N/A: Spine Lumbar Medtronic Inc 10/25/2028 [id number] / / [id number] Medtronic [place] Dbf Inject Implanted:Qty: 1 on 08/27/2022 by Bennie Avila MD at [facility] N/A: Spine Lumbar Medtronic Inc 08/05/2024 [id number] / [id number] / N/A Spcr Spnl 7mm Catal[address] [facility] Sn[facility]A Implanted:Qty: 1 on 08/27/2022 by Bennie Avila MD at [facility] N/A: Spine Lumbar Medtronic Sofamor Danek Spine 07/30/2030 [id number] / N/A / [id number] Spcr Spnl 7mm Catal[address] [facility] Sn/A Implanted:Qty: 1 on 08/27/2022 by Bennie Avila MD at [facility] N/A: Spine Lumbar Medtronic Sofamor Danek Spine 07/30/2030 [id number] / N/A / [id number] Graft Bone Grftn Dbm Plif 10x2.5cm - [id number] Implanted:Qty: 1 on 08/27/2022 by Bennie Avila MD at [facility] N/A: Spine Lumbar [employer]otech Inc 07/11/2025 [id number] / [id number] / N/A Screw Set Ti Spnl Brk Off Cd Hzn Nonster - Sn/A Implanted:Qty: 6 on 08/27/2022 by Bennie Avila MD at [facility] N/A: Spine Lumbar Medtronic Inc [id number] / N/A / N/A Screw 6.5mm 50mm Ma Spne Solera Cd Hzn - Sn/A Implanted:Qty: 2 on 08/27/2022 by Bennie Avila MD at [facility] N/A: Spine Lumbar Medtronic Inc [id number] / N/A / N/A Jer Spnl 120mm 5.5mm Cd Hzn Crv Ti Cp4 - Sn/A Implanted:Qty: 2 on 08/27/2022 by Bennie Avila MD at [facility] N/A: Spine Lumbar Medtronic Inc [id number] / N/A / N/A Screw 6.5mm 50mm Ma Spne Solera Cd Hzn Implanted:Qty: 4 on 04/25/2021 by Bennie Avila MD at [facility] Explanted:Qty: 2 on 08/27/2022 at [facility] N/A: Spine Lumbar Medtronic SofSpeakermix Inc [id number] / / Procedures Procedure Name Priority Date/Time Associated Diagnosis Comments BASIC METABOLIC PANEL (CALCIUM TOTAL) Routine 09/09/2022 5:32 AM CDT from Last 3 Months or Most Recently Relevant to Health Maintenance Results * (ABNORMAL) BASIC METABOLIC PANEL (CALCIUM TOTAL) (09/09/2022 5:32 AM CDT) [facility] BUN 13 7 - 26 mg/dL 09/09/2022 7:39 AM CDT [facility] Creatinine 0.40(L) 0.56 - 0.96 mg/dL 09/09/2022 7:39 AM [facility] Sodium 141 136 - 145 mmol/L 09/09/2022 7:39 AM [facility] Potassium 3.8 3.5 - 4.5 mmol/L 09/09/2022 7:39 AM [facility] Chloride 104 98 - 107 mmol/L 09/09/2022 7:39 AM [facility] CO2 26 22 - 29 mmol/L 09/09/2022 7:39 AM [facility] Glucose 138(H) 70 - 115 mg/dL 09/09/2022 7:39 AM [facility] Calcium 8.9 8.4 - 10.2 mg/dL 09/09/2022 7:39 AM [facility] Anion Gap 15 8 - 18 09/09/2022 7:39 AM [facility] BUN/Creatinine Ratio 33(H) 7 - 23 09/09/2022 7:39 AM [facility] Osmolality Calculated 294 270 - 300 mOsm/kg 09/09/2022 7:39 AM [facility] eGFR by CKD-EPI >90 >=90 mL/min/1.7 3 m2 09/09/2022 7:39 AM [facility] Blood BLOOD SPECIMEN / Unknown Lab Venipuncture / Unknown 09/09/2022 5:32 AM CDT 09/09/2022 7:07 AM T Bennie Avila MD LAB - CHEMISTRY ORDERABLES F inal Result Performing Organization Address [facility]/State/ZIP Co de Phone Number [facility] [address] [place] [address], [facility] [phone] from Last 3 Months or Most Recently Relevant to Health Maintenance Insurance [facility] MEDICARE AETNA AETNA Advance Directives * Full Code (Latest Code Status on File) Date Activated Date Inactivated Comments 08/27/2022 6:24 PM 09/10/2022 4:12 PM * Full Code Date Activated Date Inactivated Comments 04/25/2021 2:36 PM 04/30/2021 2:15 PM Care Teams Intake Clinician Relationship Specialty Start Date End [place] [address] (work) PCP - General 11/11/21
[2024-12-16 11:30] VITALS: O2SAT 96
--- NOTE | 2024-12-16 11:54 | ECG_ITS ---
Test Date: 2024-12-16 12:11:14 Measurements Intervals [place] Rate: 77 P: 62 AR: 170 QRS: 6 QRSD: 125 T: 2 QT: 432 QTc: 490 Interpretive Statements SINUS RHYTHM POSSIBLE LEFT ATRIAL ENLARGEMENT [-0.1mV P-WAVE IN V1/V2] INCOMPLETE RIGHT BUNDLE-BRANCH BLOCK Compared to ECG 10/04/2024 12:25:06 NO SIGNIFICANT CHANGES Electronically Signed On 12-16-2024 12:45:45 CDT by Beto Ch M.D.
--- OUTSIDE RECORDS SUMMARY | 2024-12-16 12:00 | XMS_ITS | Clinical Summary ---
Author Organization [facility] Address [address] [place] [address] Care Team Providers Care Pheresis Nurse Name Role Phone Preet Hawkins MD Primary Care Provider [phone] Allergies Active Allergy Reactions Criticality Noted Date [...] g 3 024 Active miscellaneous medical supply [facility] Loft Brand Arm Crutches 1 each 024 [...] 11/04/2022 Assessment & Plan (03/28/2024 4:38 PM METEOROLOGICAL EQUIPMENT REPAIRER): Not well controlled; continues to have weakness, [...] status Assessment & Plan (04/15/2023 10:13 AM METEOROLOGICAL EQUIPMENT REPAIRER): Stable, improving; has improved strength and function [...] & Plan (11/06/2022 3:32 PM CDT): Continues [facility] day institute, able to use [...] 02/20/2022 Assessment & Plan (05/16/2022 3:01 PM METEOROLOGICAL EQUIPMENT REPAIRER): Stable, patient scheduled for follow-up CT; CT has been ordered, patient to schedule after completion of back surgery Assessment & Plan (02/25/2022 1:24 PM METEOROLOGICAL EQUIPMENT REPAIRER): Ground-glass opacities noted on CT imaging; will repeat imaging in approximately 3 months Assessment & Plan (02/20/2022 3:17 PM METEOROLOGICAL EQUIPMENT REPAIRER): CT lung cancer screening completed 09/2021.(see hpi) [...] b.i.d. Assessment & Plan (05/16/2022 2:59 PM METEOROLOGICAL EQUIPMENT REPAIRER): Stable, well controlled; no use of non-prescribed substances since last visit; patient is scheduled for lumbar surgery; patient has been tapering from buprenorphine, almost completed taper; ready to transition to oxycodone for maintenance until surgery Start oxycodone 20 mg t.i.d. for 7 days; will follow-up post surgery for acute pain management before transition back to buprenorphine Assessment & Plan (03/17/2022 4:58 PM METEOROLOGICAL EQUIPMENT REPAIRER): Stable, well controlled; no use of any [...] 07/03/2021 Assessment & Plan (03/28/2024 4:37 PM METEOROLOGICAL EQUIPMENT REPAIRER): Not well controlled, continues to have significant low back pain; patient reports symptoms are always often for patient No relief with current treatments; using topical treatments, scheduled ibuprofen and Tylenol; patient reports that pain has been worsening, even simple movements cause limitation Continue ibuprofen and Tylenol; Suboxone 8 mg t.i.d. Assessment & Plan (05/20/2023 2:26 PM METEOROLOGICAL EQUIPMENT REPAIRER): Continues recovering from recent surgery. Keep up the good work! Assessment & Plan (05/16/2022 2:58 PM METEOROLOGICAL EQUIPMENT REPAIRER): Not well controlled, has extensive pain; wakes patient at night Patient reports failed fusion; scheduled on 05/22/2022 for repeat procedure, with extension of fusion from L2-L3 to L1 See plan below for management of opioid use disorder Radiculopathy, lumbosacral region 07/03/2021 Assessment & Plan (03/28/2024 4:37 PM METEOROLOGICAL EQUIPMENT REPAIRER): Not well controlled, continues to have significant [...] 07/03 Assessment & Plan (03/28/2024 4:38 PM METEOROLOGICAL EQUIPMENT REPAIRER): Continues to have significant pain and discomfort [...] b.i.d. Assessment & Plan (03/17/2022 4:57 PM METEOROLOGICAL EQUIPMENT REPAIRER): Stable, generally well controlled; but continues to need to take p.r.n. medications Continue Nexium 40 mg b.i.d., Prevacid p.r.n. for acute worsening Assessment & Plan (2022 10:11 AM CDT): Stable, generally well controlled; continue Nexium 40 mg b.i.d. Assessment & Plan (05/01/2020 2:14 PM METEOROLOGICAL EQUIPMENT REPAIRER): Despite protonix heartburn has recurred as well [...] and prior EGD by Dr Hernandes at [place]--told everything was OK this many yrs ago. [...] 08/17/2019 Assessment & Plan (04/19/2024 6:36 PM METEOROLOGICAL EQUIPMENT REPAIRER): BP stable at 140/80, given her anxiety [...] daily, Assessment & Plan (05/20/2023 2:26 PM METEOROLOGICAL EQUIPMENT REPAIRER): Normotensive. No changes. Will continue to monitor. [...] daily Assessment & Plan (03/17/2022 4:55 PM METEOROLOGICAL EQUIPMENT REPAIRER): Blood pressure mildly elevated today, no chest pains or headaches Continue atenolol 50 mg daily, diltiazem 240 mg daily, Assessment & Plan (02/20/2022 3:11 PM METEOROLOGICAL EQUIPMENT REPAIRER): Did not take BP medications today. Continues [...] needed Assessment & Plan (04/15/2023 10:13 AM METEOROLOGICAL EQUIPMENT REPAIRER): Stable, well controlled; engages with therapist over [...] daily Assessment & Plan (03/17/2022 4:59 PM METEOROLOGICAL EQUIPMENT REPAIRER): Not well controlled, patient reports she continues [...] . Assessment & Plan (04/15/2023 10:12 AM METEOROLOGICAL EQUIPMENT REPAIRER): Not well controlled, recent exacerbation; has been [...] incruse Assessment & Plan (05/16/2018 4:00 PM METEOROLOGICAL EQUIPMENT REPAIRER): May have underlying pneumonia. See above Steroids, [...] 01/13/2024 Assessment & Plan (05/20/2023 2:30 PM METEOROLOGICAL EQUIPMENT REPAIRER): Lungs diminished throughout right greater than left. [...] 06/12/20222023 Assessment & Plan (06/12/2022 2:05 PM METEOROLOGICAL EQUIPMENT REPAIRER): Discussed symptomatic treatment with rest, bland diet and pushing fluids. Reviewed signs and symptoms of worsening illness warranting further or immediate evaluation. Prescribed ondansetron as needed for nausea/vomiting. Will continue to monitor. 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 Follow up as sched with intraocular pressure (IOP), order OCT ONH today Assessment & Plan (06/06/2022 10:20 AM METEOROLOGICAL EQUIPMENT REPAIRER): Close observation. Follow up as sched with [...] 01/13/20 Assessment & Plan (02/20/2022 3:13 PM METEOROLOGICAL EQUIPMENT REPAIRER): Stable, some increase with smoking cessation. Discussed healthy diet and importance of regular physical activity. Assessment & Plan (06/28/2021 5:41 PM CDT): Discussed healthy diet and importance of regular physical activity. Dysuria 06/28/2021 01/13/2024 Acute cystitis with hematuria 06/28/2021 01/13/2024 Assessment & Plan (06/12/2022 2:06 PM METEOROLOGICAL EQUIPMENT REPAIRER): Prescribed cipro for acute cystitis. Urine sent [...] Large Ketones, ur, POC Negative Negative Specific Nunn, POC 1.030 1.005 - 1.030 Blood, ur, [...] initially fell ill approximately 12hours after eating Syriac food (she thinks may be the culprit) - CT with enterocolitis however laparoscopic surgery without perforation or evidence of ischemia - Stool negative for shiga toxin, giardia, cryptosporidium - Patient initially with profound hypokalemia likely secondary to diarrhea requiring continued, daily repletion Assessment & Plan (10/09/2019 4:44 PM CDT): - patient got sick approximately 12 hours after eating Syriac food which she thinks may be the [...] Stool culture, parasite, ova pending Salmonella septicemia ([facility]) 10/07/2019 03/17/2022 Assessment & Plan (10/14/2019 11:41 [...] (10/06/2019): Added automatically from request for surgery [id number] Assessment & Plan (10/10/2019 11:33 AM CDT): [...] be a virtual visit and scheduled at [phone] ext 2 prior to discharge, no heavy [...] consult-no surgical issues. - Gatorade ordered 10/08 [facility] Acute Care Surgery Discharge Instructions Care [...] your incisions (Neosporin or Vaseline) Only take eyee-eck-xigsijt or prescription medicines for pain, discomfort, or [...] 01/13/2024 Assessment & Plan (05/16/2022 3:00 PM METEOROLOGICAL EQUIPMENT REPAIRER): Stable, well controlled; A1c is remain within the pre diabetes range; patient has history of type 2 diabetes, but work on weight loss and dietary changes to maintain blood sugars Continue with regular A1c checks, no medications required at this time Pulmonary emphysema ([facility]) 07/19/2019 08/31/2023 Assessment & Plan (07/18/2022 10:21 AM CDT): Stable, well controlled; no recent dyspnea or exacerbations Continue albuterol p.r.n. for dyspnea Assessment & Plan (05/16/2022 3:00 PM METEOROLOGICAL EQUIPMENT REPAIRER): Stable, well controlled; patient using Weck-Mirta in hub; patient reports recent exacerbation, now improving; continue Wixela, albuterol p.r.n. for dyspnea Assessment & Plan (03/17/2022 5:00 PM METEOROLOGICAL EQUIPMENT REPAIRER): Stable, well controlled; patient reports no significant dyspnea, no longer needs oxygen Assessment & Plan (02/25/2022 1:24 PM METEOROLOGICAL EQUIPMENT REPAIRER): Acute exacerbation secondary to COVID-19 infection; hospitalized [...] (06/17/2019): Added automatically from request for surgery [id number] Assessment & Plan (10/16/2022 10:01 AM CDT): NLP (by my check w/ an indirect ophthalmoscope) REC: Dr. Tapia for evaluation / management WRT enucleation OD Assessment & Plan (06/20/2022 1:14 PM METEOROLOGICAL EQUIPMENT REPAIRER): Has appt Dr Kumar this summer Assessment & Plan (06/06/2022 10:18 AM METEOROLOGICAL EQUIPMENT REPAIRER): Has appt Dr Kumar this summer Assessment [...] 01/13/2024 Assessment & Plan (06/16/2019 5:32 PM METEOROLOGICAL EQUIPMENT REPAIRER): History of trauma OD Multiple graft rejection./ [...] (06/06/2022): Added automatically from request for surgery [id number] Aphakia, right 03/08/2019 01/13/2024 Asthma 03/07/2019 01/13/2024 Acute bronchitis 03/07/2019 01/13/2024 Acute respiratory failure with hypoxia 05/16/2018 10/20/2019 Assessment & Plan (05/17/2018 5:21 PM METEOROLOGICAL EQUIPMENT REPAIRER): Pt presented to the ER with dyspnea and wheezing. Initial o2 sat on RA was 88% c/w with hypoxic resp failure due to COPD exacerabation/Pneumonia Chronic low back pain 05/16/20182023 Assessment & Plan (07/19/2019 12:21 PM CDT): Continue follow-up with pain management. Assessment & Plan (05/16/2018 4:02 PM METEOROLOGICAL EQUIPMENT REPAIRER): Cont home meds. Aggressive IS given amount of usual narcotics HTN (hypertension), benign 05/16/2018 0 08/17/2019 Assessment & Plan (07/19/2019 12:21 PM CDT): Will await cardiology evaluation. Medications reordered. Assessment & Plan (05/16/2018 4:03 PM METEOROLOGICAL EQUIPMENT REPAIRER): Cont Atenolol, monitor. Acute LUQ pain 07/13/2017 [...] 07/13/20172023 Assessment & Plan (05/16/2018 3:59 PM METEOROLOGICAL EQUIPMENT REPAIRER): Vs Atelectasis. Already been on Zithromax, will [...] Department Care Team Description 11/28/2024 Results Follow-Up [facility] at [address] [place] [id number] Melissa Lemos MA [place] MPI SPECT (Rest and/or Stress) Multiple Studies 11/24/2024 9:21 AM CDT - 11/24/2024 11:59 PM CDT Hospital Encounter [address] [address] Discharge Disposition: Discharge to home or self care 11/24/2024 9:20 AM CDT - 11/24/2024 11:59 PM CDT Hospital Encounter [facility] [address] [place] [address] Acute diastolic heart failure (HCC) Discharge Disposition: Discharge to home or self care 11/24/2024 9:20 AM CDT - 11/24/2024 11:59 PM CDT Hospital Encounter [address] [address] Discharge Disposition: Discharge to home or self care 11/24/2024 9:15 AM CDT - 11/24/2024 11:59 PM CDT Hospital Encounter [address] [address] Acute diastolic heart failure (HCC) Discharge Disposition: Discharge to home or self care 10/26/2024 1:15 PM CDT Office Visit [facility] at [address] [place] [phone] Ibrahima Munoz MD Essential hypertension (Primary Dx); Acute diastolic heart failure (HCC); Chronic obstructive pulmonary disease with acute exacerbation (HCC) 10/25/2024 [facility]phone [facility] [address] [address] Preet Hawkins MD Prior Auth (Esomeprazole - DENIED) 10/25/2024 Results Follow-Up [facility] at [address] [place] [address] Jolene Raya MA Urine culture Urine, clean voided 10/18/2024 1:44 PM CDT - 10/18/2024 11:59 PM CDT Hospital Encounter [address] [address] Urinary tract infection without hematuria, site unspecified Discharge Disposition: Discharge to home or self care 10/18/2024 1:00 PM CDT Office Visit [facility] at [address] [place] [phone] Jennifer Mccoy NP Acute diastolic heart failure (HCC) (Primary Dx); Edema of both legs; Chronic obstructive pulmonary disease, unspecified COPD type (HCC); Urinary tract infection without hematuria, site unspecified; Opioid dependence, in remission (HCC); Encounter for screening mammogram for malignant neoplasm of breast; Suprapubic catheter (HCC); Pneumonia of left lung due to infectious organism, unspecified part of lung 10/08/2024 Telephone [facility] [address] [address] Preet Hawkins MD After Hours; Medical Question/Miscellaneo us 10/04/2024 Orders Only [facility] Health Information Management [address] [place] [address] Scanning, Provider 10/03/2024 [facility]phone [facility] [address] [address] Preet Hawkins MD Symptom Based Call from Last 3 Months Immunizations Immunization Administration Dates Next Due COVID-19 mRNA ([employer]) 0.3 m L (30 mcg) vaccine (12 [...] Added automatica lly from request for surgery [id number] Wound dehiscence 03/08/2019 Added automatic ally from request for surgery [id number] Pulmonary infiltrates 07/13/2017 Chronic low back pain 05/16/2018 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 Never 01/08/2023 Do you belong to any clubs o r organizations such as scientologist groups, unions, fraternal or athletic groups, or [...] staff should administer the PHQ-9) 2 01/13/2024 [facility] of Occupat ional Health - Occupational Stress [...] on file Legal Sex Female 1:47 AM METEOROLOGICAL EQUIPMENT REPAIRER Gender Identity Female 10/06/2024 7:17 PM CDT [...] 06/02/2024, 06/11 Medical Devices Implanted Type Area Supervisor Cell Operation Device Identifier Shelf Expiration Date Model / Serial / Lot Mid Felicity Transplant Srvcs V0003 Implant Cornea Pkp Right Hypothermic - [id number] - [id number] Implanted:Qty: 1 on 06/20/2019 by Jono Burris MD at [facility] Other - see comments Right: Eye Mid Felicity Transplant Srvcs 06/30/2019 V0003 / [id number] Description:cornea Mid Felicity Transplant Srvcs V0003 Implant Cornea Pkp Right Hypothermic - [id number] - [id number] Implanted:Qty: 1 on 06/29/2019 by Jono Burris MD at [facility] Other - see comments Right: Eye Mid Felicity Transplant Srvcs 07/09/2019 V0003 / [id number] Procedures Procedure Name Priority Date/Time [...] AM CDT Narrative 11/25/2024 2:30 PM CDT [address] [address] [employer] Report Patient Name: SUSANA TRACY N : [...] Procedure Note Ibrahima Munoz MD - 11/25/[address] [place] [address] [employer] Report Patient Name: SUSANA TRACY N [...] 1:36:11 PM CDT us Ibrahima Munoz MD [facility] PROCEDURES Final Re sult * Stress Test for Myocardial Perfusion (11/24/2024 10:54 AM CDT) Anatomical Region Laterality Modality Nuclear Medicine 11/24/2024 9:15 AM CDT Narrative 11/24/2024 11:41 AM CDT [address] [place] [address] [employer] Report Patient Name: SUSANA TRACY N [...] Procedure Note Luisito Vega MD - 11/24/[address] [place] [address] [employer] Report Patient Name: SUSANA TRACY N [...] current clinical standards) Comment:Testing performed by : [facility], [address] [place]., [address] Organism (CLINICALLY INSIGNIFICANT GROWTH [facility] Urine, clean voided 10/18/2024 1:44 PM CDT 10/19/2024 12:01 AM CDT Narrative [facility] - 10/20/2024 7:54 AM CDT Testing performed by [facility] Microbiology Laboratory ([phone]) Jennifer Mccoy NP LAB MICROBIOLOGY - GENE RAL ORDERABLES Final Result [facility] [address] [address] Department [place] [address] * (ABNORMAL) POCT urinalysis dipstick (10/18/2024 1:42 PM CDT) Color, Urine, POC Yellow Clarity, ur, POC Clear Clear Glucose, ur, POC Negative Negative Bilirubin, ur, POC Negative Negative Ketones, ur, POC Negative Negative Specific Nunn, POC 1.015 1.003 - 1.030 Blood, ur, POC Trace(A) Negative pH, ur, POC 8.0 5.0 - 8.0 Protein, ur, POC Negative Negative Urobilinogen, urine, POC 0.2 0.2 - 1.0 mg/dL Nitrite, ur, POC Negative Negative Leukocytes, ur, POC Trace(A) Negative Lot Number [id number] Comment:02-10-2025 Urine 10/18/2024 1:42 PM CDT Jennifer [...] L ORDERABLES Edited Result - Final [facility] [id number] [address] Department [place] [address] * Colonoscopy (09/16/2022) Anatomical Region Laterality Modality [...] Jerad Islas M.D. AG: SOFIA Report ID: [id number] Reading Location: [id number] Narrative 08/19/2022 8:26 AM CDT EXAM DESCRIPTION: [...] MAMMOGRAM BILATERAL W MANDY ORDERING HEALTHCARE PROVIDER: BOA MOODY HISTORY: Routine screening mammography. COMPARISON: 10/24/2019, [...] Recently Relevant to Health Maintenance Insurance [facility] Member Subscriber Plan / Payer (Ef fective 2018-Present) Name:Susana Tracy Relation to Subscriber:Self Name:Susana Tracy Payer ID:[id number] (NAIC) Type:MEDICARE RISK OTHER Address: [address] [facility] UHC MEDICARE ADVANTAGE [facility] MEDICARE ADVANTAGE Advance Directives For more information, please contact: [phone] * Full Code (Latest Code Status on [...] 9:07 AM 07/14/2017 7:01 PM Care Teams Pheresis Nurse Relationship Specialty Start Date End Date Preet Hawkins [place] [address] PCP - General Family Medicine 09/30/23
--- OUTSIDE RECORDS SUMMARY | 2024-12-16 12:00 | XMS_ITS | Encounter Summary ---
Author Organization [facility] Healthcare Address [facility] [place] [address] Care Team Providers Care Director Corporate Sales Name Role Phone Preet Louise MD Primary Care Provider [phone] Encounter Details Date Type Department Care Team (Latest Contact Info) Description 11/28/2024 Results Follow-Up [facility] at [address] [place] [address] Melissa Lemos MA [place] MPI [...] often do you attend chur ch or mandaen services? Never 01/08/2023 Do you belong to any clubs o r organizations such as shinto groups, unions, fraternal or athletic groups, or [...] staff should administer the PHQ-9) 2 01/13/2024 [facility] - Occupational Stress Questionnaire Answer [...] place to sleep or slept in a penitentiary (including now)? No 01/08/2023 Comments No Sex and Gender Information Value Date Recorded Sex Assigned at Not on file Legal Sex Female 1:47 AM COLLAR CUTTER Gender Identity Female 10/06/2024 7:17 PM CDT Sexual Orientation Straight 10/06/2024 7: 17 PM CDT documented as of this encounter Plan of Treatment Not on file documented as of this encounter Visit Diagnoses Not on filedocumented in this encounter Care Teams Director Corporate Sales Relationship Specialty Start Date [place] [address] PCP - General Family Medicine 09/30/23 documented as of this encounter
--- OUTSIDE RECORDS SUMMARY | 2024-12-16 12:00 | XMS_ITS | Clinical Summary ---
Author Organization [facility] Address [address] [place] [address] Care Team Providers Care Financial Accounting Manager Name Role Phone Guzman Moody MD Primary Care Provider [phone] [phone] Source Comments [facility],non-owned Affiliates and Associated Physician Practices is amultiple site organization consisting of ambulatory clinics and hospital sitesin [place], [place] and [place]. This disclosure is being madepursuant to the Care Everywhere program and may not contain all information available regarding this patient. Last updated 18.[facility] Allergies Active Allergy Reactions Criticality Noted Date [...] and heating? Not hard at all 08/28/2022 [facility] of Occupat ional Health - Occupational Stress [...] this topic Medical Devices Implanted Type Area Skip Loader Device Identifier Shelf Expiration Date Model / Serial / Lot Drain Glcm Thk.9mm Blnt Tpr [facility] Flxb - [id number] Implanted:Qty: 1 on 03/07/2019 by Ham Tenorio MD at [facility] Right: Eye [employer] 10/09/2020 FP7 / [id number] / [id number] Graft Tissue Ttpl Ioptch Sclr .8x.5cm - [id number] Implanted:Qty: 1 on 03/07/2019 by Ham Tenorio MD at [facility] Right: Eye Iop Inc 09/11/2023 [id number] / [id number] / [id number] Parker Cornea - [id number] Implanted:Qty: 1 on 03/17/2019 by Celestine Purvis MD at [facility] Right: Eye Mid [employer] 03/29/2019 BILL ONLY CORNEA / [id number] / [id number] Graft Tissue Amniograft Amnio Membr 1.5 - [id number] Implanted:Qty: 1 on 03/17/2019 by Celestine Purvis MD at [facility] Right: Eye Bio Tissue Inc 08/03/2020 [id number] / [id number] / Jer Spnl 80mm 5.5mm Cd Hzn Crv Cocrmo Implanted:Qty: 2 on 04/25/2021 by Bennie Avila MD at [facility] N/A: Spine Lumbar Medtronic Inc [id number] / / Mccreary Dbf Inject Implanted:Qty: 1 on 04/25/2021 by Bennie Avila MD at [facility] N/A: Spine Lumbar Medtronic Inc 03/21/2023 [id number] / / [id number] Screw Set Ti Spnl Brk Off Cd Hzn Nonster Implanted:Qty: 6 on 04/25/2021 by Bennie Avila MD at [facility] N/A: Spine Lumbar Medtronic Sofamor Danek Inc [id number] / / Screw 9.5mm 50mm Ma Spne Cocr 5.5mm Jer Implanted:Qty: 2 on 04/25/2021 by Bennie Avila MD at [facility] N/A: Spine Lumbar Medtronic Sofamor Danek Inc [id number] / / Interbody Cage, Pl, Short 7mm X 22.5mm Implanted:Qty: 2 on 04/25/2021 by Bennie Avila MD at [facility] N/A: Spine Lumbar Medtronic Inc 10/25/2028 [id number] / / [id number] Medtronic Mccreary Dbf Inject Implanted:Qty: 1 on 08/27/2022 by Bennie Avila MD at [facility] N/A: Spine Lumbar Medtronic Inc 08/05/2024 [id number] / [id number] / N/A Spcr Spnl 7mm [facility]A Implanted:Qty: 1 on 08/27/2022 by Bennie Avila MD at [facility] N/A: Spine Lumbar Medtronic Sofamor Danek Spine 07/30/2030 [id number] / N/A / [id number] Spcr Spnl 7mm [facility] [facility]A Implanted:Qty: 1 on 08/27/2022 by Bennie Avila MD at [facility] N/A: Spine Lumbar Medtronic Sofamor Danek Spine 07/30/2030 [id number] / N/A / [id number] Graft Bone Grftn Dbm Plif 10x2.5cm - [id number] Implanted:Qty: 1 on 08/27/2022 by Bennie Avila MD at [facility] N/A: Spine Lumbar Osteotech Inc 07/11/2025 [id number] / [id number] / N/A Screw Set Ti Spnl Brk Off Cd Hzn Nonster - Sn/A Implanted:Qty: 6 on 08/27/2022 by Bennie Avila MD at [facility] N/A: Spine Lumbar Medtronic Inc [id number] / N/A / N/A Screw 6.5mm 50mm Ma Spne Solera Cd Hzn - Sn/A Implanted:Qty: 2 on 08/27/2022 by Bennie Avila MD at [facility] N/A: Spine Lumbar Medtronic Inc [id number] / N/A / N/A Jer Spnl 120mm 5.5mm Cd Hzn Crv Ti Cp4 - Sn/A Implanted:Qty: 2 on 08/27/2022 by Bennie Avila MD at [facility] N/A: Spine Lumbar Medtronic Inc [id number] / N/A / N/A Screw 6.5mm 50mm Ma Spne Solera Cd Hzn Implanted:Qty: 4 on 04/25/2021 by Bennie Avila MD at [facility] Explanted:Qty: 2 on 08/27/2022 at [facility] N/A: Spine Lumbar Medtronic SofVivox Inc [id number] / / Procedures Procedure Name Priority Date/Time Associated Diagnosis Comments BASIC METABOLIC PANEL (CALCIUM TOTAL) Routine 09/09/2022 5:32 AM CDT from Last 3 Months or Most Recently Relevant to Health Maintenance Results * (ABNORMAL) BASIC METABOLIC PANEL (CALCIUM TOTAL) (09/09/2022 5:32 AM CDT) [facility] BUN 13 7 - 26 mg/dL 09/09/2022 7:39 AM CDT [facility] Creatinine 0.40(L) 0.56 - 0.96 mg/dL 09/09/2022 7:39 AM [facility] Sodium 141 136 - 145 mmol/L 09/09/2022 7:39 AM [facility] Potassium 3.8 3.5 - 4.5 mmol/L 09/09/2022 7:39 AM [facility] Chloride 104 98 - 107 mmol/L 09/09/2022 7:39 AM [facility] CO2 26 22 - 29 mmol/L 09/09/2022 7:39 AM [facility] Glucose 138(H) 70 - 115 mg/dL 09/09/2022 7:39 AM [facility] Calcium 8.9 8.4 - 10.2 mg/dL 09/09/2022 7:39 AM [facility] Anion Gap 15 8 - 18 09/09/2022 7:39 AM [facility] BUN/Creatinine Ratio 33(H) 7 - 23 09/09/2022 7:39 AM [facility] Osmolality Calculated 294 270 - 300 mOsm/kg 09/09/2022 7:39 AM [facility] eGFR by CKD-EPI >90 >=90 mL/min/1.7 3 m2 09/09/2022 7:39 AM [facility] Blood BLOOD SPECIMEN / Unknown Lab Venipuncture / Unknown 09/09/2022 5:32 AM CDT 09/09/2022 7:07 AM T Bennie Avila MD LAB - CHEMISTRY ORDERABLES F inal Result Performing Organization Address [facility]/State/ZIP Co de Phone Number [facility] [address] [place] [address], [facility] [phone] from Last 3 Months or Most Recently Relevant to Health Maintenance Insurance [facility] MEDICARE AETNA AETNA Advance Directives * Full Code (Latest Code Status on File) Date Activated Date Inactivated Comments 08/27/2022 6:24 PM 09/10/2022 4:12 PM * Full Code Date Activated Date Inactivated Comments 04/25/2021 2:36 PM 04/30/2021 2:15 PM Care Teams Financial Accounting Manager Relationship Specialty Start Date End [place] [address] (work) PCP - General 11/11/21
--- OUTSIDE RECORDS SUMMARY | 2024-12-16 12:00 | XMS_ITS | Encounter Summary ---
Author Organization [facility] Address [facility] [facility] [place] [address] Care Team Providers Care Tile Setter Apprentice Name Role Phone Rakan Rojas Primary Care Provider Unava ilable Rakan Rojas MD Primary Care Provider [phone] [phone] Guzman Moody MD Primary Care Provider [phone] [phone] Rakan Rojas MD Primary Care Provider +1 [phone] Guzman Moody MD Primary Care Provider +1 [phone] Encounter Details Date Type Department Care Team (Late st Contact Info) Description 12/20/2018 Ophth Exam [facility] [address] [place] [address] Serafin Andrade MD [address] [place] [id number] Social History Tobacco Use Types Packs/Day Years [...] on filedocumented in this encounter Care Teams Tile Setter Apprentice Relationship Specialty Start Date End Date Rakan Rojas Update Information PCP - General 12/20/18 12/23/18 Rakan Rojas MD Update Information PCP - General 12/24/18 06/24/21 Guzman Moody MD [address] [place] [address] PCP - General Internal Medicine 06/25/21 09/24/21 Rakan Rojas MD [address] [place] [address] PCP - General 09/25/21 11/10/21 Guzman Moody MD [address] [place] [place] [address] PCP - General 11/11/21 documented as of this encounter
--- OUTSIDE RECORDS SUMMARY | 2024-12-16 12:00 | XMS_ITS | Encounter Summary ---
Author Organization [facility] Address [address] [place] [address] Care Team Providers Care Hazardous Materials Waste Technician Name Role Phone Preet Louise MD Primary Care Provider [phone] Encounter Details Date Type Department Care Team (Late st Contact Info) Description 10/25/2024 Results Follow-Up [facility] Primary Care at [address] [place] [address] Jolene Raya MA Urine culture [...] often do you attend chur ch or sikhism services? Never 01/08/2023 Do you belong to [...] staff should administer the PHQ-9) 2 01/13/2024 [facility] - Occupational Stress Questionnaire Answer Date Recorded [...] place to sleep or slept in a long-term (including now)? No 01/08/2023 Comments No Sex and Gender Information Value Date Recorded Sex Assigned at Not on file Legal Sex Female 1:47 AM OPERATIONS ARCHITECT Gender Identity Female 10/06/2024 7:17 PM CDT Sexual Orientation Straight 10/06/2024 7: 17 PM CDT documented as of this encounter Plan of Treatment Not on file documented as of this encounter Visit Diagnoses Not on filedocumented in this encounter Care Teams Hazardous Materials Waste Technician Relationship Specialty Start Date End Date [place] [address] PCP - General Family Medicine 09/30/23 documented as of this encounter
[2024-12-16 12:28] LABS: Hematocrit 32.9 % (37.0-47.0); Hemoglobin 9.6 g/dL (12.0-15.0); Immature Granulocyte Percent A 0.8 % (0-0.5); Lymphocytes Absolute Auto 0.87 K/mm3 (0.9-3.2); Mean Corpuscular HGB Conc 29.2 g/dl (32-36); Mean Corpuscular Hemoglobin 24.4 pg (26-34); Mean Corpuscular Volume 83.5 fl (80-100); Nucleated Red Blood Cells Absolute Auto 0.000 K/mm3 (0.0-0.012); Nucleated Red Blood Cells Perc 0.0 % (0.0-0.2); Platelet Count Result 129 k/mm3 (150-375); Red Blood Count 3.94 M/mm3 (4.2-5.4); White Blood Count 8.4 K/mm3 (4.5-10.0)
--- NOTE | 2024-12-16 12:36 | ED.GENADULT ---
HPI - General Adult General Chief complaint: Urogenital-Female Stated complaint: States urinary symptoms Time Seen by Provider: 12/16/24 11:39 History of Present Illness HPI narrative: Patient 54-year-old female who presents emergency department with chief complaint of dark drainage from her suprapubic catheter and hypoxia. The patient reports she only wears oxygen at night and when she needs it patient reports that she feels short of breath today and also feels though she may have pneumonia Related Data Home Medications ?Medication ?Instructions ?Recorded ?Confirmed ?Last Taken ?Type trazodone 150 mg tablet 150 mg PO HS PRN sleep 12/20/20 10/04/24 Unknown History albuterol sulfate 2.5 mg/3 mL 2.5 mg inhalation Q6H PRN Wheezing 09/16/22 10/04/24 Unknown History (0.083 %) solution for nebulization buprenorphine 8 mg-naloxone 2 mg 1 film sublingual Q12H 09/16/22 10/04/24 12/25/22 08:00 History sublingual film (Suboxone) diclofenac sodium 1 % topical gel 2 g topical DAILY PRN Pain 09/16/22 10/04/24 Unknown History diltiazem HCl 240 mg 240 mg PO HS 09/16/22 10/04/24 Unknown History capsule,extended release 24 hr, controlled esomeprazole magnesium 40 mg 40 mg PO Q12H 09/16/22 10/04/24 Unknown History capsule,delayed release biotin 800 mcg tablet 800 mcg PO DAILY 12/22/22 10/04/24 12/22/22 History escitalopram oxalate 10 mg tablet 10 mg PO HS 12/22/22 10/04/24 Unknown History ibuprofen 800 mg tablet 800 mg PO TID PRN Pain 12/22/22 10/04/24 12/20/22 History phenazopyridine 95 mg tablet (Azo 95 mg PO TID 12/22/22 10/04/24 Unknown History Urinary Pain Relief) potassium chloride 10 mEq 10 meq PO DAILY 12/22/22 10/04/24 Unknown History tablet,extended release albuterol sulfate 90 mcg/actuation 2 puff inhalation Q6H PRN 10/04/24 10/04/24 Unknown History aerosol inhaler shortness of breath or wheezing dextroamphetamine-amphetamine ER 20 mg PO DAILY 10/04/24 10/04/24 Unknown History 20 mg 24hr capsule,extend release Allergies Allergy/AdvReac Type Severity Reaction Status Date / Time tobramycin Allergy Mild Rash Verified 10/05/24 21:36 diphenhydramine Allergy Unknown Hives Verified 10/05/24 21:36 triprolidine Allergy Unknown Itching Verified 10/05/24 21:36 amoxicillin Allergy urticaria Verified 10/06/24 11:29 pseudoephedrine AdvReac Unknown Insomnia Verified 10/05/24 21:36 antihistamine 1 Allergy Mild Hives Uncoded 10/05/24 21:36 [facility] Past Medical History Medical History Atonic bladder GERD (gastroesophageal reflux disease) Partial bowel obstruction Chronic pain syndrome Obstructive sleep apnea Chronic obstructive pulmonary disease Hypertension Surgical History Surgical History History of cholecystectomy History of hysterectomy History of spinal surgery Patient reports having a total 6 spinal surgeries over the years. History of cornea transplant Family History Family History Father Hypertension Mother Hypertension Social History Social History Social History: Surrogate medical decision maker: Nabeel Tracy, spouse. Code status: Full code. Smoking packs per day: 1.5 Smoking cigarettes per day: 30.0 Years smoked: 30 Smoking pack-years: 45.00 Smoking status: Former smoker Tobacco type: cigarettes Second hand tobacco smoke exposure: No Smoking end date: 08/02/22 Additional smoking assessment comments: Quit in july 2022. Alcohol intake: never Substance use: former Substance use type: opiates Other substance usage details: EDIBLE NOT VERY OFTEN Do You Feel Safe in your Home?: Yes Lack of Transportation: YES Lack of Food: Never True Current Housing: I Have Housing Concerned About Future Housing: No Difficulty Paying Gas/Electric Bills: No Difficulty Paying for Meds: No Currently Unemployed: No Education: High School Diploma/GED Difficulty w/ Childcare or Family Care: No Living arrangements: with family Additional living arrangements comments: Lives with spouse in [place]. She has 3 children. Spiritual care concerns: No Course Vital Signs Vital signs: Vital Signs Temperature 36.8 C 12/16/24 11:18 Pulse Rate 91 12/16/24 11:18 Respiratory Rate 18 12/16/24 11:18 Blood Pressure 157/85 H 12/16/24 11:18 Pulse Oximetry 83 L 12/16/24 11:18 Oxygen Delivery Room Air 12/16/24 11:18 Temperature 36.8 C 12/16/24 11:18 Pulse Rate 99 12/16/24 12:53 Respiratory Rate 18 12/16/24 12:53 Blood Pressure 138/91 H 12/16/24 12:53 Pulse Oximetry 98 12/16/24 12:53 Oxygen Delivery Nasal Cannula 12/16/24 11:30 Oxygen Flow Rate 4 12/16/24 11:30 Procedures Catheter Insertion (Urinary) Urinary Catheter 1: Date of insertion: 12/16/24 Time of insertion: 15:22 Reason for placing: Yes Bladder scan/ultrasound used before catheterization: No Procedure performed: without complications (Suprapubic Ochoa catheter was changed out was sterile technique the area was prepped with Betadine the catheter was changed that 18 [place] silicone catheter) Medical Decision Making MDM Narrative Medical decision making narrative: Differential diagnosis includes pneumonia, CHF, UTI, sepsis, EKG showed no acute ischemic changes laboratory studies showed hemoglobin of 9.6 with normal white blood cell count electrolytes showed a potassium of 3.1 lactate was 0.6 magnesium was 1.9 troponin 0.013 BNP is 4500 a urinalysis was turbid and greater than 100 white blood cells Patient was ambulated and the patient has not been wearing oxygen at home and was significantly hypoxic with ambulation the patient's urinalysis previously showed Pseudomonas the patient was started on meropenem at request of the hospitalist. Vital Signs Vital Signs: Vital Signs Temperature 36.8 C 12/16/24 11:18 Pulse Rate 91 12/16/24 11:18 Respiratory Rate 18 12/16/24 11:18 Blood Pressure 157/85 H 12/16/24 11:18 Pulse Oximetry 83 L 12/16/24 11:18 Oxygen Delivery Room Air 12/16/24 11:18 Temperature 36.8 C 12/16/24 11:18 Pulse Rate 99 12/16/24 12:53 Respiratory Rate 18 12/16/24 12:53 Blood Pressure 138/91 H 12/16/24 12:53 Pulse Oximetry 98 12/16/24 12:53 Oxygen Delivery Nasal Cannula 12/16/24 11:30 Oxygen Flow Rate 4 12/16/24 11:30 Lab Data 12/16/24 12:21 12/16/24 12:21 Labs: Lab Results 12/16/24 12/16/24 Range/Units 12:21 13:53 WBC 8.4 (4.5-10.0) K/mm3 RBC 3.94 L (4.2-5.4) M/mm3 Hgb 9.6 L (12.0-15.0) g/dL Hct 32.9 L (37.0-47.0) % MCV 83.5 (80-100) fl MCH 24.4 L (26-34) pg MCHC 29.2 L (32-36) g/dl RDW 19.7 H (11.5-14.5) % Plt Count 129 L (150-375) k/mm3 MPV 9.6 (7.4-10.4) fl Immature Gran % (Auto) 0.8 H (0-0.5) % Neut % (Auto) 84.0 H (45.5-73.1) % Lymph % (Auto) 10.4 L (18.3-44.2) % Maury % (Auto) 4.4 (2.6-8.5) % Eos % (Auto) 0.0 (0-4.4) % Baso % (Auto) 0.4 (0.2-1.2) % Lymph # (Auto) 0.87 L (0.9-3.2) K/mm3 Maury # (Auto) 0.4 (0.1-0.6) K/mm3 Eos # (Auto) 0.0 (0-0.3) K/mm3 Baso # (Auto) 0.0 (0.0-0.1) K/mm3 Abs Immat Gran (auto) 0.07 H (0.00-0.031) K/mm3 Absolute Neuts (auto) 7.1 H (1.3-6.7) K/mm3 Absolute Nucleated RBC 0.000 (0.0-0.012) K/mm3 Band Neutrophils % Not Reportable Nucleated RBC % 0.0 (0.0-0.2) % Platelet Estimate Slightly decreased (Adequate) Hypochromasia Occasional Schistocytes None seen Sodium 139 (137-145) mmol/L Potassium 3.1 L (3.4-5.0) mmol/L Chloride 100 (98-107) mmol/L Carbon Dioxide 34 H (22-30) mmol/L Anion Gap 5 (4-12) mmol/L BUN 14 (7-17) mg/dL Creatinine 0.38 L (0.7-1.0) mg/dL Estim Creat Clear Calc 119 ml/min Estimated GFR > 60 (59 - ) Glucose 130 H (65-110) mg/dL Lactic Acid 0.6 L (0.7-2.0) mmol/L Calcium 8.9 (8.4-10.2) mg/dL Magnesium 1.9 (1.6-2.3) mg/dL Total Bilirubin 0.4 (0.2-1.3) mg/dL AST 24 (14-36) U/L ALT 9 (6-35) U/L Alkaline Phosphatase 112 (38-126) U/L Troponin I 0.013 (0.000-0.034) ng/mL NT-Pro-B Natriuret Pep 4580 H (19.9-100) pg/mL Total Protein 6.9 (6.3-8.2) g/dL Albumin 3.7 (3.5-5.1) g/dL Lipase < 10 L (23-300) U/L Urine Color Dark yellow (Yellow) Urine Appearance Turbid H (Clear) Urine pH 8.0 (5.0-9.0) Ur Specific [place] 1.030 (1.001-1.035) Urine Protein 2+ H (Negative) mg/dL Urine Glucose (UA) Negative (Negative) mg/dL Urine Ketones Negative (Negative) mg/dL Ur Blood (Man) 2+ H (Negative) Urine Nitrate Negative (Negative) Urine Bilirubin Negative (Negative) Urine Urobilinogen 1.0 (<2.0) mg/dL Leukocyte Esterase Rfl 2+ H (Negative) JACKSON/UL Urine RBC >100 H (0-2) /hpf Urine WBC >100 H (0-3) /hpf Ur Squamous Epith Cells Occasional (Few) /hpf Triple Phos Crystals Present H (None) /hpf Urine Bacteria 4+ /hpf Urine Casts 6-10 Influenza A (RT-PCR) Negative (Negative) Influenza B (RT-PCR) Negative (Negative) RSV (RT-PCR) Negative (Negative) SARS-CoV-2 RNA (RT-PCR) Negative (Negative) Discharge Plan Discharge Clinical Impression: Pneumonia, Acute hypoxemic respiratory failure, UTI (urinary tract infection) Patient Disposition: Still a Patient Condition: Stable Patient Language: Guatemalan Prescriptions: No Action trazodone 150 mg tablet 150 mg PO HS PRN (Reason: sleep) albuterol sulfate 2.5 mg /3 mL (0.083 %) solution for nebulization 2.5 mg inhalation Q6H PRN (Reason: Wheezing) diltiazem HCl 240 mg capsule,ext.rel 24h degradable 240 mg PO HS esomeprazole magnesium 40 mg capsule,delayed release(DR/EC) 40 mg PO Q12H diclofenac sodium 1 % Gel 2 g TOPICAL DAILY PRN (Reason: Pain) Rx Instructions: apply to back buprenorphine-naloxone [Suboxone] 8-2 mg film 1 film sublingual Q12H oxybutynin chloride 5 mg Tablet 5 mg PO TID Qty: 90 0RF escitalopram oxalate 10 mg Tablet 10 mg PO HS biotin 800 mcg Tablet 800 mcg PO DAILY ibuprofen 800 mg Tablet 800 mg PO TID PRN (Reason: Pain) potassium chloride 10 mEq tablet extended release 10 meq PO DAILY phenazopyridine [Azo Urinary Pain Relief] 95 mg Tablet 95 mg PO TID dextroamphetamine-amphetamine 20 mg capsule,extended release 24hr 20 mg PO DAILY albuterol sulfate 90 mcg/actuation HFA aerosol inhaler 2 puff INHALATION Q6H PRN (Reason: shortness of breath or wheezing) cefepime 2 gram Recon Soln 2 g IV Q12HR Qty: 7 0RF guaifenesin [Mucus Relief ER] 600 mg Tablet Extended Release 12hr 600 mg PO Q12HR Qty: 30 0RF doxycycline hyclate 100 mg Tablet 100 mg PO Q12HR Qty: 5 0RF furosemide 40 mg tablet 40 mg PO DAILY Qty: 30 0RF potassium chloride [Klor-Con 10] 10 mEq tablet extended release 10 meq PO DAILY Qty: 30 0RF atenolol 25 mg Tablet 25 mg PO DAILY Qty: 30 0RF pregabalin [Lyrica] 75 mg Capsule 150 mg PO Q12HR Qty: 60 0RF Follow-up/Referrals: Andrew,MD Preet [Primary Care Provider, Unknown] Time of Disposition: 15:42
[2024-12-16 12:42] LABS: Alanine Aminotransferase 9 U/L (6-35); Albumin Level 3.7 g/dL (3.5-5.1); Alkaline Phosphatase 112 U/L (38-126); Anion Gap 5 mmol/L (4-12); Aspartate Amino Transferase 24 U/L (14-36); Bilirubin,Total 0.4 mg/dL (0.2-1.3); Blood Urea Nitrogen 14 mg/dL (7-17); Calcium 8.9 mg/dL (8.4-10.2); Carbon Dioxide 34 mmol/L (22-30); Chloride 100 mmol/L (98-107); Estimated CRCL calculation 119 ml/min; Estimated Glomerular Filt Rate > 60; Glucose 130 mg/dL (65-110); Magnesium 1.9 mg/dL (1.6-2.3); Potassium 3.1 mmol/L (3.4-5.0); Sodium 139 mmol/L (137-145); Total Protein 6.9 g/dL (6.3-8.2)
[2024-12-16 12:53] VITALS: BP 138/91; PULSE 99; RESP 18; O2SAT 98
[2024-12-16 12:54] LABS: NT Pro B Type Natriuretic Pept 4580 pg/mL (19.9-100); Troponin I 0.013 ng/mL (0.000-0.034)
[2024-12-16 13:02] LABS: Hypochromasia Occasional; Schistocytes None Seen
[2024-12-16 13:04] LABS: Lipase < 10 U/L (23-300)
[2024-12-16 13:27] LABS: Influenza A QL RT-PCR Negative (Negative); Influenza B QL RT-PCR Negative (Negative); RSV RNA, RT-PCR Negative (Negative); SARS-CoV-2 RNA PCR Negative (Negative)
[2024-12-16 14:24] LABS: Add Urine Microscopic? YES; Appearance Urine Turbid (Clear); Glucose Urine UA Negative (Negative); Leukocyte Esterase Ur 2+ LEU/UL (Negative); Nitrate Urine Negative (Negative); Specific Grav Ur 1.030 (1.001-1.035)
--- NOTE | 2024-12-16 14:57 | PC.NURSE ---
Patient ambulated to the bathroom, spo2 dropped to 74% patient states that she knew it was going to be ugly because she has had a lot happen to her over the last couple of years pt wears o2 at home but only while sleeping, not while awake.
[2024-12-16] MEDS: MEROPENEM 1 GM in SODIUM CHLORIDE 0.9% IV 100 ML 200 ML IVPB (16:07)
[2024-12-16 16:35] VITALS: BMI 25.2
--- NOTE | 2024-12-16 17:00 | ADMGEN ---
This patient, Susana Tracy, was admitted to 2 Medical Room 255-. Patient/family oriented to hospital policies and general routines including ID bracelet, bed and alarms, visiting hours, pain management, procedures, bathroom and other care routines, personal items, smoking policy, room service/diet, and visiting hours. Information on how to activate the Rapid Response Team has been discussed. Patient/Family are encouraged to report perceived risks to care and to ask questions if they do not understand what they are told or what they should do.
--- NOTE | 2024-12-16 17:57 | PM.IMHP ---
H&P: HPI History of Present Illness Date/Time: 12/16/24 17:57 Chief Complaint: Change in Urine Narrative: 54 y/o F with PMH of COPD, chronic pain syndrome, atonic bladder with chronic suprapubic jose, hypertension, former smoker (cessation on 10/04/24), and MIKE presents here with a change in her urine. The patient presents here from home on 12/16 for further evaluation of a change in her urine. The patient has a hx of atonic bladder with a chronic suprapubic catheter. She reports a change in her urine starting around 4 days ago. She reports her urine has become dark. She additionally is reporting shortness of breath that started later tlast night and more so today. She reports accompanying fever, lower abdominal pain soreness near catheter, and mild LE edema (not as significant as her previous admission per the patient). Denies cough, chest pain, nausea, or vomiting. She is concerned she may have developed pneumonia. Upon chart review, the patient was recently discharged from this facility on 10/10/2024 with supplemental O2. It was recommended that she utilize 3L at rest and 4L with activity. Patient is reporting she has only been using her oxygen at night at 3L and did not know she was supposed to be utilizing it at all times. Initial VS at presentation: 98.3? F, HR 91, R 18, 157/85, and 83% on room air. Now 98% on 4 L nasal cannula. ED workup showed: No leukocytosis, hemoglobin 9.6 (10.6 on 10/15), potassium 3.1, creatinine 0.38 and normal GFR, glucose 138, lactic 0.6, initial troponin 0.013, BNP 4580, and UA suggestive of UTI. Viral PCR negative. CXR showed mild CHF, superimposed infection cannot be excluded. Review of Systems Review of Systems: All systems reviewed & are unremarkable except as noted in HPI and below PMFSH Past Medical History Medical History Atonic bladder Chronic hypoxic respiratory failure, on home oxygen therapy GERD (gastroesophageal reflux disease) Partial bowel obstruction Chronic pain syndrome Obstructive sleep apnea Chronic obstructive pulmonary disease Hypertension Surgical History Surgical History History of cholecystectomy History of hysterectomy History of spinal surgery Patient reports having a total 6 spinal surgeries over the years. History of cornea transplant Family History Family History Father Hypertension Mother Hypertension Social History Social History Social History: Surrogate medical decision maker: Nabeel Tracy, spouse. Code status: Full code. Smoking packs per day: 1 Smoking cigarettes per day: 20.0 Years smoked: 25 Smoking pack-years: 25.00 Smoking status: Former smoker Tobacco type: cigarettes Second hand tobacco smoke exposure: No Smoking end date: 09/25/24 Additional smoking assessment comments: Quit in july 2022. Alcohol intake: never Substance use: never Substance use type: opiates Other substance usage details: EDIBLE NOT VERY OFTEN Do You Feel Safe in your Home?: Yes Lack of Transportation: No Lack of Food: Never True Current Housing: I Have Housing Concerned About Future Housing: No Difficulty Paying Gas/Electric Bills: No Difficulty Paying for Meds: No Currently Unemployed: No Education: Associate Degree Difficulty w/ Childcare or Family Care: No Living arrangements: with family Additional living arrangements comments: Lives with spouse in [place]. She has 3 children. Spiritual care concerns: No Meds Home Medications and Allergies Home Medications ?Medication ?Instructions ?Recorded ?Confirmed ?Type trazodone 150 mg tablet 150 mg PO HS sleep 12/20/20 12/16/24 History albuterol sulfate 2.5 mg/3 mL 2.5 mg inhalation Q6H PRN Wheezing 09/16/22 12/16/24 History (0.083 %) solution for nebulization buprenorphine 8 mg-naloxone 2 mg 1 film sublingual Q12H 09/16/22 12/16/24 History sublingual film (Suboxone) diltiazem HCl 240 mg 240 mg PO HS 09/16/22 12/16/24 History capsule,extended release 24 hr, controlled esomeprazole magnesium 40 mg 40 mg PO Q12H 09/16/22 12/16/24 History capsule,delayed release oxybutynin chloride 5 mg tablet 5 mg PO TID #90 tabs 09/17/22 12/16/24 Rx atenolol 25 mg tablet 25 mg PO DAILY #30 tabs 09/25/22 12/16/24 Rx pregabalin 75 mg capsule (Lyrica) 150 mg (2 x 75 mg) PO Q12HR #60 09/25/22 12/16/24 Rx caps biotin 800 mcg tablet 800 mcg PO DAILY 12/22/22 12/16/24 History escitalopram oxalate 10 mg tablet 10 mg PO HS 12/22/22 12/16/24 History ibuprofen 800 mg tablet 800 mg PO TID PRN Pain 12/22/22 12/16/24 History phenazopyridine 95 mg tablet (Azo 95 mg PO TID 12/22/22 12/16/24 History Urinary Pain Relief) potassium chloride 10 mEq 10 meq PO DAILY 12/22/22 12/16/24 History tablet,extended release albuterol sulfate 90 mcg/actuation 2 puff inhalation Q6H PRN 10/04/24 12/16/24 History aerosol inhaler shortness of breath or wheezing dextroamphetamine-amphetamine ER 20 mg PO DAILY 10/04/24 12/16/24 History 20 mg 24hr capsule,extend release furosemide 40 mg tablet 40 mg PO DAILY #30 tabs 10/10/24 12/16/24 Rx guaifenesin 600 mg tablet, 600 mg PO Q12HR #30 tabs 10/10/24 12/16/24 Rx extended release 12 hr (Mucus Relief ER) potassium chloride 10 mEq 10 meq PO DAILY #30 tabs 10/10/24 12/16/24 Rx tablet,extended release (Klor-Con) Allergies Allergy/AdvReac Type Severity Reaction Status Date / Time tobramycin Allergy Mild Rash Verified 12/16/24 17:04 diphenhydramine Allergy Unknown Hives Verified 12/16/24 17:04 triprolidine Allergy Unknown Itching Verified 12/16/24 17:04 amoxicillin Allergy urticaria Verified 12/16/24 17:04 pseudoephedrine AdvReac Unknown Insomnia Verified 12/16/24 17:04 antihistamine 1 Allergy Mild Hives Uncoded 12/16/24 17:04 Vital Signs Vital Signs - 24 hr 12/16/24 11:18 12/16/24 11:30 12/16/24 12:53 Temperature 98.3 F Pulse Rate 91 99 Respiratory Rate 18 18 Blood Pressure 157/85 H 138/91 H Pulse Oximetry 83 L 96 98 Oxygen Delivery Room Air Nasal Cannula Oxygen Flow Rate 4 Exam Const: General: comfortable and no acute distress Other: , female, nontoxic appearance HENMT: Face/Nose/Sinus: Normal nares present Mouth: Yes moist mucous membranes Eyes: General: appearance normal, both eyes and all related structures Sclera: sclerae normal Pupils: Equal, round and reactive pupils present EOM: EOMs intact bilaterally Resp: Effort & Inspection: normal respiratory effort Auscultation: clear to auscultation bilaterally Other: Nasal cannula place, tolerating well Cardio: Rate: regular rate Rhythm: regular rhythm Other: S1-S2 present without murmur, rub, ectopy GI: Other: Abdomen soft, nondistended, nontender. Normoactive bowel sounds in all quadrants. : Other: Suprapubic catheter present, dressing CDI Urinary Catheter: Urinary Catheter: patent and draining Skin: General skin exam: normal color and no rashes or lesions noted Wounds: no wounds Neuro: Speech: normal speech Motor exam (neuro): 5/5 motor strength present throughout Sensory Exam: normal sensation Other: A&O x4 Extrem: Other: +1 trace pitting edema to bilateral lower extremities Psych: Mental Status: mental status grossly normal Affect: normal affect Other: Good insight and judgment, very pleasant H&P: Results Labs Labs: Short CBC 12/16/24 Range/Units 12:21 WBC 8.4 (4.5-10.0) K/mm3 Hgb 9.6 L (12.0-15.0) g/dL Hct 32.9 L (37.0-47.0) % Plt Count 129 L (150-375) k/mm3 BMP 12/16/24 12:21 Sodium 139 Potassium 3.1 L Chloride 100 Carbon Dioxide 34 H BUN 14 Creatinine 0.38 L Glucose 130 H Calcium 8.9 Cardiac Enzymes 12/16/24 Range/Units 12:21 Troponin I 0.013 (0.000-0.034) ng/mL Liver Function 12/16/24 Range/Units 12:21 Total Bilirubin 0.4 (0.2-1.3) mg/dL AST 24 (14-36) U/L ALT 9 (6-35) U/L Alkaline Phosphatase 112 (38-126) U/L Albumin 3.7 (3.5-5.1) g/dL Urine 12/16/24 Range/Units 13:53 Urine Color Dark yellow (Yellow) Urine Appearance Turbid H (Clear) Urine pH 8.0 (5.0-9.0) Ur Specific Crooks 1.030 (1.001-1.035) Urine Protein 2+ H (Negative) mg/dL Urine Glucose (UA) Negative (Negative) mg/dL Assessment and Plan Assessment and plan (1) Catheter-associated urinary tract infection: Qualifiers: Encounter type: initial encounter Indwelling urinary catheter type: cystostomy catheter Qualified Code(s): T83.510A - Infection and inflammatory reaction due to cystostomy catheter, initial encounter; N39.0 - Urinary tract infection, site not specified Code(s): T83.511A - Infection and inflammatory reaction due to indwelling urethral catheter, initial encounter; N39.0 - Urinary tract infection, site not specified Status: Acute Assessment and Plan: - suprapubic catheter exchanged on 12/16 in the ED. Patient only utilizes when she cannot urinate naturally. - UA: Turbid, 2+ protein, 2+ blood, 2+ leuk esterase, greater than 100 RBC and WBC, occasional epithelial cells, 4+ bacteria - UC pending - previous micro reviewed, most recently grew Pseudomonas that was resistant to ciprofloxacin and levofloxacin. - started on meropenem on 12/16 (2) CHF (congestive heart failure): Qualifiers: Heart failure chronicity: acute Heart failure type: unspecified Qualified Code(s): I50.9 - Heart failure, unspecified Code(s): I50.9 - Heart failure, unspecified Status: Acute Assessment and Plan: - acute on chronic - BNP 4580 - most recent echo (10/05/2024): Normal systolic function with an EF of 65-70%, grade 1 diastolic dysfunction, moderate to severe biatrial enlargement, valvular disease, severe pulmonary hypertension. See report for details. - on Lasix 40 mg p.o. daily, will exchanged to 40 mg IV of Lasix daily - monitor I&Os and daily weights - trend renal function (3) Pneumonia: Qualifiers: Laterality: left Lung location: unspecified part of lung Pneumonia type: due to unspecified organism Qualified Code(s): J18.9 - Pneumonia, unspecified organism Code(s): J18.9 - Pneumonia, unspecified organism Status: Acute Assessment and Plan: - did not meet SIRS criteria, however blood cultures were obtained on 12/16 in the ED. Follow. - CXR: Mild CHF. Superimposed infection cannot be excluded. Findings can represent pneumonia in appropriate clinical settings. Clinical correlation is recommended. Short-term follow-up chest radiograph is recommended after appropriate clinical therapy to document stability and/or resolution. - started on meropenem as she has a concurrent UTI with a history of MDR infections and doxycycline - Viral PCR negative on 12/16 - supportive care: Mucinex west, Tessalon Perles p.r.n., DuoNebs p.r.n., Tylenol p.r.n. (4) Chronic hypoxic respiratory failure, on home oxygen therapy: Code(s): J96.11 - Chronic respiratory failure with hypoxia; Z99.81 - Dependence on supplemental oxygen Status: Acute Assessment and Plan: - per home O2 evaluation at at discharge on 10/10/2024. The patient is supposed to be on 3 L at rest and 4 L with activity. However she has only been utilizing her oxygen at night, will re-educate. - continue supplemental oxygen to maintain O2 sat greater than 92% (5) Chronic obstructive pulmonary disease: Qualifiers: COPD type: COPD with acute exacerbation Qualified Code(s): J44.1 - Chronic obstructive pulmonary disease with (acute) exacerbation Code(s): J44.9 - Chronic obstructive pulmonary disease, unspecified Status: Chronic Assessment and Plan: - no current evidence of exacerbation - continue home medications/inhalers (6) Hypertension: Qualifiers: Hypertension type: primary hypertension Qualified Code(s): I10 - Essential (primary) hypertension Code(s): I10 - Essential (primary) hypertension Status: Chronic Assessment and Plan: - chronic, currently 138/91 - continue home medications: Atenolol - monitor Plan Diet: Heart healthy GI Prophylaxis: N/a DVT Prophylaxis: SCDs IV fluids: None Lines/Tubes: Peripheral IV, suprapubic catheter Code Status: Full code Quality VTE Prophylaxis VTE prophylaxis: mechanical ordered Hospitalist MIPS Advance Care Plan I have confirmed that the patient's Advanced Care Plan is present, code status is documented, or surrogate decision maker is listed in patient medical record.: Yes Medication Reconciliation I have utilized all available resources to obtain, update and review the patients current medications (includes all prescriptions, OTC, herbals, cannabis, and nutritional supplements).: Yes
[2024-12-16] MEDS: FUROSEMIDE INJ 40 MG/4 ML VIAL IV PUSH (18:52)
[2024-12-16 20:00] VITALS: O2SAT 98
[2024-12-16] MEDS: DOXYCYCLINE HYCLATE 100 MG TABLET PO (20:09)
[2024-12-16] MEDS: PANTOPRAZOLE 40 MG TABLET PO (20:10)
[2024-12-16] MEDS: PREGABALIN (*CRX) 75 MG CAPSULE 150 MG PO (20:10)
[2024-12-16] MEDS: ESCITALOPRAM OXALATE 10 MG TABLET PO (20:11)
[2024-12-16] MEDS: dilTIAZem HCL CD 240 MG CAP.24HR PO (20:11)
[2024-12-16] MEDS: guaiFENesin 12 HR 600 MG TABCR PO (20:11)
[2024-12-16 20:28] VITALS: BP 135/68; PULSE 74; RESP 18; TEMP 36.7; O2SAT 98
[2024-12-17] MEDS: MEROPENEM 1 GM in SODIUM CHLORIDE 0.9% IV 100 ML 200 ML IVPB ×4 (00:18→23:14)
[2024-12-17 06:00] VITALS: BP 104/49; PULSE 67; RESP 18; TEMP 37; O2SAT 92
--- NOTE | 2024-12-17 07:13 | P.PNIM_ITS ---
Progress Note: A&P Assessment and Plan (1) Catheter-associated urinary tract infection: Qualifiers: Encounter type: initial encounter Indwelling urinary catheter type: cystostomy catheter Qualified Code(s): T83.510A - Infection and inflammatory reaction due to cystostomy catheter, initial encounter; N39.0 - Urinary tract infection, site not specified Code(s): T83.511A - Infection and inflammatory reaction due to indwelling urethral catheter, initial encounter; N39.0 - Urinary tract infection, site not specified Status: Acute Assessment and Plan: * suprapubic catheter exchanged on 12/16 in the ED. Patient only utilizes when she cannot urinate naturally. * UA: Turbid, 2+ protein, 2+ blood, 2+ leuk esterase, greater than 100 RBC and WBC, occasional epithelial cells, 4+ bacteria * UC pending * previous micro reviewed, most recently grew Pseudomonas that was resistant to ciprofloxacin and levofloxacin. * started on meropenem on 12/16 (2) CHF (congestive heart failure): Qualifiers: Heart failure chronicity: acute Heart failure type: unspecified Qualified Code(s): I50.9 - Heart failure, unspecified Code(s): I50.9 - Heart failure, unspecified Status: Acute Assessment and Plan: * acute on chronic * BNP 4580 * most recent echo (10/05/2024): Normal systolic function with an EF of 65-70%, grade 1 diastolic dysfunction, moderate to severe biatrial enlargement, valvular disease, severe pulmonary hypertension. See report for details. * on Lasix 40 mg p.o. daily, will exchanged to 40 mg IV of Lasix daily * monitor I&Os and daily weights * trend renal function (3) Pneumonia: Qualifiers: Laterality: left Lung location: unspecified part of lung Pneumonia type: due to unspecified organism Qualified Code(s): J18.9 - Pneumonia, unspecified organism Code(s): J18.9 - Pneumonia, unspecified organism Status: Acute Assessment and Plan: * did not meet SIRS criteria, however blood cultures were obtained on 12/16 in the ED. Follow. * CXR: Mild CHF. Superimposed infection cannot be excluded. Findings can represent pneumonia in appropriate clinical settings. Clinical correlation is recommended. Short-term follow-up chest radiograph is recommended after appropriate clinical therapy to document stability and/or resolution. * started on meropenem as she has a concurrent UTI with a history of MDR infections and doxycycline * Viral PCR negative on 12/16 * supportive care: Mucinex west, Tessalon Perles p.r.n., DuoNeb p.r.n., Tylenol p.r.n. * 12/17: No shortness of breath, chest pain or cough this a.m.. Lung montemayor are CTA (4) Chronic hypoxic respiratory failure, on home oxygen therapy: Code(s): J96.11 - Chronic respiratory failure with hypoxia; Z99.81 - Dependence on supplemental oxygen Status: Acute Assessment and Plan: * per home O2 evaluation at at discharge on 10/10/2024. The patient is supposed to be on 3 L at rest and 4 L with activity. However she has only been utilizing her oxygen at night, will re-educate. * continue supplemental oxygen to maintain O2 sat greater than 92% (5) Chronic obstructive pulmonary disease: Qualifiers: COPD type: COPD with acute exacerbation Qualified Code(s): J44.1 - Chronic obstructive pulmonary disease with (acute) exacerbation Code(s): J44.9 - Chronic obstructive pulmonary disease, unspecified Status: Chronic Assessment and Plan: * no current evidence of exacerbation * continue home medications/inhalers (6) Hypertension: Qualifiers: Hypertension type: primary hypertension Qualified Code(s): I10 - Essential (primary) hypertension Code(s): I10 - Essential (primary) hypertension Status: Chronic Assessment and Plan: * chronic, currently 138/91 * continue home medications: Atenolol * monitor (7) Hypokalemia: Code(s): E87.6 - Hypokalemia Status: Acute Assessment and Plan: * Upon admission: 3.1 * 12/17: K 2.8 * Will give 40 meq IV potassium * Recheck potassium after infusion Plan Diet: Heart healthy GI Prophylaxis: N/a DVT Prophylaxis: SCDs IV fluids: None Lines/Tubes: Peripheral IV, suprapubic catheter Code Status: Full code Subjective Date/time seen: 12/17/24 07:13 Interval history: 54 y/o F with PMH of COPD, chronic pain syndrome, atonic bladder with chronic suprapubic jose, hypertension, former smoker (cessation on 10/04/24), and MIKE presents here with a change in her urine. 12/17/2024 Patient sitting comfortably in bed at time of examination. Denies chest pain shortness a breath/vomiting or urinary/bowel complaints at this time. Does have some suprapubic tenderness/discomfort at this time. Remains afebrile without leukocytosis. Potassium low, 2.8 -will replace with IV supplementation and recheck. Blood/urine culturs pending. Review of Systems Review of Systems: All systems reviewed & are unremarkable except as noted in HPI and below Exam Const: General: comfortable and no acute distress Other: , female, nontoxic appearance HENMT: Face/Nose/Sinus: Normal nares present Mouth: Yes moist mucous membranes Eyes: General: appearance normal, both eyes and all related structures Sclera: sclerae normal Pupils: Equal, round and reactive pupils present EOM: EOMs intact bilaterally Resp: Effort & Inspection: normal respiratory effort Auscultation: clear to auscultation bilaterally Other: Nasal cannula place, tolerating well Cardio: Rate: regular rate Rhythm: regular rhythm Other: S1-S2 present without murmur, rub, ectopy GI: Other: Abdomen soft, nondistended, nontender. Normoactive bowel sounds in all quadrants. : Other: Suprapubic catheter present, dressing CDI Urinary Catheter: Urinary Catheter: patent and draining Skin: General skin exam: normal color and no rashes or lesions noted Wounds: no wounds Neuro: Cranial nerves: Yes Equal, round and reactive pupils present Speech: normal speech Motor exam (neuro): 5/5 motor strength present throughout Sensory Exam: normal sensation Other: A&O x4 Extrem: Other: +1 trace pitting edema to bilateral lowe r extremities Psych: Mental Status: mental status grossly normal Affect: normal affect Other: Good insight and judgment, very pleasant Objective Data Vital Signs Vital Signs: Vital Signs - 24 hr 12/16/24 11:18 12/16/24 11:30 12/16/24 12:53 Temperature 98.3 F Pulse Rate 91 99 Respiratory Rate 18 18 Blood Pressure 157/85 H 138/91 H Pulse Oximetry 83 L 96 98 Oxygen Delivery Room Air Nasal Cannula Oxygen Flow Rate 4 12/16/24 20:00 12/16/24 20:28 12/17/24 06:00 Temperature 98.0 F 98.6 F Pulse Rate 74 67 Respiratory Rate 18 18 Blood Pressure 135/68 104/49 L Pulse Oximetry 98 98 92 Oxygen Delivery Nasal Cannula Oxygen Flow Rate 4 Intake/Output Intake/Output: Intake & Output 12/14/24 12/15/24 12/16/24 12/17/24 23:59 23:59 23:59 23:59 Intake Total 340 100 Output Total 800 1200 Balance -460 -1100 Meds/Results Medications: Active Medications Generic Name Dose Route Start Last Admin Trade Name Freq PRN Reason Stop Dose Admin Acetaminophen 650 mg 12/16/24 15:40 Acetaminophen 325 Mg Tablet PO Q4H PRN Mild Pain (1-3) or Fever Albuterol/Ipratropium 3 ml 12/16/24 18:32 Ipratropium 0.5 Mg/Albuterol Sulfate 2.5 Mg Ampul.Neb 3 Ml INHALATION Q6HRT PRN Shortness Of Breath Or Wheezing Atenolol 25 mg 12/17/24 09:00 Atenolol 25 Mg Tablet PO DAILY WEST Benzonatate 100 mg 12/16/24 18:28 Benzonatate 100 Mg Capsule PO TID PRN Cough Diltiazem HCl 240 mg 12/16/24 21:00 12/16/24 20:11 Diltiazem Hcl Cd 240 Mg Cap.24hr PO 240 mg HS WEST Administration Doxycycline Hyclate 100 mg 12/16/24 21:00 12/16/24 20:09 Doxycycline Hyclate 100 Mg Tablet PO 12/23/24 20:59 100 mg Q12HR WEST Administration Escitalopram Oxalate 10 mg 12/16/24 21:00 12/16/24 20:11 Escitalopram Oxalate 10 Mg Tablet PO 10 mg HS WEST Administration Furosemide 40 mg 12/16/24 18:40 12/16/24 18:52 Furosemide Inj 40 Mg/4 Ml Vial IV PUSH 40 mg DAILY WEST Administration Guaifenesin 600 mg 12/16/24 21:00 12/16/24 20:11 Guaifenesin 12 Hr 600 Mg Tabcr PO 600 mg Q12HR WEST Administration Meropenem 1 gm/ Sodium 100 mls @ 200 mls/hr 12/17/24 00:00 12/17/24 02:00 Chloride IVPB Infused Q8H WEST Infusion Ibuprofen 800 mg 12/16/24 18:56 Ibuprofen 400 Mg Tablet PO TID PRN Pain Rated 4-6 Miscellaneous Information 0 each 12/16/24 00:01 Suboxone Film 8.2 Nonform Can Pt Bring From Home? XX 01/15/25 00:00 CLARIFY WEST Non-Formulary Medication 1 film 12/16/24 18:45 Buprenorphine-Naloxone [Suboxone] SUBLINGUAL 01/15/25 18:44 Q12H WEST Nonformulary 1 each 12/16/24 18:58 Nutritional XX 12/17/24 18:57 Supplement (Biotin PRN PRN 800 Mcg Tablet) PROTOCOL Ondansetron HCl 4 mg 12/16/24 15:40 Ondansetron Inj 4 Mg/2 Ml Vial IV PUSH Q4H PRN Nausea Oxybutynin Chloride 5 mg 12/17/24 09:00 Oxybutynin Chloride 5 Mg Tablet PO TID WEST Pantoprazole Sodium 40 mg 12/16/24 21:00 12/16/24 20:10 Pantoprazole 40 Mg Tablet PO 40 mg Q12HR WEST Administration Phenazopyridine HCl 100 mg 12/17/24 09:00 Phenazopyridine Hcl 100 Mg Tablet PO TID WEST Potassium Chloride 10 meq 12/17/24 09:00 Potassium Chloride 10 Meq Er Tablet PO DAILY WEST Pregabalin 150 mg 12/16/24 21:00 12/16/24 20:10 Pregabalin (*Crx) 75 Mg Capsule PO 150 mg Q12HR WEST Administration Trazodone HCl 150 mg 12/16/24 21:00 12/16/24 20:12 Trazodone Hcl 50 Mg Tablet PO 150 mg HS WEST Administration Radiology Results: ITS Impressions Chest X-Ray 12/16/24 12:52 IMPRESSION: Mild CHF. Superimposed infection cannot be excluded. Findings can represent pneumonia in appropriate clinical settings. Clinical correlation is recommended. Short-term follow-up chest radiograph is recommended after appropriate clinical therapy to document stability and/or resolution. Labs Labs: Laboratory Results - last 24 hr 12/16/24 12/16/24 12:21 13:53 WBC 8.4 RBC 3.94 L Hgb 9.6 L Hct 32.9 L MCV 83.5 MCH 24.4 L MCHC 29.2 L RDW 19.7 H Plt Count 129 L MPV 9.6 Immature Gran % (Auto) 0.8 H Neut % (Auto) 84.0 H Lymph % (Auto) 10.4 L [place] % (Auto) 4.4 Eos % (Auto) 0.0 Baso % (Auto) 0.4 Lymph # (Auto) 0.87 L [place] # (Auto) 0.4 Eos # (Auto) 0.0 Baso # (Auto) 0.0 Abs Immat Gran (auto) 0.07 H Absolute Neuts (auto) 7.1 H Absolute Nucleated RBC 0.000 Band Neutrophils % Not Reportable Nucleated RBC % 0.0 Platelet Estimate Slightly decreased Hypochromasia Occasional Schistocytes None seen Sodium 139 Potassium 3.1 L Chloride 100 Carbon Dioxide 34 H Anion Gap 5 BUN 14 Creatinine 0.38 L Estim Creat Clear Calc 119 Estimated GFR > 60 Glucose 130 H Lactic Acid 0.6 L Calcium 8.9 Magnesium 1.9 Total Bilirubin 0.4 AST 24 ALT 9 Alkaline Phosphatase 112 Troponin I 0.013 NT-Pro-B Natriuret Pep 4580 H Total Protein 6.9 Albumin 3.7 Lipase < 10 L Urine Color Dark yellow Urine Appearance Turbid H Urine pH 8.0 Ur Specific Mcdaniel 1.030 Urine Protein 2+ H Urine Glucose (UA) Negative Urine Ketones Negative Ur Blood (Man) 2+ H Urine Nitrate Negative Urine Bilirubin Negative Urine Urobilinogen 1.0 Leukocyte Esterase Rfl 2+ H Urine RBC >100 H Urine WBC >100 H Ur Squamous Epith Cells Occasional Triple Phos Crystals Present H Urine Bacteria 4+ Urine Casts 6-10 Influenza A (RT-PCR) Negative Influenza B (RT-PCR) Negative RSV (RT-PCR) Negative SARS-CoV-2 RNA (RT-PCR) Negative Quality VTE Prophylaxis VTE prophylaxis: mechanical ordered
[2024-12-17 07:49] LABS: Hematocrit 29.1 % (37.0-47.0); Hemoglobin 8.4 g/dL (12.0-15.0); Immature Granulocyte Percent A 0.4 % (0-0.5); Lymphocytes Absolute Auto 0.61 K/mm3 (0.9-3.2); Mean Corpuscular HGB Conc 28.9 g/dl (32-36); Mean Corpuscular Hemoglobin 24.4 pg (26-34); Mean Corpuscular Volume 84.6 fl (80-100); Nucleated Red Blood Cells Absolute Auto 0.000 K/mm3 (0.0-0.012); Nucleated Red Blood Cells Perc 0.0 % (0.0-0.2); Platelet Count Result 122 k/mm3 (150-375); Red Blood Count 3.44 M/mm3 (4.2-5.4); White Blood Count 5.2 K/mm3 (4.5-10.0)
[2024-12-17 08:00] VITALS: PULSE 62; RESP 18; O2SAT 93
[2024-12-17 08:16] LABS: Alanine Aminotransferase 13 U/L (6-35); Albumin Level 3.1 g/dL (3.5-5.1); Alkaline Phosphatase 118 U/L (38-126); Anion Gap 3 mmol/L (4-12); Aspartate Amino Transferase 27 U/L (14-36); Bilirubin,Total 0.3 mg/dL (0.2-1.3); Blood Urea Nitrogen 11 mg/dL (7-17); Calcium 8.6 mg/dL (8.4-10.2); Carbon Dioxide 37 mmol/L (22-30); Chloride 100 mmol/L (98-107); Estimated CRCL calculation 122 ml/min; Estimated Glomerular Filt Rate > 60; Glucose 117 mg/dL (65-110); Potassium 2.8 mmol/L (3.4-5.0); Sodium 140 mmol/L (137-145); Total Protein 6.1 g/dL (6.3-8.2)
[2024-12-17 08:22] LABS: Hypochromasia 1+
[2024-12-17 08:23] LABS: Anisocytosis 1+; Microcytosis 1+ (NORMAL); Schistocytes None Seen
[2024-12-17 08:54] VITALS: PULSE 67
[2024-12-17] MEDS: PANTOPRAZOLE 40 MG TABLET PO ×2 (08:54→21:32)
[2024-12-17] MEDS: PREGABALIN (*CRX) 75 MG CAPSULE 150 MG PO ×2 (08:54→21:32)
[2024-12-17] MEDS: BENZONATATE 100 MG CAPSULE PO (08:54)
[2024-12-17] MEDS: DOXYCYCLINE HYCLATE 100 MG TABLET PO ×2 (08:54→21:31)
[2024-12-17] MEDS: guaiFENesin 12 HR 600 MG TABCR PO ×2 (08:54→21:32)
[2024-12-17] MEDS: POTASSIUM CHLORIDE 10 MEQ ER TABLET PO (08:54)
[2024-12-17] MEDS: PHENAZOPYRIDINE HCL 100 MG TABLET PO ×3 (08:58→17:59)
[2024-12-17] MEDS: POTASSIUM CHLORIDE INJ 40 MEQ in SODIUM CHLORIDE 0.9% IV 500 ML 130 MEQ IVPB (10:03)
[2024-12-17] MEDS: FUROSEMIDE INJ 40 MG/4 ML VIAL IV PUSH (10:09)
[2024-12-17 13:38] VITALS: BP 108/57; PULSE 62; RESP 18; TEMP 36.4; O2SAT 93
[2024-12-17 14:56] LABS: Potassium 3.5 mmol/L (3.4-5.0)
[2024-12-17 21:04] VITALS: BP 108/54; PULSE 67; RESP 18; TEMP 36.8; O2SAT 100
[2024-12-17 21:30] VITALS: O2SAT 100
[2024-12-17] MEDS: dilTIAZem HCL CD 240 MG CAP.24HR PO (21:31)
[2024-12-17] MEDS: ESCITALOPRAM OXALATE 10 MG TABLET PO (21:32)
[2024-12-17] MEDS: BUPRENORPHINE HCL (*CRX) 2 MG SUBLINGUAL TABLET 4 MG SUBLINGUAL (21:32)
[2024-12-18] VITALS (8 sets, daily range): BP systolic 102–116; BP diastolic 48–52; PULSE 56–63; RESP 16–20; TEMP 36.1–36.6; O2SAT 90–99
[2024-12-18 05:01] LABS: Hematocrit 29.3 % (37.0-47.0); Hemoglobin 8.3 g/dL (12.0-15.0); Immature Granulocyte Percent A 0.5 % (0-0.5); Immature Platelet Fraction Pct 3.2 % (0.9-11.2); Lymphocytes Absolute Auto 1.04 K/mm3 (0.9-3.2); Mean Corpuscular HGB Conc 28.3 g/dl (32-36); Mean Corpuscular Hemoglobin 24.5 pg (26-34); Mean Corpuscular Volume 86.4 fl (80-100); Nucleated Red Blood Cells Absolute Auto 0.000 K/mm3 (0.0-0.012); Nucleated Red Blood Cells Perc 0.0 % (0.0-0.2); Platelet Count Result 137 k/mm3 (150-375); Red Blood Count 3.39 M/mm3 (4.2-5.4); White Blood Count 4.1 K/mm3 (4.5-10.0)
[2024-12-18 05:17] LABS: Alanine Aminotransferase 9 U/L (6-35); Albumin Level 3.1 g/dL (3.5-5.1); Alkaline Phosphatase 96 U/L (38-126); Anion Gap 4 mmol/L (4-12); Aspartate Amino Transferase 16 U/L (14-36); Bilirubin,Total 0.4 mg/dL (0.2-1.3); Blood Urea Nitrogen 14 mg/dL (7-17); Calcium 8.5 mg/dL (8.4-10.2); Carbon Dioxide 35 mmol/L (22-30); Chloride 101 mmol/L (98-107); Estimated CRCL calculation 107 ml/min; Estimated Glomerular Filt Rate > 60; Glucose 76 mg/dL (65-110); Potassium 3.6 mmol/L (3.4-5.0); Sodium 140 mmol/L (137-145); Total Protein 5.9 g/dL (6.3-8.2)
[2024-12-18 05:23] LABS: Anisocytosis 1+; Hypochromasia 1+; Microcytosis 1+ (NORMAL); Schistocytes None Seen
--- NOTE | 2024-12-18 07:10 | P.PNIM_ITS ---
Progress Note: A&P Assessment and Plan (1) Catheter-associated urinary tract infection: Qualifiers: Encounter type: initial encounter Indwelling urinary catheter type: cystostomy catheter Qualified Code(s): T83.510A - Infection and inflammatory reaction due to cystostomy catheter, initial encounter; N39.0 - Urinary tract infection, site not specified Code(s): T83.511A - Infection and inflammatory reaction due to indwelling urethral catheter, initial encounter; N39.0 - Urinary tract infection, site not specified Status: Acute Assessment and Plan: -suprapubic catheter exchanged on 12/16 in the ED. Patient only utilizes when she cannot urinate naturally. -UA: Turbid, 2+ protein, 2+ blood, 2+ leuk esterase, greater than 100 RBC and WBC, occasional epithelial cells, 4+ bacteria -UCx with Proteus mirabilis/penneri, sensitivities pending -previous micro reviewed, most recently grew Pseudomonas that was resistant to ciprofloxacin and levofloxacin. -started on meropenem on 12/16 (2) CHF (congestive heart failure): Qualifiers: Heart failure chronicity: acute Heart failure type: unspecified Qualified Code(s): I50.9 - Heart failure, unspecified Code(s): I50.9 - Heart failure, unspecified Status: Acute Assessment and Plan: -acute on chronic -BNP 4580 -most recent echo (10/05/2024): Normal systolic function with an EF of 65-70%, grade 1 diastolic dysfunction, moderate to severe biatrial enlargement, valvular disease, severe pulmonary hypertension. See report for details. - s/p IV diuresis - transition back to PO Lasix -monitor I&Os and daily weights -trend renal function (3) Pneumonia: Qualifiers: Laterality: left Lung location: unspecified part of lung Pneumonia type: due to unspecified organism Qualified Code(s): J18.9 - Pneumonia, unspecified organism Code(s): J18.9 - Pneumonia, unspecified organism Status: Acute Assessment and Plan: -did not meet SIRS criteria, however blood cultures were obtained on 12/16 in the ED. Follow. -CXR: Mild CHF. Superimposed infection cannot be excluded. Findings can represent pneumonia in appropriate clinical settings. Clinical correlation is recommended. Short-term follow-up chest radiograph is recommended after appropriate clinical therapy to document stability and/or resolution. -started on meropenem as she has a concurrent UTI with a history of MDR infections and doxycycline -Viral PCR negative on 12/16 -supportive care: Mucinex west, Tessalon Perles p.r.n., DuoNeb p.r.n., Tylenol p.r.n. -12/18: improved, but having some pleuritic chest pain. D-dimer elevated. Follow- up repeat CXR and obtaining CTA chest. (4) Chronic hypoxic respiratory failure, on home oxygen therapy: Code(s): J96.11 - Chronic respiratory failure with hypoxia; Z99.81 - Dependence on supplemental oxygen Status: Acute Assessment and Plan: -per home O2 evaluation at at discharge on 10/10/2024. The patient is supposed to be on 3 L at rest and 4 L with activity. However she has only been utilizing her oxygen at night, will re-educate. -continue supplemental oxygen to maintain O2 sat greater than 92% - nurses to attempt to wean O2 today (5) Chronic obstructive pulmonary disease: Qualifiers: COPD type: COPD with acute exacerbation Qualified Code(s): J44.1 - Chronic obstructive pulmonary disease with (acute) exacerbation Code(s): J44.9 - Chronic obstructive pulmonary disease, unspecified Status: Chronic Assessment and Plan: -no current evidence of exacerbation -continue home medications/inhalers (6) Hypertension: Qualifiers: Hypertension type: primary hypertension Qualified Code(s): I10 - Essential (primary) hypertension Code(s): I10 - Essential (primary) hypertension Status: Chronic Assessment and Plan: -chronic, currently 138/91 -continue home medications: Atenolol -monitor (7) Hypokalemia: Code(s): E87.6 - Hypokalemia Status: Acute Assessment and Plan: -Upon admission: 3.1 -12/17: K 2.8 -Will give 40 meq IV potassium -Recheck potassium after infusion (8) Anemia: Code(s): D64.9 - Anemia, unspecified Status: Acute Assessment and Plan: - Hgb 8.3. Baseline around 10. - check iron studies - trend CBC Plan Diet: Heart healthy GI Prophylaxis: N/a DVT Prophylaxis: SCDs IV fluids: None Lines/Tubes: Peripheral IV, suprapubic catheter Code Status: Full code Subjective Date/time seen: 12/18/24 07:10 Interval history: 54 y/o F with PMH of COPD, chronic pain syndrome, atonic bladder with chronic suprapubic jose, hypertension, former smoker (cessation on 10/04/24), and MIKE presents here with a change in her urine. Patient seen and examined at bedside. Breathing improved, but still having some pleuritic chest discomfort. Urinary symptoms improving. Review of Systems Review of Systems: All systems reviewed & are unremarkable except as noted in HPI and below Exam Narrative: General: NAD Eyes: EOMI ENT: neck supple Cardiovascular: Regular rate and rhythm Respiratory: Clear to auscultation, respirations even and unlabored on 4L NC Gastrointestinal: Soft, non tender Genitourinary: no suprapubic tenderness, suprapubic catheter draining clear urine Musculoskeletal: No edema Skin: warm, dry Neuro: Alert. Psych: Mood appropriate Objective Data Vital Signs Vital Signs: Vital Signs - 24 hr 12/17/24 08:00 12/17/24 08:54 12/17/24 13:38 Temperature 97.5 F L Pulse Rate 62 67 62 Respiratory Rate 18 18 Blood Pressure 108/57 L Pulse Oximetry 93 93 Oxygen Delivery Nasal Cannula Oxygen Flow Rate 4 12/17/24 21:04 12/17/24 21:30 12/18/24 06:00 Temperature 98.2 F 97.8 F Pulse Rate 67 56 L Respiratory Rate 18 16 Blood Pressure 108/54 L 102/48 L Pulse Oximetry 100 100 99 Oxygen Delivery Nasal Cannula Oxygen Flow Rate 4 Intake/Output Intake/Output: Intake & Output 12/15/24 12/16/24 12/17/24 12/18/24 23:59 23:59 23:59 23:59 Intake Total 340 970 Output Total 800 5640 400 Rmrtvlh -989 -9667 -821 Meds/Results Medications: Active Medications Generic Name Dose Route Start Last Admin Trade Name Freq PRN Reason Stop Dose Admin Acetaminophen 650 mg 12/16/24 15:40 Acetaminophen 325 Mg Tablet PO Q4H PRN Mild Pain (1-3) or Fever Albuterol/Ipratropium 3 ml 12/16/24 18:32 Ipratropium 0.5 Mg/Albuterol Sulfate 2.5 Mg Ampul.Neb 3 Ml INHALATION Q6HRT PRN Shortness Of Breath Or Wheezing Atenolol 25 mg 12/17/24 09:00 12/17/24 08:54 Atenolol 25 Mg Tablet PO 25 mg DAILY WEST Administration Benzonatate 100 mg 12/16/24 18:28 12/17/24 08:54 Benzonatate 100 Mg Capsule PO 100 mg TID PRN Administration Cough Buprenorphine HCl 8 mg 12/18/24 09:00 Buprenorphine Hcl (*Crx) 8 Mg Sublingual Tablet SUBLINGUAL Q12HR WEST Diltiazem HCl 240 mg 12/16/24 21:00 12/17/24 21:31 Diltiazem Hcl Cd 240 Mg Cap.24hr PO 240 mg HS WEST Administration Doxycycline Hyclate 100 mg 12/16/24 21:00 12/17/24 21:31 Doxycycline Hyclate 100 Mg Tablet PO 12/23/24 20:59 100 mg Q12HR WEST Administration Escitalopram Oxalate 10 mg 12/16/24 21:00 12/17/24 21:32 Escitalopram Oxalate 10 Mg Tablet PO 10 mg HS WEST Administration Furosemide 40 mg 12/16/24 18:40 12/17/24 10:09 Furosemide Inj 40 Mg/4 Ml Vial IV PUSH 40 mg DAILY WEST Administration Guaifenesin 600 mg 12/16/24 21:00 12/17/24 21:32 Guaifenesin 12 Hr 600 Mg Tabcr PO 600 mg Q12HR WEST Administration Meropenem 1 gm/ Sodium 100 mls @ 200 mls/hr 12/17/24 00:00 12/17/24 23:14 Chloride IVPB 200 mls/hr Q8H WEST Administration Ibuprofen 800 mg 12/16/24 18:56 Ibuprofen 400 Mg Tablet PO TID PRN Pain Rated 4-6 Ondansetron HCl 4 mg 12/16/24 15:40 Ondansetron Inj 4 Mg/2 Ml Vial IV PUSH Q4H PRN Nausea Oxybutynin Chloride 5 mg 12/17/24 09:00 12/17/24 17:59 Oxybutynin Chloride 5 Mg Tablet PO 5 mg TID WEST Administration Pantoprazole Sodium 40 mg 12/16/24 21:00 12/17/24 21:32 Pantoprazole 40 Mg Tablet PO 40 mg Q12HR WEST Administration Phenazopyridine HCl 100 mg 12/17/24 09:00 12/17/24 17:59 Phenazopyridine Hcl 100 Mg Tablet PO 100 mg TID WEST Administration Potassium Chloride 10 meq 12/17/24 09:00 12/17/24 08:54 Potassium Chloride 10 Meq Er Tablet PO 10 meq DAILY WEST Administration Pregabalin 150 mg 12/16/24 21:00 12/17/24 21:32 Pregabalin (*Crx) 75 Mg Capsule PO 150 mg Q12HR WEST Administration Trazodone HCl 150 mg 12/16/24 21:00 12/17/24 21:32 Trazodone Hcl 50 Mg Tablet PO 150 mg HS WEST Administration Radiology Results: ITS Impressions Chest X-Ray 12/16/24 12:52 IMPRESSION: Mild CHF. Superimposed infection cannot be excluded. Findings can represent pneumonia in appropriate clinical settings. Clinical correlation is recommended. Short-term follow-up chest radiograph is recommended after appropriate clinical therapy to document stability and/or resolution. Labs Labs: Laboratory Results - last 24 hr 12/17/24 12/17/24 12/18/24 07:43 14:36 04:28 WBC 5.2 4.1 L RBC 3.44 L 3.39 L Hgb 8.4 L 8.3 L Hct 29.1 L 29.3 L MCV 84.6 86.4 MCH 24.4 L 24.5 L MCHC 28.9 L 28.3 L RDW 19.1 H 19.2 H Plt Count 122 L 137 L MPV 9.6 10.4 Immature Gran % (Auto) 0.4 0.5 Neut % (Auto) 80.7 H 63.5 Lymph % (Auto) 11.6 L 25.1 [place] % (Auto) 5.2 7.0 Eos % (Auto) 1.7 3.4 Baso % (Auto) 0.4 0.5 Lymph # (Auto) 0.61 L 1.04 [place] # (Auto) 0.3 0.3 Eos # (Auto) 0.1 0.1 Baso # (Auto) 0.0 0.0 Abs Immat Gran (auto) 0.02 0.02 Absolute Neuts (auto) 4.2 2.6 Absolute Nucleated RBC 0.000 0.000 Band Neutrophils % Not Reportable Not Reportable Nucleated RBC % 0.0 0.0 Platelet Estimate Slightly decreased Slightly decreased % Immature Plt Fraction 3.2 Hypochromasia 1+ 1+ Anisocytosis 1+ 1+ Microcytosis 1+ 1+ Schistocytes None seen None seen Sodium 140 140 Potassium 2.8 L* 3.5 3.6 Chloride 100 101 Carbon Dioxide 37 H 35 H Anion Gap 3 L 4 BUN 11 14 Creatinine 0.37 L 0.43 L Estim Creat Clear Calc 122 107 Estimated GFR > 60 > 60 Glucose 117 H 76 Calcium 8.6 8.5 Total Bilirubin 0.3 0.4 AST 27 16 ALT 13 9 Alkaline Phosphatase 118 96 Total Protein 6.1 L 5.9 L Albumin 3.1 L 3.1 L Quality VTE Prophylaxis VTE prophylaxis: mechanical ordered
[2024-12-18 07:47] LABS: Iron 28 ug/dL (37-170)
[2024-12-18 07:56] LABS: Percent Iron Saturation 9 % (20-50)
[2024-12-18] MEDS: MEROPENEM 1 GM in SODIUM CHLORIDE 0.9% IV 100 ML 200 ML IVPB ×3 (07:59→23:01)
[2024-12-18] MEDS: BUPRENORPHINE HCL (*CRX) 8 MG SUBLINGUAL TABLET SUBLINGUAL ×2 (08:03→22:32)
[2024-12-18] MEDS: DOXYCYCLINE HYCLATE 100 MG TABLET PO ×2 (08:04→22:32)
[2024-12-18] MEDS: FUROSEMIDE INJ 40 MG/4 ML VIAL IV PUSH (08:04)
[2024-12-18] MEDS: PANTOPRAZOLE 40 MG TABLET PO ×2 (08:05→22:32)
[2024-12-18] MEDS: guaiFENesin 12 HR 600 MG TABCR PO ×2 (08:05→22:31)
[2024-12-18] MEDS: POTASSIUM CHLORIDE 10 MEQ ER TABLET PO (08:05)
[2024-12-18] MEDS: PHENAZOPYRIDINE HCL 100 MG TABLET PO ×3 (08:05→16:12)
[2024-12-18] MEDS: PREGABALIN (*CRX) 75 MG CAPSULE 150 MG PO ×2 (08:06→22:33)
[2024-12-18 08:28] LABS: Ferritin 44.80 ng/mL (11.1-264)
[2024-12-18] MEDS: dilTIAZem HCL CD 240 MG CAP.24HR PO (22:32)
[2024-12-18] MEDS: ESCITALOPRAM OXALATE 10 MG TABLET PO (22:33)
[2024-12-19] VITALS (7 sets, daily range): BP systolic 121–137; BP diastolic 53–65; PULSE 54–69; RESP 14–20; TEMP 36.5–36.6; O2SAT 91–96
[2024-12-19 04:51] LABS: Hematocrit 28.3 % (37.0-47.0); Hemoglobin 8.3 g/dL (12.0-15.0); Immature Granulocyte Percent A 0.5 % (0-0.5); Lymphocytes Absolute Auto 1.52 K/mm3 (0.9-3.2); Mean Corpuscular HGB Conc 29.3 g/dl (32-36); Mean Corpuscular Hemoglobin 24.7 pg (26-34); Mean Corpuscular Volume 84.2 fl (80-100); Nucleated Red Blood Cells Absolute Auto 0.000 K/mm3 (0.0-0.012); Nucleated Red Blood Cells Perc 0.0 % (0.0-0.2); Platelet Count Result 149 k/mm3 (150-375); Red Blood Count 3.36 M/mm3 (4.2-5.4); White Blood Count 4.1 K/mm3 (4.5-10.0)
[2024-12-19 05:10] LABS: Alanine Aminotransferase 8 U/L (6-35); Albumin Level 3.0 g/dL (3.5-5.1); Alkaline Phosphatase 83 U/L (38-126); Anion Gap 2 mmol/L (4-12); Aspartate Amino Transferase 14 U/L (14-36); Bilirubin,Total < 0.1 mg/dL (0.2-1.3); Blood Urea Nitrogen 12 mg/dL (7-17); Calcium 8.5 mg/dL (8.4-10.2); Carbon Dioxide 37 mmol/L (22-30); Chloride 100 mmol/L (98-107); Estimated CRCL calculation 114 ml/min; Estimated Glomerular Filt Rate > 60; Glucose 121 mg/dL (65-110); Potassium 3.4 mmol/L (3.4-5.0); Sodium 139 mmol/L (137-145); Total Protein 5.8 g/dL (6.3-8.2)
[2024-12-19 05:32] LABS: Hypochromasia 1+; Schistocytes None Seen
[2024-12-19 05:33] LABS: Anisocytosis 1+
--- NOTE | 2024-12-19 07:01 | P.PNIM_ITS ---
Progress Note: A&P Assessment and Plan (1) Catheter-associated urinary tract infection: Qualifiers: Encounter type: initial encounter Indwelling urinary catheter type: cystostomy catheter Qualified Code(s): T83.510A - Infection and inflammatory reaction due to cystostomy catheter, initial encounter; N39.0 - Urinary tract infection, site not specified Code(s): T83.511A - Infection and inflammatory reaction due to indwelling urethral catheter, initial encounter; N39.0 - Urinary tract infection, site not specified Status: Acute Assessment and Plan: -suprapubic catheter exchanged on 12/16 in the ED. Patient only utilizes when she cannot urinate naturally. -UA: Turbid, 2+ protein, 2+ blood, 2+ leuk esterase, greater than 100 RBC and WBC, occasional epithelial cells, 4+ bacteria -UCx with Proteus mirabilis/penneri, sensitivities pending -previous micro reviewed, most recently grew Pseudomonas that was resistant to ciprofloxacin and levofloxacin. -started on meropenem on 12/16 (2) CHF (congestive heart failure): Qualifiers: Heart failure chronicity: acute Heart failure type: unspecified Qualified Code(s): I50.9 - Heart failure, unspecified Code(s): I50.9 - Heart failure, unspecified Status: Acute Assessment and Plan: -acute on chronic -BNP 4580 -most recent echo (10/05/2024): Normal systolic function with an EF of 65-70%, grade 1 diastolic dysfunction, moderate to severe biatrial enlargement, valvular disease, severe pulmonary hypertension. See report for details. - repeat CXR and CTA chest with concerns for worsening edema. Resume IV lasix, monitor response. Repeat CXR in AM -monitor I&Os and daily weights -trend renal function (3) Pneumonia: Qualifiers: Laterality: left Lung location: unspecified part of lung Pneumonia type: due to unspecified organism Qualified Code(s): J18.9 - Pneumonia, unspecified organism Code(s): J18.9 - Pneumonia, unspecified organism Status: Acute Assessment and Plan: -did not meet SIRS criteria, however blood cultures were obtained on 12/16 in the ED. Follow. -CXR: Mild CHF. Superimposed infection cannot be excluded. Findings can represent pneumonia in appropriate clinical settings. Clinical correlation is recommended. Short-term follow-up chest radiograph is recommended after appropriate clinical therapy to document stability and/or resolution. -started on meropenem as she has a concurrent UTI with a history of MDR infections and doxycycline -Viral PCR negative on 12/16 -supportive care: Mucinex tony, Tessalon Perles p.r.n., DuoNeb p.r.n., Tylenol p.r.n. -12/18: improved, but having some pleuritic chest pain. D-dimer elevated. Follow- up repeat CXR and obtaining CTA chest. (4) Chronic hypoxic respiratory failure, on home oxygen therapy: Code(s): J96.11 - Chronic respiratory failure with hypoxia; Z99.81 - Dependence on supple mental oxygen Status: Acute Assessment and Plan: -per home O2 evaluation at at discharge on 10/10/2024. The patient is supposed to be on 3 L at rest and 4 L with activity. However she has only been utilizing her oxygen at night, will re-educate. - CTA chest no PE -continue supplemental oxygen to maintain O2 sat greater than 92% - weaned to 3L NC - will benefit from outpatient pulmonology follow-up (5) Chronic obstructive pulmonary disease: Qualifiers: COPD type: COPD with acute exacerbation Qualified Code(s): J44.1 - Chronic obstructive pulmonary disease with (acute) exacerbation Code(s): J44.9 - Chronic obstructive pulmonary disease, unspecified Status: Chronic Assessment and Plan: -no current evidence of exacerbation -continue home medications/inhalers (6) Hypertension: Qualifiers: Hypertension type: primary hypertension Qualified Code(s): I10 - Essential (primary) hypertension Code(s): I10 - Essential (primary) hypertension Status: Chronic Assessment and Plan: -chronic, currently 138/91 -continue home medications: Atenolol -monitor (7) Hypokalemia: Code(s): E87.6 - Hypokalemia Status: Acute Assessment and Plan: - resolved (8) Anemia: Code(s): D64.9 - Anemia, unspecified Status: Acute Assessment and Plan: - Hgb 8.3. Baseline around 10. - iron studies consistency with BEN - trend CBC Plan Diet: Heart healthy DVT Prophylaxis: SCDs Code Status: Full code Subjective Date/time seen: 12/19/24 07:01 Interval history: 54 y/o F with PMH of COPD, chronic pain syndrome, atonic bladder with chronic suprapubic Ochoa, hypertension, former smoker (cessation on 10/04/24), and MIKE presents here with a change in her urine. Patient seen and examined at bedside. Breathing feels about the same. Urinary symptoms improved. Review of Systems Review of Systems: All systems reviewed & are unremarkable except as noted in HPI and below Exam Narrative: General: NAD Eyes: EOMI ENT: neck supple Cardiovascular: Regular rate and rhythm Respiratory: Clear to auscultation, respirations even and unlabored on 3L NC Gastrointestinal: Soft, non tender Genitourinary: no suprapubic tenderness, suprapubic catheter draining clear urine Musculoskeletal: No edema Skin: warm, dry Neuro: Alert. Psych: Mood appropriate Objective Data Vital Signs Vital Signs: Vital Signs - 24 hr 12/18/24 08:00 12/18/24 08:00 12/18/24 08:02 Temperature Pulse Rate 62 63 Respiratory Rate Blood Pressure 112/51 L Pulse Oximetry 94 94 Oxygen Delivery Nasal Cannula Oxygen Flow Rate 2 12/18/24 13:45 12/18/24 13:46 12/18/24 13:47 Temperature 96.9 F L Pulse Rate 56 L Respiratory Rate 18 Blood Pressure 113/52 L Pulse Oximetry 97 90 90 Oxygen Delivery Nasal Cannula Oxygen Flow Rate 3 12/18/24 20:00 12/18/24 20:26 12/19/24 04:08 Temperature 97.8 F 97.7 F Pulse Rate 59 L 57 L Respiratory Rate 20 18 Blood Pressure 116/48 L 121/53 L Pulse Oximetry 97 97 95 Oxygen Delivery Nasal Cannula Oxygen Flow Rate 3 Intake/Output Intake/Output: Intake & Output 12/16/24 12/17/24 12/18/24 12/19/24 23:59 23:59 23:59 23:59 Intake Total 340 1070 660 390 Output Total 800 2150 1250 800 [facility] [phone] Meds/Results Medications: Active Medications Generic Name Dose Route Start Last Admin Trade Name Freq PRN Reason Stop Dose Admin Acetaminophen 650 mg 12/16/24 15:40 Acetaminophen 325 Mg Tablet PO Q4H PRN Mild Pain (1-3) or Fever Albuterol/Ipratropium 3 ml 12/16/24 18:32 Ipratropium 0.5 Mg/Albuterol Sulfate 2.5 Mg Ampul.Neb 3 Ml INHALATION Q6HRT PRN Shortness Of Breath Or Wheezing Atenolol 25 mg 12/17/24 09:00 12/18/24 08:00 Atenolol 25 Mg Tablet PO 25 mg DAILY TONY Administration Benzonatate 100 mg 12/16/24 18:28 12/17/24 08:54 Benzonatate 100 Mg Capsule PO 100 mg TID PRN Administration Cough Buprenorphine HCl 8 mg 12/18/24 09:00 12/18/24 22:32 Buprenorphine Hcl (*Crx) 8 Mg Sublingual Tablet SUBLINGUAL 8 mg Q12HR TONY Administration Diltiazem HCl 240 mg 12/16/24 21:00 12/18/24 22:32 Diltiazem Hcl Cd 240 Mg Cap.24hr PO 240 mg HS TONY Administration Doxycycline Hyclate 100 mg 12/16/24 21:00 12/18/24 22:32 Doxycycline Hyclate 100 Mg Tablet PO 12/23/24 20:59 100 mg Q12HR TONY Administration Enoxaparin Sodium 40 mg 12/19/24 09:00 Enoxaparin 40 Mg/0.4 Ml Syringe SUB-Q DAILY TONY Escitalopram Oxalate 10 mg 12/16/24 21:00 12/18/24 22:33 Escitalopram Oxalate 10 Mg Tablet PO 10 mg HS TONY Administration Ferrous Sulfate 325 mg 12/19/24 09:00 Ferrous Sulfate 325 Mg Tablet PO DAILY TONY Furosemide 40 mg 12/19/24 09:00 Furosemide 40 Mg Tablet PO DAILY TONY Guaifenesin 600 mg 12/16/24 21:00 12/18/24 22:31 Guaifenesin 12 Hr 600 Mg Tabcr PO 600 mg Q12HR TONY Administration Meropenem 1 gm/ Sodium 100 mls @ 200 mls/hr 12/17/24 00:00 12/18/24 23:36 Chloride IVPB Infused Q8H TONY Infusion Ibuprofen 800 mg 12/16/24 18:56 Ibuprofen 400 Mg Tablet PO TID PRN Pain Rated 4-6 Ondansetron HCl 4 mg 12/16/24 15:40 Ondansetron Inj 4 Mg/2 Ml Vial IV PUSH Q4H PRN Nausea Oxybutynin Chloride 5 mg 12/17/24 09:00 12/18/24 16:12 Oxybutynin Chloride 5 Mg Tablet PO 5 mg TID TONY Administration Pantoprazole Sodium 40 mg 12/16/24 21:00 12/18/24 22:32 Pantoprazole 40 Mg Tablet PO 40 mg Q12HR TONY Administration Phenazopyridine HCl 100 mg 12/17/24 09:00 12/18/24 16:12 Phenazopyridine Hcl 100 Mg Tablet PO 100 mg TID TONY Administration Potassium Chloride 10 meq 12/17/24 09:00 12/18/24 08:05 Potassium Chloride 10 Meq Er Tablet PO 10 meq DAILY TONY Administration Pregabalin 150 mg 12/16/24 21:00 12/18/24 22:33 Pregabalin (*Crx) 75 Mg Capsule PO 150 mg Q12HR TONY Administration Trazodone HCl 150 mg 12/16/24 21:00 12/18/24 22:33 Trazodone Hcl 50 Mg Tablet PO 150 mg HS TONY Administration Labs Labs: Laboratory Results - last 24 hr 12/18/24 12/18/24 12/19/24 04:24 09:35 04:33 WBC 4.1 L RBC 3.36 L Hgb 8.3 L Hct 28.3 L MCV 84.2 MCH 24.7 L MCHC 29.3 L RDW 18.7 H Plt Count 149 L MPV 9.7 Immature Gran % (Auto) 0.5 Neut % (Auto) 49.6 Lymph % (Auto) 37.0 [place] % (Auto) 8.3 Eos % (Auto) 4.1 Baso % (Auto) 0.5 Lymph # (Auto) 1.52 [place] # (Auto) 0.3 Eos # (Auto) 0.2 Baso # (Auto) 0.0 Abs Immat Gran (auto) 0.02 Absolute Neuts (auto) 2.0 Absolute Nucleated RBC 0.000 Band Neutrophils % Not Reportable Nucleated RBC % 0.0 Platelet Estimate Adequate Hypochromasia 1+ Anisocytosis 1+ Schistocytes None seen D-Dimer 1.36 H Sodium 139 Potassium 3.4 Chloride 100 Carbon Dioxide 37 H Anion Gap 2 L BUN 12 Creatinine 0.40 L Estim Creat Clear Calc 114 Estimated GFR > 60 Glucose 121 H Calcium 8.5 Iron 28 L TIBC 322 % Saturation 9 L Ferritin 44.80 Total Bilirubin < 0.1 L AST 14 ALT 8 Alkaline Phosphatase 83 Total Protein 5.8 L Albumin 3.0 L Quality VTE Prophylaxis VTE prophylaxis: mechanical ordered
[2024-12-19] MEDS: MEROPENEM 1 GM in SODIUM CHLORIDE 0.9% IV 100 ML 200 ML IVPB ×3 (09:11→23:35)
[2024-12-19] MEDS: BUPRENORPHINE HCL (*CRX) 8 MG SUBLINGUAL TABLET SUBLINGUAL ×2 (09:13→21:27)
[2024-12-19] MEDS: DOXYCYCLINE HYCLATE 100 MG TABLET PO ×2 (09:13→21:27)
[2024-12-19] MEDS: guaiFENesin 12 HR 600 MG TABCR PO ×2 (09:14→21:28)
[2024-12-19] MEDS: ENOXAPARIN 40 MG/0.4 ML SYRINGE SUB-Q (09:14)
[2024-12-19] MEDS: PANTOPRAZOLE 40 MG TABLET PO ×2 (09:14→21:29)
[2024-12-19] MEDS: FUROSEMIDE 40 MG TABLET PO (09:14)
[2024-12-19] MEDS: PHENAZOPYRIDINE HCL 100 MG TABLET PO ×3 (09:15→16:36)
[2024-12-19] MEDS: PREGABALIN (*CRX) 75 MG CAPSULE 150 MG PO ×2 (09:15→21:29)
[2024-12-19] MEDS: POTASSIUM CHLORIDE 10 MEQ ER TABLET PO (09:15)
[2024-12-19 11:24] LABS: NT Pro B Type Natriuretic Pept 121 pg/mL (19.9-100)
[2024-12-19 11:30] LABS: Procalcitonin 0.3 ng/mL
[2024-12-19] MEDS: FERROUS SULFATE 325 MG TABLET PO (12:14)
[2024-12-19] MEDS: FUROSEMIDE INJ 40 MG/4 ML VIAL IV PUSH (16:35)
[2024-12-19] MEDS: dilTIAZem HCL CD 240 MG CAP.24HR PO (21:27)
[2024-12-19] MEDS: ESCITALOPRAM OXALATE 10 MG TABLET PO (21:28)
[2024-12-19] MEDS: ACETAMINOPHEN 325 MG TABLET 650 MG PO (21:33)
[2024-12-20 04:40] VITALS: BP 119/57; PULSE 58; RESP 18; TEMP 36.4; O2SAT 90
[2024-12-20 05:09] LABS: Hematocrit 29.7 % (37.0-47.0); Hemoglobin 8.8 g/dL (12.0-15.0); Immature Granulocyte Percent A 0.0 % (0-0.5); Lymphocytes Absolute Auto 1.09 K/mm3 (0.9-3.2); Mean Corpuscular HGB Conc 29.6 g/dl (32-36); Mean Corpuscular Hemoglobin 24.6 pg (26-34); Mean Corpuscular Volume 83.0 fl (80-100); Nucleated Red Blood Cells Absolute Auto 0.000 K/mm3 (0.0-0.012); Nucleated Red Blood Cells Perc 0.0 % (0.0-0.2); Platelet Count Result 135 k/mm3 (150-375); Red Blood Count 3.58 M/mm3 (4.2-5.4); White Blood Count 3.1 K/mm3 (4.5-10.0)
[2024-12-20] MEDS: BACITRACIN OINTMENT 15 GM TUBE 1 APPLIC TOPICAL (05:24)
[2024-12-20 05:36] LABS: Magnesium 1.5 mg/dL (1.6-2.3)
[2024-12-20 05:39] LABS: Alanine Aminotransferase 9 U/L (6-35); Albumin Level 3.3 g/dL (3.5-5.1); Alkaline Phosphatase 85 U/L (38-126); Aspartate Amino Transferase 17 U/L (14-36); Bilirubin,Total 0.2 mg/dL (0.2-1.3); Blood Urea Nitrogen 13 mg/dL (7-17); Calcium 8.7 mg/dL (8.4-10.2); Chloride 97 mmol/L (98-107); Estimated CRCL calculation 101 ml/min; Estimated Glomerular Filt Rate > 60; Glucose 123 mg/dL (65-110); Potassium 3.4 mmol/L (3.4-5.0); Sodium 141 mmol/L (137-145); Total Protein 6.3 g/dL (6.3-8.2)
[2024-12-20 05:50] LABS: Anion Gap 5 mmol/L (4-12); Carbon Dioxide 39 mmol/L (22-30)
[2024-12-20 06:26] LABS: Anisocytosis 1+; Hypochromasia 1+; Schistocytes None Seen
[2024-12-20 08:52] VITALS: BP 146/64; PULSE 70; RESP 16; TEMP 36.7; O2SAT 91
[2024-12-20] MEDS: MAGNESIUM SULF 2 GM/WATER 50ML 2 GM/50 ML BAG IVPB (08:55)
[2024-12-20] MEDS: ENOXAPARIN 40 MG/0.4 ML SYRINGE SUB-Q (08:59)
[2024-12-20 09:00] VITALS: PULSE 91
[2024-12-20] MEDS: BUPRENORPHINE HCL (*CRX) 8 MG SUBLINGUAL TABLET SUBLINGUAL (09:00)
[2024-12-20 09:01] VITALS: PULSE 91; RESP 16; O2SAT 91
[2024-12-20] MEDS: guaiFENesin 12 HR 600 MG TABCR PO (09:01)
[2024-12-20] MEDS: FUROSEMIDE INJ 40 MG/4 ML VIAL IV PUSH (09:01)
[2024-12-20] MEDS: DOXYCYCLINE HYCLATE 100 MG TABLET PO (09:01)
[2024-12-20] MEDS: PHENAZOPYRIDINE HCL 100 MG TABLET PO (09:02)
[2024-12-20] MEDS: PANTOPRAZOLE 40 MG TABLET PO (09:02)
[2024-12-20] MEDS: POTASSIUM CHLORIDE 10 MEQ ER TABLET PO (09:03)
[2024-12-20] MEDS: PREGABALIN (*CRX) 75 MG CAPSULE 150 MG PO (09:03)
[2024-12-20] MEDS: MEROPENEM 1 GM in SODIUM CHLORIDE 0.9% IV 100 ML 200 ML IVPB (09:15)
[2024-12-20 10:32] VITALS: BP 125/61; PULSE 61; RESP 17; TEMP 36.6; O2SAT 92
[2024-12-20 10:40] VITALS: PULSE 61; RESP 17; O2SAT 92
--- NOTE | 2024-12-20 11:28 | P.DS_ITS ---
DS: Admitting Diagnosis Discharge Date 12/20/24 Admitting Diagnosis - CAUTI - acute on chronic HFpEF - pneumonia DS: Discharge Diagnosis Discharge Diagnosis (1) Catheter-associated urinary tract infection: Qualifiers: Indwelling urinary catheter type: cystostomy catheter Encounter type: initial encounter Qualified Code(s): T83.510A - Infection and inflammatory reaction due to cystostomy catheter, initial encounter; N39.0 - Urinary tract infection, site not specified Code(s): T83.511A - Infection and inflammatory reaction due to indwelling urethral catheter, initial encounter; N39.0 - Urinary tract infection, site not specified Status: Acute (2) CHF (congestive heart failure): Qualifiers: Heart failure chronicity: acute Heart failure type: unspecified Qualified Code(s): I50.9 - Heart failure, unspecified Code(s): I50.9 - Heart failure, unspecified Status: Acute (3) Pneumonia: Qualifiers: Laterality: left Lung location: unspecified part of lung Pneumonia type: due to unspecified organism Qualified Code(s): J18.9 - Pneumonia, unspecified organism Code(s): J18.9 - Pneumonia, unspecified organism Status: Acute (4) Chronic hypoxic respiratory failure, on home oxygen therapy: Code(s): J96.11 - Chronic respiratory failure with hypoxia; Z99.81 - Dependence on supplemental oxygen Status: Acute (5) Chronic obstructive pulmonary disease: Qualifiers: COPD type: COPD with acute exacerbation Qualified Code(s): J44.1 - Chronic obstructive pulmonary disease with (acute) exacerbation Code(s): J44.9 - Chronic obstructive pulmonary disease, unspecified Status: Chronic (6) Hypertension: Qualifiers: Hypertension type: primary hypertension Qualified Code(s): I10 - Essential (primary) hypertension Code(s): I10 - Essential (primary) hypertension Status: Chronic (7) Hypokalemia: Code(s): E87.6 - Hypokalemia Status: Acute (8) Anemia: Code(s): D64.9 - Anemia, unspecified Status: Acute DS: Summary Hospital Course Reason for hospitalization: - CAUTI - acute on chronic HFpEF - pneumonia Hospital Course: 54 y/o F with PMH of COPD, chronic pain syndrome, atonic bladder with chronic suprapubic Ochoa, hypertension, former smoker (cessation on 10/04/24), and MIKE presents here with a change in her urine. Initial VS at presentation: 98.3? F, HR 91, R 18, 157/85, and 83% on room air. Improved to 98% on 4 L nasal cannula. ED workup showed: No leukocytosis, hemoglobin 9.6 (10.6 on 10/15), potassium 3.1, creatinine 0.38 and normal GFR, glucose 138, lactic 0.6, initial troponin 0.013, BNP 4580, and UA suggestive of UTI. Viral PCR negative. CXR showed mild CHF, superimposed infection cannot be excluded. Started on Merrem and doxycycline for UTI and possible pneumonia. Also started on IV diuresis. Patient was admitted for further evaluation and management. Urine culture grew Proteus mirabilis/penneri, sensitive to Levaquin. She was transitioned to Levaquin to complete a 7 day course. Urinary symptoms improved on discharge. Suprapubic catheter was exchanged in the ER and patient has her catheter exchanged monthly with urology. In regards to respiratory symptoms, symptoms greatly improved with IV diuresis and IV antibiotics. Echocardiogram 09/2024 reviewed which showed EF of 65%, grade 1 diastolic dysfunction and severe pulmonary hypertension. Patient was able to wean to 2 L nasal cannula. Repeat CXR on day of discharge showed improving infiltrates. She was transitioned back to p.o. Lasix and home dose was increased. Per documentation from last admission, patient is supposed to be on 3 L nasal cannula at all times, but currently only wearing at night. Patient received education regarding wearing oxygen continuously. She will monitor her O2 saturations at home. She was encouraged to follow up with Cardiology and established with pulmonology. Did report that she quit smoking 3 months ago. Ordered repeat BMP and mag to be obtained in 7 days. Patient also noted to be anemic with hemoglobin 8.3, stable. She denied symptoms of bleeding. Iron studies were consistent with iron deficiency anemia. She was started on iron supplement. She reports recent colonoscopy was negative for acute process. Ordered repeat CBC to be obtained in 7 days and encouraged outpatient follow-up with PCP. Patient was discharged home in stable condition. Status at Discharge Functional status at discharge: wheelchair bound Time Spent with Patient Time attestation: Total time spent providing and/or coordinating discharge services: Exam Narrative: General: NAD Eyes: EOMI ENT: neck supple Cardiovascular: Regular rate and rhythm Respiratory: Clear to auscultation, respirations even and unlabored on 2L NC Gastrointestinal: Soft, non tender Genitourinary: no suprapubic tenderness, suprapubic catheter draining clear urine Musculoskeletal: No edema Skin: warm, dry Neuro: Alert. Psych: Mood appropriate DS: Data Data Completed and Pending Completed studies during hospitalization: ITS Impressions Chest X-Ray 12/16/24 12:52 IMPRESSION: Mild CHF. Superimposed infection cannot be excluded. Findings can represent pneumonia in appropriate clinical settings. Clinical correlation is recommended. Short-term follow-up chest radiograph is recommended after appropriate clinical therapy to document stability and/or resolution. Chest X-Ray 12/19/24 08:05 IMPRESSION: 1. Worsening pulmonary edema throughout both lungs superimposed over persistent airspace opacities which could represent atelectasis, pneumonia or combination thereof. 2. Incompletely visualized instrumented lumbar posterior spinal fusion with likely loosening of left L1 pedicle screw. Chest CTA 12/19/24 08:19 IMPRESSION: 1. No pulmonary embolism. 2. Interval increase in scattered opacities throughout both lungs which appear to represent a combination of worsening pneumonia and atelectasis potentially with additional mild pulmonary edema. 3. Small bilateral pleural effusions. 4. Mild cardiomegaly with enlargement of the central pulmonary arteries consistent with pulmonary arterial hypertension. 5. Unchanged mediastinal and bilateral hilar lymphadenopathy which is most likely reactive. 6. Incompletely visualized instrumented lumbar posterior spinal fusion with chronic loosening of the left L1 pedicle screw. Chest X-Ray 12/20/24 08:27 IMPRESSION: 1. Interval decrease in patchy airspace opacities in the bilateral mid to lower lungs consistent with likely improving pneumonia with persistent mild increased initial pattern more suggestive of mild pulmonary edema and discoid atelect asis/scarring. 2. Cardiomegaly. Labs on day of discharge: Labs from last 24 hours 12/20/24 12/20/24 12/19/24 04:38 04:37 04:31 WBC 3.1 L RBC 3.58 L Hgb 8.8 L Hct 29.7 L MCV 83.0 MCH 24.6 L MCHC 29.6 L RDW 18.0 H Plt Count 135 L MPV 9.5 Immature Gran % (Auto) 0.0 Neut % (Auto) 51.5 Lymph % (Auto) 35.0 [place] % (Auto) 8.0 Eos % (Auto) 4.5 H Baso % (Auto) 1.0 Lymph # (Auto) 1.09 [place] # (Auto) 0.3 Eos # (Auto) 0.1 Baso # (Auto) 0.0 Abs Immat Gran (auto) 0.00 Absolute Neuts (auto) 1.6 Absolute Nucleated RBC 0.000 Band Neutrophils % Not Reportable Nucleated RBC % 0.0 Platelet Estimate Decreased Hypochromasia 1+ Anisocytosis 1+ Schistocytes None seen Sodium 141 Potassium 3.4 Chloride 97 L Carbon Dioxide 39 H Anion Gap 5 BUN 13 Creatinine 0.46 L Estim Creat Clear Calc 101 Estimated GFR > 60 Glucose 123 H Calcium 8.7 Magnesium 1.5 L Total Bilirubin 0.2 AST 17 ALT 9 Alkaline Phosphatase 85 Total Protein 6.3 Albumin 3.3 L Procalcitonin 0.3 Preliminary micro results at discharge 12/16/24 15:38 Blood Culture - Preliminary Blood 12/16/24 15:59 Blood Culture - Preliminary Blood Discharge Plan Discharge Attending physician on discharge: Linda Healy Consulting providers: Titi Jane; Ángela Mejia Discharging Clinician: Ángela Mejia Anticipated Discharge Date/Time: 12/20/24 11:30 Patient Disposition: Home Activity: as tolerated Diet: as tolerated Discharge Instructions: Take all medications as prescribed. Finish antibiotics if prescribed, even if you are feeling better. obtain a pulse oximeter and monitor your O2 saturations. Your goal oxygen saturation is 90% or above. Follow-up with your primary care provider in one week.Have your lab work repeated in 5-7 days before seeing your primary care provider. You have been started iron. Follow-up with your primary care about your anemia. Please note your lasix has been increased due to concerns for fluid on the lungs. You may not need to stay on the increased dose of lasix long chain quiller tender. Discuss this with your primary care doctor and personnel coordinator at the follow-up appointments. Follow-up with your personnel coordinator within one month Re-establish with a director emergency services (lung doctor). Your magnesium level was low so you have been started on a magnesium supplement. Return to the emergency department if you develop chest pain, shortness of breath, persistent fever >100.4, confusion, loss of consciousness. Patient Instructions: Antibiotic Form Patient Language: Macanese Stand Alone Forms: General Discharge Information Follow-up/Referrals: Aspen,MD Preet [Primary Care Provider, Unknown] - Call for Appointment Referral Note: Follow-up in 1 week. Robyn Zamora MD [Physician, Pulmonology] - Call for Appointment Referral Note: COPD, respiratory failure, pulmonary hypertension Discharge Medications: New ferrous sulfate 325 mg (65 mg iron) Tablet,Delayed Release (Dr/Ec) 325 mg PO DAILY Qty: 30 0RF levofloxacin 750 mg tablet 750 mg PO DAILY Qty: 3 0RF magnesium oxide 400 mg magnesium capsule 400 mg PO DAILY Qty: 30 0RF Continued trazodone 150 mg tablet 150 mg PO HS albuterol sulfate 2.5 mg /3 mL (0.083 %) solution for nebulization 2.5 mg inhalation Q6H PRN (Reason: Wheezing) diltiazem HCl 240 mg capsule,ext.rel 24h degradable 240 mg PO HS esomeprazole magnesium 40 mg capsule,delayed release(DR/EC) 40 mg PO Q12H buprenorphine-naloxone [Suboxone] 8-2 mg film 1 film sublingual Q12H oxybutynin chloride 5 mg Tablet 5 mg PO TID Qty: 90 0RF escitalopram oxalate 10 mg Tablet 10 mg PO HS biotin 800 mcg Tablet 800 mcg PO DAILY ibuprofen 800 mg Tablet 800 mg PO TID PRN (Reason: Pain) phenazopyridine [Azo Urinary Pain Relief] 95 mg Tablet 95 mg PO TID dextroamphetamine-amphetamine 20 mg capsule,extended release 24hr 20 mg PO DAILY albuterol sulfate 90 mcg/actuation HFA aerosol inhaler 2 puff INHALATION Q6H PRN (Reason: shortness of breath or wheezing) guaifenesin [Mucus Relief ER] 600 mg Tablet Extended Release 12hr 600 mg PO Q12HR Qty: 30 0RF atenolol 25 mg Tablet 25 mg PO DAILY Qty: 30 0RF pregabalin [Lyrica] 75 mg Capsule 150 mg PO Q12HR Qty: 60 0RF Changed furosemide 40 mg tablet 40 mg PO BID 30 Days Qty: 30 0RF potassium chloride 10 mEq tablet extended release 10 meq PO BID 30 Days Qty: 60 0RF Discontinued potassium chloride [Klor-Con 10] 10 mEq tablet extended release 10 meq PO DAILY Qty: 30 0RF Other Ambulatory Orders: Basic Metabolic Panel (Routine) Timeframe: 5 Days Location: Determined by Patient Ordered By: Ángela Mejia Complete Blood Count with Diff (Routine) Timeframe: 5 Days Location: Determined by Patient Ordered By: Ángela Mejia Magnesium (Routine) Timeframe: 5 Days Location: Determined by Patient Ordered By: Ángela Mejia Date of admission: 12/18/24 12:16 Primary Care Provider: AspenPreet Admitting Provider: Chilo Payton Attending physician on admission: Chilo Payton Condition: Stable
--- NOTE | 2024-12-20 12:54 | PC.NURSE ---
On 12/20/24, the student, [Joselin Marrufo], provided care and completed [facility] documentation on this patient. I have reviewed the student's documentation and agree with the findings.
== END 2024-12-20 13:12 | disposition home or self-care (01) | DRG 698 ==
LOC: ANHED 15:42 → ANH2MED 16:33
PROVIDERS: Physician Assistant; Admitting Provider Internal Medicine; Emergency Provider Emergency Medicine; PCP Hospitalist; Visit Provider Physician Assistant
DX: T83.510A Infection and inflammatory reaction due to cystostomy catheter, initial encounter (principal); I50.33 Acute on chronic diastolic (congestive) heart failure; J18.9 Pneumonia, unspecified organism; J96.11 Chronic respiratory failure with hypoxia; N39.0 Urinary tract infection, site not specified; B96.4 Proteus (mirabilis) (morganii) as the cause of diseases classified elsewhere; J44.9 Chronic obstructive pulmonary disease, unspecified; I11.0 Hypertensive heart disease with heart failure; D50.9 Iron deficiency anemia, unspecified; E87.6 Hypokalemia; K21.9 Gastro-esophageal reflux disease without esophagitis; G47.33 Obstructive sleep apnea (adult) (pediatric); G89.4 Chronic pain syndrome; N31.2 Flaccid neuropathic bladder, not elsewhere classified; Z99.81 Dependence on supplemental oxygen; Z90.49 Acquired absence of other specified parts of digestive tract; Z90.710 Acquired absence of both cervix and uterus; Z87.891 Personal history of nicotine dependence
CPT/HCPCS: 36415; 51702; 71045; 71275; 80053; 81001; 82728; 83540; 83550; 83605; 83690; 83735; 83880; 84132; 84145; 84484; 85025; 85055; 85380; 87040; 87086; 87186; 87637; 93005; 96365; 96374; 96375; 99285; A9270; G0378; J0571; J1650; J1938; J2185; J3475; J3480; J7040; Q9967